=== PATIENT | female | born 1960 | race Caucasian/White ===

== ENCOUNTER 2017-10-18 13:51 | Emergency (ER) | payer OTHER ==
[~2017-10-18] VITALS: Ht 175.3 cm; Wt 111.5 kg
[2017-10-18 13:59] VITALS: TEMP 36.9; Ht 175.3 cm; Wt 111.5 kg
[2017-10-18 14:13] VITALS: O2SAT 93
[2017-10-18] MEDS ORDERED: SODIUM CHLORIDE 0.9% 1000ML 500 ML IV ONE (14:18)
[2017-10-18] MEDS ORDERED: ONDANSETRON INJ 2 MG/ML 2 ML VIAL IV STA (14:19)
[2017-10-18] MEDS ORDERED: SNQ/25 PO (14:20)
[2017-10-18] MEDS ORDERED: MULT-506 PO (14:20)
[2017-10-18] MEDS ORDERED: CHOL2000 PO (14:20)
[2017-10-18] MEDS ORDERED: PRAZ2CAP3 PO (14:20)
[2017-10-18] MEDS ORDERED: CLX20 PO (14:20)
[2017-10-18] MEDS ORDERED: MELO15TA4 PO (14:20)
[2017-10-18 14:39] LABS: BASO % 0.1 %; BASO ABS # 0.02 K/uL (0-0.2); EOS % 0.7 %; EOS ABS # 0.09 K/uL (0-0.5); HEMOGLOBIN 16.9 g/dL (12.0-16.0); IG# 0.04 K/uL (0.00-0.02); LYMPH % 16.9 %; LYMPH ABS # 2.26 K/uL (1.2-3.4); MEAN CORPUSCULAR HEMOGLOBIN 32.4 pg (25-34); MEAN PLATELET VOLUME 11.4 fL (7.4-10.4); MONO % 5.7 %; MONO ABS # 0.76 K/uL (0.11-0.59); NEUT % 76.3 %; NEUT ABS # 10.24 K/uL (1.4-6.5); PLATELET COUNT 184 K/uL (130-400); RED CELL DISTRIBUTION WIDTH SD 39.7 fL (36.4-46.3); WHITE BLOOD COUNT 13.41 K/uL (4.8-10.8)
--- NOTE | 2017-10-18 14:43 | EMERGENCY ROOM VISIT NOTE ---
History Report prepared by Jona: Sanchez Jarrell Under the Supervision of: Av PerryO. First contact with patient: 14:11 Chief Complaint: FLU LIKE SX Stated Complaint: FEVER, CHILLS, SOB, PAIN AROUND HEART, PAIN IN JAW History of Present Illness The patient is a 57 year old female who presents to the Emergency Room with complaints of worsening nausea beginning two days ago. The patient states she developed nausea two nights ago and has been in bed since. She reports she is also experiencing hot and cold spells. The patient notes she developed left sided chest pain and shortness of breath earlier. She states she had an episode of blurred vision, but it has resolved. The patient reports exertion worsens her symptoms. She notes she last took Tylenol 5 hours ago. The patient states she has a history of depression. She denies pain in her legs, swelling in her legs, abdominal pain, receiving her flu shot, a history of a blood clot in her legs or lungs, runny nose, and sorethroat. Source of History: patient Onset: 2 days ago Position: other (global) Quality: other (nausea) Timing: worsening Modifying Factors (Worsening): exertion Associated Symptoms: + chest pain, + SOB, No sorethroat, No abdominal pain Note: Associated symptoms: hot and cold spells, resolved episode of blurred vision Denies: pain in her legs, swelling in her legs, runny nose Review of Systems See HPI for pertinent positives & negatives. A total of 10 systems reviewed and were otherwise negative. Past Medical & Surgical Medical Problems: (1) Depression Family History Patient reports no known family medical history. Social History Smoking Status: Current Every Day Smoker Marital Status: single Occupation Status: retired Current/Historical Medications Scheduled Albuterol Hfa (Ventolin Hfa), 1 PUFF INH Q6 Cholecalciferol (Vitamin D3), 2,000 INTER.UNIT PO DAILY Citalopram (Citalopram Hydrobromide), 20 MG PO HS Doxepin (Sinequan), 25 MG PO HS Levofloxacin (Levaquin), 750 MG PO DAILY Meloxicam (Meloxicam), 15 MG PO HS Multivitamin (Multivitamin), 1 TAB PO DAILY Prazosin Hcl (Prazosin), 2 MG PO HS Allergies Coded Allergies: Sulfa Antibiotics (Verified Allergy, Unknown, UNKNOWN, 10/18/17) Morphine and Related (Verified Adverse Reaction, Unknown, PT CAN'T TAKE NARCOTICS, 10/18/17) Physical Exam Vital Signs Date Time Temp Pulse Resp B/P (MAP) Pulse Ox O2 Delivery O2 Flow Rate FiO2 10/18/17 16:27 124/75 10/18/17 16:00 139 98 10/18/17 15:30 88 19 115/71 92 10/18/17 15:16 104/69 10/18/17 15:04 98 16 120/80 92 Room Air 10/18/17 15:00 98 21 120/80 89 10/18/17 14:18 114 10/18/17 14:13 93 Room Air 10/18/17 13:59 36.9 133 18 102/66 94 Room Air Physical Exam GENERAL: Patient is awake, alert, and in no acute distress. Patient is resting comfortably and showing no signs of anxiety EYES: The conjunctivae are clear. The pupils are round and reactive. EARS, NOSE, MOUTH AND THROAT: The nose is without any evidence of any deformity. Mucous membranes are moist tongue is midline NECK: The neck is nontender and supple. RESPIRATORY: Right lung field is diminished with scattered rhonchi. No tachypnea or conversation dyspnea. CARDIOVASCULAR: Tachycardic rate and regular rhythm noted there no definite murmur to auscultation. normal S1 normal S2 GASTROINTESTINAL: The abdomen is soft. Bowel sounds are present in all quadrants. Abdomen is nontender PELVIS: The Pelvis is stable. No tenderness to palpation is noted. BACK: No midline tenderness or or step-off noted range of motion in flexion extension as well as rotation no signs of muscle spasm noted MUSCULOSKELETAL/EXTREMITIES: There is no evidence of gross deformity full range of motion is noted in the hips and shoulders SKIN: There is no obvious evidence of any rash. There are no petechiae, pallor or cyanosis noted. NEUROLOGIC: Patient is awake alert and oriented x3 Medical Decision & Procedures ER Provider Diagnostic Interpretation: Radiology results as stated below per my review and radiologist interpretation: CHEST ONE VIEW PORTABLE HISTORY: 57 years-old Female Sepsis acute sepsis COMPARISON: None available TECHNIQUE: Portable AP view of the chest FINDINGS: Cardiomediastinal and hilar silhouettes are within normal limits. There is no pneumothorax or pleural effusion. Hazy subsegmental left basilar opacities are noted. Bones of the chest appear grossly intact. IMPRESSION: No acute process identified. Ill-defined hazy subsegmental left basilar opacities suggest atelectasis . The above report was generated using voice recognition software. It may contain grammatical, syntax or spelling errors. Electronically signed by: José Wang M.D. 10/18/2017 3:04 PM Dictated Date/Time: 10/18/2017 2:32 PM (CHEST FOR PE) ANGIO WITH CT DOSE: 607.51 mGy.cm HISTORY: 57 years-old Female presents with acute atypical chest pain TECHNIQUE: Multiple CTA images of the chest were obtained after the intravenous administration of 92 ml Optiray 320. Coronal and sagittal MIPS were obtained from the axial data set and were submitted for review. A dose lowering technique was utilized adhering to the principles of ALARA. COMPARISON: Chest radiograph of same day. FINDINGS: CTA: Heart is normal in size without pericardial effusion. Mild coronary arterial disease. Thoracic aorta is normal in both course and caliber without aneurysm or dissection. The imaged great vessels appear patent. Mild atherosclerosis of the thoracic aorta. The pulmonary arterial tree is opacified to level of the subsegmental branches and demonstrates no focal filling defects to suggest pulmonary thromboembolic disease. CT CHEST: No focal thyroid nodule identified. Mildly prominent right hilar lymph nodes measure up to 7 mm, nonspecific. No pathologically enlarged lymph nodes by CT size criteria. There is no pleural effusion or pneumothorax identified.. Mild paraseptal emphysematous changes are seen within the upper lung zones. There is mild to moderate bilateral bronchial wall thickening. Linear subsegmental consolidative and patchy groundglass opacities are present within the lung bases. There are no suspicious pulmonary nodules or pulmonary masses identified. Central airways are patent. Hepatic steatosis. Spleen is enlarged, 13.5 cm. Soft tissues are unremarkable. The bones appear intact. IMPRESSION: 1. No acute aortic pathology or evidence of pulmonary thromboembolic disease. 2. Mild to moderate bilateral bronchial wall thickening compatible with bronchitis. 3. Subsegmental linear consolidative and patchy ground glass opacities of the lung bases suggest atelectasis. 4. Mild paraseptal emphysematous changes of the upper lung zones. 5. Hepatic steatosis. 6. Splenomegaly. The above report was generated using voice recognition software. It may contain grammatical, syntax or spelling errors. Electronically signed by: José Wang M.D. 10/18/2017 4:24 PM Dictated Date/Time: 10/18/2017 4:16 PM Laboratory Results 10/18/17 14:14 Red Blood Count 5.22, Mean Corpuscular Volume 90.0, Mean Corpuscular Hemoglobin 32.4, Mean Corpuscular Hemoglobin Concent 36.0, Mean Platelet Volume 11.4, Neutrophils (%) (Auto) 76.3, Lymphocytes (%) (Auto) 16.9, Monocytes (%) (Auto) 5.7, Eosinophils (%) (Auto) 0.7, Basophils (%) (Auto) 0.1, Neutrophils # (Auto) 10.24, Lymphocytes # (Auto) 2.26, Monocytes # (Auto) 0.76, Eosinophils # (Auto) 0.09, Basophils # (Auto) 0.02 10/18/17 14:14 Test 10/18/17 14:11 10/18/17 14:14 10/18/17 14:22 10/18/17 14:58 Influenza Type A Antigen Neg for Influ A (NEG) Influenza Type B Antigen Neg for Influ B (NEG) White Blood Count 13.41 K/uL (4.8-10.8) Red Blood Count 5.22 M/uL (4.2-5.4) Hemoglobin 16.9 g/dL (12.0-16.0) Hematocrit 47.0 % (37-47) Mean Corpuscular Volume 90.0 fL (80-100) Mean Corpuscular Hemoglobin 32.4 pg (25-34) Mean Corpuscular Hemoglobin Concent 36.0 g/dl (32-36) Platelet Count 184 K/uL (130-400) Mean Platelet Volume 11.4 fL (7.4-10.4) Neutrophils (%) (Auto) 76.3 % Lymphocytes (%) (Auto) 16.9 % Monocytes (%) (Auto) 5.7 % Eosinophils (%) (Auto) 0.7 % Basophils (%) (Auto) 0.1 % Neutrophils # (Auto) 10.24 K/uL (1.4-6.5) Lymphocytes # (Auto) 2.26 K/uL (1.2-3.4) Monocytes # (Auto) 0.76 K/uL (0.11-0.59) Eosinophils # (Auto) 0.09 K/uL (0-0.5) Basophils # (Auto) 0.02 K/uL (0-0.2) RDW Standard Deviation 39.7 fL (36.4-46.3) RDW Coefficient of Variation 12.0 % (11.5-14.5) Immature Granulocyte % (Auto) 0.3 % Immature Granulocyte # (Auto) 0.04 K/uL (0.00-0.02) Prothrombin Time 10.7 SECONDS (9.0-12.0) Prothromb Time International Ratio 1.0 (0.9-1.1) Activated Partial Thromboplast Time 29.2 SECONDS (21.0-31.0) Partial Thromboplastin Ratio 1.1 Anion Gap 7.0 mmol/L (3-11) Est Creatinine Clear Calc Drug Dose 76.8 ml/min Estimated GFR () 67.3 Estimated GFR (Non- 58.1 BUN/Creatinine Ratio 16.2 (10-20) Calcium Level 8.6 mg/dl (8.5-10.1) Phosphorus Level 2.7 mg/dl (2.5-4.9) Magnesium Level 1.7 mg/dl (1.8-2.4) Total Bilirubin 0.3 mg/dl (0.2-1) Aspartate Amino Transf (AST/SGOT) 51 U/L (15-37) Alanine Aminotransferase (ALT/SGPT) 66 U/L (12-78) Alkaline Phosphatase 157 U/L (45-117) Total Creatine Kinase 36 U/L (26-192) Creatine Kinase MB 0.7 ng/ml (0.5-3.6) Creatine Kinase MB Ratio 1.9 (0-3.0) Troponin I < 0.015 ng/ml (0-0.045) C-Reactive Protein 0.74 mg/dl (0-0.29) Pro-B-Type Natriuretic Peptide 23 pg/ml (0-900) Total Protein 8.4 gm/dl (6.4-8.2) Albumin 3.2 gm/dl (3.4-5.0) Globulin 5.2 gm/dl (2.5-4.0) Albumin/Globulin Ratio 0.6 (0.9-2) Lipase 173 U/L (73-393) Beta-Hydroxybutyric Acid 1.68 mg/dL (0.2-2.81) Bedside D-Dimer > 450 ng/mlFEU (0-450) Bedside Lactic Acid Venous 2.06 mmol/L (0.90-1.70) Test 10/18/17 16:27 Urine Color YELLOW Urine Appearance CLEAR (CLEAR) Urine pH 5.0 (4.5-7.5) Urine Specific Ivel > 1.045 (1.000-1.030) Urine Protein NEG (NEG) Urine Glucose (UA) 3+ (NEG) Urine Ketones NEG (NEG) Urine Occult Blood NEG (NEG) Urine Nitrite NEG (NEG) Urine Bilirubin NEG (NEG) Urine Urobilinogen NEG (NEG) Urine Leukocyte Esterase NEG (NEG) Urine WBC (Auto) 10-30 /hpf (0-5) Urine RBC (Auto) 0-4 /hpf (0-4) Urine Hyaline Casts (Auto) 1-5 /lpf (0-5) Urine Epithelial Cells (Auto) >30 /lpf (0-5) Urine Bacteria (Auto) 1+ (NEG) Urine Yeast (Auto) BUDDING (NONE PRSENT) Laboratory results per my review. Medications Administered Medications (Trade) Dose Ordered Sig/David Route Start Time Stop Time Status Last Admin Dose Admin Sodium Chloride 500 ml @ 999 mls/hr Q31M ONCE IV 10/18/17 14:18 10/18/17 14:48 DC 10/18/17 14:18 999 MLS/HR Ondansetron HCl (Zofran Inj) 4 mg NOW STAT IV 10/18/17 14:19 10/18/17 14:20 DC 10/18/17 14:45 4 MG Sodium Chloride 1,000 ml @ 999 mls/hr Q1H1M STAT IV 10/18/17 15:13 10/18/17 16:13 DC 10/18/17 15:13 999 MLS/HR Levofloxacin (Levaquin Tab) 750 mg NOW STAT PO 10/18/17 16:42 10/18/17 16:44 DC 10/18/17 16:56 750 MG Insulin Human Regular (novoLIN-R U-100 PER UNIT) 4 units NOW STAT IV 10/18/17 16:46 10/18/17 16:47 DC 10/18/17 16:55 4 UNITS ECG Indication: chest pain Rate (beats per minute): 116 Rhythm: sinus tachycardia Findings: no ectopy, other (No acute ST segment abnormality) Comparison ECG Date: no prior available Change: Patient's EKG was interpreted by me. ED Course 1414: The patient was evaluated in room A03. A complete history and physical examination were performed. 1418: Ordered NSS 500 ml @ 999 mls/hr IV 1419: Ordered Ondansetron HCl 4mg IV 1513: Ordered NSS 1,000 ml @ 999 mls/hr IV 1517: I reevaluated the patient and discussed her current exam findings. 1641: Upon reevaluation, the patient is resting comfortably. I discussed the results and treatment plan with her. She verbalized agreement of the treatment plan. The patient will be discharged home after receiving her medication. 1642: Ordered Levofloxacin 750mg PO 1646: Ordered Insulin Human Regular 4 units IV Medical Decision Differential diagnosis: Etiologies such as infections, reactive airway disease, pneumonia, pneumothorax , COPD, CHF, cardiac ischemia, pulmonary embolism, musculoskeletal, gastrointestinal, as well as others were entertained. Nursing notes reviewed. The patient is a 57-year-old female who presented to the emergency department for evaluation of cough and flulike symptoms. The patient was tachycardic and had reported fever. Her history and physical exam appeared to be consistent with a pulmonary infection. She had a questionable infiltrate on chest x-ray but she was persistently tachycardic. She was also hyperglycemic. She was treated with IV fluids as well as antibiotics in emergency apartment. She was also given IV insulin for elevated blood sugar. I discussed the patient's laboratory and radiographic studies with her. She was feeling much better on subsequent reevaluation. She was encouraged to rest and avoid any strenuous activity. I also recommended that she continue using Motrin and Tylenol as directed for fever body aches. I also encouraged her to follow-up with her family doctor this week for reevaluation or return to the emergency department immediately if symptoms change worsen or the need arises. Medication Reconcilliation Current Medication List: was personally reviewed by me Blood Pressure Screening Patient's blood pressure: Normal blood pressure Blood pressure disposition: Did not require urgent referral Impression Primary Impression: Chest pain Additional Impressions: PNA (pneumonia) Hyperglycemia Scribe Attestation The scribe's documentation has been prepared under my direction and personally reviewed by me in its entirety. I confirm that the note above accurately reflects all work, treatment, procedures, and medical decision making performed by me. Departure Information Dispostion Home / Self-Care Prescriptions Albuterol Hfa (VENTOLIN HFA) 200 Puffs/75833 Mcg Aers 1 PUFF INH Q6, #1 INHALER Prov: Kelvin Shah, DO 10/18/17 Levofloxacin (Levaquin) 750 Mg Tab 750 MG PO DAILY, #5 TAB Prov: Kelvin Shah, DO 10/18/17 Referrals Dariela Gupta M.D. (PCP) Forms HOME CARE DOCUMENTATION FORM, IMPORTANT VISIT INFORMATION Patient Instructions My [facility], Pneumonia Additional Instructions Call your family to schedule a follow-up appointment. Drink plenty clear liquids. Continue using Motrin and Tylenol as directed for fever and body aches. Continue all other medications as prescribed. Continue to monitor your blood sugar. Problem Qualifiers
[2017-10-18 14:45] LABS: PTT PATIENT 29.2 SECONDS (21.0-31.0)
[2017-10-18 14:58] LABS: ALBUMIN 3.2 gm/dl (3.4-5.0); ALKALINE PHOSPHATASE 157 U/L (45-117); ALT/SGPT 66 U/L (12-78); AST/SGOT 51 U/L (15-37); BLOOD UREA NITROGEN 17 mg/dl (7-18); CALCIUM 8.6 mg/dl (8.5-10.1); CARBON DIOXIDE 25 mmol/L (21-32); CKMB 0.7 ng/ml (0.5-3.6); CREATININE 1.05 mg/dl (0.60-1.20); GLUCOSE 481 mg/dl (70-99); LIPASE 173 U/L (73-393); PHOSPHORUS 2.7 mg/dl (2.5-4.9); POTASSIUM 4.6 mmol/L (3.5-5.1); SODIUM 128 mmol/L (136-145); TOTAL PROTEIN 8.4 gm/dl (6.4-8.2)
--- NOTE | 2017-10-18 15:05 | DIAGNOSTIC IMAGING REPORT ---
CHEST ONE VIEW PORTABLE HISTORY: 57 years-old Female Sepsis acute sepsis COMPARISON: None available TECHNIQUE: Portable AP view of the chest FINDINGS: Cardiomediastinal and hilar silhouettes are within normal limits. There is no pneumothorax or pleural effusion. Hazy subsegmental left basilar opacities are noted. Bones of the chest appear grossly intact. IMPRESSION: No acute process identified. Ill-defined hazy subsegmental left basilar opacities suggest atelectasis . The above report was generated using voice recognition software. It may contain grammatical, syntax or spelling errors. Electronically signed by: José Wang M.D. 10/18/2017 3:04 PM Dictated Date/Time: 10/18/2017 2:32 PM
[2017-10-18] MEDS ORDERED: SODIUM CHLORIDE 0.9% 1000ML 1,000 ML IV STA (15:13)
[2017-10-18] MEDS ORDERED: OPTIRAY 320 IV PRN (15:30)
[2017-10-18 15:42] LABS: INFLUENZA B ANTIGEN Neg for Influ B (NEG)
--- NOTE | 2017-10-18 16:25 | DIAGNOSTIC IMAGING REPORT ---
(CHEST FOR PE) ANGIO WITH CT DOSE: 607.51 mGy.cm HISTORY: 57 years-old Female presents with acute atypical chest pain TECHNIQUE: Multiple CTA images of the chest were obtained after the intravenous administration of 92 ml Optiray 320. Coronal and sagittal MIPS were obtained from the axial data set and were submitted for review. A dose lowering technique was utilized adhering to the principles of ALARA. COMPARISON: Chest radiograph of same day. FINDINGS: CTA: Heart is normal in size without pericardial effusion. Mild coronary arterial disease. Thoracic aorta is normal in both course and caliber without aneurysm or dissection. The imaged great vessels appear patent. Mild atherosclerosis of the thoracic aorta. The pulmonary arterial tree is opacified to level of the subsegmental branches and demonstrates no focal filling defects to suggest pulmonary thromboembolic disease. CT CHEST: No focal thyroid nodule identified. Mildly prominent right hilar lymph nodes measure up to 7 mm, nonspecific. No pathologically enlarged lymph nodes by CT size criteria. There is no pleural effusion or pneumothorax identified.. Mild paraseptal emphysematous changes are seen within the upper lung zones. There is mild to moderate bilateral bronchial wall thickening. Linear subsegmental consolidative and patchy groundglass opacities are present within the lung bases. There are no suspicious pulmonary nodules or pulmonary masses identified. Central airways are patent. Hepatic steatosis. Spleen is enlarged, 13.5 cm. Soft tissues are unremarkable. The bones appear intact. IMPRESSION: 1. No acute aortic pathology or evidence of pulmonary thromboembolic disease. 2. Mild to moderate bilateral bronchial wall thickening compatible with bronchitis. 3. Subsegmental linear consolidative and patchy ground glass opacities of the lung bases suggest atelectasis. 4. Mild paraseptal emphysematous changes of the upper lung zones. 5. Hepatic steatosis. 6. Splenomegaly. The above report was generated using voice recognition software. It may contain grammatical, syntax or spelling errors. Electronically signed by: José Wang M.D. 10/18/2017 4:24 PM Dictated Date/Time: 10/18/2017 4:16 PM
[2017-10-18] MEDS ORDERED: LEVOFLOXACIN 250 MG TAB PO STA (16:42)
[2017-10-18] MEDS ORDERED: NovoLIN-R INSULIN PER UNIT CHARGE IV STA (16:46)
[2017-10-18] MEDS ORDERED: VNTHFA/IN INH (17:00)
[2017-10-18] MEDS ORDERED: LEVO1TAB35 PO (17:00)
[2017-10-18 17:30] VITALS: BP 124/75; PULSE 139; O2SAT 98
== END 2017-10-18 17:32 | disposition home or self-care (01) ==
LOC: C.EDB 13:54 → C.EDA 17:32
DX: R07.9 Chest pain, unspecified (principal); J18.9 Pneumonia, unspecified organism; R73.9 Hyperglycemia, unspecified; F32.9 Major depressive disorder, single episode, unspecified; F17.210 Nicotine dependence, cigarettes, uncomplicated; Z79.899 Other long term (current) drug therapy

== ENCOUNTER 2017-12-20 16:02 | Emergency (ER) | payer OTHER ==
[~2017-12-20] VITALS: Ht 175.3 cm; Wt 110.0 kg
[~2017-12-20 16:02] MED LIST: CHOL2000 PO; CLX20 PO; LEVO1TAB35 PO; MELO-83 PO; MULT-506 PO; PRAZ2CAP3 PO; SNQ/25 PO; VNTHFA/IN INH
[2017-12-20 16:21] VITALS: TEMP 36.4; Ht 175.3 cm; Wt 110.0 kg
[2017-12-20] MEDS ORDERED: IBUPROFEN 600 MG TAB PO STA (17:10)
[2017-12-20] MEDS ORDERED: ONDANSETRON HOME PACK 4MG OD TAB PO STA (17:10)
[2017-12-20] MEDS ORDERED: TYLENOL #3 HOME PACK PO STA (17:10)
[2017-12-20] MEDS ORDERED: ACETAMINOPHEN/CODEINE 300/30MG TAB PO STA (17:10)
--- NOTE | 2017-12-20 17:12 | EMERGENCY ROOM VISIT NOTE ---
History Report prepared by Jona: Ignacio Rocha Under the Supervision of: Dr. Andrew Madrid M.D. First contact with patient: 17:01 Chief Complaint: SKIN PROBLEM Stated Complaint: LUMPS,RASH,PAIN ON HEAD History of Present Illness The patient is a 57 year old female who presents to the Emergency Room with complaints of a constant rash on the back of her head beginning 6 days ago. The patient states that her rash is located all the way across the back of her head and is sore and itchy. She notes that she took Tylenol with no relief of her symptoms. She reports that she saw her doctor 2 days ago and was given valacyclovir for possible shingles. Source of History: patient Onset: 6 days ago Position: head Quality: other (rash) Timing: constant Note: The patient also complains of head soreness and itchiness. Review of Systems See HPI for pertinent positives & negatives. A total of 10 systems reviewed and were otherwise negative. Past Medical & Surgical Medical Problems: (1) Depression Surgical Problems: (1) Hx of cholecystectomy Family History Cancer Diabetes mellitus Gallbladder disease Hypertension Kidney disease Kidney stones Lung disease Social History Smoking Status: Current Every Day Smoker Marital Status: single Housing Status: lives with family Occupation Status: retired Current/Historical Medications Scheduled Acetaminophen W/ Codeine (Tylenol W/Codeine #3), 2 TAB PO Q6 Bupropion Hcl (Smoking Deterre (Bupropion Hcl Sr), 150 MG PO DAILY Cholecalciferol (Vitamin D3), 2,000 INTER.UNIT PO DAILY Citalopram Hydrobromide (Celexa), 40 MG PO DAILY Doxepin (Sinequan), 25 MG PO HS Meloxicam (Meloxicam), 15 MG PO HS Multivitamin (Multivitamin), 1 TAB PO DAILY Ondasetron Odt (Zofran Odt), 4 MG SL Q6H Prazosin Hcl (Prazosin), 1 MG PO HS Valacyclovir Hcl (Valtrex), 1 GM PO TID Allergies Coded Allergies: Sulfa Antibiotics (Verified Allergy, Unknown, UNKNOWN, 10/18/17) Morphine and Related (Verified Adverse Reaction, Unknown, PT CAN'T TAKE NARCOTICS, 10/18/17) Physical Exam Vital Signs Date Time Temp Pulse Resp B/P (MAP) Pulse Ox O2 Delivery O2 Flow Rate FiO2 12/20/17 17:40 98 18 118/67 98 12/20/17 16:21 36.4 87 16 120/77 96 Physical Exam GENERAL: Awake, alert, well-appearing, in no acute distress HENT: Normocephalic, atraumatic. Oropharynx unremarkable. EYES: Normal conjunctiva. Sclera non-icteric. NECK: Supple. No nuchal rigidity. FROM. No JVD. RESPIRATORY: Clear to auscultation. CARDIAC: Regular rate, normal rhythm. Extremities warm and well perfused. Pulses equal. ABDOMEN: Soft, non-distended. No tenderness to palpation. No rebound or guarding. No masses. RECTAL: Deferred. MUSCULOSKELETAL: Chest examination reveals no tenderness. The back is symmetrical on inspection without obvious abnormality. There is no CVA tenderness to palpation. No joint edema. LOWER EXTREMITIES: Calves are equal size bilaterally and non-tender. No edema. No discoloration. NEURO: Normal sensorium. No sensory or motor deficits noted. SKIN: No jaundice noted. Shingles rash in distribution of C2. Medical Decision & Procedures Medications Administered Medications (Trade) Dose Ordered Sig/David Route Start Time Stop Time Status Last Admin Dose Admin Ibuprofen (Motrin Tab) 600 mg NOW STAT PO 12/20/17 17:10 12/20/17 17:13 DC 12/20/17 17:42 600 MG Acetaminophen/ Codeine Phosphate (TYLENOL W/ CODEINE #3 Home Pack) 1 homepack UD STAT PO 12/20/17 17:10 12/20/17 17:13 DC 12/20/17 17:40 1 HOMEPACK Acetaminophen/ Codeine Phosphate (Tylenol w/ Codeine #3 Tab) 2 tab NOW STAT PO 12/20/17 17:10 12/20/17 17:13 DC 12/20/17 17:42 2 TAB Ondansetron HCl (ZOFRAN ODT 4MG Home Pack) 1 homepack UD STAT PO 12/20/17 17:10 12/20/17 17:13 DC 12/20/17 17:41 1 HOMEPACK ED Course 1702: Past medical records reviewed. The patient was evaluated in room B10. A complete history and physical examination was performed. 1710: Ondansetron HCl 1 homepack PO, Acetaminophen/Codeine Phosphate 2 tab PO, Acetaminophen/Codeine Phosphate 1 homepack PO, Ibuprofen 600mg PO Medical Decision Differential Diagnoses Include: rash, skin, allergic reaction, and shingles. This is a 57-year-old female who presents emergency department complaining of a rash in the pattern of the C2 area. I do believe that the patient is suffering from shingles. Her primary care physician has already placed her on Valtrex. I recommended taking Motrin and Tylenol with codeine for the pain. Patient was also given Zofran. Patient does not have any disseminated disease and is afebrile. I cautioned the patient on interacting with women. Patient was in agreement with treatment plan. Medication Reconcilliation Current Medication List: was personally reviewed by me Blood Pressure Screening Patient's blood pressure: Normal blood pressure Blood pressure disposition: Did not require urgent referral Impression Primary Impression: Shingles Scribe Attestation The scribe's documentation has been prepared under my direction and personally reviewed by me in its entirety. I confirm that the note above accurately reflects all work, treatment, procedures, and medical decision making performed by me. Departure Information Dispostion Home / Self-Care Prescriptions Ondasetron Odt (ZOFRAN ODT) 4 Mg Tab 4 MG SL Q6H for Nausea, #6 TAB Prov: Andrew Madrid MD 12/20/17 Acetaminophen W/ Codeine (TYLENOL W/CODEINE #3) 1 Tab Tab 2 TAB PO Q6, #14 TAB Prov: Andrew Madrid MD 12/20/17 Referrals Dariela Gupta M.D. (PCP) Forms HOME CARE DOCUMENTATION FORM, IMPORTANT VISIT INFORMATION, WORK / SCHOOL INSTRUCTIONS Patient Instructions My [facility] Additional Instructions You received narcotic or benzodiazepene medication while in the emergency room today. This is an addictive medication that may cause drowziness as well as constipation. Do not drive, operate heavy machinery, or drink alcohol under the influence of this medication. Take 600 mg Ibuprofen every 6 hours Take Tylenol 3 for breakthrough pain You have been examined and treated today on an emergency basis only. This is not a substitute for, or an effort to provide, complete comprehensive medical care. It is impossible to recognize and treat all injuries or illnesses in a single emergency department visit. It is therefore important that you follow up closely with Dr Gupta. Call as soon as possible for an appointment. Thank you for your time and consideration. I look forward to speaking with you again soon. Please don't hesitate to call us if you have any questions. Problem Qualifiers Primary Impression: Shingles Herpes zoster complications: without complications Qualified Codes: B02.9 - Zoster without complications
[2017-12-20] MEDS ORDERED: ONDA4TAB10 SL (17:14)
[2017-12-20] MEDS ORDERED: ACET300T2 PO (17:14)
[2017-12-20] MEDS ORDERED: CITA40TA12 PO (17:22)
[2017-12-20] MEDS ORDERED: VALA1TAB31 PO (17:22)
[2017-12-20] MEDS ORDERED: BUPR-102 PO (17:22)
[2017-12-20] MEDS ORDERED: PRAZ1CAP10 PO (17:22)
[2017-12-20 17:40] VITALS: BP 118/67; PULSE 98; O2SAT 98
== END 2017-12-20 17:50 | disposition home or self-care (01) ==
LOC: C.EDB 16:03
DX: B02.9 Zoster without complications (principal); F17.200 Nicotine dependence, unspecified, uncomplicated; F32.9 Major depressive disorder, single episode, unspecified; Z88.2 Allergy status to sulfonamides; Z88.6 Allergy status to analgesic agent; Z83.3 Family history of diabetes mellitus; Z83.79 Family history of other diseases of the digestive system; Z82.49 Family history of ischemic heart disease and other diseases of the circulatory system; Z84.1 Family history of disorders of kidney and ureter; Z83.6 Family history of other diseases of the respiratory system

== ENCOUNTER 2018-05-07 19:23 | Emergency (ER) | payer OTHER ==
[~2018-05-07] VITALS: Ht 175.3 cm; Wt 112.3 kg
[~2018-05-07 19:23] MED LIST changes: +BUPR-102 PO; +CITA40TA12 PO; -CLX20 PO; -LEVO1TAB35 PO; +ONDA4TAB10 SL; +PRAZ1CAP10 PO; -PRAZ2CAP3 PO; +VALA1TAB31 PO; -VNTHFA/IN INH
[2018-05-07 19:27] VITALS: TEMP 37; Ht 175.3 cm; Wt 112.3 kg
[2018-05-07] MEDS ORDERED: LIDOCAINE/EPINEPHRINE 1% 20 ML VIAL INFIL STA (20:00)
[2018-05-07] MEDS ORDERED: ACETAMINOPHEN/CODEINE 300/30MG TAB PO ONE (20:00)
[2018-05-07] MEDS ORDERED: TYLENOL #3 HOME PACK PO ONE (20:00)
[2018-05-07] MEDS ORDERED: GLC/500 PO (20:17)
[2018-05-07] MEDS ORDERED: DOXYCYCLINE HYCLATE 100 MG CAP PO STA (20:39)
[2018-05-07] MEDS ORDERED: AMOX875T PO (20:42)
[2018-05-07] MEDS ORDERED: ACET300T2 PO (20:43)
[2018-05-07 20:58] VITALS: BP 142/87; PULSE 87; O2SAT 95
--- NOTE | 2018-05-07 21:29 | EMERGENCY ROOM VISIT NOTE ---
History Report prepared by Jona: Leslie Amaya Under the Supervision of: Dr. Andrew Madrid M.D. First contact with patient: 19:56 Chief Complaint: GROIN PAIN Stated Complaint: LUMP ON UPPER LEG CAUSING PAIN, BOWERS WITH COLD CHILL History of Present Illness The patient is a 58 year old female who presents to the Emergency Room with complaints of worsening groin pain that onset last night. The patient notes that she has a lump on her upper leg in her groin. She notes that she took Tylenol this morning and it helped to alleviate the pain. She states that touching the area exacerbates her pain. The patient complains of urinary symptoms, headache, and chills. The patient notes that she has had this issue in the past and the lumps had to be drained. She states that she is allergic to most pain medications. Source of History: patient Onset: last night Position: other (groin) Timing: worsening Modifying Factors (Worsening): other (touch) Modifying Factors (Relieving): tylenol Associated Symptoms: + chills, + headache, + urinary symptoms Review of Systems See HPI for pertinent positives & negatives. A total of 10 systems reviewed and were otherwise negative. Past Medical & Surgical Medical Problems: (1) Depression Surgical Problems: (1) Hx of cholecystectomy Family History Cancer Diabetes mellitus Gallbladder disease Hypertension Kidney disease Kidney stones Lung disease Social History Smoking Status: Current Every Day Smoker Marital Status: single Housing Status: lives with family Occupation Status: retired Current/Historical Medications Scheduled Acetaminophen W/ Codeine (Tylenol W/Codeine #3), 1 TAB PO Q6 Amoxicillin & Pot Clavulanate (Augmentin 875-125 mg), 1 TAB PO BID Bupropion Hcl (Smoking Deterre (Bupropion Hcl Sr), 150 MG PO DAILY Cholecalciferol (Vitamin D3), 2,000 INTER.UNIT PO DAILY Citalopram Hydrobromide (Celexa), 40 MG PO DAILY Doxepin (Sinequan), 25 MG PO HS Meloxicam (Meloxicam), 15 MG PO HS Metformin Hcl (Glucophage), 500 MG PO BID Multivitamin (Multivitamin), 1 TAB PO DAILY Ondasetron Odt (Zofran Odt), 4 MG SL Q6H Prazosin Hcl (Prazosin), 1 MG PO HS Allergies Coded Allergies: Sulfa Antibiotics (Verified Allergy, Unknown, UNKNOWN, 05/07/18) Morphine and Related (Verified Adverse Reaction, Unknown, PT CAN'T TAKE NARCOTICS, 05/07/18) Physical Exam Vital Signs Date Time Temp Pulse Resp B/P (MAP) Pulse Ox O2 Delivery O2 Flow Rate FiO2 05/07/18 20:58 87 18 142/87 95 05/07/18 19:27 37.0 87 16 127/78 95 Room Air Physical Exam GENERAL: Awake, alert, well-appearing, in no acute distress HENT: Normocephalic, atraumatic. Oropharynx unremarkable. EYES: Normal conjunctiva. Sclera non-icteric. NECK: Supple. No nuchal rigidity. FROM. No JVD. RESPIRATORY: Clear to auscultation. CARDIAC: Regular rate, normal rhythm. Extremities warm and well perfused. Pulses equal. ABDOMEN: Soft, non-distended. No tenderness to palpation. No rebound or guarding. No masses. RECTAL: Deferred. MUSCULOSKELETAL: Chest examination reveals no tenderness. The back is symmetrical on inspection without obvious abnormality. There is no CVA tenderness to palpation. No joint edema. LOWER EXTREMITIES: Calves are equal size bilaterally and non-tender. No edema. No discoloration. NEURO: Normal sensorium. No sensory or motor deficits noted. SKIN: Fluctuant area 1 inch by 1 inch in right groin. Medical Decision & Procedures Laboratory Results Test 05/07/18 20:07 Urine Color DK YELLOW Urine Appearance CLOUDY (CLEAR) Urine pH 5.5 (4.5-7.5) Urine Specific [place] 1.024 (1.000-1.030) Urine Protein 1+ (NEG) Urine Glucose (UA) 1+ (NEG) Urine Ketones TRACE (NEG) Urine Occult Blood NEG (NEG) Urine Nitrite POS (NEG) Urine Bilirubin NEG (NEG) Urine Urobilinogen NEG (NEG) Urine Leukocyte Esterase MODERATE (NEG) Urine WBC (Auto) >30 /hpf (0-5) Urine RBC (Auto) 0-4 /hpf (0-4) Urine Hyaline Casts (Auto) >30 /lpf (0-5) Urine Epithelial Cells (Auto) >30 /lpf (0-5) Urine Bacteria (Auto) 4+ (NEG) Labs reviewed by ED physician. Medications Administered Medications (Trade) Dose Ordered Sig/David Route Start Time Stop Time Status Last Admin Dose Admin Acetaminophen/ Codeine Phosphate (Tylenol w/ Codeine #3 Tab) 2 tab NOW ONCE PO 05/07/18 20:00 05/07/18 20:02 DC 05/07/18 20:07 2 TAB Acetaminophen/ Codeine Phosphate (TYLENOL W/ CODEINE #3 Home Pack) 1 homepack UD ONCE PO 05/07/18 20:00 05/07/18 20:02 DC 05/07/18 20:58 1 HOMEPACK Doxycycline Hyclate (Vibramycin Cap) 100 mg ONE STAT PO 05/07/18 20:39 05/07/18 20:41 DC 05/07/18 20:58 100 MG Procedure Incision & Drainage Indication: Abscess. Location: right groin area Verbal consent was obtained after the risks and benefits were explained, including but not limited to bleeding, scarring, infection, pain, and bone/joint /nerve damage. At this time, the risks of the procedure are less than the risks of NOT performing the procedure. A time out was taken and the correct patient and site identified. The skin was prepped with betadine and a sterile field set. The wound was anesthetized with 10 ml of 1% lidocaine without epinephrine. The abscess cavity was entered with a number 11 blade and pus material expressed. Copious irrigation was performed using 100 cc of normal saline. The wound was explored for foreign bodies and none found. Debridement was not performed. Packing placed and a sterile dressing applied. Detailed wound care instructions and signs and symptoms of worsening infection reviewed with the patient. No complications and the patient tolerated the procedure well. ED Course 1955: Past medical records reviewed. The patient was evaluated in room C10. A complete history and physical examination was performed. 2030: I performed an incision and drainage. 2100: Upon reexamination the patient is resting comfortably. I discussed results and treatment plan with the patient. She verbalizes agreement and understanding. The patient is ready for discharge. Medical Decision Differential diagnosis: Etiologies such as groin abscess, UTI, as well as others were entertained. This is a 58-year-old female who presents the emergency department complaining of abscess to her right upper leg. To the flocculence incision and drainage was performed as above. She is also concerned about urinary symptoms therefore she will be started on Augmentin pending culture results. Patient was in agreement with the treatment plan. She was also placed on Tylenol with codeine. Medication Reconcilliation Current Medication List: was personally reviewed by me Blood Pressure Screening Patient's blood pressure: Elevated blood pressure Blood pressure disposition: Referred to PCP Impression Primary Impression: UTI (urinary tract infection) Additional Impression: Abscess Scribe Attestation The scribe's documentation has been prepared under my direction and personally reviewed by me in its entirety. I confirm that the note above accurately reflects all work, treatment, procedures, and medical decision making performed by me. Departure Information Dispostion Home / Self-Care Prescriptions Acetaminophen W/ Codeine (TYLENOL W/CODEINE #3) 1 Tab Tab 1 TAB PO Q6, #14 TAB Prov: Andrew Madrid MD 05/07/18 Amoxicillin & Pot Clavulanate (Augmentin 875-125 mg) 1 Tab Tab 1 TAB PO BID for 10 Days, #20 TAB Prov: Andrew Madrid MD 05/07/18 Referrals Dariela Gupta M.D. (PCP) Forms HOME CARE DOCUMENTATION FORM, IMPORTANT VISIT INFORMATION, WORK / SCHOOL INSTRUCTIONS Patient Instructions My [facility] Additional Instructions You were found to have an elevated blood pressure today (>120 sytolic or >90 diastolic). Per medicare guidelines, you need to follow up with this blood pressure screening with your Primary Care Physician (PCP). For a new PCP call [phone]. You received narcotic or benzodiazepene medication while in the emergency room today. This is an addictive medication that may cause drowziness as well as constipation. Do not drive, operate heavy machinery, or drink alcohol under the influence of this medication. Take 600 mg Ibuprofen every 6 hours Take Tylenol#3 for breakthrough pain Culture results are usually available in approx 48 hours You have been examined and treated today on an emergency basis only. This is not a substitute for, or an effort to provide, complete comprehensive medical care. It is impossible to recognize and treat all injuries or illnesses in a single emergency department visit. It is therefore important that you follow up closely with Dr Gupta. Call as soon as possible for an appointment. Thank you for your time and consideration. I look forward to speaking with you again soon. Please don't hesitate to call us if you have any questions. Problem Qualifiers
== END 2018-05-07 20:58 | disposition home or self-care (01) ==
LOC: C.EDB 19:26 → C.EDC 20:58
DX: L02.415 Cutaneous abscess of right lower limb (principal); N39.0 Urinary tract infection, site not specified; R03.0 Elevated blood-pressure reading, without diagnosis of hypertension; F32.9 Major depressive disorder, single episode, unspecified; F17.200 Nicotine dependence, unspecified, uncomplicated; Z88.2 Allergy status to sulfonamides; Z88.6 Allergy status to analgesic agent

== ENCOUNTER 2018-05-09 15:14 | Emergency (ER) | payer OTHER ==
[~2018-05-09] VITALS: Ht 172.7 cm; Wt 111.8 kg
[~2018-05-09 15:14] MED LIST changes: +ACET300T2 PO; +AMOX875T PO; +GLC/500 PO; -VALA1TAB31 PO
[2018-05-09 15:21] VITALS: TEMP 36.9; Ht 172.7 cm; Wt 111.8 kg
[2018-05-09] MEDS ORDERED: SODIUM CHLORIDE 0.9% 500ML 500 ML IV STA (16:27)
[2018-05-09] MEDS ORDERED: CEFTRIAXONE SOD INJ 1 GM ADDVIAL IV STA (16:27)
[2018-05-09 17:34] LABS: BASO % 0.2 %; BASO ABS # 0.03 K/uL (0-0.2); EOS % 1.4 %; EOS ABS # 0.17 K/uL (0-0.5); HEMATOCRIT 41.5 % (37-47); HEMOGLOBIN 14.3 g/dL (12.0-16.0); IG# 0.02 K/uL (0.00-0.02); LYMPH % 30.2 %; LYMPH ABS # 3.79 K/uL (1.2-3.4); MEAN CELL VOLUME 90.4 fL (80-100); MEAN CORPUSCULAR HEMOGLOBIN 31.2 pg (25-34); MEAN CORPUSCULAR HGB CONC 34.5 g/dl (32-36); MEAN PLATELET VOLUME 10.3 fL (7.4-10.4); MONO % 10.4 %; NEUT % 57.6 %; NEUT ABS # 7.23 K/uL (1.4-6.5); PLATELET COUNT 172 K/uL (130-400); RED CELL DISTRIBUTION WIDTH CV 12.2 % (11.5-14.5); RED CELL DISTRIBUTION WIDTH SD 40.2 fL (36.4-46.3); WHITE BLOOD COUNT 12.54 K/uL (4.8-10.8)
[2018-05-09 17:53] LABS: CALCIUM 9.1 mg/dl (8.5-10.1); CREATININE 0.79 mg/dl (0.60-1.20); POTASSIUM 4.2 mmol/L (3.5-5.1)
--- NOTE | 2018-05-09 17:58 | DIAGNOSTIC IMAGING REPORT ---
RIGHT GROIN ULTRASOUND CLINICAL HISTORY: R inner thigh cellulitis vs abscess COMPARISON STUDY: No previous studies for comparison. FINDINGS: Subcutaneous edema of the medial right thigh is noted. Note is made of a 1.8 x 0.5 x 1.6 cm fluid collection within the subcutaneous tissues of the right thigh. No additional fluid collections are identified. IMPRESSION: 1.8 x 0.5 x 1.6 cm pocket of fluid within the subcutaneous tissues of the medial right thigh. This may reflect subcutaneous edema or a tiny residual abscess. Electronically signed by: Delmer Felipe M.D. 05/09/2018 5:57 PM Dictated Date/Time: 05/09/2018 5:55 PM
[2018-05-09] MEDS ORDERED: KETOROLAC TROMETHAMINE 30 MG/ML VIAL IV STA (18:20)
[2018-05-09] MEDS ORDERED: ACETAMINOPHEN 500 MG TAB PO STA (18:20)
[2018-05-09] MEDS ORDERED: NYSTATIN POWDER 15GM BTL EXT STA (18:22)
[2018-05-09] MEDS ORDERED: CEPH500C PO (18:25)
[2018-05-09] MEDS ORDERED: ACET300T3 PO (18:25)
[2018-05-09] MEDS ORDERED: TYLENOL #3 HOME PACK PO ONE (18:30)
[2018-05-09] MEDS ORDERED: CEPHALEXIN 500MG HOME PACK 1 EA BTL PO ONE (18:30)
[2018-05-09 19:06] VITALS: BP 141/79; PULSE 75; O2SAT 92
--- NOTE | 2018-05-10 00:13 | EMERGENCY ROOM VISIT NOTE ---
History First contact with patient: 15:37 Chief Complaint: SKIN PROBLEM Stated Complaint: ABCESS,REFERRED BY MD History of Present Illness The patient is a 58 year old female who presents to the Emergency Room with complaints of a worsening infection of the right inner thigh. The patient reports that she was here 2 days ago for an abscess and urinary tract infection. She reports that the abscess was drained. She was given a prescription for Augmentin. She has been taking her antibiotic twice daily, and reports that the infection has significantly worsened. She denies any fevers or chills. She rates her discomfort a 5 out of 10, with worsening pain with any contact with the area. The patient reports a prior history of recurrent skin infections. She denies any known history of antibiotic resistant infections. Review of Systems HEENT: Denies dizziness, visual problems, hearing loss, tinnitus. Denies difficulty swallowing or oral lesions. PULMONARY: Denies cough, shortness of breath, sputum production or hemoptysis. CARDIOVASCULAR: Denies chest pain, palpitations, dyspnea on exertion, orthopnea or peripheral edema. GASTROINTESTINAL: Denies diarrhea, constipation, nausea, vomiting, or abdominal pain. GENITOURINARY: Denies dysuria, frequency, urgency or nocturia. NEUROLOGIC: Denies history of epilepsy, CVA, TIA or chronic headaches. MUSCULOSKELETAL: Denies history of joint tenderness/swelling. SKIN: Denies rashes or lesions. PSYCHIATRIC: History of depression. ENDOCRINE: History of diabetes. Patient denies thyroid disorders. Past Medical/Surgical History Medical Problems: (1) Cellulitis of thigh (2) Depression Surgical Problems: (1) Hx of cholecystectomy Family History Cancer Diabetes mellitus Gallbladder disease Hypertension Kidney disease Kidney stones Lung disease Social History Smoking Status: Current Every Day Smoker Alcohol Use: none Marital Status: single Housing Status: lives with family Occupation Status: retired Current/Historical Medications Scheduled Acetaminophen W/ Codeine (Tylenol W/Codeine #3), 1 TAB PO Q6 Amoxicillin & Pot Clavulanate (Augmentin 875-125 mg), 1 TAB PO BID Bupropion Hcl (Smoking Deterre (Bupropion Hcl Sr), 150 MG PO DAILY Cephalexin Monohydrate (Keflex), 500 MG PO QID Cholecalciferol (Vitamin D3), 2,000 INTER.UNIT PO DAILY Citalopram Hydrobromide (Celexa), 40 MG PO DAILY Doxepin (Sinequan), 25 MG PO HS Meloxicam (Meloxicam), 15 MG PO HS Metformin Hcl (Glucophage), 500 MG PO BID Multivitamin (Multivitamin), 1 TAB PO DAILY Ondasetron Odt (Zofran Odt), 4 MG SL Q6H Prazosin Hcl (Prazosin), 1 MG PO HS Scheduled PRN Acetaminophen/Codeine (Tylenol W/Codeine #3), 1 TAB PO Q4H PRN for Pain Physical Exam Vital Signs Date Time Temp Pulse Resp B/P (MAP) Pulse Ox O2 Delivery O2 Flow Rate FiO2 05/09/18 19:06 75 18 141/79 92 05/09/18 18:10 75 18 118/77 94 Room Air 05/09/18 16:55 78 16 134/84 94 Room Air 05/09/18 15:21 36.9 95 20 138/81 94 Room Air Physical Exam CONSTITUTIONAL: Healthy and well nourished. Alert and oriented X 3 with positive affect. Patient does not appear acutely ill or toxic. She does appear in mild discomfort with exam. HEENT: Normocephalic, atraumatic. Pupils equal, round and reactive. NECK: Full active range of motion without discomfort. RESPIRATORY: Clear to auscultation bilaterally with no wheezing, crackles, rhonchi or stridor. CARDIOVASCULAR: Regular rate and rhythm with no murmurs, rubs or gallops. GASTROINTESTINAL: Bowel sounds present in all quadrants. Soft and nontender to palpation. MUSCULOSKELETAL: Patient has no worsening pain with range of motion of the right hip. INTEGUMENTARY: Examination shows notable erythema and an inner thigh. The area around the wound also looks ecchymotic. Erythema does not cross the inguinal crease, and has no tenderness to palpation across the mons or lateral hip region. NEUROLOGIC: No focal neurologic deficits noted. Medical Decision & Procedures ER Provider Diagnostic Interpretation: Ultrasound of the right inner thigh shows a small pocket of fluid, which is likely a residual abscess. Radiologist report is as follows: RIGHT GROIN ULTRASOUND CLINICAL HISTORY: R inner thigh cellulitis vs abscess COMPARISON STUDY: No previous studies for comparison. FINDINGS: Subcutaneous edema of the medial right thigh is noted. Note is made of a 1.8 x 0.5 x 1.6 cm fluid collection within the subcutaneous tissues of the right thigh. No additional fluid collections are identified. IMPRESSION: 1.8 x 0.5 x 1.6 cm pocket of fluid within the subcutaneous tissues of the medial right thigh. This may reflect subcutaneous edema or a tiny residual abscess. Laboratory Results 05/09/18 17:15 Red Blood Count 4.59, Mean Corpuscular Volume 90.4, Mean Corpuscular Hemoglobin 31.2, Mean Corpuscular Hemoglobin Concent 34.5, Mean Platelet Volume 10.3, Neutrophils (%) (Auto) 57.6, Lymphocytes (%) (Auto) 30.2, Monocytes (%) (Auto) 10.4, Eosinophils (%) (Auto) 1.4, Basophils (%) (Auto) 0.2, Neutrophils # (Auto ) 7.23, Lymphocytes # (Auto) 3.79, Monocytes # (Auto) 1.30, Eosinophils # (Auto ) 0.17, Basophils # (Auto) 0.03 05/09/18 17:15 Test 05/09/18 17:15 05/09/18 17:29 White Blood Count 12.54 K/uL (4.8-10.8) Red Blood Count 4.59 M/uL (4.2-5.4) Hemoglobin 14.3 g/dL (12.0-16.0) Hematocrit 41.5 % (37-47) Mean Corpuscular Volume 90.4 fL (80-100) Mean Corpuscular Hemoglobin 31.2 pg (25-34) Mean Corpuscular Hemoglobin Concent 34.5 g/dl (32-36) Platelet Count 172 K/uL (130-400) Mean Platelet Volume 10.3 fL (7.4-10.4) Neutrophils (%) (Auto) 57.6 % Lymphocytes (%) (Auto) 30.2 % Monocytes (%) (Auto) 10.4 % Eosinophils (%) (Auto) 1.4 % Basophils (%) (Auto) 0.2 % Neutrophils # (Auto) 7.23 K/uL (1.4-6.5) Lymphocytes # (Auto) 3.79 K/uL (1.2-3.4) Monocytes # (Auto) 1.30 K/uL (0.11-0.59) Eosinophils # (Auto) 0.17 K/uL (0-0.5) Basophils # (Auto) 0.03 K/uL (0-0.2) RDW Standard Deviation 40.2 fL (36.4-46.3) RDW Coefficient of Variation 12.2 % (11.5-14.5) Immature Granulocyte % (Auto) 0.2 % Immature Granulocyte # (Auto) 0.02 K/uL (0.00-0.02) Erythrocyte Sedimentation Rate 73 mm/hr (0-21) Anion Gap 6.0 mmol/L (3-11) Est Creatinine Clear Calc Drug Dose 99.3 ml/min Estimated GFR () 94.3 Estimated GFR (Non- 81.4 BUN/Creatinine Ratio 16.1 (10-20) Calcium Level 9.1 mg/dl (8.5-10.1) C-Reactive Protein 6.06 mg/dl (0-0.29) Bedside Lactic Acid Venous 0.95 mmol/L (0.90-1.70) The above labs were reviewed, showing a leukocytosis with left shift and bandemia. Sodium is 131. Glucose 275. Sed rate and CRP are markedly elevated. Bedside lactate is normal. Blood cultures x2 were collected, ordered and pending. I also reviewed wound and urine cultures from 2 days ago, showing pansensitive E. coli on urine cultures, and group B strep with wound cultures. Medications Administered Medications (Trade) Dose Ordered Sig/David Route Start Time Stop Time Status Last Admin Dose Admin Ceftriaxone Sodium (Rocephin Inj) 1 gm NOW STAT IV 05/09/18 16:27 05/09/18 16:34 DC 05/09/18 17:40 1 GM Sodium Chloride 500 ml @ 999 mls/hr Q31M STAT IV 05/09/18 16:27 05/09/18 16:57 DC 05/09/18 17:40 999 MLS/HR Ketorolac Tromethamine (Toradol Inj) 30 mg NOW STAT IV 05/09/18 18:20 05/09/18 18:22 DC 05/09/18 18:45 30 MG Acetaminophen (Tylenol Tab) 1,000 mg NOW STAT PO 05/09/18 18:20 05/09/18 18:22 DC 05/09/18 18:46 1,000 MG Cephalexin Monohydrate (Keflex 500MG Home Pack) 1 homepack NOW ONCE PO 05/09/18 18:30 05/09/18 18:31 DC 05/09/18 18:30 1 HOMEPACK Acetaminophen/ Codeine Phosphate (TYLENOL W/ CODEINE #3 Home Pack) 1 homepack UD ONCE PO 05/09/18 18:30 8 18:31 DC 05/09/18 18:30 1 HOMEPACK Nystatin (Mycostatin Powder) 1 appln ONE STAT EXT 05/09/18 18:22 8 18:24 DC 05/09/18 18:22 1 APPLN ED Course Patient history and physical exam were performed. Nurse's notes were reviewed. Vital signs were reviewed and normal. The patient is normotensive and not tachycardic or febrile. The patient reports significant worsening infection of the inner thigh region. Examination was performed with a female nurse present. IV access was established, and labs were drawn. The patient was administered IV Toradol and oral Tylenol for pain. She refused any stronger analgesics. Labs were reviewed that show a leukocytosis and elevated sed rate/CRP. Bedside lactate was normal. Blood cultures x2 were ordered, collected and are pending. Ultrasound of the inner thigh shows a small collection of fluid that is likely a residual abscess. The case was discussed with Dr. Luna, ED attending physician, who helped to formulate plan of care, reviewed lab and imaging studies, performed an independent evaluation, and elected outpatient management with Rocephin 1 g IV in the emergency department, and outpatient Keflex antibiotics. He also suggested nystatin powder. The patient was administered Rocephin 1 g IV infusion prior to discharge. The patient was provided a home pack and prescription for Keflex. Nystatin powder was dispensed in the emergency department. She was encouraged to take ibuprofen for baseline pain relief. The patient reports that the only pain medication she can tolerate is Tylenol with codeine. This was provided as a home pack and prescription as well. Margins of erythema were demarcated. Dr. Luna recommended follow-up with her PCP, returning to the emergency department as needed for any worsening infection. The patient voiced understanding of all discharge instructions, and rated her discomfort a 4 out of 10 at the time of discharge. Medical Decision Examination does show a worsening cellulitis. Ultrasound does not show any significant fluid collection, therefore this is likely cellulitic change. I do not suspect Chelsea's or necrotizing fasciitis. [place] Drug Monitoring Program Search Results: patient reviewed within database, no issues identified Medication Reconcilliation Current Medication List: was personally reviewed by me Blood Pressure Screening Patient's blood pressure: Normal blood pressure Impression Primary Impression: Cellulitis of thigh Departure Information Prescriptions Acetaminophen/Codeine (Tylenol W/Codeine #3) 300 Mg/30 Mg Tab 1 TAB PO Q4H Y for Pain, #18 TAB For Initial Treatment Prov: Sanford Boyd PA 05/09/18 Cephalexin Monohydrate (Keflex) 500 Mg Cap 500 MG PO QID for 6 Days, #24 CAP Prov: Sanford Boyd PA 05/09/18 Referrals Dariela Gupta M.D. (PCP) Patient Instructions My [facility]
== END 2018-05-09 19:07 | disposition home or self-care (01) ==
LOC: C.EDB 15:15 → C.EDC 19:07
DX: L03.115 Cellulitis of right lower limb (principal); F32.9 Major depressive disorder, single episode, unspecified; Z90.49 Acquired absence of other specified parts of digestive tract; Z80.9 Family history of malignant neoplasm, unspecified; Z83.3 Family history of diabetes mellitus; Z83.79 Family history of other diseases of the digestive system; Z82.49 Family history of ischemic heart disease and other diseases of the circulatory system; Z84.1 Family history of disorders of kidney and ureter; Z83.6 Family history of other diseases of the respiratory system; F17.210 Nicotine dependence, cigarettes, uncomplicated; Z79.84 Long term (current) use of oral hypoglycemic drugs; Z79.899 Other long term (current) drug therapy

== ENCOUNTER → 2018-05-14 | Outpatient (CLI) | payer OTHER ==
[~2018-05-14] MED LIST changes: +ACET300T3 PO; +CEPH500C PO
== END | disposition home or self-care (01) ==
LOC: C.LABSPEC 16:10
PROVIDERS: ATTEND Surgery
DX: L02.214 Cutaneous abscess of groin (principal)

== ENCOUNTER 2020-05-23 02:34 | Observation (INO) ==
[2020-05-23] MEDS ORDERED: ASPIRIN 81 MG CHEW PO STA (02:53)
[2020-05-23] MEDS ORDERED: NITROGLYCERIN 2% OINTMENT 30GM TUBE EXT ONE (02:53)
[2020-05-23] MEDS ORDERED: ACETAMINOPHEN 1,000 MG/100 ML VIAL IV STA (02:54)
[2020-05-23] MEDS ORDERED: SODIUM CHLORIDE 0.9% 1000ML 1,000 ML IV SCH (03:00)
[2020-05-23 03:03] LABS: Basophils # (auto) 0.02 K/uL (0-0.2); Basophils % (auto) 0.2 %; Eosinophils # (auto) 0.14 K/uL (0-0.5); Eosinophils % (auto) 1.2 %; Hematocrit (blood only) 43.8 % (37-47); Hemoglobin 15.7 g/dL (12.0-16.0); Immature Granulocytes # (auto) 0.03 K/uL (0.00-0.02); Immature Granulocytes % (auto) 0.3 %; Lymphocytes % (auto) 32.7 %; Mean Corpuscular Hemoglobin 32.9 pg (25-34); Mean Corpuscular Hgb Conc 35.8 g/dL (32-36); Mean Corpuscular Volume 91.8 fL (80-100); Monocytes % (auto) 8.8 %; Neutrophils # (auto) 6.44 K/uL (1.4-6.5); Neutrophils % (auto) 56.8 %; Platelet Count 184 K/uL (130-400); RDW Coefficient of Variation 12.5 % (11.5-14.5); RDW Standard Deviation 42.2 fL (36.4-46.3); Red Blood Count 4.77 M/uL (4.2-5.4); White Blood Count 11.33 K/uL (4.8-10.8)
[2020-05-23 03:19] LABS: INR 1.1 (0.9-1.1); Partial Thromboplastin Time 28.8 Seconds (21.0-31.0); Prothrombin Time 11.6 Seconds (9.0-12.0)
[2020-05-23 03:24] LABS: Chloride 102 mmol/L (98-107); Sodium 135 mmol/L (136-145)
[2020-05-23 03:29] LABS: Alanine Aminotransferase 50 U/L (12-78); Albumin Level 3.1 gm/dl (3.4-5.0); Aspartate Aminotransferase 38 U/L (15-37); BUN Creatinine Ratio 19.3 (10-20); Blood Urea Nitrogen 19 mg/dl (7-18); Calcium 9.2 mg/dl (8.5-10.1); Carbon Dioxide 26 mmol/L (21-32); Creatinine Clr Calc Pharmacy 78.2 ml/min; Est GFR (African American) 71.7; Est GFR (Non-African American) 61.8; Glucose 248 mg/dl (70-99); Lipase 133 U/L (73-393); Magnesium 1.9 mg/dl (1.8-2.4)
[2020-05-23 03:36] LABS: Albumin Globulin Ratio 0.6 (0.9-2); Alkaline Phosphatase 153 U/L (45-117); Bilirubin,Total 0.3 mg/dl (0.2-1); NT Pro B Type Natriuretic Pept 65 pg/ml (0-900); Total Protein 8.1 gm/dl (6.4-8.2); Troponin I < 0.015 ng/ml (0-0.045)
--- NOTE | 2020-05-23 04:36 | Emergency Department Note ---
History of Present Illness General Chief complaint: Chest Pain Stated complaint: CHEST PAIN,SOB Time Seen by Provider: 05/23/20 02:43 History of Present Illness Maximum Pain Intensity: 9 This is a 60-year-old female presenting to the emergency department for evaluation of left-sided chest pain radiating into her left arm that began approximately 30 to 45 minutes prior to arrival. The patient states that she was laying in her bed watching television at the onset of symptoms. She desc ribes this as a persistent and heavy 9/10 pain. The patient has not had recent fevers or chills. She does have a history of both diabetes and COPD. Typically her sugars are over 300 and she is on insulin. She does smoke mini cigars daily. The patient has not had similar symptoms like this in the past. She is unsure if there is a significant family history of sudden cardiac . There is no recent travel history. No lightheadedness, dizziness, palpitations, or abdominal pain. No reported rash. Home Medications Home Medications Medication Instructions Recorded Confirmed Type cholecalciferol (vitamin D3) 2,000 unit PO HS 02/14/19 05/23/20 History [Vitamin D3] citalopram 40 mg PO HS 02/14/19 05/23/20 History doxepin 25 mg PO HS 02/14/19 05/23/20 History insulin detemir U-100 [Levemir 55 unit SUBCUT HS 02/14/19 05/23/20 History FlexTouch U-100 Insuln] meloxicam 15 mg PO HS 02/14/19 05/23/20 History metformin 1,000 mg PO BID 02/14/19 05/23/20 History multivitamin 1 tab PO HS 02/14/19 05/23/20 History fluticasone propionate 1 spray INTRANASAL DAILY PRN 06/22/19 05/23/20 History lisinopril 5 mg PO HS 06/22/19 05/23/20 History prazosin 2 mg PO HS 06/22/19 05/23/20 History atorvastatin 29 mg PO DAILY 05/23/20 05/23/20 History fluticasone propion-salmeterol 1 ea INHALATION BID 05/23/20 05/23/20 History [Advair Diskus] Allergies Allergy/AdvReac Type Severity Reaction Status Date / Time Sulfa (Sulfonamide Allergy Unknown Hives Verified 05/23/20 03:07 Antibiotics) morphine AdvReac Unknown Unknown Verified 05/23/20 03:07 Past Med/Surg History Medical History (Updated 05/23/20 @ 04:36 by Paco Rendon PA-C) Cellulitis COPD (chronic obstructive pulmonary disease) Depression Diabetes Dyslipidemia Sjogrens syndrome Surgical History Hx of cholecystectomy Family History (Updated 05/23/20 @ 04:35 by Rosa M Haddad DO) Other Hypertension Social History (Updated 05/23/20 @ 04:35 by Rosa M Haddad DO) Smoking Status: Current every day smoker Tobacco Type: Cigars Hx Alcohol Use: No Hx Substance Use: No Preferred Language: Eritrean Feels Safe at Home: Yes Review of Systems A total of 10 systems reviewed and were otherwise negative Physical Exam Vital Signs Vital Signs - 24 hr 05/23/20 02:38 05/23/20 02:50 05/23/20 04:17 Pulse Rate 75 Pulse Rate [Right] 73 Pulse Rhythm [Right] Regular Pulse Strength [Right] Normal Respiratory Rate 19 16 Respiratory Effort / Characteristics Non-Labored Spontaneous Respiratory Depth Normal Blood Pressure 100/69 Blood Pressure [Right Arm] 117/67 Blood Pressure Mean 79 Blood Pressure Mean [Right Arm] 83 Blood Pressure Position [Right Arm] Sitting Pulse Oximetry 93 94 98 Oxygen Delivery Method Room Air Room Air Room Air Sepsis Recent Fever Within 48 Hours No Sepsis New/Unexplained Change in Mental Status N/A Sepsis Action Taken by Nursing No Action Required VITALS: Vitals are noted on the nurse's note and reviewed by myself. Vital signs stable. GENERAL: Well-developed, well-nourished, white female, who is in no acute distress and resting comfortably. Patient is cooperative with the examination. HEAD: Normocephalic atraumatic. NECK: Supple without nuchal rigidity. No lymphadenopathy. No thyromegaly. Cervical spine is nontender. HEART: Regular rate and rhythm without murmurs gallops or rubs. LUNGS: Distant breath sounds bilateral, but clear without wheezing or rhonchi ABDOMEN: Positive normal bowel sounds x 4. Soft, nontender, without masses or organomegaly. No guarding or rebound tenderness. MUSCULOSKELETAL: No muscle atrophy, erythema, or edema noted. Full range of motion in all extremities. NEURO: Patient was alert and oriented to person place and time. CN II through XII grossly intact. SKIN: The skin was without rashes, erythema, edema, or bruising. Capillary refill less than 2 seconds. Course Administered Medications Discontinued Medications Aspirin (Aspirin 81 Mg Chew) 324 mg PO NOW STA Stop: 05/23/20 02:54 Last Admin: 05/23/20 03:02 Dose: 324 mg Documented by: [id number] Sodium Chloride (Nss 1000ml) 1,000 mls @ 999 mls/hr IV .Q1H1M BRENNAN Stop: 05/23/20 04:00 Last Infusion: 05/23/20 04:06 Dose: 0 mls/hr Documented by: [id number] Admin: 05/23/20 03:03 Dose: 999 mls/hr Documented by: [id number] Acetaminophen (Ofirmev) 1,000 mg in 100 mls @ 400 mls/hr IV NOW STA Stop: 05/23/20 03:08 Last Infusion: 05/23/20 03:17 Dose: 0 mls/hr Documented by: [id number] Admin: 05/23/20 03:02 Dose: 400 mls/hr Documented by: [id number] Nitroglycerin (Nitroglycerin 2% Ointment 30gm Tube) 1 inch EXT NOW ONE Stop: 05/23/20 02:54 Last Admin: 05/23/20 03:02 Dose: 1 inch Documented by: [id number] Medical Decision Making Differential Diagnosis Differential diagnosis includes, but is not limited to: Myocardial infarction, dysrhythmia, pericarditis, pneumothorax, aortic aneurysm/dissection, DVT/PE, anxiety, GERD, PUD, electrolyte imbalance, thyroid disorder, pneumonia, bronchitis, pancreatitis, and others Laboratory Data Result diagrams: 05/23/20 02:50 05/23/20 02:50 Lab Results 05/23/20 05/23/20 05/23/20 Range/Units 02:50 02:50 02:50 WBC 11.33 H (4.8-10.8) K/uL RBC 4.77 (4.2-5.4) M/uL Hgb 15.7 (12.0-16.0) g/dL Hct 43.8 (37-47) % MCV 91.8 (80-100) fL MCH 32.9 (25-34) pg MCHC 35.8 (32-36) g/dL RDW Std Deviation 42.2 (36.4-46.3) fL RDW Coeff of Sarai 12.5 (11.5-14.5) % Plt Count 184 (130-400) K/uL MPV 10.0 (7.4-10.4) fL Immature Gran % (Auto) 0.3 % Neut % (Auto) 56.8 % Lymph % (Auto) 32.7 % [place] % (Auto) 8.8 % Eos % (Auto) 1.2 % Baso % (Auto) 0.2 % Neut # (Auto) 6.44 (1.4-6.5) K/uL Lymph # (Auto) 3.70 H (1.2-3.4) K/uL [place] # (Auto) 1.00 H (0.11-0.59) K/uL Eos # (Auto) 0.14 (0-0.5) K/uL Baso # (Auto) 0.02 (0-0.2) K/uL Immature Gran # (Auto) 0.03 H (0.00-0.02) K/uL PT 11.6 (9.0-12.0) Seconds INR 1.1 (0.9-1.1) APTT 28.8 (21.0-31.0) Seconds PTT Ratio 1.0 Sodium 135 L (136-145) mmol/L Potassium 4.0 (3.5-5.1) mmol/L Chloride 102 (98-107) mmol/L Carbon Dioxide 26 (21-32) mmol/L Anion Gap 7.0 (3-11) BUN 19 H (7-18) mg/dl Creatinine 0.98 (0.6-1.2) mg/dl Est Cr Clr Drug Dosing 78.2 ml/min Est GFR ( Amer) 71.7 Est GFR (Non-Af Amer) 61.8 BUN/Creatinine Ratio 19.3 (10-20) Glucose 248 H (70-99) mg/dl Calcium 9.2 (8.5-10.1) mg/dl Magnesium 1.9 (1.8-2.4) mg/dl Total Bilirubin 0.3 (0.2-1) mg/dl AST 38 H (15-37) U/L ALT 50 (12-78) U/L Alkaline Phosphatase 153 H (45-117) U/L Troponin I < 0.015 (0-0.045) ng/ml NT-Pro-B Natriuret Pep 65 (0-900) pg/ml Total Protein 8.1 (6.4-8.2) gm/dl Albumin 3.1 L (3.4-5.0) gm/dl Globulin 5.0 H (2.5-4.0) gm/dl Albumin/Globulin Ratio 0.6 L (0.9-2) Lipase 133 (73-393) U/L ECG Data Attestation: I personally reviewed and interpreted this ECG as follows: Indication: chest pain Additional Comments: Normal sinus rhythm @77bpm No acute ST elevation or ectopy Normal ECG When compared with ECG of 18-OCT-2017 14:08, Vent. rate has decreased BY 39 BPM Blood Pressure Blood Pressure Findings: Normal blood pressure MDM Narrative Physical exam and history were performed. Nursing notes, EMR, and Medication List were personally reviewed. Patient appears to have left-sided chest pain bring her to the emergency room. The patient has multiple comorbidities. Calculated heart score is not less than 4, placing her at at least a moderate risk. IV access was established and labs were obtained. She was gently hydrate with normal saline. The patient was given oral aspirin, Nitropaste, and IV Tylenol. She has difficulty tolerating opioid analgesics, and these were deferred. An order was placed for continuous cardiac monitoring. The monitor shows a rate of 73 with normal sinus rhythm. The patient's blood work is as above and was reviewed. She does have a minimally elevated white blood cell count of 11.3. She does not have a significant anemia, bandemia, or significant electrolyte imbalance. Glucose is 248. LFTs are stable for her, as she does have a minimally elevated alk phos. Initial troponin is negative. Lipase is normal. BNP is normal at 65. Chest x- ray was reviewed by myself and does not show obvious acute findings with radiology read pending. On reevaluation the patient does have some improvement of her symptoms after treatment here in the department. Overall I have concern for her symptoms, which certainly could represent a cardiac etiology. At this point I do feel that she requires additional evaluation. The case was discussed with the on- call hospitalist team, who agreed to evaluate the patient here in the department. Please see their dictation for further patient course, plan, and disposition. The chart was completed utilizing [employer] Speech Voice Recognition Software. Grammatical errors, random word insertions, pronoun errors, and incomplete sentences are an occasional consequence of this system due to software limitati ons, ambient noise, and hardware issues. Any formal questions or concerns about the content, text, or information contained within the body of this dictation should be directly addressed to the provider for clarification. . Impression & Plan Left-sided chest pain, Hyperglycemia Discharge Plan Visit Data Chief Complaint: Chest Pain Stated Complaint: CHEST PAIN,SOB ED Provider: Joann Agee ED Midlevel Provider: Paco Rendon Discharge Problem: Left-sided chest pain, Hyperglycemia Forms Stand Alone Forms: [facility] [place] Prescriptions Prescriptions: No Action cholecalciferol (vitamin D3) [Vitamin D3] 1,000 unit Capsule 2,000 unit PO HS RF: 0 citalopram 40 mg Tablet 40 mg PO HS RF: 0 doxepin 25 mg Capsule 25 mg PO HS RF: 0 meloxicam 15 mg Tablet 15 mg PO HS RF: 0 metformin 500 mg Tablet 1,000 mg PO BID RF: 0 multivitamin Tablet 1 tab PO HS RF: 0 Levemir FlexTouch U-100 Insuln 100 unit/mL (3 mL) Insulin Pen 55 unit SUBCUT HS RF: 0 lisinopril 5 mg tablet 5 mg PO HS RF: 0 fluticasone propionate 50 mcg/actuation spray,suspension 1 spray intranasal DAILY PRN (Reason: Allergy Symptoms) RF: 0 prazosin 2 mg capsule 2 mg PO HS RF: 0 fluticasone propion-salmeterol [Advair Diskus] 250-50 mcg/dose blister with device 1 ea INHALATION BID RF: 0 atorvastatin 20 mg tablet 29 mg PO DAILY RF: 0 Referrals Referrals: Dariela Gupta MD [Primary Care Provider] -
--- NOTE | 2020-05-23 04:51 | History & Physical Report ---
Date of Service May 23, 2020 Assessment & Plan (1) Chest pain: 60-year-old female with history of diabetes, obesity, tobacco use presents today with acute onset chest pain with radiation to the back, bilateral arms, associated shortness of breath/nausea/clamminess. Troponin x1-, EKG with no acute ischemic changes. Pain appears to be reproducible on exam. Most likely secondary to musculoskeletal cause. Doubt ACS, however patient has multiple risk factors. Observation to medical floor telemetry monitoring Trend troponin every 8 hours x2 additional sets Check hemoglobin A1c and lipid panel with next blood draw Nitroglycerin as needed for chest pain Toradol 50 mg p.o. every 6 hours as needed for pain Patient should have stress test performed at some point in the future Continue atorvastatin 20 mg p.o. daily Present on Admission?: Yes (2) Diabetes: Longstanding history of type 2 diabetes. Elevated blood sugar = 248. No recent hemoglobin A1c Continue Levemir 45 units nightly Insulin sliding scale Hold metformin Goal blood sugar 100-1 40 Check hemoglobin A1c as above Continue lisinopril 5 mg p.o. nightly Present on Admission?: Yes (3) COPD (chronic obstructive pulmonary disease): Stable. Patient denies cough/shortness of breath/wheeze Continue Advair Present on Admission?: Yes (4) Depression: Chronic. Patient recently lost her brother due to car accident which has caused increased depression symptoms/grief. Continue citalopram 40 mg p.o. nightly Continue doxepin and prazosin Present on Admission?: Yes (5) Sjogrens syndrome: Chronic. Patient follows with rheumatology Continue meloxicam FENHep-Lock. Electrolytes within normal limits. Heart healthy/consistent carb diet as tolerated ProphylaxisLovenox Codef[place] per discussion with patient Dispositionobservation to medical floor telemetry monitoring Present on Admission?: Yes History of Present Illness Chief Complaint: chest pain Primary Care Provider: Dariela Gupta MD Augusta Ortiz is a 60-year-old female with history of diabetes, COPD, Sjogren's syndrome and depression presenting with chest pain. Patient reports that this morning around 0300 she was lying down watching TV when she acutely developed 8/10 chest pain bandlike across her chest with radiation into her back and down both arms. Pain associated with shortness of breath, nausea, and clamminess. Pain exacerbated by movement and deep breathing (hurts during exhale). Patient with no personal history of CAD, CHF or arrhythmia. Has never had a cardiac catheterization or stress test in the past and has never seen cardiology. Approximately 4 to 5 months ago a stress test was recommended as she was getting episodes of chest discomfort. She has been unable to complete the stress test. Patient reports being active at home with no exertional chest pain or dyspnea. Denies trauma, strain or increase in activity. No relief with aspirin and nitroglycerin No additional complaints at this time ER course: Aspirin 324 mg, Tylenol 1 g IV, Nitropaste 1 inch, normal saline x1 L Allergies Allergy/AdvReac Type Severity Reaction Status Date / Time Sulfa (Sulfonamide Allergy Unknown Hives Verified 05/23/20 03:07 Antibiotics) morphine AdvReac Unknown Unknown Verified 05/23/20 03:07 Home Medications Home Medications Medication Instructions Recorded Confirmed Type cholecalciferol (vitamin D3) 2,000 unit PO HS 02/14/19 05/23/20 History [Vitamin D3] citalopram 40 mg PO HS 02/14/19 05/23/20 History doxepin 25 mg PO HS 02/14/19 05/23/20 History insulin detemir U-100 [Levemir 55 unit SUBCUT HS 02/14/19 05/23/20 History FlexTouch U-100 Insuln] meloxicam 15 mg PO HS 02/14/19 05/23/20 History metformin 1,000 mg PO BID 02/14/19 05/23/20 History multivitamin 1 tab PO HS 02/14/19 05/23/20 History fluticasone propionate 1 spray INTRANASAL DAILY PRN 06/22/19 05/23/20 History lisinopril 5 mg PO HS 06/22/19 05/23/20 History prazosin 2 mg PO HS 06/22/19 05/23/20 History atorvastatin 29 mg PO DAILY 05/23/20 05/23/20 History fluticasone propion-salmeterol 1 ea INHALATION BID 05/23/20 05/23/20 History [Advair Diskus] Past Med/Surg History Medical History (Updated 05/23/20 @ 04:49 by Rosa M Haddad DO) Cellulitis COPD (chronic obstructive pulmonary disease) Depression Diabetes Dyslipidemia Sjogrens syndrome Surgical History Hx of cholecystectomy Family History (Updated 05/23/20 @ 04:35 by Rosa M Haddad DO) Other Hypertension Social History (Updated 05/23/20 @ 04:35 by Rosa M Haddad DO) Smoking Status: Current every day smoker Tobacco Type: Cigars Hx Alcohol Use: No Hx Substance Use: No Preferred Language: Occitan Feels Safe at Home: Yes Review of Systems Review of Systems: All systems reviewed & are unremarkable except as noted in HPI & below Physical Exam Physical Exam: General: Patient appears uncomfortable but in no acute distress, awake alert and oriented x4, answers questions appropriately Skin: warm, dry, intact, no rashes or lesions HEENT: NC/AT, PERRL, EOMI, anicteric sclera, conjunctiva without injection, external ear normal to inspection and nontender, nares patent, moist mucus membranes, dentition intact, no oropharyngeal lesions, neck supple, trachea midline, no LAD, no thyromegaly, no JVD Heart: +S1/S2, regular, no m/r/g, + reproducible pain with chest wall and rib compression Lungs: equal air entry bilaterally, no rales/rhonchi/wheezes Abd: +BS, soft, NT/ND, no masses/organomegaly/ascites Ext: warm, 2+ pulses in UE/LE bilaterally, no clubbing/cyanosis or edema Neuro: nonfocal, patient AA&O x 4, speech intact, no facial droop, moving all extremities on command with equal strength 5/5 Results & Data Results & Data ([facility]) Vital Signs (Past 12 Hours) Vital Signs Pulse Pulse Resp BP BP Pulse Ox 05/23/20 04:17 73 16 117/67 98 05/23/20 02:50 94 05/23/20 02:38 75 19 100/69 93 Laboratory Results Lab Results 05/23/20 05/23/20 05/23/20 Range/Units 02:50 02:50 02:50 WBC 11.33 H (4.8-10.8) K/uL RBC 4.77 (4.2-5.4) M/uL Hgb 15.7 (12.0-16.0) g/dL Hct 43.8 (37-47) % MCV 91.8 (80-100) fL MCH 32.9 (25-34) pg MCHC 35.8 (32-36) g/dL RDW Std Deviation 42.2 (36.4-46.3) fL RDW Coeff of Sarai 12.5 (11.5-14.5) % Plt Count 184 (130-400) K/uL MPV 10.0 (7.4-10.4) fL Immature Gran % (Auto) 0.3 % Neut % (Auto) 56.8 % Lymph % (Auto) 32.7 % [place] % (Auto) 8.8 % Eos % (Auto) 1.2 % Baso % (Auto) 0.2 % Neut # (Auto) 6.44 (1.4-6.5) K/uL Lymph # (Auto) 3.70 H (1.2-3.4) K/uL [place] # (Auto) 1.00 H (0.11-0.59) K/uL Eos # (Auto) 0.14 (0-0.5) K/uL Baso # (Auto) 0.02 (0-0.2) K/uL Immature Gran # (Auto) 0.03 H (0.00-0.02) K/uL PT 11.6 (9.0-12.0) Seconds INR 1.1 (0.9-1.1) APTT 28.8 (21.0-31.0) Seconds PTT Ratio 1.0 Sodium 135 L (136-145) mmol/L Potassium 4.0 (3.5-5.1) mmol/L Chloride 102 (98-107) mmol/L Carbon Dioxide 26 (21-32) mmol/L Anion Gap 7.0 (3-11) BUN 19 H (7-18) mg/dl Creatinine 0.98 (0.6-1.2) mg/dl Est Cr Clr Drug Dosing 78.2 ml/min Est GFR ( Amer) 71.7 Est GFR (Non-Af Amer) 61.8 BUN/Creatinine Ratio 19.3 (10-20) Glucose 248 H (70-99) mg/dl Calcium 9.2 (8.5-10.1) mg/dl Magnesium 1.9 (1.8-2.4) mg/dl Total Bilirubin 0.3 (0.2-1) mg/dl AST 38 H (15-37) U/L ALT 50 (12-78) U/L Alkaline Phosphatase 153 H (45-117) U/L Troponin I < 0.015 (0-0.045) ng/ml NT-Pro-B Natriuret Pep 65 (0-900) pg/ml Total Protein 8.1 (6.4-8.2) gm/dl Albumin 3.1 L (3.4-5.0) gm/dl Globulin 5.0 H (2.5-4.0) gm/dl Albumin/Globulin Ratio 0.6 L (0.9-2) Lipase 133 (73-393) U/L Diagnostic Findings Chest x-ray: Trachea midline, cardiac shadow within normal limits,?Lesion on right rib, appears to have increased interstitial markings of the bilateral bases similar to prior exam.? Atelectasis or scarring ECG Additional Comments: EKG with normal sinus rhythm at 77 bpm, normal axis, LA = 156, QRS = 80, QTC = 473, no acute ischemic changes Code Status & VTE Plan Code Status Full code PG Care Time/CCT Total # of Minutes Spent Total Time Spent with Patient: Total time spent is greater than 50% in coordination of care (as documented) at patient's floor/unit and/or counseling patient: Coding Level of Care Code 20884 OBS Care - Level 3 Diagnoses Chest pain R07.9 Chest pain type: unspecified Diabetes E11.9; Z79.4 Diabetes mellitus type: type 2 Diabetes mellitus ferry terminal agent insulin use: with ferry terminal agent use Diabetes mellitus complication status: without complication COPD (chronic obstructive pulmonary disease) J44.9 COPD type: unspecified COPD Depression F32.9 Depression Type: major depressive disorder Major depression recurrence: unspecified whether recurrent Active/Remission status: remission status unspecified Sjogrens syndrome M35.00 Sjogren's organ involvement: unspecified organ involvement (1) Chest pain Chest pain type: unspecified Qualified Code(s): R07.9 - Chest pain, unspecified (2) Diabetes Diabetes mellitus type: type 2 Diabetes mellitus ferry terminal agent insulin use: with ferry terminal agent use Diabetes mellitus complication status: without complication Qualified Code(s): E11.9 - Type 2 diabetes mellitus without complications; Z79.4 - FPC (current) use of insulin (3) COPD (chronic obstructive pulmonary disease) COPD type: unspecified COPD Qualified Code(s): J44.9 - Chronic obstructive pulmonary disease, unspecified (4) Depression Depression Type: major depressive disorder Major depression recurrence: unspecified whether recurrent Active/Remission status: remission status unspecified Qualified Code(s): F32.9 - Major depressive disorder, single episode, unspecified (5) Sjogrens syndrome Sjogren's organ involvement: unspecified organ involvement Qualified Code(s): M35.00 - Sicca syndrome, unspecified
[2020-05-23] MEDS ORDERED: ONDANSETRON INJ 2 MG/ML 2 ML VIAL IV PRN (05:46)
[2020-05-23] MEDS ORDERED: CARBOHYDRATES FOR HYPOGLYCEMIA PO PRN (05:46)
[2020-05-23] MEDS ORDERED: NITROGLYCERIN SL 0.4 MG/TAB TAB SL PRN (05:46)
[2020-05-23] MEDS ORDERED: GLUCOSE 40% GEL 15 GM TUBE PO PRN (05:46)
[2020-05-23] MEDS ORDERED: GLUCAGON FOR INJ 1 MG VIAL SQ PRN (05:46)
[2020-05-23] MEDS ORDERED: TRAMADOL HCL 50 MG TABLET PO PRN (05:46)
[2020-05-23] MEDS ORDERED: DEXTROSE 50% 50 ML SYRINGE IV PRN (05:46)
[2020-05-23] MEDS ORDERED: GLUCOSE 10 TABS/TUBE PO PRN (05:46)
[2020-05-23] MEDS ORDERED: ACETAMINOPHEN 325 MG TAB PO PRN (05:46)
--- NOTE | 2020-05-23 06:57 | XRay Report ---
XR chest 1V portable CLINICAL HISTORY: Atypical chest pain COMPARISON STUDY: 05/24/2019 FINDINGS: The cardiac and mediastinal contours are normal. There is no evidence of focal pulmonary co nsolidation. There is no evidence of failure. No pleural effusions are visualized.[There is mild prom inence the basilar interstitial markings, likely related to the AP portable technique.. IMPRESSION: No active disease in the chest. ACT 112: Negative or not required by law. Electronically signed by: Homero Lei M.D. 05/23/2020 6:56 AM
[2020-05-23] MEDS: INSULIN ASPART 100 UNITS/ML 3 ML PEN SC SCH ×3 (08:36→17:20)
[2020-05-23] MEDS ORDERED: ATORVASTATIN 20 MG TAB PO SCH (09:00)
[2020-05-23] MEDS ORDERED: ENOXAPARIN INJ 40 MG/0.4 ML SYR SQ SCH (09:00)
[2020-05-23] MEDS ORDERED: FLUTICASONE/VILANTEROL 100/25MCG 14 PUFFS/INHALER INH SCH (09:00)
[2020-05-23] MEDS ORDERED: PERFLUTREN LIPID MICROSPHERE (DEFINITY) IV ONE (10:17)
--- NOTE | 2020-05-23 11:41 | Electrocardiogram Report ---
Test Reason : Blood Pressure : / mmHG Vent. Rate : 077 BPM Atrial Rate : 077 BPM P-R Int : 156 ms QRS Dur : 080 ms QT Int : 418 ms P-R-T Axes : 051 057 047 degrees QTc Int : 473 ms Normal sinus rhythm Normal ECG When compared with ECG of 18-OCT-2017 14:08, Vent. rate has decreased BY 39 BPM Confirmed by Ephraim Wong ([id number]) on 05/23/2020 11:41:03 AM Referred By: REFERRED SELF Confirmed By:Ephraim Wong
[2020-05-23 12:01] LABS: Chol HDL Ratio 3; Cholesterol 103 mg/dl (0-200); HDL Cholesterol 39 mg/dl; LDL Cholesterol Calculated 41 mg/dl; Triglycerides 114 mg/dl (0-150); VLDL Cholesterol 23 mg/dl
--- NOTE | 2020-05-23 12:38 | XCELERA ---
[id number]
[2020-05-23] MEDS ORDERED: KETOROLAC 30 MG/ML VIAL IV ONE (14:57)
[2020-05-23] MEDS ORDERED: OPTIRAY 320 125ml IV ONE (16:07)
--- NOTE | 2020-05-23 16:27 | CT Scan Report ---
CT ANGIOGRAPHY OF THE CHEST, PULMONARY EMBOLUS PROTOCOL CLINICAL HISTORY: Atypical chest pain. COMPARISON STUDY: Chest CT October 18, 2017. Chest radiograph performed earlier today. TECHNIQUE: Following IV administration of 116 mL of Optiray-320, helical axial images of the chest we re obtained utilizing the pulmonary embolus protocol. Maximal intensity projections and sagittal and coronal reformats were viewed on an independent 3D workstation. IV contrast was administered withou t complication. Automated exposure control was utilized for the study. A dose lowering technique wa s utilized adhering to the principles of ALARA. CT DOSE: 889.77 mGy.cm FINDINGS: No pulmonary emboli are identified. There is no thoracic aortic dissection. The size of th e heart is normal. No enlarged axillary, mediastinal or hilar lymph nodes are present. The central ai rways are patent. Mild paraseptal emphysema is noted. There is no consolidation. Mild groundglass opa cities and interlobular septal thickening are noted. There is no pneumothorax or pleural effusion. No acute fracture or suspicious lesion within the bony thorax is noted. There is moderate coronary fanta ry calcification. Visualized portions of the upper abdomen demonstrate cirrhosis. Mild splenomegaly i s noted. There may be small upper abdominal varices. IMPRESSION: 1. No pulmonary emboli identified. 2. Suspected mild pulmonary edema. 3. Moderate coronary artery calcification. 4. Cirrhosis with splenomegaly and small varices formation indicative of portal hypertension. ACT 112: Negative or not required by law. Electronically signed by: Delmer Felipe M.D. 05/23/2020 4:26 PM
--- NOTE | 2020-05-23 18:51 | Discharge Summary ---
Date of Service May 23, 2020 Admission HPI Per Admitting Provider Augusta Ortiz is a 60-year-old female with history of diabetes, COPD, Sjogren's syndrome and depression presenting with chest pain. Patient reports that this morning around 0300 she was lying down watching TV when she acutely developed 8/10 chest pain bandlike across her chest with radiation into her back and down both arms. Pain associated with shortness of breath, nausea, and clamminess. Pain exacerbated by movement and deep breathing (hurts during exhale). Patient with no personal history of CAD, CHF or arrhythmia. Has never had a cardiac catheterization or stress test in the past and has never seen cardiology. Approximately 4 to 5 months ago a stress test was recommended as she was getting episodes of chest discomfort. She has been unable to complete the stress test. Patient reports being active at home with no exertional chest pain or dyspnea. Denies trauma, strain or increase in activity. No relief with aspirin and nitroglycerin No additional complaints at this time ER course: Aspirin 324 mg, Tylenol 1 g IV, Nitropaste 1 inch, normal saline x1 L Principal Diagnosis Costochondritis Discharge Exam Constitutional WD/WN, vitals as above Eyes + anicteric sclerae Neck trachea midline, no thyromegaly Respiratory normal respiratory effort, lungs clear to auscultation Cardiovascular RRR, no murmur, no edema Chest (Breasts) Chest: normal inspection of chest (+TTP exquisitely at site of pain left costochondral junction) Gastrointestinal (Abdomen) normal bowel sounds, soft, nontender, no hepatosplenomegaly Musculoskeletal Extremities: extremities normal to inspection; no cyanosis and no clubbing Skin no rashes, warm and dry Neurologic moves all extremities and awake; no focal motor deficits Psychiatric A+Ox3, euthymic affect Lymphatic no lymphedema Discharge Data Allergies Allergy/AdvReac Type Severity Reaction Status Date / Time Sulfa (Sulfonamide Allergy Unknown Hives Verified 05/23/20 03:07 Antibiotics) morphine AdvReac Unknown Unknown Verified 05/23/20 03:07 Consultations 05/23/20 03:51 ED Decision to Admit Stat Ordered Studies 05/23/20 15:58 CT angio chest PE protocol Stat CXR ECHO Hospital Course (1) Costochondritis, acute: 60-year-old female with history of diabetes, obesity, tobacco use presents with acute onset chest pain with radiation to the back, bilateral arms, associated shortness of breath/nausea/clamminess. Troponin x 2 were negative and pain persisted all day long. ECGs with no acute ischemic changes and this is therefore NOT consistent with ACS ECHO normal EF and no wall motion abnormalities Pain is precisely reproducible on examination and exquisitely tender on exam in the left costochondral junction. CTA Chest neg for PE but does show coronary artery calcifications indicating CAD -was given toradol 30mg IV x 1 and helped with pain -start ibuprofen 600mg po q6h prn chest pain and HOLD home Mobic while doing this refrain from heavy lifting for 1-2 weeks until symptoms improved-she does note she wrestles with her grandsons and was recently taking care of a friend's dog and playing "tug of war" Patient should have stress test performed at some point in the future as outpt Continue atorvastatin 20 mg p.o. daily-lipid panel here good -start ASA 81mg daily for primary prevention (2) Diabetes: Longstanding history of type 2 diabetes. Elevated blood sugar = 248 on admission. No recent hemoglobin A1c Continue Levemir -hold metformin x 48 hrs due to IV contrast dye and then restart Insulin sliding scale Continue lisinopril 5 mg p.o. nightly (3) COPD (chronic obstructive pulmonary disease): Stable. Patient denies cough/shortness of breath/wheeze Continue Advair (4) Depression: Chronic. Patient recently lost her brother due to car accident which has caused increased depression symptoms/grief. Continue citalopram 40 mg p.o. nightly Continue doxepin and prazosin (5) Sjogrens syndrome: Chronic. Patient follows with rheumatology (6) Current smoker: encouraged smoking cessation -can use NRT (7) CAD (coronary artery disease), morongo coronary artery: as above, with coronary artery calcifications seen on CTA Chest -start ASA -continue statin f/u with PCP (8) Cirrhosis: seen incidentally on CTA Chest with splenomegaly and gastric varices seen has a h/o EtOH use but none in 10 years Is overweight, could be fatty liver -workup as outpt -advised f/u with PCP and referral to GI as outpt (9) Splenomegaly: as above, noted on CT likely due to cirrhosis Dispo-stable for dc to home Total Time Total Time Spent Total Time Spent (In Minutes): >30 min Total Time Includes: Examination of the Patient, Discharge Planning and Medication Reconciliation Discharge Plan Discharge Items Patient Disposition: Home - Self-Care Reason For Visit: CHEST PAIN Discharge Diagnosis: Chest pain -musculoskeletal in nature, costochondritis Activity: As commented below Lifting: No more than 5 pounds Bathing: No limitations Exercise/Sports: Gradually increase as tolerated Weightbearing: Full weightbearing Non-emergency contact: Primary Care Provider Call non-emergency contact if: you have any medication questions, your symptoms worsen, your pain is not controlled, your pain is worsening, your pain is unusual for you and your pain is concerning for you Follow-up/Referrals: Dariela Gupta MD [Primary Care Provider] - (Please follow up within 1-2 weeks. ) Diet: Heart Healthy Addtl Attending Provider Instructions: You were admitted with chest pain which turned out to be secondary to inflammation of the cartilage between your ribs and your breastbone. This is called costochondritis. Please continue to take ibuprofen 600 mg by mouth 3 times a day as needed for pain for the next week or so. You should take it easy with no heavy lifting or pushing/pulling for 1-2 weeks. You had a scan of your chest which showed no blood clot and no other significant findings in the lungs. You had an ultrasound of the heart which confirmed that he had normal heart function and you did not have a heart attack based on blood work, EKGs, and the ultrasound of the heart. Your CT scan of the chest does show calcium deposits in your coronary arteries so you likely do have some underlying coronary artery disease, but that is NOT the cause of your chest pain. You can follow up with your PCP regarding this finding, and should start taking Aspirin 81mg once daily for prevention of heart attack. Incidentally,Your CT scan showed possible cirrhosis of the liver. Please follow up with your PCP regarding this finding as you should be referred to a Gastroenterology specialist. Most importantly, you should quit smoking immediately. You can use Nicotine patches, gum, and lozenges to help with this. Pending Studies at Discharge: No Stand-Alone Forms: [employer], Smoking Cessation Medications and DC Order Prescriptions: New ibuprofen 200 mg tablet 600 mg PO Q6H PRN (Reason: pain) Qty: 30 RF: 0 aspirin 81 mg tablet,chewable 81 mg PO DAILY Qty: 30 RF: 0 Continued cholecalciferol (vitamin D3) [Vitamin D3] 1,000 unit Capsule 2,000 unit PO HS RF: 0 citalopram 40 mg Tablet 40 mg PO HS RF: 0 doxepin 25 mg Capsule 25 mg PO HS RF: 0 multivitamin Tablet 1 tab PO HS RF: 0 Levemir FlexTouch U-100 Insuln 100 unit/mL (3 mL) Insulin Pen 55 unit SUBCUT HS RF: 0 lisinopril 5 mg tablet 5 mg PO HS RF: 0 fluticasone propionate 50 mcg/actuation spray,suspension 1 spray intranasal DAILY PRN (Reason: Allergy Symptoms) RF: 0 prazosin 2 mg capsule 2 mg PO HS RF: 0 fluticasone propion-salmeterol [Advair Diskus] 250-50 mcg/dose blister with device 1 ea INHALATION BID RF: 0 metformin 500 mg Tablet 1,000 mg PO BID Qty: 0 RF: 0 meloxicam 15 mg Tablet 15 mg PO HS Qty: 0 RF: 0 Changed atorvastatin 20 mg tablet 20 mg PO DAILY Qty: 0 RF: 0 Discharge Orders: Discharge Order (Routine); Ordered 05/23/20 Ordered By: Clementine Frazier Admission Data Admit Date/Time: 05/23/20 04:28 Attending Provider: Clementine Frazier Admit Provider: Rosa M Haddad Primary Care Provider: Dariela Gupta Other Providers: Rosa M Haddad Coding Level of Care Code 91887 OBS Care - Discharge Diagnoses Costochondritis, acute M94.0 Diabetes E11.9; Z79.4 Diabetes mellitus complication status: without complication 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
[2020-05-23] MEDS ORDERED: DOXEPIN HCL 25 MG CAPSULE PO SCH (21:00)
[2020-05-23] MEDS ORDERED: lisinopriL 5 MG TAB PO SCH (21:00)
[2020-05-23] MEDS ORDERED: CITALOPRAM 40 MG TAB PO SCH (21:00)
[2020-05-23] MEDS ORDERED: MELOXICAM 7.5 MG TAB PO SCH (21:00)
[2020-05-23] MEDS ORDERED: PRAZOSIN HCL 1 MG CAP PO SCH (21:00)
[2020-05-23] MEDS ORDERED: INSULIN DETEMIR FLEXPEN/FLEX TOUCH 100 UNITS/ML 3ML SQ SCH (21:00)
== END 2020-05-23 20:25 | disposition home or self-care (01) ==
LOC: 2N 02:34 → ED 02:34 → SUATTDRO 04:28 → 2N 05:20

== ENCOUNTER 2023-05-21 15:43 | Observation (INO) ==
--- NOTE | 2023-05-21 16:24 | Emergency Department Note ---
ED Provider Note History of Present Illness Chief Complaint: Skin Problem Stated Complaint: HUGE CYST ON GROIN AREA Time Seen by Provider: 05/21/23 16:24 This is a 63-year-old female with a history of type 2 diabetes, cirrhosis, Sjogren's syndrome, who presents to the emergency department with a swollen painful area in her left groin. She noticed this last week and visited her primary care office who prescribed her antibiotics which she has been taking, but her symptoms are getting worse. She spoke with her primary care provider shayan domingo who referred her to the emergency department because she was not improving. Patient states that she tried to poke this several times with a needle several days ago and today which produced some blood and she had a little bit of relief but the infection seems to be worse. She does admit to a history of a large lump in a similar distribution requiring surgery many years ago. She denies any fevers, chills, body aches, nausea, vomiting, abdominal pain. She is unsure what her recent blood sugars have been because she has not checked them. No known history of MRSA. Home Medications Medication Instructions Recorded Confirmed Type cholecalciferol (vitamin D3) 25 2,000 unit PO QAM 02/14/19 05/22/23 History mcg (1,000 unit) capsule (Vitamin D3) citalopram 40 mg tablet 40 mg PO HS 02/14/19 05/22/23 History doxepin 25 mg capsule 25 mg PO HS 02/14/19 05/22/23 History insulin detemir U-100 100 unit/mL 60 unit subcut HS 02/14/19 05/22/23 History (3 mL) subcutaneous pen (Levemir FlexTouch U-100 Insulin) multivitamin 1 tab PO QAM 02/14/19 05/22/23 History fluticasone propionate 50 1 spray intranasal HS PRN Allergy 06/22/19 05/22/23 History mcg/actuation nasal Symptoms spray,suspension lisinopril 5 mg tablet 5 mg PO HS 06/22/19 05/22/23 History prazosin 2 mg capsule 2 mg PO HS 06/22/19 05/22/23 History ibuprofen 200 mg tablet 600 mg PO Q6H PRN pain #30 tabs 05/23/20 05/22/23 Rx metformin 500 mg tablet 1,000 mg PO BID #0 tabs 05/23/20 05/22/23 Rx aspirin 81 mg chewable tablet 81 mg PO HS 02/12/21 05/22/23 History atorvastatin 20 mg tablet 20 mg PO HS 02/12/21 05/22/23 History psyllium husk 3.4 gram/5.4 gram 2 tbsp PO QAM 02/12/21 05/22/23 History oral powder (Metamucil) lidocaine 5 % topical patch 3 patch topical DAILY #30 ea 07/30/22 05/22/23 Rx fluticasone fur. 100 mcg-umeclid 1 inh inhalation DAILY 05/22/23 05/22/23 History 62.5 mcg-vilant 25 mcg inhalat.powder (Trelegy Ellipta) tirzepatide 2.5 mg/0.5 mL 0.25 mg subcut .Tuesdays05/22/23 05/22/23 History subcutaneous pen injector (Mounjaro) Allergies Allergy/AdvReac Type Severity Reaction Status Date / Time morphine Allergy Intermediate Shakiness, Verified 05/22/23 19:59 hives Sulfa (Sulfonamide Allergy Intermediate Hives Verified 05/22/23 19:59 Antibiotics) Past Med/Surg History Medical History Cirrhosis Constipation COPD (chronic obstructive pulmonary disease) Current smoker Depression DM type 2 (diabetes mellitus, type 2) Dyslipidemia Irregular heart rhythm does not follow with cardiology Obesity Osteoarthritis Psoriasis Sjogrens syndrome TMJ (temporomandibular joint disorder) NO LOCKING Surgical History History of arthroscopy of left knee History of bladder surgery History of cardiac catheterization 20 years ago - [facility] -- no stents History of colonoscopy History of removal of cyst History of tonsillectomy Hx of cholecystectomy Family History Brother Family history of diabetes mellitus Other Hypertension No family history of adverse response to anesthesia Social History Smoking Status: Current every day smoker Tobacco Type: Cigarettes and Cigars Cigarettes Per Day: 10 CIGARS PER DAY *ADVISED; Second Hand Exposure: No; Do You Dip or Chew Tobacco: No; Tobacco Cessation Education Requested by Patient: No Hx Alcohol Use: No Hx Substance Use: No Preferred Language: South Sudanese Communication Ability: Effective Animal Ride Manager Required: No Beliefs That Will Affect Care: None Current Living Situation: Alone Feels Safe at Home: Yes Safety Concerns: Feels Safe At This Time Assistive Devices: None Physical Exam Vital Signs Vital Signs - 24 hr 05/21/23 15:51 05/21/23 19:44 Temperature 97.9 F Temperature Source Temporal Artery Scan Pulse Rate 83 Pulse Rate [Right Radial] 68 Respiratory Rate 18 18 Respiratory Effort / Characteristics Non-Labored Respiratory Depth Normal Respiratory Pattern Regular Blood Pressure 131/78 Blood Pressure [Right Arm] 164/77 H Blood Pressure Mean 95 Blood Pressure Mean [Right Arm] 106 Pulse Oximetry 95 96 Oxygen Delivery Method Room Air Room Air Sepsis Recent Fever Within 48 Hours No Sepsis New/Unexplained Change in Mental Status N/A Sepsis Action Taken by Nursing No Action Required CONSTITUTIONAL: Well developed, well nourished, appears to be in a moderate amount of discomfort LYMPHATIC: No inguinal adenopathy RESPIRATORY: Breathing unlabored and symmetric. Lungs clear to auscultation bilaterally. No wheeze, rales, or rhonchi. CARDIOVASCULAR: Regular rate and rhythm. No murmurs, rubs, or gallops. ABDOMEN: Normal bowel sounds. Soft, nontender, no peritonitis. No masses. 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 There is an area of swelling, erythema, and induration present on the left superior aspect of the external labia majora measuring 4 to 5 cm in diameter. This is exquisitely tender to palpation. There is some mild surrounding erythema. Erythema does not extend through the entirety of the vagina, nothing in the perineum. There is no crepitus in this region. No active drainage. No obvious fluctuance. No external vaginal discharge. MUSCULOSKELETAL: Moves all extremities at all joints without pain or difficulty. SKIN: [place], warm, dry. NEUROLOGIC: Awake, alert, oriented. Gaze is conjugate. Face symmetric, speech normal. Moves head and all four extremities spontaneously. Sensation and strength grossly intact. PSYCHIATRIC: Appropriate. Normal affect Course Administered Medications Fluticasone/Vilanterol (Fluticasone/Vilanterol 100/25mcg 14 Puffs/Inhaler) 1 puffs INH DAILY BRENNAN Stop: 06/21/23 08:59 Last Admin: 05/22/23 07:32 Dose: 1 puffs Documented By: ELDER Acetaminophen (Ofirmev) 1,000 mg in 100 mls @ 400 mls/hr IV Q8H PRN PRN Reason: Pain Stop: 05/24/23 20:57 Last Infusion: 05/22/23 01:51 Dose: 0 mls/hr Documented By: Admin: 05/22/23 01:01 Dose: 400 mls/hr Documented By: AYANNA Vancomycin HCl 1,500 mg/ (Sodium Chloride) 530 mls @ 200 mls/hr IV Q12H BRENNAN Stop: 05/29/23 14:59 Last Infusion: 05/22/23 17:27 Dose: 0 mls/hr Documented By: Admin: 05/22/23 14:36 Dose: 200 mls/hr Documented By: ELDER Ampicillin Sodium/Sulbactam Sodium 3,000 mg/ Sodium Chloride 108 mls @ 216 mls/hr IV Q6H BRENNAN Stop: 05/29/23 10:59 Last Infusion: 05/22/23 18:05 Dose: 0 mls/hr Documented By: Admin: 05/22/23 17:29 Dose: 216 mls/hr Documented By: Infusion: 05/22/23 11:41 Dose: 0 mls/hr Documented By: Admin: 05/22/23 11:06 Dose: 216 mls/hr Documented By: ELDER Insulin Glargine (Lantus Per Unit Charge) 60 units SC HS [facility] Stop: 06/20/23 23:44 Last Admin: 05/22/23 01:00 Dose: 60 units Documented By: AYANNA Co-signed By: SEYMOUR Ketorolac Tromethamine (Ketorolac Tromethamine 15 Mg/Ml Vial) 15 mg IV Q6H PRN PRN Reason: Pain Stop: 05/26/23 20:57 Last Admin: 05/22/23 14:43 Dose: 15 mg Documented By: Admin: 05/22/23 03:53 Dose: 15 mg Documented By: AYANNA Lidocaine (Lidocaine 5% 1 Patch) 3 patch TD DAILY BRENNAN Stop: 06/21/23 08:59 Last Admin: 05/22/23 07:31 Dose: 3 patch Documented By: ELDER Metformin HCl (Metformin Hcl 500 Mg Tab) 1,000 mg PO BIDM BREN[facility]N Stop: 06/21/23 07:59 Last Admin: 05/22/23 17:27 Dose: 1,000 mg Documented By: Admin: 05/22/23 07:30 Dose: 1,000 mg Documented By: ELDER Miscellaneous (Ozempic~Order Awaiting Action) 1 each N/A QS [facility] Stop: 06/21/23 07:59 Last Admin: 05/22/23 14:36 Dose: Not Given Documented By: Admin: 05/22/23 07:29 Dose: Not Given Documented By: ELDER Multivitamins ([facility]ivitamin Tab) [facility] Stop: 06/21/23 08:59 Last Admin: 05/22/23 07:30 Dose: 1 tab Documented By: ELDER Psyllium Hydrophilic Mucilloid (Psyllium Or Guar Gum Fiber Powder Packet) 1 pkt [facility] [place] Stop: 06/21/23 08:59 Last Admin: 05/22/23 07:31 Dose: Not Given Documented By: ELDER Tramadol HCl (Tramadol Hcl 50 Mg Tablet) 50 mg PO Q6 PRN PRN Reason: Pain Stop: 06/20/23 20:57 Last Admin: 05/22/23 11:15 Dose: 50 mg Documented By: Admin: 05/21/23 23:06 Dose: 50 mg Documented By: AYANNA Vitamin D (Cholecalciferol 1,000 Units 25 Mcg Tab) 2,000 [facility] [place] Stop: 06/21/23 08:59 Last Admin: 05/22/23 07:30 Dose: 2,000 units Documented By: ELDER Discontinued Medications Acetaminophen (Acetaminophen 325 Mg Tab) 650 mg PO NOW STA Stop: 05/21/23 18:37 Last Admin: 05/21/23 18:43 Dose: 650 mg Documented By: TANIA Ceftriaxone Sodium (Rocephin) 2,000 mg in 70 mls @ 140 mls/hr IV NOW STA Stop: 05/21/23 19:46 Last Infusion: 05/21/23 20:18 Dose: 140 mls/hr Documented By: Admin: 05/21/23 19:47 Dose: 140 mls/hr Documented By: REHANA Sodium Chloride (Nss) 500 mls @ 999 mls/hr IV .Q31M ONE Stop: 05/21/23 20:39 Last Infusion: 08/24/23 21:14 Dose: 999 mls/hr Documented By: Admin: 05/21/23 20:18 Dose: 999 mls/hr Documented By: REHANA Vancomycin HCl 2,000 mg/ (Sodium Chloride) 540 mls @ 200 mls/hr IV NOW ONE Stop: 05/21/23 22:50 Last Admin: 05/21/23 21:14 Dose: 200 mls/hr Documented By: REHANA Vancomycin HCl 1,250 mg/ (Sodium Chloride) 275 mls @ 200 mls/hr IV Q12H BREN[facility]N Stop: 05/29/23 04:59 Last Infusion: 05/22/23 07:36 Dose: 0 mls/hr Documented By: Admin: 05/22/23 05:54 Dose: 200 mls/hr Documented By: AYANNA Tramadol HCl (Tramadol Hcl 50 Mg Tablet) 50 mg PO NOW STA Stop: 05/21/23 16:48 Last Admin: 05/21/23 17:08 Dose: 50 mg Documented By: TANIA Medical Decision Making Differential Diagnosis Abscess, cellulitis, Bartholin gland abscess, malignancy, doubt necrotizing fasciitis, doubt Chelsea's gangrene, adenopathy, among other pathology Laboratory Data 05/21/23 16:47 05/21/23 16:47 Lab Results 05/21/23 05/21/23 Range/Units 16:47 16:47 WBC 6.74 (4.8-10.8) K/ul RBC 4.19 L (4.20-5.40) M/uL Hgb 13.3 (12.0-16.0) g/dl Hct 38.7 (37.0-47.0) % MCV 92.4 (80.0-100.0) fL MCH 31.7 (25.0-34.0) pg MCHC 34.4 (32.0-36.0) g/dL RDW Std Deviation 45.7 (36.4-46.3) fL RDW Coeff of Sarai 13.4 (11.5-14.5) % Plt Count 141 (130-400) K/uL MPV 10.9 (9.4-12.4) fL Immature Gran % (Auto) 0.4 % Neut % (Auto) 62.5 % Lymph % (Auto) 20.3 % [place] % (Auto) 14.8 % Eos % (Auto) 1.6 % Baso % (Auto) 0.4 % Neut # (Auto) 4.20 (1.40-6.50) K/uL Lymph # (Auto) 1.37 (1.20-3.40) K/uL [place] # (Auto) 1.00 H (0.11-0.59) K/uL Eos # (Auto) 0.11 (0.00-0.50) K/uL Baso # (Auto) 0.03 (0.00-0.20) K/uL Immature Gran # (Auto) 0.03 (0.01-0.20) K/uL Sodium 136 (136-145) mmol/L Potassium 4.3 (3.5-5.1) mmol/L Chloride 106 (98-107) mmol/L Carbon Dioxide 26 (21-32) mmol/L Anion Gap 4 (3-11) BUN 10 (6-23) mg/dl Creatinine 0.52 L (0.6-1.2) mg/dl Est Cr Clr Drug Dosing 137.5 ml/min Est GFR ( Amer) 116.2 ml/min Est GFR (Non-Af Amer) 100.3 ml/min BUN/Creatinine Ratio 19.2 (10-20) Glucose 226 H (70-99(Fasting)) mg/dl Calcium 9.3 (8.6-10.3) mg/dl Total Bilirubin 0.6 (0.2-1.0) mg/dl AST 25 (13-39) U/L ALT 18 (7-52) U/L Alkaline Phosphatase 164 H (34-104) U/L Total Protein 7.1 (6.0-8.3) gm/dl Albumin 2.9 L (3.4-5.0) gm/dl Globulin 4.2 H (2.5-4.0) gm/dl Albumin/Globulin Ratio 0.7 L (0.9-2) Imaging Data Radiologist's Impression: Soft Tissue Ultrasound 05/21/23 16:40 US soft tissue groin HISTORY: 63 years-old Female ?abscess/cellulitis over left labia patient presents with soft tissue infection of the labia COMPARISON: None TECHNIQUE: Multiple real-time sonographic images of the left labial soft tissues were obtained assessing grayscale appearance and color flow FINDINGS: There clinical concern there is increased echogenicity with heterogeneity of the subcutaneous tissues. Complex mixed echogenicity collection with peripheral hyperemia measures 2.2 x 4.3 x 1.8 cm. IMPRESSION: Cellulitis with 4.3 cm probable developing abscess. ACT 112: Negative or not required by law. The above report was generated using voice recognition software. It may contain grammatical, syntax or spelling errors. Electronically signed by: Kalen Wang M.D. 05/21/2023 6:10 PM MDM Narrative 63-year-old female with a history above presents to the emergency department with progressive redness, swelling, and pain in her vaginal area, was placed on doxycycline several days ago and symptoms continue to worsen. See above for further details. Overall she does appear to be in a moderate amount of pain especially when the area of concern is palpated. This is exquisitely tender. She is afebrile. There is a 45 cm diameter area of erythema, induration, and swelling concerning for possible abscess versus cellulitis versus phlegmon. No inguinal adenopathy. Erythema does not extend onto the perineum, there is no crepitus, low suspicion for Chelsea's gangrene or necrotizing fasciitis. Patient has allergies to narcotics but was given tramadol as she states she has taken this in the past. This was somewhat therapeutic and she was also given a dose of Tylenol which did improve her discomfort. Labs were obtained and IV was inserted. An ultrasound soft tissue was obtained demonstrating a 4.3 cm probable developing abscess. Her labs show no leukocytosis or anemia. Renal function is normal. No electrolyte disturbance. Glucose elevated 226, IV fluids were administered. Patient was given a dose of ceftriaxone. As the patient seems to be failing outpatient antibiotics yet this is not a fully formed abscess, I discussed the case with Dr. Arias (gynecology) who evaluated the patient at bedside. She will admit the patient overnight for IV antibiotics and pain control and possibly drain this tomorrow. Patient is comfortable with this plan. Vancomycin was also added for MRSA coverage. Case was reviewed with ED attending Dr. Ventura multiple times throughout the patient's stay and is comfortable with this plan. Impression Abscess of vagina Discharge Plan Visit Data Chief Complaint: Skin Problem Stated Complaint: HUGE CYST ON GROIN AREA ED Provider: William Ventura ED Midlevel Provider: Ivan Smith Discharge Problem: Abscess of vagina Patient Disposition: Admitted As Inpatient Condition: Fair Discharge Instructions Interventions: ED Discharge Assessment Last Done: 05/21/23 22:28 Addendum May 22, 2023 20:56 HPI: The patient is a 63-year-old woman with a past medical history of type 2 diabetes, cirrhosis, Sjogren's syndrome who presents to the emergency department for swelling redness and pain in her left general area. The patient had been t reated with antibiotics by her primary care doctor but feels her symptoms have not been improving. She reports that she poked the area herself with a needle several days ago and this resulted in some bloody discharge. She previously had similar process several years ago that required surgical intervention. She denies any fevers or chills, body aches, GI symptoms. No prior history of MRSA. A/P: Soft tissue ultrasound performed and suggests cellulitis with 4.3 cm suspected developing abscess where a complex mixed echogenic collection with peripheral hyperemia measures 2.2 x 4.3 x 1.8 cm. WBC, H/H and platelets within normal limits. Chemistry without metabolic acidosis. Electrolytes and LFTs without significant abnormality. Empiric treatment initiated with IV ceftriaxone. WENDY Smith reviewed the case with KICK PLATE INSTALLER. Appreciate consultation recommendations and patient was admitted to KICK PLATE INSTALLER service for further treatment. I was consulted by the Advanced Practice Provider.I performed a substantive portion of the visit.This includes aspects of the HPI, MDM, diagnostic interpretations, and disposition/plan. I discussed the case with the WENDY and agree with the findings and plan as documented in WENDY Smith's note.
[2023-05-21] MEDS ORDERED: traMADol HCL 50 MG TABLET PO STA (16:47)
[2023-05-21 17:10] LABS: Basophils # (auto) 0.03 K/uL (0.00-0.20); Basophils % (auto) 0.4 %; Eosinophils # (auto) 0.11 K/uL (0.00-0.50); Eosinophils % (auto) 1.6 %; Hematocrit (blood only) 38.7 % (37.0-47.0); Hemoglobin 13.3 g/dl (12.0-16.0); Immature Granulocytes # (auto) 0.03 K/uL (0.01-0.20); Immature Granulocytes % (auto) 0.4 %; Lymphocytes # (auto) 1.37 K/uL (1.20-3.40); Lymphocytes % (auto) 20.3 %; Mean Corpuscular Hemoglobin 31.7 pg (25.0-34.0); Mean Corpuscular Hgb Conc 34.4 g/dL (32.0-36.0); Mean Corpuscular Volume 92.4 fL (80.0-100.0); Mean Platelet Volume 10.9 fL (9.4-12.4); Monocytes % (auto) 14.8 %; Neutrophils % (auto) 62.5 %; Platelet Count 141 K/uL (130-400); RDW Coefficient of Variation 13.4 % (11.5-14.5); RDW Standard Deviation 45.7 fL (36.4-46.3); Red Blood Count 4.19 M/uL (4.20-5.40); White Blood Count 6.74 K/ul (4.8-10.8)
[2023-05-21 17:26] LABS: Albumin Globulin Ratio 0.7 (0.9-2); Albumin Level 2.9 gm/dl (3.4-5.0); BUN Creatinine Ratio 19.2 (10-20); Bilirubin,Total 0.6 mg/dl (0.2-1.0); Calcium 9.3 mg/dl (8.6-10.3); Creatinine Clr Calc Pharmacy 137.5 ml/min; Est GFR (African American) 116.2 ml/min; Est GFR (Non-African American) 100.3 ml/min; Globulin 4.2 gm/dl (2.5-4.0); Potassium 4.3 mmol/L (3.5-5.1); Total Protein 7.1 gm/dl (6.0-8.3)
--- NOTE | 2023-05-21 18:11 | Ultrasound Report ---
US soft tissue groin HISTORY: 63 years-old Female ?abscess/cellulitis over left labia patient presents with soft tissue i nfection of the labia COMPARISON: None TECHNIQUE: Multiple real-time sonographic images of the left labial soft tissues were obtained assess ing grayscale appearance and color flow FINDINGS: There clinical concern there is increased echogenicity with heterogeneity of the subcutaneous tissues . Complex mixed echogenicity collection with peripheral hyperemia measures 2.2 x 4.3 x 1.8 cm. IMPRESSION: Cellulitis with 4.3 cm probable developing abscess. ACT 112: Negative or not required by law. The above report was generated using voice recognition software. It may contain grammatical, syntax o r spelling errors. Electronically signed by: Kalen Wang M.D. 05/21/2023 6:10 PM
[2023-05-21] MEDS ORDERED: ACETAMINOPHEN 325 MG TAB PO STA (18:36)
[2023-05-21] MEDS ORDERED: cefTRIAXone SODIUM 2,000 MG/70 ML BAG IV STA (19:17)
[2023-05-21] MEDS ORDERED: VANCOMYCIN HCL 2,000 MG in SODIUM CHLORIDE 0.9% 500 ML IV ONE (20:09)
[2023-05-21] MEDS ORDERED: VANCOMYCIN CONSULT ACTIVE PRN (20:09)
[2023-05-21] MEDS ORDERED: SODIUM CHLORIDE 0.9% 500 ML IV ONE (20:09)
--- NOTE | 2023-05-21 20:21 | OB/GYN Consultation ---
Date of Consultation May 21, 2023 Assessment & Plan (1) Vulvar abscess: 63-year-old -0-0-1 postmenopausal female with developing left-sided vulvar/labial majora cellulitis/abscess, unresponsive to oral antibiotic therapy, presenting with increasing pain and discomfort, Vital signs stable afebrile, White count within normal limits, Plan to admit for pain control and IV antibiotics and possible drain in the morning All questions were answered. (2) Vulvar cellulitis: History of Present Illness Reason for Consultation: Vulvar abscess History of Present Illness Patient is a 63-year-old postmenopausal female who presented to ER with growing left-sided vulvar abscess. It started about a week ago and it was small at about quarter size. It got bigger and painful and she went to see her primary care May 19 when she was started on doxycycline. She has been using that for the last 2 days but the abscess got bigger and more painful and she could not stand the pain anymore and came to ER. She denies vaginal bleeding or discharge. She reports similar abscess on the right side of the vulva about 5 years ago when she was treated with antibiotics and incision and drainage by her AUDIT SPECIALIST in [place]. She has not follow-up with her AUDIT SPECIALIST since then. She denies fever and chills. She has been menopausal since age 48 and has not use hormones. She has not been sexually active for the last 10 years. She denies any history of abnormal Pap smears or STDs. She has a history of cyst removed from her ovary about 30 years ago. She does not remember details. She delivered a viable male vaginally 40 years ago. She has a history of diabetes and on insulin. Allergies Allergy/AdvReac Type Severity Reaction Status Date / Time morphine Allergy Intermediate Shakiness, Verified 01/23/22 14:55 hives Sulfa (Sulfonamide Allergy Intermediate Hives Verified 01/23/22 14:55 Antibiotics) most narcotics Allergy Intermediate Shakiness, Uncoded 01/23/22 14:55 hives Home Medications Medication Instructions Recorded Confirmed Type cholecalciferol (vitamin D3) 25 2,000 unit PO QAM 02/14/19 01/23/22 History mcg (1,000 unit) capsule (Vitamin D3) citalopram 40 mg tablet 40 mg PO HS 02/14/19 01/23/22 History doxepin 25 mg capsule 25 mg PO HS 02/14/19 01/23/22 History insulin detemir U-100 100 unit/mL 60 unit subcut HS 02/14/19 01/23/22 History (3 mL) subcutaneous pen (Levemir FlexTouch U-100 Insulin) multivitamin 1 tab PO QAM 02/14/19 01/23/22 History fluticasone propionate 50 1 spray intranasal HS PRN Allergy 06/22/19 01/23/22 History mcg/actuation nasal Symptoms spray,suspension lisinopril 5 mg tablet 5 mg PO HS 06/22/19 01/23/22 History prazosin 2 mg capsule 2 mg PO HS 06/22/19 01/23/22 History fluticasone 250 mcg-salmeterol 50 1 ea inhalation BID 05/23/20 01/23/22 History mcg/dose blistr powdr for inhalation (Advair Diskus) ibuprofen 200 mg tablet 600 mg PO Q6H PRN pain #30 tabs 05/23/20 01/23/22 Rx metformin 500 mg tablet 1,000 mg PO BID #0 tabs 05/23/20 01/23/22 Rx aspirin 81 mg chewable tablet 81 mg PO HS 02/12/21 01/23/22 History atorvastatin 20 mg tablet 20 mg PO HS 02/12/21 01/23/22 History psyllium husk 3.4 gram/5.4 gram 2 tbsp PO QAM 02/12/21 01/23/22 History oral powder (Metamucil) semaglutide 0.25 mg or 0.5 mg (2 0.5 mg subcut WK 01/23/22 01/23/22 History mg/1.5 mL) subcutaneous pen injector (Ozempic) cyclobenzaprine 10 mg tablet 10 mg PO Q8H PRN muscle spasm #21 07/30/22 Rx tabs diclofenac sodium 75 mg 75 mg PO BID PRN pain #30 tabs 07/30/22 Rx tablet,delayed release lidocaine 5 % topical patch 3 patch topical DAILY #30 ea 07/30/22 Rx Patient History Medical History (Updated 05/21/23 @ 20:19 by Roby Moreno MD) Cirrhosis Constipation COPD (chronic obstructive pulmonary disease) Current smoker Depression DM type 2 (diabetes mellitus, type 2) Dyslipidemia Irregular heart rhythm does not follow with cardiology Obesity Osteoarthritis Psoriasis Sjogrens syndrome TMJ (temporomandibular joint disorder) NO LOCKING Surgical History History of arthroscopy of left knee History of bladder surgery History of cardiac catheterization [address] [facility] -- no stents History of colonoscopy History of removal of cyst History of tonsillectomy Hx of cholecystectomy Family History Brother Family history of diabetes mellitus Other Hypertension No family history of adverse response to anesthesia Social History Smoking Status: Never smoker Tobacco Type: Cigars Cigarettes Per Day: 10 CIGARS PER DAY *ADVISED; Second Hand Exposure: No; Do You Dip or Chew Tobacco: No; Hx Alcohol Use: No Preferred Language: Mohawk Communication Ability: Effective Cardiac Cath Lab Technologist Required: No Beliefs That Will Affect Care: None Current Living Situation: Alone Feels Safe at Home: Yes Assistive Devices: Denture - Upper Review of Systems Constitutional: as per Subjective / HPI Physical Exam Constitutional: WD/WN, vitals as above well developed, well nourished and + obese Gastrointestinal (Abdomen): normal bowel sounds, soft, nontender, no hepatosplenomegaly Skin: rashes on both arms Genitourinary: + external lesion (About 5 x 6 cm firm indurated abscess on left vulva/labia majora), + external tenderness, + external swelling and + external erythema It feels free to move does not seem to be in waiting deeper tissues or extending into the side areas. Lower vagina feels normal with 1 digital exam, patient is uncomfortable and will pelvic exam is withheld. Results & Data Vital Signs (Past 12 Hours) Vital Signs Temp Pulse Pulse Resp BP BP Pulse Ox 05/21/23 19:44 68 18 164/77 H 96 05/21/23 15:51 36.6 C 83 18 131/78 95 O2 Del Method 05/21/23 19:44 Room Air 05/21/23 15:51 Room Air Laboratory Results Lab Results 05/21/23 05/21/23 Range/Units 16:47 16:47 WBC 6.74 (4.8-10.8) K/ul RBC 4.19 L (4.20-5.40) M/uL Hgb 13.3 (12.0-16.0) g/dl Hct 38.7 (37.0-47.0) % MCV 92.4 (80.0-100.0) fL MCH 31.7 (25.0-34.0) pg MCHC 34.4 (32.0-36.0) g/dL RDW Std Deviation 45.7 (36.4-46.3) fL RDW Coeff of Sarai 13.4 (11.5-14.5) % Plt Count 141 (130-400) K/uL MPV 10.9 (9.4-12.4) fL Immature Gran % (Auto) 0.4 % Neut % (Auto) 62.5 % Lymph % (Auto) 20.3 % [place] % (Auto) 14.8 % Eos % (Auto) 1.6 % Baso % (Auto) 0.4 % Neut # (Auto) 4.20 (1.40-6.50) K/uL Lymph # (Auto) 1.37 (1.20-3.40) K/uL [place] # (Auto) 1.00 H (0.11-0.59) K/uL Eos # (Auto) 0.11 (0.00-0.50) K/uL Baso # (Auto) 0.03 (0.00-0.20) K/uL Immature Gran # (Auto) 0.03 (0.01-0.20) K/uL Sodium 136 (136-145) mmol/L Potassium 4.3 (3.5-5.1) mmol/L Chloride 106 (98-107) mmol/L Carbon Dioxide 26 (21-32) mmol/L Anion Gap 4 (3-11) BUN 10 (6-23) mg/dl Creatinine 0.52 L (0.6-1.2) mg/dl Est Cr Clr Drug Dosing 137.5 ml/min Est GFR ( Amer) 116.2 ml/min Est GFR (Non-Af Amer) 100.3 ml/min BUN/Creatinine Ratio 19.2 (10-20) Glucose 226 H (70-99(Fasting)) mg/dl Calcium 9.3 (8.6-10.3) mg/dl Total Bilirubin 0.6 (0.2-1.0) mg/dl AST 25 (13-39) U/L ALT 18 (7-52) U/L Alkaline Phosphatase 164 H (34-104) U/L Total Protein 7.1 (6.0-8.3) gm/dl Albumin 2.9 L (3.4-5.0) gm/dl Globulin 4.2 H (2.5-4.0) gm/dl Albumin/Globulin Ratio 0.7 L (0.9-2)
[2023-05-21] MEDS ORDERED: MAGNESIUM HYDROXIDE SUSP 30 ML UDC PO PRN (20:54)
[2023-05-21] MEDS ORDERED: ONDANSETRON INJ 2 MG/ML 2 ML VIAL IV PRN (20:54)
[2023-05-21] MEDS ORDERED: FLUTICASONE PROPIONATE NA SPR 16 GM BTL PRN (22:57)
[2023-05-21] MEDS ORDERED: CYCLOBENZAPRINE HCL 10 MG TAB PO PRN (22:57)
[2023-05-21] MEDS: traMADol HCL 50 MG TABLET PO PRN (23:06)
[2023-05-21] MEDS ORDERED: GLUCOSE 40% GEL 15 GM TUBE PO PRN (23:45)
[2023-05-21] MEDS ORDERED: GLUCAGON FOR INJ 1 MG VIAL IM PRN (23:45)
[2023-05-21] MEDS ORDERED: DEXTROSE 50% 50 ML SYRINGE IV PRN (23:45)
[2023-05-21] MEDS ORDERED: GLUCOSE 10 TAB/TUBE PO PRN (23:45)
[2023-05-21] MEDS ORDERED: CARBOHYDRATES FOR HYPOGLYCEMIA PO PRN (23:45)
[2023-05-22] MEDS: LANTUS PER UNIT CHARGE SC SCH ×2 (01:00→21:17)
[2023-05-22] MEDS: ACETAMINOPHEN 1,000 MG/100 ML VIAL IV PRN (01:01)
[2023-05-22] MEDS: KETOROLAC TROMETHAMINE 15 MG/ML VIAL IV PRN ×3 (03:53→21:17)
[2023-05-22] MEDS ORDERED: VANCOMYCIN HCL 1,250 MG in SODIUM CHLORIDE 0.9% 250 ML IV SCH (05:00)
[2023-05-22 07:09] LABS: Basophils # (auto) 0.05 K/uL (0.00-0.20); Basophils % (auto) 0.6 %; Eosinophils # (auto) 0.14 K/uL (0.00-0.50); Eosinophils % (auto) 1.6 %; Hematocrit (blood only) 38.4 % (37.0-47.0); Hemoglobin 13.4 g/dl (12.0-16.0); Immature Granulocytes # (auto) 0.03 K/uL (0.01-0.20); Immature Granulocytes % (auto) 0.3 %; Lymphocytes # (auto) 2.32 K/uL (1.20-3.40); Mean Corpuscular Hemoglobin 31.7 pg (25.0-34.0); Mean Corpuscular Hgb Conc 34.9 g/dL (32.0-36.0); Mean Corpuscular Volume 90.8 fL (80.0-100.0); Mean Platelet Volume 11.2 fL (9.4-12.4); Monocytes # (auto) 1.31 K/uL (0.11-0.59); Monocytes % (auto) 14.7 %; Neutrophils # (auto) 5.09 K/uL (1.40-6.50); Neutrophils % (auto) 56.8 %; Platelet Count 143 K/uL (130-400); RDW Coefficient of Variation 13.5 % (11.5-14.5); RDW Standard Deviation 45.1 fL (36.4-46.3); Red Blood Count 4.23 M/uL (4.20-5.40); White Blood Count 8.94 K/ul (4.8-10.8)
[2023-05-22] MEDS: CHOLECALCIFEROL 1,000 UNITS 25 MCG TAB PO SCH (07:30)
[2023-05-22] MEDS: metFORMIN HCL 500 MG TAB PO SCH ×2 (07:30→17:27)
[2023-05-22] MEDS: MULTIVITAMIN TAB PO SCH (07:30)
[2023-05-22] MEDS: LIDOCAINE 5% 1 PATCH TD SCH (07:31)
[2023-05-22] MEDS: PSYLLIUM or GUAR GUM FIBER POWDER PACKET PO SCH (07:31)
[2023-05-22] MEDS: FLUTICASONE/VILANTEROL 100/25MCG 14 PUFFS/INHALER INH SCH (07:32)
[2023-05-22 10:17] LABS: Est GFR (African American) 117.7 ml/min; Est GFR (Non-African American) 101.6 ml/min
--- NOTE | 2023-05-22 10:42 | Pharmacy Report ---
Pharmacy PK ABX Note - Date of Service May 22, 2023 - Assessment and Plan Assessment 63 year old F receiving empiric vancomycin and Unasyn for treatment of vulvar abscess that has not improved on doxycycline (started on 05/19). Renal function stable, no leukocytosis, afebrile. No cultures obtained. Day # 2 of antimicrobial therapy. Plan Vancomycin * Loading dose: 2000 mg IV x 1, then 1250 mg IV q12h x 1 dose * Maintenance dose: 1500 mg IV every 12 hours * Regimen is predicted to achieve target AUC/JOLYNN of 400-600 mg/L.hr * Random level ordered for 05/23/23 Unasyn * 3 g IV q6h - appropriate, no change Pharmacy will continue to follow and will adjust dose/frequency as necessary. Thank you. Pharmacy has transitioned to AUC monitoring for vancomycin. AUC/JOLYNN is the preferred PK/PD target and is associated with decreased risk of nephrotoxicity compared to traditional trough targets.
[2023-05-22] MEDS: AMPICILLIN/SULBACTAM SOD 3,000 MG in 0.9 % SODIUM CHLORIDE 100 ML IV SCH ×3 (11:06→22:31)
[2023-05-22] MEDS: traMADol HCL 50 MG TABLET PO PRN ×2 (11:15→22:29)
[2023-05-22] MEDS: VANCOMYCIN HCL 1,500 MG in SODIUM CHLORIDE 0.9% 500 ML IV SCH (14:36)
--- NOTE | 2023-05-22 19:20 | Progress Note ---
Date of Service May 22, 2023 Assessment & Plan (1) Vulvar abscess: (2) Vulvar cellulitis: Plan Mass is still solid to palpation. No fluctuation. Improved erythema Unasyn added for more broad spectrum coverage Will hold of I&D because of its solid appearance for now Admission and Anticipated Discharge Date Admission Date: May 21, 2023 Physical Exam Genitourinary: normal external appearance left suprapubic erythema. tender to touch. hard to palpation. no fluctuation. pt reports erythema is much improved. no discharge from mass Results & Data Vital Signs (Past 12 Hours) Vital Signs Temp Pulse Resp BP BP Pulse Ox O2 Del Method 05/22/23 14:36 36.8 C 69 16 154/77 H 93 Room Air 05/22/23 07:59 36.9 C 65 18 175/76 H 95 Room Air
[2023-05-22] MEDS ORDERED: DOXEPIN HCL 25 MG CAPSULE PO SCH (21:00)
[2023-05-22] MEDS ORDERED: PRAZOSIN HCL 1 MG CAP PO SCH (21:00)
[2023-05-22] MEDS ORDERED: ATORVASTATIN 20 MG TAB PO SCH (21:00)
[2023-05-22] MEDS ORDERED: CITALOPRAM 40 MG TAB PO SCH (21:00)
[2023-05-22] MEDS ORDERED: lisinopril 5 MG TAB PO SCH (21:00)
[2023-05-23] MEDS: ACETAMINOPHEN 1,000 MG/100 ML VIAL IV PRN (02:41)
[2023-05-23] MEDS: VANCOMYCIN HCL 1,500 MG in SODIUM CHLORIDE 0.9% 500 ML IV SCH ×2 (02:59→13:53)
[2023-05-23] MEDS: AMPICILLIN/SULBACTAM SOD 3,000 MG in 0.9 % SODIUM CHLORIDE 100 ML IV SCH ×3 (05:53→16:49)
[2023-05-23 07:23] LABS: Basophils # (auto) 0.02 K/uL (0.00-0.20); Basophils % (auto) 0.3 %; Eosinophils # (auto) 0.15 K/uL (0.00-0.50); Eosinophils % (auto) 2.5 %; Hematocrit (blood only) 36.6 % (37.0-47.0); Hemoglobin 12.4 g/dl (12.0-16.0); Immature Granulocytes # (auto) 0.01 K/uL (0.01-0.20); Immature Granulocytes % (auto) 0.2 %; Lymphocytes # (auto) 2.14 K/uL (1.20-3.40); Lymphocytes % (auto) 35.8 %; Mean Corpuscular Hemoglobin 31.2 pg (25.0-34.0); Mean Corpuscular Hgb Conc 33.9 g/dL (32.0-36.0); Mean Platelet Volume 10.8 fL (9.4-12.4); Monocytes # (auto) 0.94 K/uL (0.11-0.59); Monocytes % (auto) 15.7 %; Neutrophils # (auto) 2.71 K/uL (1.40-6.50); Neutrophils % (auto) 45.5 %; Platelet Count 131 K/uL (130-400); RDW Standard Deviation 43.6 fL (36.4-46.3); Red Blood Count 3.98 M/uL (4.20-5.40); White Blood Count 5.97 K/ul (4.8-10.8)
[2023-05-23] MEDS: CHOLECALCIFEROL 1,000 UNITS 25 MCG TAB PO SCH (08:05)
[2023-05-23] MEDS: metFORMIN HCL 500 MG TAB PO SCH ×2 (08:05→16:08)
[2023-05-23] MEDS: MULTIVITAMIN TAB PO SCH (08:05)
[2023-05-23] MEDS: LIDOCAINE 5% 1 PATCH TD SCH (08:06)
[2023-05-23] MEDS: FLUTICASONE/VILANTEROL 100/25MCG 14 PUFFS/INHALER INH SCH (08:06)
[2023-05-23] MEDS: PSYLLIUM or GUAR GUM FIBER POWDER PACKET PO SCH (08:07)
[2023-05-23 08:10] LABS: Albumin Globulin Ratio 0.7 (0.9-2); Albumin Level 2.7 gm/dl (3.4-5.0); BUN Creatinine Ratio 17.6 (10-20); Bilirubin,Total 0.7 mg/dl (0.2-1.0); Calcium 8.2 mg/dl (8.6-10.3); Creatinine Clr Calc Pharmacy 140.2 ml/min; Est GFR (Non-African American) 100.9 ml/min; Globulin 3.9 gm/dl (2.5-4.0); Potassium 3.7 mmol/L (3.5-5.1); Total Protein 6.6 gm/dl (6.0-8.3)
[2023-05-23] MEDS: traMADol HCL 50 MG TABLET PO PRN ×2 (08:10→16:11)
--- NOTE | 2023-05-23 08:36 | Obstetrical Progress Note ---
Date of Service May 23, 2023 Assessment & Plan Admission and Anticipated Discharge Date Admission Date: May 21, 2023 Subjective Patient is seen with Dr Meza Feels better Vulvar erythema and swelling is much better. Solid, no fluctuations. More like cellulitis than abscess. Much smaller than before. She was started on Unasyn with Vancomycin yesterday am Plan to continue with those until tonight and then d/c home with PO AB Dr Meza wants to see her in office. Consult hospitalist for HT and DM management. Results & Data Vital Signs (Past 12 Hours) Vital Signs Temp Pulse Resp BP BP Pulse Ox O2 Del Method 05/23/23 07:14 36.3 C L 20 95 Room Air 05/22/23 21:07 36.4 C L 66 18 185/97 H 189/95 H 95 Room Air
[2023-05-23] MEDS: KETOROLAC TROMETHAMINE 15 MG/ML VIAL IV PRN ×2 (10:41→17:45)
--- NOTE | 2023-05-23 13:17 | Pharmacy Report ---
Pharmacy PK ABX Note - Date of Service May 23, 2023 - Assessment and Plan Assessment 63 year old F receiving empiric vancomycin and Unasyn for treatment of vulvar abscess that has not improved on doxycycline (started on 05/19). Renal function stable, no leukocytosis, afebrile. No cultures obtained. Day # 3 of antimicrobial therapy. Vancomycin * Loading dose: 2000 mg IV x 1, then 1250 mg IV q12h x 1 dose * Maintenance dose: 1500 mg IV every 12 hours * Goal AUC/JOLYNN of 400-600 mg/L.hr * Random level of 10.5 mcg/mL today associated with therapeutic AUC of 405 mg/L.hr * Lower end of goal range, but indication is cellulitis, and patient is afebrile w normal WBC Plan * Continue vancomycin 1500 mg IV q12h * Repeat random level 05/25 @ 1200 Pharmacy will continue to follow and will adjust dose/frequency as necessary. Thank you. Pharmacy has transitioned to AUC monitoring for vancomycin. AUC/JOLYNN is the preferred PK/PD target and is associated with decreased risk of nephrotoxicity compared to traditional trough targets.
[2023-05-23] MEDS ORDERED: PHARMACY GLYCEMIC MGMT CONSULT PRN (14:04)
[2023-05-23] MEDS ORDERED: amLODIPine BESYLATE 5 MG TAB PO ONE (15:45)
--- NOTE | 2023-05-23 15:47 | Communication Note ---
Date of Service: May 23, [address] Moreno regarding if any DM2 or HTN management changes would be warranted in this patient. On brief chart review, despite her infection her BSGs have been well controlled while in-house, recommend continuing home regimen with PCP follow up if BSGs greater than 300. Regarding HTN, with BP at times in 170-190 range, asymptomatic, option of keeping regimen as is with PCP follow up vs. adding amlodipine 5mg daily with PCP follow up. Amlodipine 5mg daily sent to pharmacy.
--- NOTE | 2023-05-23 17:58 | Gynecologic Progress Note ---
Date of Service May 23, 2023 Assessment & Plan Admission and Anticipated Discharge Date Admission Date: May 21, 2023 Subjective Patient is reevaluated She is getting ready for discharge Left vulva: Area is smaller than before, no fluctuation Discussed PO outpatient antibiotics and f/u in office Discussed importance of glucose levels All questions were answered. Results & Data Vital Signs (Past 12 Hours) Vital Signs Temp Pulse Pulse Resp BP BP Pulse Ox 05/23/23 17:23 189/79 H 05/23/23 16:41 36.5 C 62 74 18 174/82 H 174/81 H 98 05/23/23 16:04 174/82 H 05/23/23 14:39 174/81 H 05/23/23 14:34 36.5 C 62 18 192/90 H 98 05/23/23 07:14 36.3 C L 20 95 O2 Del Method 05/23/23 17:23 05/23/23 16:41 05/23/23 16:04 05/23/23 14:39 05/23/23 14:34 Room Air 05/23/23 07:14 Room Air
--- NOTE | 2023-05-29 13:40 | Discharge Summary ---
Date of Service May 29, 2023 Admission HPI Per Admitting Provider Patient is a 63-year-old -0-0-1 postmenopausal female who presented to ER on May 21 with left vulvar swelling, redness and pain. She has started oral antibiotic 2 days ago before admission to the ER. It was not helping and the swelling was getting worse. When I saw her she had about 5 x 6 cm left vulva, labia majora swelling and tenderness and induration. It was suggesting vulvar cellulitis. I admitted her for IV antibiotics which were given about 48 hours and she was discharged on on p.o. antibiotic on May 23, 2023. The cellulitis was not fluctuant and decision was made not to incise it. The area got smaller and less tender after 3 days of antibiotics. She was recommended to come back to the office for follow-up. All questions were answered. Discharge Data Consultations 05/21/23 20:08 ED Decision to Admit Stat
--- OUTSIDE RECORDS SUMMARY | 2023-05-31 12:04 | External Medical Summary | Continuity of Care Document ---
Author Name Unknown Organization [facility] [address] Address [address], [place] [id number] Care Team Providers Care Neuroscientist Name Role Phone Dariela Gupta Primary Care Physician [phone] [facility]counter [id number] Date(s): 04/15/23 - 04/15/23 [facility] [address], [address] [place] [address] [phone] Encounter Diagnosis Type 2 diabetes mellitus with hyperglycemia(Final) - Uncontrolled type 2 diabetes mellitus with hyperglycemia, with long-term current use of insulin(Discharge Diagnosis) - 04/15/23 Microalbuminuria due to type 2 diabetes mellitus(Discharge Diagnosis) - 04/15/23 Acute diarrhea(Discharge Diagnosis) - 04/15/23 COPD (chronic obstructive pulmonary disease)(Discharge Diagnosis) - 04/15/23 Elevated BP without diagnosis of hypertension(Discharge Diagnosis) - 04/16/23 Tobacco abuse(Discharge Diagnosis) - 04/16/23 Discharge Disposition: Home or Self Care Attending Physician: INGE Barbosa Jessica A Referring Physician: INGE Barbosa Jessica A Allergies, Adverse Reactions, Alerts Substance Reaction Severity Status morphine nausea Active sulfa drugs hives Active Augmentin "bad" diarrhea Active Vicodin nausea Active Benadryl "makes me hyper" Active Darvocet A500 nausea Active Assessment and Plan Extracted from: Title:DM check Author:INGE Barbosa Jessica A Date:04/15/23 1.Uncontrolled type 2 diab etes mellitus with hyperglycemia, with long-term current use of insulin Uncontrolled type 2 diabetes with hyperglycemia with use of long-term insulin is chronic and uncontrolled. Goal A1c is <7%. Last labsand clinic note were reviewed and A1c was 9.2%. Patient has lost approximately 20 poundssince we had increased dose of Ozempicafter last labs, soI would expect glucose to be improved, but patient was unable to tolerate higher dose of Ozempic due to diarrhea. Updated diabetic labs ordered today and would consider switching to Mounjaroor other GLP-1 receptor agonist to seeif patient is able to tolerate without GIside effects. Follow-up again in 3 to 4 months for recheck. Also, recommend getting an updated diabetic eye exam. 2.Microalbuminuria due to type 2 diabetes mellitus Microalbuminuria due to type 2 diabetes is chronic and uncontrolled. Goal isto prevent progression ofdiseaseand strict glycemic control. Continue on lisinopril 5 mg, 1 tab p.o. daily. Updated microalbumin ordered. 3.Acute diarrhea Acute diarrhea has resolved and was secondary to higher doses of Ozempic. 4.COPD (chronic obstructive pulmonary disease) COPD is chronic and uncontrolled. Goal is to use albuterol inhaler less than twice weekly and minimizesymptoms. Discontinue Advair and start TrelegyEllipta 1 inhalationp.o. daily. Smoking cessation encouraged as well and patient is not interested in quitting at this time. Follow-up again in 3 to 4 months for recheck. Declines pulmonology referral today as well. 5.Elevated BP without diagnosis of hypertension We will plan to repeat BP again in 3 to 4 monthsas it was elevated today and at last visit, but stable at prior visits. Goal SBP <130 and DBP <80 mmHg given comorbidities. Consider increasing dose of lisinopril if BP remains elevated at time of next appointment. 6.Tobacco abuse Smoking cessation encouraged and patient is not interested in quitting at this time. Immunizations Given and Recorded Vaccine Date Status Refusal Reason zoster vaccine, inactivated 01/31/20 Given zoster vaccine, inactivated 10/31/19 Given influenza virus vaccine, inactivated 08/17/19 Give n tetanus/diphtheria/pertuss, acel (Tdap) 06/14/18 G iven Medications Adult Aspirin 81 mg oral tablet, chewable Start: 06/10/22 15:41:00 EDT Start Date: 06/10/22 Status: Ordered albuterol CFC free 90 mcg/inh MDI Start: 11/20/22 15:27:00 EST, 2 puff, inhaled, qid, Disp# 3 each, Refills: 1, PRN: as needed for wheezing, Pharmacy: [facility] [place]) Start Date: 11/20/22 Status: Ordered Atarax 10 mg oral tablet Start: 04/15/23 15:21:00 EDT, 1 tab, PO, qid, Disp# 20 tab, PRN anxiety and itching, PRN: as neededfor itching, Pharmacy: [facility] Start Date: 04/15/23 Stop Date: 04/20/23 Status: Ordered atorvastatin 20 mg oral tablet Start: 03/03/23 13:49:00 EDT, See Instructions, Disp# 90 tab, Refills: 3, Take 1 tablet by mouth once daily, Pharmacy: [facility] Start Date: 03/03/23 Status: Ordered BD needle Ultra-Fine Pen Savana 32G x 4mm Start: 07/14/22 16:45:00 EDT, See Instructions, Disp# 100 each, Refills: 6, Use with insulin pen., Pharmacy: [facility] Start Date: 07/14/22 Status: Ordered BD needle Ultra-Fine Pen Savana 32G x 4mm Start: 03/24/23 17:14:00 EDT, See Instructions, Disp# 100 each, Refills: 5, Use with pen to inject insulin once daily, Note to Pharmacy: ICD-10: E11.9, Pharmacy: [facility] Start Date: 03/24/23 Status: Ordered BD PEN NEEDLE/SAVANA [id number] MIS USE TWICE DAILY WITH INSULIN Start Date: 09/24/20 Status: Ordered BD PEN NEEDLE/SAVANA [id number] MIS BD PEN NEEDLE/SAVANA [id number] MIS, See Instructions, Disp# 100 each, Refills: 1, USE WITH INSULIN PEN,Pharmacy [facility] Start Date: 10/28/21 Status: Ordered BD Test Strips 100 ct Start: 02/27/21 15:53:00 EDT, See Instructions, Disp# 100 each, Refills: 3, test daily, Dx : E11.9,Pharmacy: [facility] Start Date: 02/27/21 Status: Ordered citalopram 40 mg oral tablet Start: 03/03/23 13:49:00 EDT, See Instructions, Disp# 90 tab, Refills: 3, Take 1 tablet by mouth once daily, Pharmacy: [facility] Start Date: 03/03/23 Status: Ordered doxepin 25 mg oral capsule Start: 01/19/23 19:09:00 EDT, See Instructions, Disp# 90 cap, Refills: 1, Take 1 capsule by mouth once daily, Pharmacy: [facility] Start Date: 01/19/23 Status: Ordered DuoNeb 0.5 mg-2.5 mg/3 mL inhalation solution Start: 07/18/22 9:15:00 EDT, 3 mL, inhaled, qid, Disp# 120 mL, PRN: as needed for shortness of breath or wheezing, Pharmacy: [facility] Start Date: 07/18/22 Stop Date: 07/28/22 Status: Ordered fluticasone 50 mcg/inh nasal spray Start: 06/13/22 16:56:00 EDT, See Instructions, Disp# 16 g, Refills: 6, Use 1 spray(s) in each nostril once daily, Pharmacy: [facility] Start Date: 06/13/22 Status: Ordered glucometer Start: 02/27/21 15:52:00 EDT, See Instructions, Disp# 1 each, Refills: 0, test daily, Dx E11.9, Pharmacy: [facility] Start Date: 02/27/21 Status: Ordered lancets Start: 02/27/21 15:54:00 EDT, See Instructions, Disp# 100 each, Refills: 3, test daily, Dx: E11.9, Pharmacy: [facility] Start Date: 02/27/21 Status: Ordered Levemir FlexPen 100 units/mL subcutaneous solution Start: 12/15/22 16:22:00 EDT, 60 unit =, subQ, qhs, Disp# 15 mL, Refills: 1, [facility]acy: [facility] Start Date: 12/15/22 Status: Ordered Levemir FlexTouch 100 units/mL subcutaneous solution Start: 10/16/22 19:22:00 EST, See Instructions, Disp# 15 mL, Refills: 0, INJECT 60 UNITS SUBCUTANEOUSLY EVERY DAY AT BEDTIME, Pharmacy: [facility] Start Date: 10/16/22 Status: Ordered lisinopril 5 mg oral tablet Start: 03/03/23 13:49:00 EDT, See Instructions, Disp# 90 tab, Refills: 3, Take 1 tablet by mouth once daily, Pharmacy: [facility] Start Date: 03/03/23 Status: Ordered meloxicam 15 mg oral tablet Start: 04/15/23 15:28:00 EDT, 1 tab, PO, Daily, Disp# 30 tab, Refills: 5, Pharmacy: [facility] Start Date: 04/15/23 Stop Date: 10/12/23 Status: Ordered Metamucil Start: 02/27/21 15:26:00 EDT, 3.4 g =, PO, Daily Start Date: 02/27/21 Status: Ordered metFORMIN 500 mg oral tablet Start: 12/25/22 13:11:00 EDT, See Instructions, Disp# 120 tab, Refills: 3, TAKE TWO TABLETS BY MOUTH TWICE DAILY @9AM & 5PM, Pharmacy: [facility] ([place] Start Date: 12/25/22 Status: Ordered metFORMIN HCl 500 MG Oral Tablet metFORMIN HCl 500 MG Oral Tablet, See Instructions, Disp# 120 tab, Refills: 6, Take 2 tablets by mouth twice daily, Pharmacy [facility] Start Date: 04/08/21 Status: Ordered metroNIDAZOLE 0.75% topical gel Start: 12/15/22 16:22:00 EDT, 1 appl, topical, bid, Disp# 45 g, Refills: 3, apply to face, Pharmacy: [facility] ([place]) Start Date: 12/15/22 Status: Ordered MiraLax oral powder for reconstitution Start: 08/05/21 15:25:00 EST, 17 g =, PO, bid, Disp# 1,020 g, Refills: 1, Pharmacy: [facility] Start Date: 08/05/21 Stop Date: 10/04/21 Status: Ordered omeprazole 40 mg oral delayed release capsule Start: 11/20/22 15:27:00 EST, See Instructions, Disp# 90 cap, Refills: 1, Take 1 capsule by mouth once daily for 30 days, Pharmacy: [facility] Start Date: 11/20/22 Status: Ordered MithridionUCH ULTRA BLUE TEST STRP Start: 03/09/19 12:34:53 EDT, See Instructions, Disp# 50, Refills: 6, USE TO TEST BLOOD SUGAR TWICEA DAY., Pharmacy: [id number], USE TO TEST BLOOD SUGAR TWICE A DAY. Start Date: 03/09/19 Status: Ordered prazosin 2 mg oral capsule Start: 01/20/23 10:09:00 EDT, See Instructions, Disp# 90 cap, Refills: 1, TAKE 1 CAPSULE BY MOUTH EVERY DAY AT BEDTIME, Pharmacy: [facility] Start Date: 01/20/23 Status: Ordered Trelegy Ellipta 100 mcg-62.5 mcg-25 mcg/inh inhalation powder Start: 04/15/23 15:31:00 EDT, 1 puff, inhaled, Daily, Disp# 28 blister, Refills: 5, Pharmacy: [facility] Start Date: 04/15/23 Stop Date: 10/12/23 Status: Ordered triamcinolone 0.1% topical ointment Start: 10/28/22 15:08:00 EST, 1 appl, topical, bid, Disp# 80 g, Refills: 3, apply to arms,legs, shoulders, Pharmacy: [facility] Start Date: 10/28/22 Status: Ordered triamcinolone 0.5% topical cream Start: 12/15/22 16:22:00 EDT, 1 appl, topical, tid, Disp# 20 g, Refills: 1, Pharmacy: [facility]) Start Date: 12/15/22 Status: Ordered Vitamin D3 2000 intl units oral capsule Start: 05/26/17 11:25:00, 1 cap, PO, Daily Start Date: 05/26/17 Status: Ordered Mental Status 04/15/23 Barriers to Learning one year None evide nt Mandatory Health Literacy Documentation Yes Health Literacy Communication Barriers N ever Primary Language Central African Problem List Condition Confirmation Course Effective Dates Status H ealth Status Informant Anxiety and depression Confirmed Active Chronic constipation Confirmed Active COPD (chronic obstructive pulmonary disease) Confirmed Active Dysphagia Confirmed Active Hidradenitis Confirmed Active Borderline hyperlipidemia Confirmed Active Fecal incontinence Confirmed Active Uncontrolled type 2 diabetes mellitus with hyperglycemia, with long-term current use of insulin Confirmed Active Leukocytosis Confirmed Active Lower back pain Confirmed Active Left lumbar radiculopathy Confirmed Active Microalbuminuria due to type 2 diabetes mellitus Confirmed Active Paresthesia Confirmed Active Self-mutilation Confirmed Active Sjogren's disease Confirmed Active Snoring Confirmed Active Tobacco user Confirmed Active Type 2 diabetes, HbA1C goal < 7% Confirmed Active Urinary incontinence Confirmed Active Diagnosis Diagnosis Type Effective Dates Health Status Clinical Service Informant Uncontrolled type 2 diabetes mellitus with hyperglycemia, with long-term current use of insulin Discharge Diagnosis 04/15/23 Non-Specified Acute diarrhea Discharge Diagnosis 04/15/23 Non-Specified COPD (chronic obstructive pulmonary disease) Discharge Diagnosis 04/15/23 Non-Specified Microalbuminuria due to type 2 diabetes mellitus Discharge Diagnosis 04/15/23 Non-Specified Tobacco abuse Discharge Diagnosis 04/16/23 Elevated BP without diagnosis of hypertension Discharge Diagnosis 04/16/23 Procedures Procedure Date Related Diagnosis Body Site Status Plain X-ray abdomen 1 03/09/23 Com pleted sitzmarks study 2 12/16/21 Complet ed KUB X-ray 3 12/12/21 Completed Mammogram 4 10/09/21 Completed Colonoscopy 5, 6, 7 06/21/21 Compl eted CXR - Chest X-ray 8 03/11/21 Compl eted X-ray 9 11/16/[address] of abdomen and pelvis wit h contrast 10 06/22/19 Completed KUB X-ray 11 02/14/19 Completed Ultrasound right groin 12 05/09/18 Completed Incision and drainage of abscess 13 05/07/18 Completed Chest x-ray 14 10/18/[address] of chest 15 Completed 1Impression Nonobstructive bowel gas pattern 21. all of the sitzmarks have passed in the interval 2. moderate well-formed stool seen within the colon 3Day 1 of Sitz marker study with ingested markers within the stomach. 4[facility] Impression: ACR BI-RADS CATEGORY 2: BENIGN 1. No evidence of malignancy 5Pathology results: Colon, hepatic flexure: tubular adenoma. B) Colon, descending, polypectomy: multiple fragments of benign colonic mucosa with very focal adenomatous epithelium consistent with tubular adenoma are seen. High- grade glandular dysplasia and carcinoma are NOT seen. Levels x6 are examined on this part. C) Colon, sigmoid, polypectomy: fragmented tubular adenoma. D) Colon, mid sigmoid, polypectomies x2: a fragmented tubular adenoma and hyperplastic polyp are seen. E) Colon, distal sigmoid, polypectomy: two benign strips of colonic mucosa with very focal hyperplastic change of the surface glands are seen. Levels x6 are examined on this part. Dysplasia and carcinoma are NOT seen. 6Repeat in 3 years. 7One 4mm polyp at the hepatic flexure, removed with a cold biopsy forceps. One 4mm polyp in the proximal descending colon, removed with a cold biopsy forceps. One 4mm polyp in the prximal sigmoid colon, resected and retrieved. Two 4 to 5 mm polyps in the mid sigmoid colon, removed with a cold biopsy forceps. One 2mm polyp in the distal sigmoid colon, removed with a cold biopsy forceps Diverticulosis in the distal sigmoid colon. The distal rectum and anal verge are normal on retroflextion view. 81. Normal lung volumes. No radiographic evidence of COPD on current exam. 2. Possible trace left pleural effusion with possible small ateleactasis at the left base. 9Right shoulder 3 views; right humerus 2 views, right clavicle 2 views IMPRESSION: 1. There is no radiographic evidence of right shoulder fracture or dislocation. 2. There is no radiographic evidence of right clavicular fracture. 3. There is no radiographic evidence of right humeral fracture. 10mild wall thickening of sigmoid colon & upper rectum, mild proctocolitis, likely infectious; cirrhosis w/ hepatic steatosis, reactive associated lymphadenopathy 11[facility] Impression: 1. Nonobstructive bowel gas pattern 2. Moderate constipation 12Impression: 1.8 x 0.5 x1.6 cm pocket of fluid within the subcutaneous tissues of the medial right thigh. This may reflect subcutaneous edema or a tiny residual abscess 13[facility] Right groin 14No acute process identified. Ill-defined hazy subsegmental left basilar opacities suggest atelectasis. 15WITH ANGIO 1. No acute aortic pathology or evidence of pulmonary thromboembolic disease. 2. Mild to moderate bilateral bronchial wall thickening compatible with bronchitis. 3. Subsegmental linear consolidative and patchy ground glass opacities of the lung bases suggest atelectasis. 4. Mild paraseptal emphysematous changes of the upper ling zones. 5. Hepatic steatosis. 6. Splenomegaly. Results Laboratory List Name Date Comprehensive Metabolic Panel (COMP META B PANEL) 04/15/23 Hemoglobin A1C (HEMOGLOBIN, A1C) 04/15/23 Lipid Profile (LIPOPROTEINS) 04/15/23 Microalbumin, Urine, Random (MICROALBUMI N, RD UR) 04/15/23 Thyroid Stimulating Hormone (TSH) 3 Most recent to oldest [Reference Range]: 1 eGFR CKD-EPI [>60 mL/min/1.73 m2] >90 mL /min/1.73 m2 (04/15/23 3:41 PM) Estimated Average Glucose 174 mg/dL (04/15/23 3:41 PM) Non-HDL 70 mg/dL (04/15/23 3:41 PM) Estimated CrCl 112.25 mL/min (04/15/23 8:47 PM) Micro Alb (u) [<2.00 mg/dL] 1.26 mg/dL (04/15/23 3:41 PM) Anion Gap [5-14 mmol/L] 10 mmol/L (04/15/23 3:41 PM) Alb [3.5-5.2 g/dL] 3.6 g/dL (04/15/23 3:41 PM) Alk Phos [35-115 unit/L] 151 unit/L *HI* (04/15/23 3:41 PM) ALT [0-33 unit/L] 25 unit/L (04/15/23 3:41 PM) AST [0-32 unit/L] 38 unit/L *HI* (04/15/23 3:41 PM) BUN [6-23 mg/dL] 12 mg/dL (04/15/23 3:41 PM) Ca [8.4-10.2 mg/dL] 9.3 mg/dL (04/15/23 3:41 PM) Chol/HDL 3 (04/15/23 3:41 PM) Chol [<200 mg/dL] 110 mg/dL (04/15/23 3:41 PM) Cl- [98-107 mmol/L] 105 mmol/L (04/15/23 3:41 PM) HCO3 [22-29 mmol/L] 25 mmol/L (04/15/23 3:41 PM) Cret [0.60-1.00 mg/dL] 0.63 mg/dL (04/15/23 3:41 PM) HbA1c 7.7 % 1 (04/15/23 3:41 PM) Glu [74-109 mg/dL] 137 mg/dL 2 *HI* (04/15/23 3:41 PM) HDL [>40 mg/dL] 40 mg/dL *LOW* (04/15/23 3:41 PM) K [3.5-5.1 mmol/L] 4.5 mmol/L (04/15/23 3:41 PM) LDL Chol, Calculated [50-130 mg/dL] 51 m g/dL (04/15/23 3:41 PM) Micro Alb Ratio [<20 ug/mg cret] 17 ug/m g cret (04/15/23 3:41 PM) Na [136-145 mmol/L] 140 mmol/L (04/15/23 3:41 PM) T Bili [0.0-1.2 mg/dL] 0.7 mg/dL (04/15/23 3:41 PM) Prot [6.4-8.3 g/dL] 7.8 g/dL (04/15/23 3:41 PM) TG [<150 mg/dL] 95 mg/dL (04/15/23 3:41 PM) TSH [0.30-4.20 uIU/mL] 2.72 uIU/mL (04/15/23 3:41 PM) Creat (u) 72.49 mg/dL 3 (04/15/23 3:41 PM) 1Result Comment: ADA Recommended Hernandez Reference Range: Normal: <5.7% Prediabetes: 5.7-6.4% Diabetes: >6.4% 2Result Comment: ADA recommendation for FASTING Serum/Plasma Glucose: Normal: 70-100 mg/dL Prediabetes: 100-125 mg/dL Diabetes: 126 mg/dL or higher 3Result Comment: Reference Range for Random Urine Not Established. Vital Signs Most recent to oldest [Reference Range]: 1 Patient Weight 102.5 kg (04/15/23 3:02 PM) Temperature [36.5-37.9 DegC] 36.9 DegC (04/15/23 3:02 PM) Heart Rate 82 bpm (04/15/23 3:02 PM) Respiratory Rate 20 br/min (04/15/23 3:02 PM) Blood Pressure 152/94mmHg (04/15/23 3:02 PM) Cuff Pulse Pressure 58 mmHg (04/15/23 3:02 PM) BP Location # 1 Left Arm, Manual (04/15/23 3:02 PM) Social History Social History Type Response Smoking Status Never smoked cigaret evelyn Sex Female FCM Note * INGE Barbosa, Alina Merino: PERFORM Event Display: [facility] Note Authored Date: [id number] Chief Complaint 4 month follow up History of Present Illness Brendapresents for a follow-up of uncontrolled type 2 diabetes, microalbuminuria, COPD, tobacco use and has a couple other concerns as well. Last few Clinic notes and labs were reviewed today. Type 2 diabetes is chronic, uncontrolled, but glucose has been improving. Last A1c in September 2022 was 9.2%, which was down from 12.5 and 14% over the last year. After last labs Ozempic was increased from 1 mg to 2 mginjected once weekly. has continued to use levemir 60 units nightly andmetformin 500 mg once daily. After we did increase dose of Ozempicfrom 1-2 she started to develop excessive diarrhea, but did not realize this was from the medication until she was evaluated lastmonth. Ozempic was discontinued and diarrheahas resolved. Still gets occasional loose stools,but attributes this to something she has eaten. Notes she is disappointed as she had lost approximately 20 pounds since starting the medicationand wasoverall feeling better. Does not check glucose at home. Last eye exam was 5 years ago or more. Continues to smoke half pack per day and is not interested in quitting. No alcohol or recreational drug use. + chronic ALVARADO w/ COPD.She hada negative stress echo in thelast year.+ tobacco use as above.No EtOH useor recreationaldrug use. No regular exercise.+ recurrent sores over skin from picking that are slow to heal.No hypoglycemic episodes, polyuria, polydipsia, polyphagia, numbness/tingling in extremities, foot ulcerations, blurred vision, loss of vision, chest pain, palpitations, tachycardia, loss of balance or falls. BP is elevated today. She does not check BP at home or have a history of HTN. She is on lisinopril 5 mg dailyfor diabetic microalbuminuria. BP was normal at last2 office visits. Admits she was rushing around and feels anxious when in the office. Also, [facility] [place] 6 [place] for ongoing skin itching and soreson the skin. Diagnosed with neurodermatitis and was given topical steroidcream/ointment. She does apply this up to twice a day that helps very temporarily. Notes that she was to have a colonoscopy, but this had to be rescheduled due to open wounds. Admits that skin itching is more intense when she isnervous. COPD is chronic and continues to use Advair 500-50 mcg, 1 inhalation p.o. twice daily. Admits thatseveral days out of the week she does forget morning dose, so we will at least use this in theevening. She is still using albuterol inhaler about 3-4 times per week, typically in the evening. Has a daily dry to productive cough that is worse at night when lying down. Has intermittent whe ezing as well and shortness of breath. Continues to smoke half pack per day as above. Not following with pulmonology. Review of Systems ROS:All other systems negative, except HPI. Physical Exam Vitals & Measurements T:36.9C HR:82(Monitored) RR:20 BP:152/94 SpO2:96% WT:102.500kg(Dosing) WT:102.5kg PHQ2 Data(Data Documented on:04/15/2023 15:02) Emotional health assessment NEGATIVE General: Alert and oriented, No acute distress.Pleasant. Eye: Pupils are equal, round and reactive to light, Extraocular movements are intact, Normal conjunctiva. HENT: Normocephalic. Neck: Supple, No lymphadenopathy, No thyromegaly. No audible carotid bruit. Respiratory: Lungs are clear to auscultation, Respirations are non-labored, Breath sounds are equal, Symmetrical chest wall expansion. Moderately diminished air exchange throughout all lung pina. Cardiovascular: Normal rate, Regular rhythm, No murmur, No gallop, Good pulses equal in all extremities, Normal peripheral perfusion. No LE edema. Abdomen: Normoactive BS x 4. Soft. No tenderness, palpable masses or organomegaly. Lymphatics: No submandibular, anterior or posterior cervical adenopathy palpable. Musculoskeletal: Normal gait. Integumentary: Warm,[place]/bronze skin tone.No pallor. + forearms w/ scattered areas of hypo andhyperpigmented scarring. Abdomen,mid and upper back with several scattered excoriatedpapules and scabbed over lesions. No visible pustules, surrounding erythemaor signs of secondary infection. Neurologic: Alert, Oriented, Cranial Nerves II-XII are grossly intact. Cognition and Speech: Oriented, Speech clear and coherent, Functional cognition intact. Psychiatric: Cooperative, Appropriate mood & affect, Normal judgment, Nonsuicidal. Assessment/Plan 1.Uncontrolled type 2 diabetes mellitus with hyperglycemia, with long-term current use of insulin Uncontrolled type 2 diabetes with hyperglycemia with use of long-term insulin is chronic and uncontrolled. Goal A1c is <7%. Last labsand clinic note were reviewed and A1c was 9.2%. Patienthas lost approximately 20 poundssince we had increased dose of Ozempicafter last labs, soI would expect glucose to be improved, but patient was unable to tolerate higher dose of Ozempic due to d iarrhea. Updated diabetic labs ordered today and would consider switching to Mounjaroor other GLP-1 receptor agonist to seeif patient is able to tolerate without GIside effects. Follow-up again in 3 to 4 months for recheck. Also, recommend getting an updated diabetic eye exam. 2.Microalbuminuria due to type 2 diabetes mellitus Microalbuminuria due to type 2 diabetes is chronic and uncontrolled. Goal isto prevent progression ofdiseaseand strict glycemic control. Continue on lisinopril 5 mg, 1 tab p.o. daily. Updated microalbumin ordered. 3.Acute diarrhea Acute diarrhea has resolved and was secondary to higher doses of Ozempic. 4.COPD (chronic obstructive pulmonary disease) COPD is chronic and uncontrolled. Goal is to use albuterol inhaler less than twice weekly and minimizesymptoms. Discontinue Advair and start TrelegyEllipta 1 inhalationp.o. daily. Smokingcessation encouraged as well and patient is not interested in quitting at this time. Follow-up again in 3 to 4 months for recheck. Declines pulmonology referral today as well. 5.Elevated BP without diagnosis of hypertension We will plan to repeat BP again in 3 to 4 monthsas it was elevated today and at last visit, but stable at prior visits. Goal SBP <130 and DBP <80 mmHg given comorbidities. Consider increasing dose of lisinopril if BP remains elevated at time of next appointment. 6.Tobacco abuse Smoking cessation encouraged and patient is not interested in quitting at this time. Problem List/Past Medical History Ongoing Anxiety and depression Borderline hyperlipidemia Chronic constipation COPD (chronic obstructive pulmonary disease) Dysphagia Fecal incontinence Hidradenitis Left lumbar radiculopathy Leukocytosis Lower back pain Microalbuminuria due to type 2 diabetes mellitus Paresthesia Self-mutilation Sjogren's disease Snoring Tobacco user Type 2 diabetes, HbA1C goal < 7% Uncontrolled type 2 diabetes mellitus with hyperglycemia, with long-term current use of insulin Urinary incontinence Historical Abdominal pain, LLQ Abscess of right thigh Accidental fall Acute bronchitis Acute constipation Acute diarrhea Acute infective otitis externa Acute non-recurrent sinusitis Acute nonsuppurative otitis media Acute recurrent sinusitis Acute seasonal allergic rhinitis Acute shoulder pain Acute upper respiratory infection Acute UTI Annual physical exam Bilateral pneumonia Borderline hyperglycemia Candidal vaginitis Chest pain Chest pain COPD exacerbation COPD with acute exacerbation Dehydration Grief reaction Herpes zoster Jaw pain Reactive lymphadenopathy Right shoulder pain TP (tinea pedis) Procedure/Surgical History Plain X-ray abdomen (03/09/2023)sitzmarks study (12/16/2021)KUB X-ray (12/12/2021)Mammogram (10/09/2021)Colonoscopy (06/21/2021)CXR - Chest X-ray (03/11/2021)X-ray (11/16/2019)CT of abdomen and pelvis with contrast (06/22/2019)KUB X-ray (02/14/2019)Ultrasound right groin (05/09/2018)Incision and drainage of abscess (05/07/2018)Chest x-ray (10/18/2017)CT of chest Medications albuterol(albuterol CFC free 90 mcg/inh MDI), 2 puff, inhaled, qid, PRN, 1 refills albuterol-ipratropium(DuoNeb 0.5 mg-2.5 mg/3 mL inhalation solution), 3 mL, inhaled, qid, PRN aspirin(Adult Aspirin 81 mg oral tablet, chewable) atorvastatin(atorvastatin 20 mg oral tablet), See Instructions, 3 refills cholecalciferol(Vitamin D3 2000 intl units oral capsule), 2000 Int_Unit= 1 cap, PO, Daily citalopram(citalopram 40 mg oral tablet), See Instructions, 3 refills diabetes supplies(glucometer), See Instructions diabetes supplies(BD Test Strips 100 ct), See Instructions, 3 refills diabetes supplies(lancets), See Instructions, 3 refills doxepin(doxepin 25 mg oral capsule), See Instructions, 1 refills fluticasone nasal(fluticasone 50 mcg/inh nasal spray), See Instructions fluticasone/umeclidinium/vilanterol(Trelegy Ellipta 100 mcg-62.5 mcg-25 mcg/inh inhalation powder),1 puff, inhaled, Daily, 5 refills hydrOXYzine(Atarax 10 mg oral tablet), 10 mg= 1 tab, PO, qid, PRN insulin detemir(Levemir FlexTouch 100 units/mL subcutaneous solution), See Instructions insulin detemir(Levemir FlexPen 100 units/mL subcutaneous solution), 60 unit, subQ, qhs, 1 refills lisinopril(lisinopril 5 mg oral tablet), See Instructions, 3 refills meloxicam(meloxicam 15 mg oral tablet), 15 mg= 1 tab, PO, Daily, 5 refills metFORMIN(metFORMIN 500 mg oral tablet), See Instructions metroNIDAZOLE topical(metroNIDAZOLE 0.75% topical gel), 1 appl, topical, bid, 3 refills omeprazole(omeprazole 40 mg oral delayed release capsule), See Instructions, 1 refills polyethylene glycol 3350(MiraLax oral powder for reconstitution), 17 g, PO, bid, 1 refills prazosin(prazosin 2 mg oral capsule), See Instructions, 1 refills psyllium(Metamucil), 3.4 g, PO, Daily syringe needles(BD needle Ultra-Fine Pen Savana 32G x 4mm), See Instructions, 6 refills syringe needles(BD needle Ultra-Fine Pen Savana 32G x 4mm), See Instructions, 5 refills triamcinolone topical(triamcinolone 0.1% topical ointment), 1 appl, topical, bid, 3 refills triamcinolone topical(triamcinolone 0.5% topical cream), 1 appl, topical, tid, 1 refills unlisted medication(BD PEN NEEDLE/SAVANA [id number] MIS) unlisted medication(BD PEN NEEDLE/SAVANA [id number] MIS), See Instructions unlisted medication(metFORMIN HCl 500 MG Oral Tablet), See Instructions unlisted medication(ONETOUCH ULTRA BLUE TEST STRP), See Instructions, 6 refills Allergies Augmentin"bad" diarrhea Benadryl"makes me hyper" Darvocet [id number] Vicodinnausea morphinenausea sulfa drugshives Social History Smoking Status Never smoked cigarettes Alcohol Type:Beer, Liquor Frequency:1-2 times per month Family History COPD: Father. Cancer: Father. Hypertension: Brother. Malignant tumor of lung: Father. Type II diabetes mellitus: Brother and MGM. Health Status Family Member(s) Family Member(s) Relationship: Father, Age: 40 Years Immunizations Vaccine Date Status zoster vaccine, inactivated 01/31/2020 Given zoster vaccine, inactivated 10/31/2019 Given influenza virus vaccine, inactivated 08/17/2019 Given tetanus/diphtheria/pertuss, acel (Tdap) 06/14/2018 Given Recommendations Health Maintenance Pending(in the next year) OverDue Diabetic Eye Exam due12/29/20and every 2year Due Adult Influenza Vaccine due03/28/23and every 1year Adult COVID-19 Vaccination due04/16/23Unknown Frequency Depression Follow Up Plan due04/16/23Unknown Frequency Falls Plan of Care due04/16/23Unknown Frequency Osteoporosis Screening due04/16/23One-time only Pneumococcal Vaccine Older Adults due04/16/23One-time only Due In Future Breast Cancer Screening not due until10/10/23and every 731day Body Mass Index not due until04/14/24and every 1year Diabetes Management A1c not due until04/14/24and every 1year Satisfied(in the past 1 year) Satisfied Body Mass Index on03/06/23.Satisfied by JOAN Chavez Paula Diabetes Management A1c on04/15/23.Satisfied by Contributor_system, [id number] Diabetes Nephropathy Management on04/15/23.Satisfied by Contributor_system, [id number] Lipid Screening on04/15/23.Satisfied by Contributor_system, [id number] Patient Care team information Care Team Personnel Name: MD Candy, Dariela Kenny Position: Physician - Family Med Member Role: Primary Care Provider Address: Address: [address] [place] [address], [place] [address] Care Team Related Persons Name: LANCE CABRERA Address: [address], [id number]
--- OUTSIDE RECORDS SUMMARY | 2023-05-31 12:04 | External Medical Summary | Summary of Care ---
Author Name Unknown Organization [facility] Address [address] [place] [address] Phone [phone] Care Team Providers Care Consolidator Name Role Phone Dariela Gupta MD Primary Care Provider [phone] Reason for Visit * Reason Onset Date Comments Advice 05/25/2023 Encounter Details Date Type Department Care Team Description 05/25/2023 Telephone Gynecology/Obstetrics [facility] [address] [place] [id number] Canelo Meza MD [address] [facility] [place] [address] Advice Allergies Active Allergy Reactions Severity Noted Date Comments Amoxicillin-Pot Clavulanate 07/24/20 21 Other reaction(s): "bad" diarrhea Codeine Nausea/vomiting 09/25/2015 Meperidine 08/31/2015 Meperidine Nausea/vomiting 09/25/2015 Diphenhydramine 07/24/2021 Other reaction(s): "makes me hyper" Hydrocodone 08/31/2015 Morphine Nausea/vomiting 09/25/2015 Sulfa Antibiotics 09/25/2015 hives Hydrocodone-Acetaminophen Nausea/vomiting 09/25 documented as of this encounter (statuses as of 05/25/2023) Medications Medication Sig Dispensed Refills Start Date End Date Status albuterol (VENTOLIN HFA) 108 (90 BASE) MCG/ACT inhaler Inhale 2 Puffs by mouth every 6 hours as needed. 0 Active traZODone (DESYREL) 50 MG Tablet Take 50 mg by mouth at bedtime. 0 Active doxepin (SINEQUAN) 25 MG Capsule Take 25 mg by mouth at bedtime. 1 tab at bedtime 0 04/01/2017 Active BuPROPion HCl ER, SR, (WELLBUTRIN SR) 200 MG TB12 Take 200 mg by mouth daily. In the morning. 0 03/19/2018 Active citalopram (CELEXA) 40 MG Tablet Take 40 mg by mouth every evening. 1 daily 0 03/19/2018 Active [employer] MediaT[employer]CH DELICA LANCETS 33G MISC USE TO TEST BLOOD SUGAR TWICE A DAY. 0 01/20/2018 Active ONETOUCH ULTRA BLUE STRP USE TO TEST BLOOD SUGAR TWICE A DAY. 0 01/20/2018 Active Blood Glucose Monitoring Suppl ([employer] ULTRA 2) w/Device KIT USE TO TEST BLOOD SUGAR TWICE DAILY. 0 01/20/2018 Active traMADol (ULTRAM) 50 MG Tablet Take 50 mg by mouth every 6 hours as needed. As needed 0 11/16/2019 Active atorvaSTATin (LIPITOR) 20 MG Tablet 1 daily 0 11/01/2019 Active fluticasone (FLONASE) 50 MCG/ACT nasal spray 1 [place]. As needed 0 12/31/2018 Activ e valACYclovir (VALTREX) 1000 MG Tablet As needed 0 03/09/2019 Active insulin Detemir (LEVEMIR) 100 UNIT/ML injection Pt reported taking 60 units 0 09/16/2019 Active lisinopril (PRINIVIL) 5 MG Tablet 1 daily 0 11/01/2019 Active BD PEN NEEDLE SHERRY U/F 32G X 4 MM 0 11/21/2019 Active prazosin (MINIPRESS) 2 MG Capsule Take 2 mg by mouth daily. 0 07/29/2019 Active Loratadine 10 MG Oral Capsule Take 10 mg by mouth. 0 Active metFORMIN HCl 500 MG Oral Tablet (Glucophage) at bedtime . 0 06/08/2021 Active Aspirin 81 MG Oral Tablet Delayed Release Take 81 mg by mouth daily. 0 Active Omeprazole 40 MG Oral Capsule Delayed Release (PriLOSEC) TAKE 1 CAPSULE BY MOUTH ONCE DAILY FOR 30 DAYS 0 01/04/2022 Active Ozempic (0.25 or 0.5 MG/DOSE) 2 MG/1.5ML Solution Pen-injector 0 01/18/2022 Active Meloxicam 15 MG Oral Tablet Take 1 Tablet by mouth in the morning. 90 Tablet 0 11/19/2022 Active Xiidra 5 % Ophthalmic Solution (Lifitegrast) Instill 1 Drop into both eyes 2 times a day. 1 Each 5 12/15/2022 Active documented as of this encounter (statuses as of 05/25/2023) Active Problems Problem Noted Date Sjogren's syndrome 04/07/2017 Insomnia Depression Osteoarthritis of both knees Tobacco abuse documented as of this encounter (statuses as of 05/25/2023) Immunizations Name Administration Dates Next Due Zoster Vaccine Recombinant (Shingrix) 10/31/2019 documented as of this encounter Social History Tobacco Use Types Packs/Day Years Used Date Smoking Tobacco: Every Day Cigarettes 1 30 Smokeless Tobacco: Never Alcohol Use Standard Drinks/Week Comments No 0 (1 standard drink = 0.6 oz pur e alcohol) Sex Assigned at Date Recorded Not on file Job Start Date Occupation Industry Not on file Not on file Not on file documented as of this encounter Miscellaneous Notes * Telephone Encounter - Alina Shin RN - 05/25/2023 11:28 AM EDT Pt called back she just checked with her insurance and they are non par and it would cost her $750 at minimum to come. She is calling elsewhere. I advised to call back with any concerns. * Telephone Encounter - Alina Shin RN - 05/25/2023 10:[address] Arias, pt needs follow up with Dr. Meza this week due to vulvar abscess. Spoke with pt andappt made. documented in this encounter Plan of Treatment Health Maintenance Due Date Last Done Comments COVID-19 Vaccine (#1) 1960 Pneumococcal Vaccine: 65+ Years (1 - PCV) 01/29/1964 Depression Screening, Annual for Pts 12 and Over 1970 HIV Screening 1973 DTaP,Tdap,and Td Vaccines (1 - Tdap) 1977 Mammogram 11/02/2001 11/02/2000, 08/20/1999 Cologuard 2003 Colonoscopy 2003 Colorectal Cancer Screening 2003 Fecal Occult Blood Test 2003 Sigmoidoscopy 2003 Lipid Panel 09/03/2004 09/03/1999, 09/28, 09/04/1997 LUNG CANCER SCREENING - USE SMARTSET 09599 01/29/2008 DXA Scan 2023 Influenza Vaccine (FLU shot) (#1) 2023 Diabetes Screening 01/22/2025 01/22/2022, 0 05/21/2017, 10/15/2015, Additional history exists Zoster Vaccines Completed 01/31/2020, 10/31/2019 GARDASIL-HPV IMMUNIZATION SERIES Aged Out No longer eligible based on patient's age to complete this topic Hepatitis B Aged Out No longer eligi ble based on patient's age to complete this topic MENINGOCOCCAL (MENACTRA/MENVEO) Aged Out No longer eligible based on patient's age to complete this topic documented as of this encounter Medical Devices Not on filedocumented as of this encounter Care Teams Consolidator Relationship Specialty Start Date End Date Dariela Gupta MD [facility] [address] [facility] [address] [place] [address] PCP - General Family Medicine 04/06/18 documented as of this encounter
--- OUTSIDE RECORDS SUMMARY | 2023-05-31 12:04 | External Medical Summary | Continuity of Care Document ---
Author Name Unknown Organization [facility] [address] Address [address] [place], [place] [id number] Care Team Providers Care Automobile Salesman Name Role Phone Dariela Gupta Zoya Primary Care Physician [phone] [id number] Date(s): 03/09/23 - 03/09/23 [facility] [address] [facility] [address] [facility] [address] [place], [place] [phone] Encounter Diagnosis Diarrhea, unspecified(Final) - Discharge Disposition: Home or Self Care Attending Physician: INGE Ag Kimberly A Referring Physician: INGE Ag Kimberly A Allergies, Adverse Reactions, Alerts Substance Reaction Severity Status morphine nausea Active sulfa drugs hives Active Augmentin "bad" diarrhea Active Vicodin nausea Active Benadryl "makes me hyper" Active Darvocet A500 nausea Active Immunizations Given and Recorded Vaccine Date Status Refusal Reason zoster vaccine, inactivated 01/31/20 Given zoster vaccine, inactivated 10/31/19 Given influenza virus vaccine, inactivated 08/17/19 Give n tetanus/diphtheria/pertuss, acel (Tdap) 06/14/18 G iven Medications Adult Aspirin 81 mg oral tablet, chewable Start: 06/10/22 15:41:00 EDT Start Date: 06/10/22 Status: Ordered Advair Diskus 500 mcg-50 mcg Start: 11/20/22 15:27:00 EST, 1 puff, PO, bid, Disp# 60 blister, Refills: 11, [facility] Start Date: 11/20/22 Stop Date: 11/15/23 Status: Ordered albuterol CFC free 90 mcg/inh MDI Start: 11/20/22 15:27:00 EST, 2 puff, inhaled, qid, Disp# 3 each, Refills: 1, PRN: as needed for wheezing, [facility] Start Date: 11/20/22 Status: Ordered atorvastatin 20 mg oral tablet Start: 03/03/23 13:49:00 EDT, See Instructions, Disp# 90 tab, Refills: 3, Take 1 tablet by mouth once daily, Pharmacy: [facility] Start Date: 03/03/23 Status: Ordered BD needle Ultra-Fine Pen Savana 32G x 4mm Start: 07/18/22 8:51:00 EDT, See Instructions, Disp# 100 each, Refills: 5, use with insulin pen, Pharmacy: [facility] Start Date: 07/18/22 Status: Ordered BD needle Ultra-Fine Pen Savana 32G x 4mm Start: 07/14/22 16:45:00 EDT, See Instructions, Disp# 100 each, Refills: 6, Use with insulin pen., Pharmacy: [facility] Start Date: 07/14/22 Status: Ordered BD PEN NEEDLE/SAVANA [id number] MIS USE TWICE DAILY WITH INSULIN Start Date: 09/24/20 Status: Ordered BD PEN NEEDLE/SAVANA [id number] MIS BD PEN NEEDLE/SAVANA [id number] MIS, See Instructions, Disp# 100 each, Refills: 1, USE WITH INSULIN PEN,Pharmacy [facility] Start Date: 10/28/21 Status: Ordered BD Test Strips 100 ct Start: 02/27/21 15:53:00 EDT, See Instructions, Disp# 100 each, Refills: 3, test daily, Dx : E11.9,Pharmacy: [facility] Start Date: 02/27/21 Status: Ordered citalopram 40 mg oral tablet Start: 03/03/23 13:49:00 EDT, See Instructions, Disp# 90 tab, Refills: 3, Take 1 tablet by mouth once daily, Pharmacy: [facility] Start Date: 03/03/23 Status: Ordered doxepin 25 mg oral capsule Start: 01/19/23 19:09:00 EDT, See Instructions, Disp# 90 cap, Refills: 1, Take 1 capsule by mouth once daily, Pharmacy: [facility] Start Date: 01/19/23 Status: Ordered DuoNeb 0.5 mg-2.5 mg/3 mL inhalation solution Start: 07/18/22 9:15:00 EDT, 3 mL, inhaled, qid, Disp# 120 mL, PRN: as needed for shortness of breath or wheezing, Pharmacy: [facility] Start Date: 07/18/22 Stop Date: 07/28/22 Status: Ordered fluticasone 50 mcg/inh nasal spray Start: 06/13/22 16:56:00 EDT, See Instructions, Disp# 16 g, Refills: 6, Use 1 spray(s) in each nostril once daily, Pharmacy: [facility] Start Date: 06/13/22 Status: Ordered glucometer Start: 02/27/21 15:52:00 EDT, See Instructions, Disp# 1 each, Refills: 0, test daily, Dx E11.9, Pharmacy: [facility] Start Date: 02/27/21 Status: Ordered lancets Start: 02/27/21 15:54:00 EDT, See Instructions, Disp# 100 each, Refills: 3, test daily, Dx: E11.9, Pharmacy: [facility] Start Date: 02/27/21 Status: Ordered Levemir FlexPen 100 units/mL subcutaneous solution Start: 12/15/22 16:22:00 EDT, 60 unit =, subQ, qhs, Disp# 15 mL, Refills: 1, [facility] Start Date: 12/15/22 Status: Ordered Levemir FlexTouch 100 units/mL subcutaneous solution Start: 10/16/22 19:22:00 EST, See Instructions, Disp# 15 mL, Refills: 0, INJECT 60 UNITS SUBCUTANEOUSLY EVERY DAY AT BEDTIME, Pharmacy: [facility] Start Date: 10/16/22 Status: Ordered lisinopril 5 mg oral tablet Start: 03/03/23 13:49:00 EDT, See Instructions, Disp# 90 tab, Refills: 3, Take 1 tablet by mouth once daily, Pharmacy: [facility] Start Date: 03/03/23 Status: Ordered Medrol Dosepak 4 mg oral tablet Start: 12/01/22 14:51:00 EST, See Instructions, Disp# 21 tab, Take as directed on package labeling for 6 days., Pharmacy: [facility] Start Date: 12/01/22 Stop Date: 12/07/22 Status: Ordered meloxicam 15 mg oral tablet Start: 05/26/17 11:25:00, 1 tab, PO, Daily Start Date: 05/26/17 Status: Ordered Metamucil Start: 02/27/21 15:26:00 EDT, 3.4 g =, PO, Daily Start Date: 02/27/21 Status: Ordered metFORMIN 500 mg oral tablet Start: 12/25/22 13:11:00 EDT, See Instructions, Disp# 120 tab, Refills: 3, TAKE TWO TABLETS BY MOUTH TWICE DAILY @9AM & 5PM, Pharmacy: [facility]) Start Date: 12/25/22 Status: Ordered metFORMIN HCl 500 MG Oral Tablet metFORMIN HCl 500 MG Oral Tablet, See Instructions, Disp# 120 tab, Refills: 6, Take 2 tablets by mouth twice daily, Pharmacy [facility] Start Date: 04/08/21 Status: Ordered metroNIDAZOLE 0.75% topical gel Start: 12/15/22 16:22:00 EDT, 1 appl, topical, bid, Disp# 45 g, Refills: 3, apply to face, [facility]acy: [facility] Start Date: 12/15/22 Status: Ordered MiraLax oral powder for reconstitution Start: 08/05/21 15:25:00 EST, 17 g =, PO, bid, Disp# 1,020 g, Refills: 1, Pharmacy: [facility] Start Date: 08/05/21 Stop Date: 10/04/21 Status: Ordered omeprazole 40 mg oral delayed release capsule Start: 11/20/22 15:27:00 EST, See Instructions, Disp# 90 cap, Refills: 1, Take 1 capsule by mouth once daily for 30 days, Pharmacy: [facility] ([place]) Start Date: 11/20/22 Status: Ordered ONETOUCH ULTRA BLUE TEST STRP Start: 03/09/19 12:34:53 EDT, See Instructions, Disp# 50, Refills: 6, USE TO TEST BLOOD SUGAR TWICEA DAY., Pharmacy: [id number], USE TO TEST BLOOD SUGAR TWICE A DAY. Start Date: 03/09/19 Status: Ordered Ozempic (2 mg dose) 8 mg/3 mL subQ pen Start: 01/07/23 14:54:00 EDT, 2 mg =, subQ, q7days, Disp# 9 mL, Refills: 1, Pharmacy: [facility] Start Date: 01/07/23 Status: Ordered prazosin 2 mg oral capsule Start: 01/20/23 10:09:00 EDT, See Instructions, Disp# 90 cap, Refills: 1, TAKE 1 CAPSULE BY MOUTH EVERY DAY AT BEDTIME, Pharmacy: [facility] Start Date: 01/20/23 Status: Ordered triamcinolone 0.1% topical ointment Start: 10/28/22 15:08:00 EST, 1 appl, topical, bid, Disp# 80 g, Refills: 3, apply to arms,legs, shoulders, Pharmacy: [facility] Start Date: 10/28/22 Status: Ordered triamcinolone 0.5% topical cream Start: 12/15/22 16:22:00 EDT, 1 appl, topical, tid, Disp# 20 g, Refills: 1, Pharmacy: [facility] ([place]) Start Date: 12/15/22 Status: Ordered Vitamin D3 2000 intl units oral capsule Start: 05/26/17 11:25:00, 1 cap, PO, Daily Start Date: 05/26/17 Status: Ordered Problem List Condition Confirmation Course Effective Dates [...] 7% Confirmed Active Urinary incontinence Confirmed Active Procedures Procedure Date Related Diagnosis Body Site Status Plain X-ray abdomen 1 03/09/23 Com sara walls study 2 12/16/21 Complet ed KUB X-ray [...] with ingested markers within the stomach. 4[facility] Impression: ACR BI-RADS CATEGORY 2: BENIGN [...] polypectomy: fragmented tubular adenoma. D) Colon, mid sigmoid,polypectomies x2: a fragmented tubular adenoma and hyperplastic [...] w/ hepatic steatosis, reactive associated lymphadenopathy 11[facility] Impression: 1. Nonobstructive bowel gas pattern 2. Moderate constipation 12Impression: 1.8 x 0.5 x1.6 cm pocket of fluid within the subcutaneous tissues of the medial right thigh. This may reflect subcutaneous edema or a tiny residual abscess 13[facility] Right groin 14No acute process identified. [...] 6. Splenomegaly. Results Laboratory List Name Date Complete Blood Count (CBC) 03/09/23 Comprehensive Metabolic Panel (COMP META B PANEL) 03/09/23 Most recent to oldest [Reference Range]: 1 eGFR CKD-EPI [>60 mL/min/1.73 m2] >90 mL /min/1.73 m2 1 (03/09/23 3:00 PM) Estimated CrCl 121.44 mL/min (03/09/23 3:50 PM) MPV [9.0-12.2 fL] 10.3 fL 2 (03/09/23 3:00 PM) RDW [11.5-14.2 %] 12.7 % (03/09/23 3:00 PM) Anion Gap [5-14 mmol/L] 6 mmol/L (03/09/23 3:00 PM) Alb [3.5-5.0 g/dL] 3.8 g/dL (03/09/23 3:00 PM) Alk Phos [38-126 unit/L] 158 unit/L *HI* (03/09/23 3:00 PM) ALT [<35 unit/L] 30 unit/L (03/09/23 3:00 PM) AST [15-46 unit/L] 46 unit/L (03/09/23 3:00 PM) BUN [7-20 mg/dL] 11 mg/dL (03/09/23 3:00 PM) Ca [8.4-10.2 mg/dL] 9.0 mg/dL (03/09/23 3:00 PM) Cl- [96-107 mmol/L] 107 mmol/L (03/09/23 3:00 PM) HCO3 [22-30 mmol/L] 24 mmol/L (03/09/23 3:00 PM) Cret [0.60-1.00 mg/dL] 0.58 mg/dL *LOW* (03/09/23 3:00 PM) Glu [74-106 mg/dL] 170 mg/dL *HI* (03/09/23 3:00 PM) Hct [35-44 %] 44.8 % *HI* (03/09/23 3:00 PM) Hgb [11.7-15.0 g/dL] 15.1 g/dL *HI* (03/09/23 3:00 PM) K [3.5-5.1 mmol/L] 4.3 mmol/L (03/09/23 3:00 PM) MCH [28-33 pg] 31.1 pg (03/09/23 3:00 PM) MCHC [32-36 g/dL] 33.7 g/dL (03/09/23 3:00 PM) MCV [81-96 fL] 92.4 fL (03/09/23 3:00 PM) Na [137-145 mmol/L] 137 mmol/L (03/09/23 3:00 PM) Plts [150-350 K/uL] 180 K/uL (03/09/23 3:00 PM) RBC [3.90-5.00 M/uL] 4.85 M/uL (03/09/23 3:00 PM) T Bili [0.2-1.3 mg/dL] 1.0 mg/dL (03/09/23 3:00 PM) Prot [6.3-8.2 g/dL] 8.3 g/dL *HI* (03/09/23 3:00 PM) WBC [4.0-10.4 K/uL] 9.01 K/uL (03/09/23 3:00 PM) 1Result Comment: Testing Performed By: Dept of Pathology [facility] [address], [address] [place] [address] 2Result Comment: Testing Performed By: Dept of Pathology [facility] [address], [address] [place] [address] Social History Social History Type Response Smoking Status Current every day he lorenza smoker Sex Female Patient Care team information Care Team Personnel Name: MD Candy, Dariela Kenny Position: Physician - Family Med Member Role: Primary Care Provider Address: Address: [address] [place] [address] [address] [place] [address] [place] Care Team Related Persons Name: LANCE CABRERA Address: home [address] [facility], [phone]
--- OUTSIDE RECORDS SUMMARY | 2023-05-31 12:04 | External Medical Summary | Summary of Care ---
Author Name Unknown Organization [facility] Address [address] [place] [address] Phone [phone] Care Team Providers Care Lace Tearing Supervisor Name Role Phone Dariela Gupta MD Primary Care Provider [phone] Reason for Visit * Reason Onset Date Comments Advice 05/25/2023 Encounter Details Date Type Department Care Team Description 05/25/2023 Telephone Gynecology/Obstetrics [facility] [address] [place] [id number] Canelo Meza MD [address] [facility] [place] [address] Advice Allergies Active Allergy Reactions Severity Noted [...] every evening. 1 daily 0 03/19/2018 Active Hidden RadioTOUCH DELICA LANCETS 33G MISC USE TO TEST BLOOD SUGAR TWICE A DAY. 0 01/20/2018 Active ONETOUCH ULTRA BLUE STRP USE TO TEST BLOOD SUGAR TWICE A DAY. 0 01/20/2018 Active Blood Glucose Monitoring Suppl (Contactual ULTRA 2) w/Device KIT USE TO TEST BLOOD SUGAR TWICE DAILY. 0 01/20/2018 Active traMADol (ULTRAM) 50 MG Tablet Take 50 mg by mouth every 6 hours as needed. As needed 0 11/16/2019 Active atorvaSTATin (LIPITOR) 20 MG Tablet 1 daily 0 11/01/2019 Active fluticasone (FLONASE) 50 MCG/ACT nasal spray 1 [place]. As needed 0 12/31/2018 Activ e valACYclovir [...] documented in this encounter Plan of Treatment Upcoming Encounters Date Type Specialty Care Team Description 05/26/2023 Office Visit Gynecology Obstetrics Canelo Meza MD [address] [place] [id number] Health Maintenance Due Date Last Done Comments [...] 09/04/1997 LUNG CANCER SCREENING - USE SMARTSET 03871 01/29/2008 DXA Scan 2023 Influenza Vaccine (FLU [...] filedocumented as of this encounter Care Teams Lace Tearing Supervisor Relationship Specialty Start Date End Date Dariela Gupta MD [address] [place] [address], [place] [id number] PCP - General Family Medicine 04/06/18 documented as of this encounter
--- OUTSIDE RECORDS SUMMARY | 2023-05-31 12:04 | External Medical Summary | Continuity of Care Document ---
Author Name Unknown Organization [facility] [address] [facility] [address] [id number] Care Team Providers Care Kiln Worker Name Role Phone Dariela Gupta Zoya Primary Care Physician [phone] [id number] Date(s): 05/19/23 - 05/19/23 [facility] [address] [facility] [address] [facility] [address] [facility], [address] [place], [place] [address]Xrutv [phone] Encounter Diagnosis Body mass index [BMI] 34.0-34.9, adult(Discharge Diagnosis) - 05/19/23 Abscess(Discharge Diagnosis) - 05/19/23 Discharge Disposition: Home or Self Care Attending Physician: INGE Ag Kimberly A Allergies, Adverse Reactions, Alerts Substance Reaction Severity Status morphine nausea Active sulfa drugs hives Active Augmentin "bad" diarrhea Active Vicodin nausea Active Benadryl "makes me hyper" Active Darvocet A500 nausea Active Assessment and Plan Extracted from: Title:Abscess Author:INGE Ag Kimberly A Date:05/19/23 1.Abscess STATUS:Acute, uncomplicated. 63 yo female who presents to the office for acute visit. She is complaining today of a cyst on her left external labia. Started just a few days ago and has continued to grow rapidly. She did have a similar infection on her right labia a few years ago that required surgical intervention. She denies any fevers, chills, drainage, bleeding or systemic symptoms DATA:Labs reviewed. GOAL:Maintain stability. PLAN:Cont current monitoring. .Add Doxycycline 100mg twice daily for 10 days Call tomorrow with progress report If symptoms are worsening, will refer for surgical I&D Immunizations Given and Recorded Vaccine Date Status [...] and itching, PRN: as neededfor itching, Pharmacy: [facility] [address] Start Date: 04/15/23 Stop Date: 04/20/23 Status: Ordered atorvastatin 20 mg oral tablet Start: 03/03/23 13:49:00 EDT, See Instructions, Disp# 90 tab, Refills: 3, Take 1 tablet by mouth once daily, Pharmacy: [facility] [address] Start Date: 03/03/23 Status: Ordered BD needle Ultra-Fine Pen Savana 32G x 4mm Start: 07/14/22 16:45:00 EDT, See Instructions, Disp# 100 each, Refills: 6, Use with insulin pen., Pharmacy: [facility] [address] Start Date: 07/14/22 Status: Ordered BD needle Ultra-Fine Pen Savana 32G x 4mm Start: 03/24/23 17:14:00 EDT, See Instructions, Disp# 100 each, Refills: 5, Use with pen to inject insulin once daily, Note to Pharmacy: ICD-10: E11.9, Pharmacy: [facility] [address] Start Date: 03/24/23 Status: Ordered BD PEN NEEDLE/SAVANA [id number] MIS USE TWICE DAILY WITH INSULIN Start Date: 09/24/20 Status: Ordered BD PEN NEEDLE/SAVANA [id number] MIS BD PEN NEEDLE/SAVANA [id number] MIS, See Instructions, Disp# 100 each, Refills: 1, USE WITH INSULIN PEN,Pharmacy [facility] [address] Start Date: 1/31/22 Status: Ordered BD Test Strips 100 ct Start: 02/27/21 15:53:00 EDT, See Instructions, Disp# 100 each, Refills: 3, test daily, Dx : E11.9,Pharmacy: [facility] [address] Start Date: 02/27/21 Status: Ordered citalopram 40 mg oral tablet Start: 03/03/23 13:49:00 EDT, See Instructions, Disp# 90 tab, Refills: 3, Take 1 tablet by mouth once daily, Pharmacy: [facility] [address] Start Date: 03/03/23 Status: Ordered doxepin 25 mg oral capsule Start: 01/19/23 19:09:00 EDT, See Instructions, Disp# 90 cap, Refills: 1, Take 1 capsule by mouth once daily, Pharmacy: [facility] [address] Start Date: 01/19/23 Status: Ordered doxycycline hyclate 100 mg oral capsule Start: 05/19/23 16:40:00 EDT, 1 cap, PO, bid, Disp# 28 cap, Pharmacy: [facility] [address] Start Date: 05/19/23 Stop Date: 06/02/23 Status: Ordered DuoNeb 0.5 mg-2.5 mg/3 mL inhalation solution Start: 07/18/22 9:15:00 EDT, 3 mL, inhaled, qid, Disp# 120 mL, PRN: as needed for shortness of breath or wheezing, Pharmacy: [facility] [address] Start Date: 07/18/22 Stop Date: 07/28/22 Status: Ordered fluticasone 50 mcg/inh nasal spray Start: 06/13/22 16:56:00 EDT, See Instructions, Disp# 16 g, Refills: 6, Use 1 spray(s) in each nostril once daily, Pharmacy: [facility] [address] Start Date: 06/13/22 Status: Ordered glucometer Start: 02/27/21 15:52:00 EDT, See Instructions, Disp# 1 each, Refills: 0, test daily, Dx E11.9, Pharmacy: [facility] [address] Start Date: 02/27/21 Status: Ordered lancets Start: 02/27/21 15:54:00 EDT, See Instructions, Disp# 100 each, Refills: 3, test daily, Dx: E11.9, Pharmacy: [facility] [address] Start Date: 02/27/21 Status: Ordered Levemir FlexPen 100 units/mL subcutaneous solution Start: 04/29/23 13:13:00 EDT, 60 unit =, subQ, qhs, Disp# 15 mL, Refills: 1, Pharmacy: [facility] Start Date: 04/29/23 Status: Ordered Levemir FlexTouch 100 units/mL subcutaneous solution Start: 10/16/22 19:22:00 EST, See Instructions, Disp# 15 mL, Refills: 0, INJECT 60 UNITS SUBCUTANEOUSLY EVERY DAY AT BEDTIME, Pharmacy: [facility] [address] Start Date: 10/16/22 Status: Ordered lisinopril 5 mg oral tablet Start: 03/03/23 13:49:00 EDT, See Instructions, Disp# 90 tab, Refills: 3, Take 1 tablet by mouth once daily, Pharmacy: [facility] [address] Start Date: 03/03/23 Status: Ordered meloxicam 15 mg oral tablet Start: 04/15/23 15:28:00 EDT, 1 tab, PO, Daily, Disp# 30 tab, Refills: 5, Pharmacy: [facility] [address] Start Date: 04/15/23 Stop Date: 10/12/23 Status: Ordered Metamucil Start: 02/27/21 15:26:00 EDT, 3.4 g =, PO, Daily Start Date: 02/27/21 Status: Ordered metFORMIN 500 mg oral tablet Start: 12/25/22 13:11:00 EDT, See Instructions, Disp# 120 tab, Refills: 3, TAKE TWO TABLETS BY MOUTH TWICE DAILY @9AM & 5PM, Pharmacy: [facility] ([place]) Start Date: 12/25/22 Status: Ordered metFORMIN HCl 500 MG Oral Tablet metFORMIN HCl 500 MG Oral Tablet, See Instructions, Disp# 120 tab, Refills: 6, Take 2 tablets by mouth twice daily, Pharmacy [facility] Start Date: 04/08/21 Status: Ordered metroNIDAZOLE 0.75% topical gel Start: 12/15/22 16:22:00 EDT, 1 appl, topical, bid, Disp# 45 g, Refills: 3, apply to face, Pharmacy: [facility] ([place]) Start Date: 12/15/22 Status: Ordered MiraLax oral powder for reconstitution Start: 08/05/21 15:25:00 EST, 17 g =, PO, bid, Disp# 1,020 g, Refills: 1, Pharmacy: [facility] [address] Start Date: 08/05/21 Stop Date: 10/04/21 Status: Ordered Mounjaro 2.5 mg/0.5 mL subcutaneous solution Start: 04/29/23 13:32:00 EDT, 2.5 mg =, subQ, q7days, Disp# 4 each, Pharmacy: [facility] [address] Start Date: 04/29/23 Stop Date: 05/29/23 Status: Ordered omeprazole 40 mg oral delayed release capsule Start: 11/20/22 15:27:00 EST, See Instructions, Disp# 90 cap, Refills: 1, Take 1 capsule by mouth once daily for 30 days, Pharmacy: [facility] ([place]) Start Date: 11/20/22 Status: Ordered Step Ahead InnovationsUCH ULTRA BLUE TEST STRP Start: 03/09/19 12:34:53 EDT, See Instructions, Disp# 50, Refills: 6, USE TO TEST BLOOD SUGAR TWICEA DAY., Pharmacy: [address], USE TO TEST BLOOD SUGAR TWICE A DAY. Start Date: 03/09/19 Status: Ordered prazosin 2 mg oral capsule Start: 01/20/23 10:09:00 EDT, See Instructions, Disp# 90 cap, Refills: 1, TAKE 1 CAPSULE BY MOUTH EVERY DAY AT BEDTIME, Pharmacy: [facility] [address] Start Date: 01/20/23 Status: Ordered Trelegy Ellipta 100 mcg-62.5 mcg-25 mcg/inh inhalation powder Start: 04/15/23 15:31:00 EDT, 1 puff, inhaled, Daily, Disp# 28 blister, Refills: 5, Pharmacy: [facility] [address] Start Date: 04/15/23 Stop Date: 10/12/23 Status: Ordered triamcinolone 0.1% topical ointment Start: 10/28/22 15:08:00 EST, 1 appl, topical, bid, Disp# 80 g, Refills: 3, apply to arms,legs, shoulders, Pharmacy: [facility] [address] Start Date: 10/28/22 Status: Ordered triamcinolone 0.5% topical cream Start: 12/15/22 16:22:00 EDT, 1 appl, topical, tid, Disp# 20 g, Refills: 1, Pharmacy: [facility] ([place]) Start Date: 12/15/22 Status: Ordered Vitamin D3 2000 intl units oral capsule Start: 05/26/17 11:25:00, 1 cap, PO, Daily Start Date: 05/26/17 Status: Ordered Mental Status 05/19/23 Barriers to Learning one year None evide nt Mandatory Health Literacy Documentation Yes Health Literacy Communication Barriers N ever Primary Language Cook Islander Problem List Condition Confirmation Course Effective Dates Status H ealth Status Informant Abscess Confirmed Active Anxiety and depression Confirmed Active Chronic constipation [...] Diagnosis Diagnosis Type Effective Dates Health Status Cl inical Service Informant Body mass index [BMI] 34.0-34.9, adult Discharge Diagnosis 05/19/23 Non-Specified Abscess Discharge Diagnosis 05/19/23 Procedures Procedure Date Related Diagnosis Body Site Status Plain X-ray abdomen 1 03/09/23 Com sara ma study 2 12/16/21 Complet ed KUB X-ray [...] with ingested markers within the stomach. 4[facility] Impression: ACR BI-RADS CATEGORY 2: BENIGN 1. [...] w/ hepatic steatosis, reactive associated lymphadenopathy 11[facility] Impression: 1. Nonobstructive bowel gas pattern 2. Moderate constipation 12Impression: 1.8 x 0.5 x1.6 cm pocket of fluid within the subcutaneous tissues of the medial right thigh. This may reflect subcutaneous edema or a tiny residual abscess 13[facility] Right groin 14No acute process identified. Ill-defined [...] ling zones. 5. Hepatic steatosis. 6. Splenomegaly. Vital Signs Most recent to oldest [Reference Range]: 1 Height 173.7 cm (05/19/23 4:26 PM) Patient Weight 104.7 kg (05/19/23 4:26 PM) Body Mass Index 34.7 kg/m2 (05/19/23 4:26 PM) Temperature [36.5-37.9 DegC] 37.0 DegC (05/19/23 4:26 PM) Respiratory Rate 22 br/min (05/19/23 4:26 PM) Blood Pressure 118/70mmHg (05/19/23 4:26 PM) Cuff Pulse Pressure 48 mmHg (05/19/23 4:26 PM) BP Location # 1 Left Arm (05/19/23 4:26 PM) Social History Social History Type Response Smoking Status Current every day he lorenza smoker Sex Female FCM Outpt Note * INGE Ag, Yuki Merino: PERFORM Event Display: FCM Outpt Note Authored Date: [id number] Chief Complaint Pt here for vaginal cyst. Pt drained it on Thursday with bloody discharge from it. History of Present Illness Patient is a 63 yo female who presents to the office for acute visit. She is complaining today of a cyst on her left external labia. Started just a few days ago and has continued to grow rapidly. She did have a similar infection on her right labia a few years ago that required surgical intervention. She denies any fevers, chills, drainage, bleeding or systemic symptoms. Review of Systems ROS per HPI Physical Exam Vitals & Measurements T:37.0C RR:22 BP:118/70 SpO2:96% HT:173.7cm WT:104.7kg WT:104.700kg(Dosing) BMI:34.7 PHQ2 Data(Data Documented on:05/19/2023 16:18) Emotional health assessment POSITIVE PHQ-9 Data(Data Documented on:05/19/2023 16:22) PHQ-9 Severity Score:18 Thoughts that you would be better off or of hurting yourself in some way?Not at All Depression Risk:Elevated General Anxiety Disorder Screening: CHAN-7 Score:8 CHAN-7 Problem Severity:Not at all : LARGE, FLUCTUANT ANGRY ABSCESS ON THE EXTERNAL LEFT LABIA WITH ERYTHEMA AND PAIN Assessment/Plan 1.Abscess STATUS:Acute, uncomplicated. 63 yo female who presents to the office for acute visit. She is complaining today of a cyst on her left external labia. Started just a few days ago and has continued to grow rapidly. She did have a similar infection on her right labia a few years ago that required surgical intervention. She denies any fevers, chills, drainage, bleeding or systemic symptoms DATA:Labs reviewed. GOAL:Maintain stability. PLAN:Cont current monitoring. .Add Doxycycline 100mg twice daily for 10 days Call tomorrow with progress report If symptoms are worsening, will refer for surgical I&D Problem List/Past Medical History Ongoing Abscess Anxiety and depression Borderline hyperlipidemia Chronic constipation [...] mg oral capsule), See Instructions, 1 refills doxycycline(doxycycline hyclate 100 mg oral capsule), 100 mg= 1 cap, PO, bid fluticasone nasal(fluticasone 50 mcg/inh nasal spray), See [...] 32G x 4mm), See Instructions, 5 refills tirzepatide(Mounjaro 2.5 mg/0.5 mL subcutaneous solution), 2.5 mg, subQ, q7days triamcinolone topical(triamcinolone 0.1% topical ointment), 1 appl, topical, bid, 3 refills triamcinolone topical(triamcinolone 0.5% topical cream), 1 appl, topical, tid, 1 refills unlisted medication(BD PEN NEEDLE/SAVANA [id number] MIS) unlisted medication(BD PEN NEEDLE/SAVANA [id number] MIS), See Instructions unlisted medication(metFORMIN HCl 500 MG Oral Tablet), See Instructions unlisted medication(ONETOUCH ULTRA BLUE TEST STRP), See Instructions, 6 refills Allergies Augmentin"bad" diarrhea Benadryl"makes me hyper" Darvocet [id number] Vicodinnausea morphinenausea sulfa drugshives Social History Smoking Status Current every day heavy smoker Alcohol Type:Beer, Liquor Frequency:1-2 times per month [...] OverDue Diabetic Eye Exam due12/29/20and every 2year Adult Influenza Vaccine due03/28/23and every 1year Due Adult COVID-19 Vaccination due05/19/23Unknown Frequency Depression Follow Up Plan due05/19/23Unknown Frequency Falls Plan of Care due05/19/23Unknown Frequency Osteoporosis Screening due05/19/23One-time only Pneumococcal Vaccine Older Adults due05/19/23One-time only Due In Future Breast Cancer Screening not due until10/10/23and every 731day Diabetes Management A1c not due until04/14/24and every 1year Body Mass Index not due until05/18/24and every 1year Satisfied(in the past 1 year) Satisfied Body Mass Index on05/19/23.Satisfied by JOAN Chavez Paula Diabetes Management A1c on04/15/23.Satisfied by Contributor_system, [email or web address] Diabetes Nephropathy Management on04/15/23.Satisfied by Contributor_system, [email or web address] Lipid Screening on04/15/23.Satisfied by Contributor_system, [email or web address] Electronic Signature on File Electronically Reviewed/Signed by: Yuki Ag PA-C Author Signature Dt/Tm:05/19/2023 04:55 PM Department of Family Medicine Electronically Reviewed/Signed by: Jerel Nugent MD Cosigner Signature Dt/Tm: 05/19/2023 07:32 PM Department of Family Medicine BOAZ Patient Care team information Care Team Personnel Name: MD Gupta Amy L Position: Physician - Family Med Member Role: Primary Care Provider Address: Address: [address] [place] [address], [place] [address] [place] Care Team Related Persons Name: LANCE CABRERA Address: home [address] [place], [phone]
--- OUTSIDE RECORDS SUMMARY | 2023-05-31 12:04 | External Medical Summary | Summary of Care ---
Author Name Unknown Organization [facility] Address [address] [place] [address] Phone [phone] Care Team Providers Care Roof Designer Name Role Phone Dariela Gupta MD Primary Care Provider [phone] Reason for Visit * Reason Onset Date Comments Advice 05/25/2023 Encounter Details Date Type Department Care Team Description 05/25/2023 Telephone Gynecology/Obstetrics [facility] [address] [place] [id number] Canelo Meza MD [address] [facility] [place] [address] Advice Allergies Active Allergy Reactions Severity Noted [...] every evening. 1 daily 0 03/19/2018 Active MyDream InteractiveTOUCH DELICA LANCETS 33G MISC USE TO TEST BLOOD SUGAR TWICE A DAY. 0 01/20/2018 Active ONETOUCH ULTRA BLUE STRP USE TO TEST BLOOD SUGAR TWICE A DAY. 0 01/20/2018 Active Blood Glucose Monitoring Suppl (Ninjathat ULTRA 2) w/Device KIT USE TO TEST BLOOD SUGAR TWICE DAILY. 0 01/20/2018 Active traMADol (ULTRAM) 50 MG Tablet Take 50 mg by mouth every 6 hours as needed. As needed 0 11/16/2019 Active atorvaSTATin (LIPITOR) 20 MG Tablet 1 daily 0 11/01/2019 Active fluticasone (FLONASE) 50 MCG/ACT nasal spray 1 [place]. As needed 0 12/31/2018 Activ e valACYclovir [...] 09/04/1997 LUNG CANCER SCREENING - USE SMARTSET 07602 01/29/2008 DXA Scan 2023 Influenza Vaccine (FLU [...] filedocumented as of this encounter Care Teams Roof Designer Relationship Specialty Start Date End Date Dariela Gupta MD [address] [place] [address] PCP - General Family Medicine 04/06/18 documented as of this encounter
--- OUTSIDE RECORDS SUMMARY | 2023-05-31 12:04 | External Medical Summary | Continuity of Care Document ---
Author Name Unknown Organization [place] [id number] Address [address] [place] [id number] Care Team Providers Care Historic Sites Registrar Name Role Phone Dariela Gupta Primary Care Physician [phone] [facility]counter [facility] [id number] Date(s): 02/09/23 - 02/09/23 [facility] [address] [id number] [facility] [address] [address] Encounter Diagnosis Left lumbar radiculopathy(Discharge Diagnosis) - 02/09/23 Discharge Disposition: Home or Self Care Attending Physician: MD Kike, Kenny Barron Allergies, Adverse Reactions, Alerts Substance Reaction Severity Status morphine nausea Active sulfa drugs hives Active Augmentin "bad" diarrhea Active Vicodin nausea Active Benadryl "makes me hyper" Active Darvocet A500 nausea Active Assessment and Plan Extracted from: Title:Orthopaedics Office Visit Note Author:Joy madden MD, Kenny Barron Date:02/09/23 1.Left lumbar radiculopath y Augusta scheduled to follow-up with Dr. Najera in about1 month. I have encouraged her tokeep this appointment. Her previous MRI [id number] disease. We discussedpossibly trying anotherround ofprednisone, however would rather hold off on this as she may be receiving an injectionin the next few weeksand she is having difficultycontrolling her blood sugar. She has not tolerated gabapentin wellpreviously we will hold off on this. She feels that she has a good handle on the home exercises from PT and will continuethe exercises on her own. She will follow-up with me asneeded, depending on how she does after herlikely LESI with Dr. Najera. Immunizations Given and Recorded Vaccine Date Status [...] bid, Disp# 60 blister, Refills: 11, Pharmacy: [facility] [place] Start Date: 11/20/22 Stop Date: 11/15/23 Status: Ordered albuterol CFC free 90 mcg/inh MDI Start: 11/20/22 15:27:00 EST, 2 puff, inhaled, qid, Disp# 3 each, Refills: 1, PRN: as needed for wheezing, Pharmacy: [facility] Start Date: 11/20/22 Status: Ordered atorvastatin 20 mg oral tablet Start: 10/31/22 17:37:00 EST, See Instructions, Disp# 90 tab, Refills: 0, Take 1 tablet by mouth once daily, Pharmacy: [facility] Start Date: 10/31/22 Status: Ordered BD needle Ultra-Fine Pen Sherry 32G x 4mm Start: 07/18/22 8:51:00 EDT, See Instructions, Disp# 100 each, Refills: 5, use with insulin pen, Pharmacy: [facility] Start Date: 07/18/22 Status: Ordered BD needle Ultra-Fine Pen Sherry 32G x 4mm Start: 07/14/22 16:45:00 EDT, See Instructions, Disp# 100 each, Refills: 6, Use with insulin pen., Pharmacy: [facility] Start Date: 07/14/22 Status: Ordered BD PEN NEEDLE/SHERRY [id number] MIS USE TWICE DAILY WITH INSULIN Start Date: 09/24/20 Status: Ordered BD PEN NEEDLE/SHERRY [id number] MIS BD PEN NEEDLE/SHERRY [id number] MIS, See Instructions, Disp# 100 each, Refills: 1, USE WITH INSULIN PEN,Pharmacy [facility] Start Date: 10/28/21 Status: Ordered BD Test Strips 100 ct Start: 02/27/21 15:53:00 EDT, See Instructions, Disp# 100 each, Refills: 3, test daily, Dx : E11.9,Pharmacy: [facility] Start Date: 02/27/21 Status: Ordered citalopram 40 mg oral tablet Start: 10/31/22 17:37:00 EST, See Instructions, Disp# 90 tab, Refills: 0, Take 1 tablet by mouth once daily, Pharmacy: [facility] Start Date: 10/31/22 Status: Ordered doxepin 25 mg oral capsule Start: 01/19/23 19:09:00 EDT, See Instructions, Disp# 90 cap, Refills: 1, Take 1 capsule by mouth once daily, Pharmacy: [facility] Start Date: 01/19/23 Status: Ordered DuoNeb 0.5 mg-2.5 mg/3 mL inhalation solution Start: 07/18/22 9:15:00 EDT, 3 mL, inhaled, qid, Disp# 120 mL, PRN: as needed for shortness of breath or wheezing, Pharmacy: [facility] Start Date: 07/18/22 Stop Date: 07/28/22 Status: Ordered fluticasone 50 mcg/inh nasal spray Start: 06/13/22 16:56:00 EDT, See Instructions, Disp# 16 g, Refills: 6, Use 1 spray(s) in each nostril once daily, Pharmacy: [facility] Start Date: 06/13/22 Status: Ordered glucometer Start: 02/27/21 15:52:00 EDT, See Instructions, Disp# 1 each, Refills: 0, test daily, Dx E11.9, Pharmacy: [facility] Start Date: 02/27/21 Status: Ordered lancets Start: 02/27/21 15:54:00 EDT, See Instructions, Disp# 100 each, Refills: 3, test daily, Dx: E11.9, Pharmacy: [facility] Start Date: 02/27/21 Status: Ordered Levemir FlexPen 100 units/mL subcutaneous solution Start: 12/15/22 16:22:00 EDT, 60 unit =, subQ, qhs, Disp# 15 mL, Refills: 1, Pharmacy: [facility]) Start Date: 12/15/22 Status: Ordered Levemir FlexTouch 100 units/mL subcutaneous solution Start: 10/16/22 19:22:00 EST, See Instructions, Disp# 15 mL, Refills: 0, INJECT 60 UNITS SUBCUTANEOUSLY EVERY DAY AT BEDTIME, Pharmacy: [facility] Start Date: 10/16/22 Status: Ordered lisinopril 5 mg oral tablet Start: 06/23/22 20:17:00 EDT, See Instructions, Disp# 90 tab, Refills: 3, Take 1 tablet by mouth once daily, Pharmacy: [facility] Start Date: 06/23/22 Status: Ordered Medrol Dosepak 4 mg oral tablet Start: 12/01/22 14:51:00 EST, See Instructions, Disp# 21 tab, Take as directed on package labeling for 6 days., Pharmacy: [facility] Start Date: 12/01/22 Stop Date: 12/07/22 [...] TWICE DAILY @9AM & 5PM, Pharmacy: [facility] Start Date: 12/25/22 Status: Ordered metFORMIN HCl 500 MG Oral Tablet metFORMIN HCl 500 MG Oral Tablet, See Instructions, Disp# 120 tab, Refills: 6, Take 2 tablets by mouth twice daily, Pharmacy [facility] Start Date: 04/08/21 Status: Ordered metroNIDAZOLE 0.75% topical gel Start: 12/15/22 16:22:00 EDT, 1 appl, topical, bid, Disp# 45 g, Refills: 3, apply to face, Pharmacy: [facility] Start Date: 12/15/22 Status: Ordered MiraLax oral powder for reconstitution Start: 08/05/21 15:25:00 EST, 17 g =, PO, bid, Disp# 1,020 g, Refills: 1, Pharmacy: [facility] Start Date: 08/05/21 Stop Date: 10/04/21 Status: Ordered omeprazole 40 mg oral delayed release capsule Start: 11/20/22 15:27:00 EST, See Instructions, Disp# 90 cap, Refills: 1, Take 1 capsule by mouth once daily for 30 days, Pharmacy: [facility] ([place]) Start Date: 11/20/22 Status: Ordered ONETOUCH ULTRA BLUE TEST STRP Start: 03/09/19 12:34:53 EDT, See Instructions, Disp# 50, Refills: 6, USE TO TEST BLOOD SUGAR TWICEA DAY., Pharmacy: [address], USE TO TEST BLOOD SUGAR TWICE A DAY. Start Date: 03/09/19 Status: Ordered Ozempic (2 mg dose) 8 mg/3 mL subQ pen Start: 01/07/23 14:54:00 EDT, 2 mg =, subQ, q7days, Disp# 9 mL, Refills: 1, Pharmacy: [facility] Start Date: 01/07/23 Status: Ordered prazosin 2 mg oral capsule Start: 01/20/23 10:09:00 EDT, See Instructions, Disp# 90 cap, Refills: 1, TAKE 1 CAPSULE BY MOUTH EVERY DAY AT BEDTIME, Pharmacy: [facility] Start Date: 01/20/23 Status: Ordered triamcinolone 0.1% topical ointment Start: 10/28/22 15:08:00 EST, 1 appl, topical, bid, Disp# 80 g, Refills: 3, apply to arms,legs, shoulders, Pharmacy: [facility] Start Date: 10/28/22 Status: Ordered triamcinolone 0.5% topical cream Start: 12/15/22 16:22:00 EDT, 1 appl, topical, tid, Disp# 20 g, Refills: 1, [facility]acy: [facility]) Start Date: 12/15/22 Status: Ordered Vitamin D3 2000 intl units oral capsule Start: 05/26/17 11:25:00, 1 cap, PO, Daily Start Date: 05/26/17 Status: Ordered Mental Status 02/09/23 Barriers to Learning one year None evide nt Mandatory Health Literacy Documentation Yes Health Literacy Communication Barriers N ever Primary Language [facility] [place] Problem List Condition Confirmation Course Effective Dates [...] Effective Dates Health Status Clinical Service Informant Left lumbar radiculopathy Discharge Diagnosis 02/09/23 Procedures Procedure Date Related Diagnosis Body Site Status sitzmarks study 1 12/16/21 Complet ed KUB X-ray 2 12/12/21 Completed Mammogram 3 10/09/21 Completed Colonoscopy 4, 5, 6 06/21/21 Compl eted CXR - Chest X-ray 7 03/11/21 Compl eted X-ray 8 11/16/[address] of abdomen and pelvis wit h contrast 9 06/22/19 Completed KUB X-ray 10 02/14/19 Completed Ultrasound right groin 11 05/09/18 Completed Incision and drainage of abscess 12 05/07/18 Completed Chest x-ray 13 10/18/[address] of chest 14 Completed 11. all of the sitzmarks have passed in the interval 2. moderate well-formed stool seen within the colon 2Day 1 of Sitz marker study with ingested markers within the stomach. [address] [place] [address] Impression: ACR BI-RADS CATEGORY 2: BENIGN 1. No evidence of malignancy 4Pathology results: Colon, hepatic flexure: tubular adenoma. B) [...] part. Dysplasia and carcinoma are NOT seen. 5Repeat in 3 years. 6One 4mm polyp at the hepatic flexure, removed [...] anal verge are normal on retroflextion view. 71. Normal lung volumes. No radiographic evidence of COPD on current exam. 2. Possible trace left pleural effusion with possible small ateleactasis at the left base. 8Right shoulder 3 views; right humerus 2 views, right clavicle 2 views IMPRESSION: 1. There is no radiographic evidence of right shoulder fracture or dislocation. 2. There is no radiographic evidence of right clavicular fracture. 3. There is no radiographic evidence of right humeral fracture. 9mild wall thickening of sigmoid colon & upper rectum, mild proctocolitis, likely infectious; cirrhosis w/ hepatic steatosis, reactive associated lymphadenopathy 10[facility] Impression: 1. Nonobstructive bowel gas pattern 2. Moderate constipation 11Impression: 1.8 x 0.5 x1.6 cm pocket of fluid within the subcutaneous tissues of the medial right thigh. This may reflect subcutaneous edema or a tiny residual abscess 12[facility] Right groin 13No acute process identified. Ill-defined hazy subsegmental left basilar opacities suggest atelectasis. 14WITH ANGIO 1. No acute aortic pathology or evidence of pulmonary thromboembolic disease. 2. Mild to moderate bilateral bronchial wall thickening compatible with bronchitis. 3. Subsegmental linear consolidative and patchy ground glass opacities of the lung bases suggest atelectasis. 4. Mild paraseptal emphysematous changes of the upper ling zones. 5. Hepatic steatosis. 6. Splenomegaly. Social History Social History Type Response Smoking Status Current every day he lorenza smoker Sex Female Ortho Outpt Note * MD Kike, Kenny Barron: PERFORM Event Display: Ortho Outpt Note Authored Date: Primary Care Provider MD Candy, Dariela Kenny Chief Complaint Followup back pain with radiculopathy. Cont with PT but has noted that she has fallen twice since last seen History of Present Illness Augusta is a [id number] for follow-up of back pain andradiating leftleg paresthesia. She reports continuedparesthesia radiatingdown the posteriorthigh and calf. She felt that she was making progress in physical therapy, but she has had 2 falls in the pastfew weeksandfeels thatcaused her to lose about a third of the progressshe had made. The first fall was due to tripping over adGraphicly [id number], and the secondfall was due to slipping on some mud. She has notthink these are related toleft legweakness. She has been taking meloxicam for pain control but does not feel that this has beenhelping much. She reports having difficulty toleratinggabapentinin the past. Physical Exam General: Appears well, ambulating slowly without assistance. She is able to get onto the exam table without assistance. Back:Positive seated and supine straight leg raiseleft. Decreased sensation in theposteriorleft calf,otherwise fullsensation throughout the bilateral lower extremities. 5/5 strength throughout the lower extremities bilaterally Assessment/Plan 1.Left lumbar radiculopathy Augusta scheduled to follow-up with Dr. Najera in about1 month. I have encouraged her tokeep this appointment. Her previous MRI showsL4- [id number] disease. We discussedpossibly trying anotherround ofprednisone, however would rather hold off on this as she may be receiving an injectionin the next few weeksand she is having difficultycontrolling her blood sugar. She has not tolerated gabapentin wellpreviously we will hold off on this. She feels that she has a good handle on the home exercises from PT and will continuethe exercises on her own. She will follow-up with me asneeded, depending on how she does after herlilesli LESI with Dr. Najera. Problem List/Past Medical History Ongoing Anxiety and [...] shoulder pain TP (tinea pedis) Procedure/Surgical History sitzmarks study (12/16/2021)KUB X-ray (12/12/2021)Mammogram (10/09/2021)Colonoscopy (06/21/2021)CXR - [...] chewable) atorvastatin(atorvastatin 20 mg oral tablet), See Instructions cholecalciferol(Vitamin D3 2000 intl units oral capsule), 2000 Int_Unit= 1 cap, PO, Daily citalopram(citalopram 40 mg oral tablet), See Instructions diabetes supplies(glucometer), See Instructions diabetes supplies(BD Test Strips 100 ct), See Instructions, 3 refills diabetes supplies(lancets), See Instructions, 3 refills doxepin(doxepin 25 mg oral capsule), See Instructions, 1 refills fluticasone nasal(fluticasone 50 mcg/inh nasal spray), See Instructions fluticasone-salmeterol(Advair Diskus 500 mcg-50 mcg), 1 puff, PO, bid, 11 refills insulin detemir(Levemir FlexTouch 100 units/mL subcutaneous solution), See Instructions insulin detemir(Levemir FlexPen 100 units/mL subcutaneous solution), 60 unit, subQ, qhs, 1 refills lisinopril(lisinopril 5 mg oral tablet), See Instructions, 3 refills meloxicam(meloxicam 15 mg oral tablet), 15 mg= 1 tab, PO, Daily metFORMIN(metFORMIN 500 mg oral tablet), See Instructions methylPREDNISolone(Medrol Dosepak 4 mg oral tablet), See Instructions metroNIDAZOLE topical(metroNIDAZOLE 0.75% topical gel), 1 appl, topical, bid, 3 refills omeprazole(omeprazole 40 mg oral delayed release capsule), See Instructions, 1 refills polyethylene glycol 3350(MiraLax oral powder for reconstitution), 17 g, PO, bid, 1 refills prazosin(prazosin 2 mg oral capsule), See Instructions, 1 refills psyllium(Metamucil), 3.4 g, PO, Daily semaglutide(Ozempic (2 mg dose) 8 mg/3 mL subQ pen), 2 mg, subQ, q7days, 1 refills syringe needles(BD needle Ultra-Fine Pen Sherry 32G x 4mm), See Instructions, 5 refills syringe needles(BD needle Ultra-Fine Pen Sherry 32G x 4mm), See Instructions, 6 refills triamcinolone topical(triamcinolone 0.1% topical ointment), 1 appl, topical, bid, 3 refills triamcinolone topical(triamcinolone 0.5% topical cream), 1 appl, topical, tid, 1 refills unlisted medication(BD PEN NEEDLE/SHERRY [id number] MIS) unlisted medication(BD PEN NEEDLE/SHERRY [id number] MIS), See Instructions unlisted medication(metFORMIN HCl 500 MG Oral Tablet), See Instructions unlisted medication(ONETOUCH ULTRA BLUE TEST STRP), See Instructions, 6 refills Allergies Augmentin"bad" diarrhea Benadryl"makes me hyper" Darvocet [id number] Vicodinnausea morphinenausea sulfa drugshives Social History Smoking [...] Exam due12/29/20and every 2year Adult Influenza Vaccine due03/28/22and every 1year Due Adult COVID-19 Vaccination due02/09/23Unknown Frequency Falls Plan of Care due02/09/23Unknown Frequency Osteoporosis Screening due02/09/23One-time only Pneumococcal Vaccine Older Adults due02/09/23One-time only Due In Future Breast Cancer Screening not due until10/10/23and every 731day Diabetes Management A1c not due until10/27/23and every 1year Body Mass Index not due until11/17/23and every 1year Satisfied(in the past 1 year) Satisfied Body Mass Index on11/17/22.Satisfied by KRISTINA Sweeney [place] Diabetes Management A1c on10/27/22.Satisfied by Contributor_system, [id number] Diabetes Nephropathy Management on10/27/22.Satisfied by Contributor_system, [email or web address] Lipid Screening on06/10/22.Satisfied by Contributor_system, [id number] Electronic Signature on File CC: Bernabe Najera MD [address] [address] CC: Alina Barbosa PA-C,MPAS [address] [address] CC: Lesvia Meng PT Electronically Reviewed/Signed by: Kenny Stokes MD Author Signature Dt/Tm:02/09/2023 11:00 AM Division of Sports Medicine [facility] Patient Care team information Care Team Personnel Name: MD Gupta Amy L Position: Physician - Family Med Member Role: Primary Care Provider Address: Address: [address] [place] [address] [place] Care Team Related Persons Name: LANCE CABRERA Address: [address], [id number]
--- OUTSIDE RECORDS SUMMARY | 2023-05-31 12:04 | External Medical Summary | Continuity of Care Document ---
Author Name Unknown Organization [facility] [address] [place] [address] [address] [id number] Care Team Providers Care Director Of Services Name Role Phone Dariela Gupta Zoya Primary Care Physician [phone] Encounter [facility] [id number] Date(s): 03/06/23 - 03/06/23 [facility] 1849 [facility] 207 [facility] Practice Site 1850 [facility], [facility] 207 [place], [place] [address] [phone] Encounter Diagnosis Body mass index [BMI] 33.0-33.9, adult(Discharge Diagnosis) - 03/06/23 Diarrhea(Discharge Diagnosis) - 03/06/23 Discharge Disposition: Home or Self Care Attending Physician: INGE Ag, Yuki Merino Allergies, Adverse Reactions, Alerts Substance Reaction Severity [...] Disp# 60 blister, Refills: 11, Pharmacy: [facility] Start Date: 11/20/22 Stop Date: 11/15/23 Status: Ordered albuterol CFC free 90 mcg/inh MDI Start: 11/20/22 15:27:00 EST, 2 puff, inhaled, qid, Disp# 3 each, Refills: 1, PRN: as needed for wheezing, Pharmacy: [facility] [place] Start Date: 11/20/22 Status: Ordered atorvastatin 20 mg oral tablet Start: 03/03/23 13:49:00 EDT, See Instructions, Disp# 90 tab, Refills: 3, Take 1 tablet by mouth once daily, Pharmacy: [facility] 2229 Start Date: 03/03/23 Status: Ordered BD needle Ultra-Fine Pen Savana 32G x 4mm Start: 07/18/22 8:51:00 EDT, See Instructions, Disp# 100 each, Refills: 5, use with insulin pen, Pharmacy: [facility] 2229 Start Date: 07/18/22 Status: Ordered BD needle Ultra-Fine Pen Savana 32G x 4mm Start: 07/14/22 16:45:00 EDT, See Instructions, Disp# 100 each, Refills: 6, Use with insulin pen., Pharmacy: [facility] 2229 Start Date: 07/14/22 Status: Ordered BD PEN NEEDLE/SAVANA [id number] MIS USE TWICE DAILY WITH INSULIN Start Date: 09/24/20 Status: Ordered BD PEN NEEDLE/SAVANA [id number] MIS BD PEN NEEDLE/SAVANA [id number] MIS, See Instructions, Disp# 100 each, Refills: 1, USE WITH INSULIN PEN,Pharmacy [facility] 2229 Start Date: 10/28/21 Status: Ordered BD Test Strips 100 ct Start: 02/27/21 15:53:00 EDT, See Instructions, Disp# 100 each, Refills: 3, test daily, Dx : E11.9,Pharmacy: [facility] 2229 Start Date: 02/27/21 Status: Ordered citalopram 40 mg oral tablet Start: 03/03/23 13:49:00 EDT, See Instructions, Disp# 90 tab, Refills: 3, Take 1 tablet by mouth once daily, Pharmacy: [facility] 2229 Start Date: 03/03/23 Status: Ordered doxepin 25 mg oral capsule Start: 01/19/23 19:09:00 EDT, See Instructions, Disp# 90 cap, Refills: 1, Take 1 capsule by mouth once daily, Pharmacy: [facility] 2229 Start Date: 01/19/23 Status: Ordered DuoNeb 0.5 mg-2.5 mg/3 mL inhalation solution Start: 07/18/22 9:15:00 EDT, 3 mL, inhaled, qid, Disp# 120 mL, PRN: as needed for shortness of breath or wheezing, Pharmacy: [facility] 2229 Start Date: 07/18/22 Stop Date: 07/28/22 Status: Ordered fluticasone 50 mcg/inh nasal spray Start: 06/13/22 16:56:00 EDT, See Instructions, Disp# 16 g, Refills: 6, Use 1 spray(s) in each nostril once daily, Pharmacy: [facility] 2229 Start Date: 06/13/22 Status: Ordered glucometer Start: 02/27/21 15:52:00 EDT, See Instructions, Disp# 1 each, Refills: 0, test daily, Dx E11.9, Pharmacy: [facility] 2229 Start Date: 02/27/21 Status: Ordered lancets Start: 02/27/21 15:54:00 EDT, See Instructions, Disp# 100 each, Refills: 3, test daily, Dx: E11.9, Pharmacy: [facility] 2229 Start Date: 02/27/21 Status: Ordered Levemir FlexPen 100 units/mL subcutaneous solution Start: 12/15/22 16:22:00 EDT, 60 unit =, subQ, qhs, Disp# 15 mL, Refills: 1, [facility] Start Date: 12/15/22 Status: Ordered Levemir FlexTouch 100 units/mL subcutaneous solution Start: 10/16/22 19:22:00 EST, See Instructions, Disp# 15 mL, Refills: 0, INJECT 60 UNITS SUBCUTANEOUSLY EVERY DAY AT BEDTIME, Pharmacy: [facility] 2229 Start Date: 10/16/22 Status: Ordered lisinopril 5 mg oral tablet Start: 03/03/23 13:49:00 EDT, See Instructions, Disp# 90 tab, Refills: 3, Take 1 tablet by mouth once daily, Pharmacy: [facility] Start Date: 03/03/23 Status: Ordered Medrol Dosepak 4 mg oral tablet Start: 12/01/22 14:51:00 EST, See Instructions, Disp# 21 tab, Take as directed on package labeling for 6 days., Pharmacy: [facility] Start Date: 12/01/22 Stop [...] TWICE DAILY @9AM & 5PM, [facility]: [facility] Start Date: 12/25/22 Status: Ordered metFORMIN HCl [...] Refills: 3, apply to face, [facility]: [facility] Start Date: 12/15/22 Status: Ordered MiraLax oral [...] once daily for 30 days, [facility]acy: [facility] Start Date: 11/20/22 Status: Ordered ONETOUCH ULTRA BLUE TEST STRP Start: 03/09/19 12:34:53 EDT, See Instructions, Disp# 50, Refills: 6, USE TO TEST BLOOD SUGAR TWICEA DAY., Pharmacy: [facility], USE TO TEST BLOOD SUGAR TWICE [...] tid, Disp# 20 g, Refills: 1, [place]acy[place] [facility] [place] Start Date: 12/15/22 Status: Ordered Vitamin D3 2000 intl units oral capsule Start: 05/26/17 11:25:00, 1 cap, PO, Daily Start Date: 05/26/17 Status: Ordered Mental Status 03/06/23 Barriers to Learning one year None evide nt Mandatory Health Literacy Documentation Yes Health Literacy Communication Barriers N ever Primary Language Syriac Problem List Condition Confirmation Course Effective Dates [...] inical Service Informant Body mass index [BMI] 33.0-33.9, adult Discharge Diagnosis 03/06/23 Non-Specified Diarrhea Discharge Diagnosis 03/06/23 Non-Specified Procedures Procedure Date Related Diagnosis Body Site [...] study with ingested markers within the stomach. [address] [place] [address] Impression: ACR BI-RADS CATEGORY 2: BENIGN 1. [...] w/ hepatic steatosis, reactive associated lymphadenopathy 10[facility] Impression: 1. Nonobstructive bowel gas pattern 2. Moderate constipation 11Impression: 1.8 x 0.5 x1.6 cm pocket of fluid within the subcutaneous tissues of the medial right thigh. This may reflect subcutaneous edema or a tiny residual abscess 12[facility] Right groin 13No acute process identified. Ill-defined [...] oldest [Reference Range]: 1 Height 173.7 cm (03/06/23 4:15 PM) Patient Weight 101.7 kg (03/06/23 4:15 PM) Body Mass Index 33.71 kg/m2 (03/06/23 4:15 PM) Temperature [36.5-37.9 DegC] 36.9 DegC (03/06/23 4:15 PM) Blood Pressure 196/100mmHg (03/06/23 4:15 PM) Cuff Pulse Pressure 96 mmHg (03/06/23 4:15 PM) BP Location # 1 Right Arm (03/06/23 4:15 PM) Social History Social History Type Response Smoking Status Current every day he lorenza smoker Sex Female Patient Care team information Care Team Personnel Name: MD Gupta Amy L Position: Physician - Family Med Member Role: Primary Care Provider Address: Address: [address] [place] [address] [place] Care Team Related Persons Name: DEBORAH LANCE Address: home [address] [facility], [id number]
--- OUTSIDE RECORDS SUMMARY | 2023-05-31 12:05 | External Medical Summary | Summary of Care ---
Author Name Unknown Organization [place] [address] Care Team Providers Care Avionics Electronics Technician Name Role Phone Dariela Gupta MD Primary Care Provider [phone] Reason for Visit * Reason Onset Date Comments Medication Refill 08/13/2022 Encounter Details Date Type Department Care Team Description 08/13/2022 Refill Rheumatology [facility] [place] [address] Kalani Pineda MD [address] [place], [place] [address] Allergies Active Allergy Reactions Severity Noted Date Comments Amoxicillin-Pot Clavulanate 07/24/20 21 Other reaction(s): "bad" diarrhea Codeine Nausea/vomiting 09/25/2015 Meperidine 08/31/2015 Meperidine Nausea/vomiting 09/25/2015 Diphenhydramine 07/24/2021 Other reaction(s): "makes me hyper" Hydrocodone 08/31/2015 Morphine Nausea/vomiting 09/25/2015 Sulfa Antibiotics 09/25/2015 hives Hydrocodone-Acetaminophen Nausea/vomiting 09/25 documented as of this encounter (statuses as of 08/14/2022) Medications Medication Sig Dispensed Refills Start Date [...] every evening. 1 daily 0 03/19/2018 Active ONETOUCH DELICA LANCETS 33G MISC USE TO TEST BLOOD SUGAR TWICE A DAY. 0 01/20/2018 Active ONETOUCH ULTRA BLUE STRP USE TO TEST BLOOD SUGAR TWICE A DAY. 0 01/20/2018 Active Blood Glucose Monitoring Suppl (Adaptive Digital PowerUCH ULTRA 2) w/Device KIT USE TO TEST BLOOD SUGAR TWICE DAILY. 0 01/20/2018 Active traMADol (ULTRAM) 50 MG Tablet Take 50 mg by mouth every 6 hours as needed. As needed 0 11/16/2019 Active atorvaSTATin (LIPITOR) 20 MG Tablet 1 daily 0 11/01/2019 Active fluticasone (FLONASE) 50 MCG/ACT nasal spray 1 [place]. As needed 0 12/31/2018 Active valACYclovir (VALTREX) 1000 MG Tablet As needed [...] 2 MG/1.5ML Solution Pen-injector 0 01/18/2022 Active Xiidra 5 % Ophthalmic Solution (Lifitegrast) Instill into both eyes 1 Drop 2 times a day . 1 Each 11 07/29/2022 Active Meloxicam 15 MG Oral Tablet Take 1 Tablet (15 mg) by mouth in the morning. 90 Tablet 1 08/14/2022 Active Meloxicam 15 MG Oral Tablet Take 1 tablet by mouth once daily 90 Tablet 1 01/23/2022 08/13/2022 Discontinued (Refill) documented as of this encounter (statuses as of 08/14/2022) Active Problems Problem Noted Date Sjogren's syndrome 04/07/2017 Insomnia Depression Osteoarthritis of both knees Tobacco abuse documented as of this encounter (statuses as of 08/14/2022) Immunizations Name Administration Dates Next Due Zoster [...] encounter Miscellaneous Notes * Telephone Encounter - Maggie Hester RPh - 08/14/2022 3:58 PM ESTSigned Prescriptions: Disp Refills Meloxicam 15 MG Oral Tablet 90 Tab*1 Sig: Take 1 Tablet (15 mg) by mouth in the morning.Authorizing Provider: KALANI PINEDA User: MAGGIE HESTER------- * Telephone Encounter - Maggie Hester RPh - 08/14/2022 3:55 PM EST Rheumatology: Refill Request(s) Per review of the refill parameters, Medication was refilled Maggie Hester RPh [facility] Clinical Pharmacist Rheumatology Department 08/14/2022,3:55 PM * Telephone Encounter - DEBORAH Garza - 08/13/2022 1:00 PM EST Did you pend patient's preferred pharmacy and medication before forwarding?yes Pharmacy: [facility] [address] [address] [place] Pending Prescriptions: Disp Refills Meloxicam 15 MG Oral Tablet 90 Tab*1 Sig: Take 1 Tablet (15 mg) by mouth in the morning. Last Visit: 01/22/2022 (in office), Visit date not found (telemedicine) Next Visit: 01/26/2023 If no future appointments scheduled, and last appointment is greater than a year ago, please schedule patient for a follow-up appointment Last date the medication was ordered: 01/23/2022 Is this request for a controlled substance?No Urine Drug Screen:No results found for this or any previous visit. Patient Phone Numbers Labs: Lab Results Component Value Date/Time CREAT 0.6 01/22/2022 04:06 PM CREAT 0.7 05/21/2017 01:48 PM POTASSIUM 4.5 01/22/2022 04:06 PM POTASSIUM 4.5 05/21/2017 01:48 PM TSH 2.09 06/05/1997 11:19 AM LDLCALC 101 09/03/1999 12:18 PM ALT 35 01/22/2022 04:06 PM ALT 26 05/21/2017 01:48 PM HGBA1C 6.7 (H) 12/15/2000 02:57 PM documented in this encounter Plan of Treatment Upcoming Encounters Date Type Specialty Care Team Description 12/08/2022 Hospital Encounter Endoscopy Joann Cheung MD [address] [place] [address] [place] [address] 12/08/2022 Surgery Endoscopy Joann Cheung MD [address] [place] [address] [place] [address] ESOPHAGOGASTRODUODENOSCOPY (EGD), FLEXIBLE, TRANSORAL, DIAGNOSTIC 01/26/2023 Office Visit Rheumatology Oppermann, Kalani P, MD [address] [facility], [place] [address] Scheduled Procedures Name Priority Associated Diagnoses Date/Ti me ESOPHAGOGASTRODUODENOSCOPY ( EGD), FLEXIBLE, TRANSORAL, DIAGNOSTIC Dysphagia, unspecified type 12/08/2022 1:30 PM EDT Health Maintenance Due Date Last Done Comments Hepatitis B (1 of 3 - 3-dose series) 1960 COVID-19 Vaccine (#1) 1960 Pneumococcal Vaccine: Pediatrics (0 to 5 Years) and At-Risk Patients (6 to 64 Years) (1 - PCV) 01/29/1964 Depression Screening, Annual for Pts 12 and Over 1970 HIV Screening 1973 DTaP,Tdap,and Td Vaccines (1 - Tdap) 1977 PAP SMEAR-EVERY 3 YRS,AGES 21-65 1979 Cologuard: Ages 45-75 2003 Colonoscopy: Ages 45-75 2003 Colorectal Cancer Screening (Colonoscopy 10 Years; Sigmoidoscopy 5 Years; Cologuard 3 Years; FOBT 1 Year): Ages 45-75 2003 FOBT: Ages 45-75 2003 Sigmoidoscopy: Ages 45-75 2003 Lipid Panel 09/03/2004 09/03/1999, 09/28, 09/04/1997 LUNG CANCER SCREENING - USE SMARTSET 12299 01/29/2008 Mammogram 01/29/2008 11/02/2000, 08/20/1999 Zoster Vaccines (2 of 2) 12/26/2019 10/31/2019 Influenza Vaccine (FLU shot) (#1) 2022 Diabetes Screening 01/22/2025 01/22/2022, 0 05/21/2017, 10/15/2015, Additional history exists GARDASIL-HPV IMMUNIZATION SERIES Aged Out No longer eligible based on patient's age to complete this topic MENINGOCOCCAL (MENACTRA/MENVEO) Aged Out No longer eligible based on patient's age to complete this topic documented as of this encounter Medical Devices Not on filedocumented as of this encounter Care Teams Avionics Electronics Technician Relationship Specialty Start Date End Date Dariela Gupta MD [address] [place] [address] PCP - General Family Medicine 04/06/18 documented as of this encounter
--- OUTSIDE RECORDS SUMMARY | 2023-05-31 12:05 | External Medical Summary | Summary of Care ---
Author Name Unknown Organization [place] [address] Care Team Providers Care Manager Respiratory Name Role Phone Dariela Gupta MD Primary Care Provider [phone] Reason for Visit * Reason Onset Date Comments Medication Refill 11/18/2022 Encounter Details Date Type Department Care Team Description 11/18/2022 Refill Rheumatology [facility] [address] [facility] [place] [address] Soy Pineda MD [address] [place] [address] [place] [address] Allergies Active Allergy Reactions Severity Noted Date Comments Amoxicillin-Pot Clavulanate 07/24/20 Other reaction(s): "bad" diarrhea Codeine Nausea/vomiting 09/25/2015 Meperidine 08/31/2015 Meperidine Nausea/vomiting 09/25/2015 Diphenhydramine 07/24/2021 Other reaction(s): "makes me hyper" Hydrocodone 08/31/2015 Morphine Nausea/vomiting 09/25/2015 Sulfa Antibiotics 09/25/2015 hives Hydrocodone-Acetaminophen Nausea/vomiting 09/25 documented as of this encounter (statuses as of 11/19/2022) Medications Medication Sig Dispensed Refills Start Date [...] 0 01/20/2018 Active Blood Glucose Monitoring Suppl (Ideal ImplantUCH ULTRA 2) w/Device KIT USE TO TEST BLOOD SUGAR TWICE DAILY. 0 01/20/2018 Active traMADol (ULTRAM) 50 MG Tablet Take 50 mg by mouth every 6 hours as needed. As needed 0 11/16/2019 Active atorvaSTATin (LIPITOR) 20 MG Tablet 1 daily 0 11/01/2019 Active fluticasone (FLONASE) 50 MCG/ACT nasal spray 1 [place]. As needed 0 12/31/2018 Active valACYclovir (VALTREX) [...] 2 times a day. 1 Each 5 11/19/2022 Active Xiidra 5 % Ophthalmic Solution (Lifitegrast) Instill into both eyes 1 Drop 2 times a day . 1 Each 07/29/2022 11/19/2022 Discontinued (Transferred ) Meloxicam 15 MG Oral Tablet Take 1 Tablet (15 mg) by mouth in the morning. 90 Tablet 1 08/14/2022 11/18/2022 Discontinued (Refill) documented as of this encounter (statuses as of 11/19/2022) Active Problems Problem Noted Date Sjogren's syndrome 04/07/2017 Insomnia Depression Osteoarthritis of both knees Tobacco abuse documented as of this encounter (statuses as of 11/19/2022) Immunizations Name Administration Dates Next Due Zoster [...] encounter Miscellaneous Notes * Telephone Encounter - Stefania Redman RPh - 11/19/2022 1:32 PM ESTSigned Prescriptions: Disp Refills Meloxicam 15 MG Oral Tablet 90 Tab*0 Sig: Take 1 Tablet by mouth in the morning.Authorizing Provider: SOY PINEDA User: STEFANIA REDMAN Xiidra 5% Ophthalmic Solution (Lifitegras*1 Each 5 Sig: Instill 1 Drop into both eyes 2 times a day.Authoriz ing Provider: SOY PINEDA User: STEFANIA REDMAN * Telephone Encounter - Stefania Redman RPh - 11/19/2022 1:30 PM EST Rheumatology: Refill Request(s) Xiidra Per review of the refill parameters, Remaining refill(s) on current order(s) from 07/29/22 rerouted to [facility] [address] [place] [address] [place] as requested. Stefania Redman [facility] Clinical Pharmacist Rheumatology Department 11/19/2022,1:30 PM * Telephone Encounter - Stefania Redman [facility] - 11/19/2022 1:20 PM EST AST/ALT and Platelets within normal limits on 10/27/22 as per Care Everywhere. Rheumatology: Refill Request(s) Meloxicam Per review of the refill parameters, Medication was refilled for 3 month supply as pt has upcoming yearly f/u on 01/26/23. Stefania Redman [facility] Clinical Pharmacist Rheumatology Department 11/19/2022,1:26 PM * Telephone Encounter - Dariela Montes De Oca LPN - 11/18/2022 1:20 PM EST Received a fax from [facility] requesting new prescriptions be sent to them. Verified with pt that she is switching to this pharmacy and she verbalized the switch to [facility] [address] [place] [address] documented in this encounter Plan of Treatment Upcoming Encounters Date Type Specialty Care Team Description 12/08/2022 Hospital Encounter Endoscopy Joann Cheung MD [address] [place] [address] [place] [address] 12/08/2022 Surgery Endoscopy Joann Cheung MD [address] [place] [address] [place] [address] ESOPHAGOGASTRODUODENOSCOPY (EGD), FLEXIBLE, TRANSORAL, DIAGNOSTIC 01/26/2023 Office Visit [facility]umat[facility] [address] [facility] [address] Scheduled Procedures Name Priority Associated Diagnoses Date/Ti me ESOPHAGOGASTRODUODENOSCOPY ( EGD), FLEXIBLE, TRANSORAL, DIAGNOSTIC Dysphagia, unspecified type 12/08/2022 1:30 PM EDT Health Maintenance Due Date Last Done Comments COVID-19 Vaccine (#1) 1960 Pneumococcal Vaccine: Pediatrics (0 to 5 Years) and At-Risk Patients (6 to 64 Years) (1 - PCV) 01/29/1964 Depression Screening, Annual for Pts 12 and Over 1970 HIV Screening 1973 DTaP,Tdap,and Td Vaccines (1 - Tdap) 1977 PAP SMEAR-EVERY 3 YRS,AGES 21-65 1979 Mammogram 11/02/2001 11/02/2000, 08/20/1999 Cologuard: Ages 45-75 2003 Colonoscopy: Ages 45-75 2003 Colorectal Cancer Screening (Colonoscopy 10 Years; Sigmoidoscopy 5 Years; Cologuard 3 Years; FOBT 1 Year): Ages 45-75 2003 FOBT: Ages 45-75 2003 Sigmoidoscopy: Ages 45-75 2003 Lipid Panel 09/03/2004 09/03/1999, 09/28, 09/04/1997 LUNG CANCER SCREENING - USE SMARTSET [address]18 01/29/2008 Zoster Vaccines (2 of 2) 12/26/2019 10/31/2019 [...] filedocumented as of this encounter Care Teams Manager Respiratory Relationship Specialty Start Date End Date Dariela Gupta MD [facility] Maribell Morales [facility] [address] [place] [address] PCP - General Family Medicine 04/06/18 documented as of this encounter
--- OUTSIDE RECORDS SUMMARY | 2023-05-31 12:05 | External Medical Summary | Summary of Care ---
Author Name Unknown Organization [facility] Address [address] [place] [address] Phone [phone] Care Team Providers Care Appliance Parts Counter Clerk Name Role Phone Draiela Gupta MD Primary Care Provider [phone] Encounter Details Date Type Department Care Team Description 11/28/2022 Telephone OR [facility], Operating Room [facility] [address] [facility] [place] [address] Joann Cheung MD [address] [place] [address] [place] [address] Allergies Active Allergy Reactions Severity Noted Date Comments Amoxicillin-Pot Clavulanate 07/24/20 21 Other reaction(s): "bad" diarrhea Codeine Nausea/vomiting 09/25/2015 Meperidine 08/31/2015 Meperidine Nausea/vomiting 09/25/2015 Diphenhydramine 07/24/2021 Other reaction(s): "makes me hyper" Hydrocodone 08/31/2015 Morphine Nausea/vomiting 09/25/2015 Sulfa Antibiotics 09/25/2015 hives Hydrocodone-Acetaminophen Nausea/vomiting 09/25 documented as of this encounter (statuses as of 11/28/2022) Medications Medication Sig Dispensed Refills Start Date [...] 0 01/20/2018 Active Blood Glucose Monitoring Suppl (VeritractUCH ULTRA 2) w/Device KIT USE TO TEST BLOOD SUGAR TWICE DAILY. 0 01/20/2018 Active traMADol (ULTRAM) 50 MG Tablet Take 50 mg by mouth every 6 hours as needed. As needed 0 11/16/2019 Active atorvaSTATin (LIPITOR) 20 MG Tablet 1 daily 0 11/01/2019 Active fluticasone (FLONASE) 50 MCG/ACT nasal spray 1 [place]. As needed 0 12/31/2018 Activ e valACYclovir [...] a day. 1 Each 5 11/19/2022 Active documented as of this encounter (statuses as of 11/28/2022) Active Problems Problem Noted Date Sjogren's syndrome 04/07/2017 Insomnia Depression Osteoarthritis of both knees Tobacco abuse documented as of this encounter (statuses as of 11/28/2022) Immunizations Name Administration Dates Next Due Zoster [...] encounter Miscellaneous Notes * Telephone Encounter - JOHNATHON Parker - 11/28/2022 12:51 PM EST LMOM for pt to call back to reschedule. Case removed from schedule and placed on endo recalls for when pt calls back to schedule * Telephone Encounter - Caitie Laird RN - 11/28/2022 12:42 PM EST This patient is scheduled for EGD on 12-08-22 and is currently having severe back pain and PT treatments. Patient is wishing to reschedule procedure and is aware she will get a call from GI schedulersto reschedule documented in this encounter Plan of Treatment Upcoming Encounters Date Type Specialty Care Team Description 12/08/2022 Hospital Encounter Endoscopy Joann Cheung MD [address] [place] [address] [place] [address] 01/26/2023 Office Visit Rheumatology Soy Rosa MD [facility] [place] [address] Scheduled Procedures Name Priority Associated Diagnoses Date/Ti me ESOPHAGOGASTRODUODENOSCOPY ( EGD), FLEXIBLE, TRANSORAL, DIAGNOSTIC Recall Dysphagia, unspecified type Health Maintenance Due Date Last Done Comments [...] 09/04/1997 LUNG CANCER SCREENING - USE SMARTSET [address] 01/29/2008 Zoster Vaccines (2 of 2) 12/26/2019 [...] filedocumented as of this encounter Care Teams Appliance Parts Counter Clerk Relationship Specialty Start Date End Date Dariela Gupta MD [address] [facility] 1 [place] [address] PCP - General Family Medicine 04/06/18 documented as of this encounter
--- OUTSIDE RECORDS SUMMARY | 2023-05-31 12:05 | External Medical Summary | Continuity of Care Document ---
Author Name Unknown Organization [address] Address [address] [facility] [place], [place] [id number] Care Team Providers Care Critical Care Clinical Nurse Specialist Name Role Phone CandyDariela Primary Care Physician [phone] Encounter [facility] [id number] Date(s): 11/14/22 - 11/14/[address] [facility] [address] [facility], [address] [place] [address] [phone] Encounter Diagnosis Lower back pain(Discharge Diagnosis) - 11/14/22 Body mass index [BMI] 36.0-36.9, adult(Discharge Diagnosis) - 11/14/22 Chronic radicular low back pain(Discharge Diagnosis) - 11/14/22 Acute pain of left shoulder(Discharge Diagnosis) - 11/14/22 Discharge Disposition: Home or Self Care Attending Physician: JIMY Ellison Shari A Allergies, Adverse Reactions, Alerts Substance Reaction [...] Ordered Advair Diskus 500 mcg-50 mcg Start: 10/27/22 14:43:00 EST, 1 puff, PO, bid, Disp# 60 blister, Refills: 11, Pharmacy: [facility] Start Date: 10/27/22 Stop Date: 10/22/23 Status: Ordered albuterol CFC free 90 mcg/inh MDI Start: 10/27/22 14:44:00 EST, 2 puff, inhaled, qid, Disp# 3 each, Refills: 1, PRN: as needed for wheezing, Pharmacy: [facility] Start Date: 10/27/22 Status: Ordered atorvastatin 20 mg oral tablet Start: 10/31/22 17:37:00 EST, See Instructions, Disp# 90 tab, Refills: 0, Take 1 tablet by mouth once daily, Pharmacy: [place] [id number] Start Date: 10/31/22 Status: Ordered BD needle Ultra-Fine Pen Savana 32G x 4mm Start: 07/18/22 8:51:00 EDT, See Instructions, Disp# 100 each, Refills: 5, use with insulin pen, Pharmacy: [facility] 2229 Start Date: 07/18/22 Status: Ordered BD needle Ultra-Fine Pen Savana 32G x 4mm Start: 07/14/22 16:45:00 EDT, See Instructions, Disp# 100 each, Refills: 6, Use with insulin pen., Pharmacy: [facility] Start Date: 07/14/22 Status: Ordered BD PEN NEEDLE/SAVANA [id number] MIS USE TWICE DAILY WITH INSULIN Start Date: 09/24/20 Status: Ordered BD PEN NEEDLE/SAVANA [id number] MIS BD PEN NEEDLE/SAVANA [id number] MIS, See Instructions, Disp# 100 each, Refills: 1, USE WITH INSULIN PEN,Pharmacy [facility] 2229 Start Date: 10/28/21 Status: Ordered BD Test Strips 100 ct Start: 02/27/21 15:53:00 EDT, See Instructions, Disp# 100 each, Refills: 3, test daily, Dx : E11.9,Pharmacy: [facility] 2229 Start Date: 02/27/21 Status: Ordered citalopram 40 mg oral tablet Start: 10/31/22 17:37:00 EST, See Instructions, Disp# 90 tab, Refills: 0, Take 1 tablet by mouth once daily, Pharmacy: [facility] Start Date: 10/31/22 Status: Ordered doxepin 25 mg oral capsule Start: 06/23/22 20:17:00 EDT, See Instructions, Disp# 90 cap, Refills: 1, Take 1 capsule by mouth once daily, Pharmacy: [facility] Start Date: 06/23/22 Status: Ordered DuoNeb 0.5 mg-2.5 mg/3 mL inhalation solution Start: 07/18/22 9:15:00 EDT, 3 mL, inhaled, qid, Disp# 120 mL, PRN: as needed for shortness of breath or wheezing, Pharmacy: [facility] 2229 Start Date: 07/18/22 Stop Date: 07/28/22 Status: Ordered fluticasone 50 mcg/inh nasal spray Start: 06/13/22 16:56:00 EDT, See Instructions, Disp# 16 g, Refills: 6, Use 1 spray(s) in each nostril once daily, Pharmacy: [facility] Start Date: 06/13/22 Status: Ordered gabapentin 300 mg oral capsule Start: 11/14/22 14:39:00 EST, 1 cap, PO, tid, Disp# 90 cap, Refills: 3, start taking one day 1, then bid day 2, then tid thereafter, Pharmacy: [facility] 2229 Start Date: 11/14/22 Stop Date: 03/14/23 Status: Ordered glucometer Start: 02/27/21 15:52:00 EDT, See Instructions, Disp# 1 each, Refills: 0, test daily, Dx E11.9, Pharmacy: [facility] 2229 Start Date: 02/27/21 Status: Ordered lancets Start: 02/27/21 15:54:00 EDT, See Instructions, Disp# 100 each, Refills: 3, test daily, Dx: E11.9, Pharmacy: [facility] 2229 Start Date: 02/27/21 Status: Ordered Levemir FlexTouch 100 units/mL subcutaneous solution Start: 10/16/22 19:22:00 EST, See Instructions, Disp# 15 mL, Refills: 0, INJECT 60 UNITS SUBCUTANEOUSLY EVERY DAY AT BEDTIME, Pharmacy: [facility] Start Date: 10/16/22 Status: Ordered lisinopril 5 mg oral tablet Start: 06/23/22 20:17:00 EDT, See Instructions, Disp# 90 tab, Refills: 3, Take 1 tablet by mouth once daily, Pharmacy: [facility] Start Date: 06/23/22 Status: Ordered meloxicam 15 mg oral tablet Start: 05/26/17 11:25:00, 1 tab, PO, Daily Start Date: 05/26/17 Status: Ordered Metamucil Start: 02/27/21 15:26:00 EDT, 3.4 g =, PO, Daily Start Date: 02/27/21 Status: Ordered metFORMIN 500 mg oral tablet Start: 04/25/22 16:30:00 EDT, See Instructions, Disp# 120 tab, Refills: 2, Take 2 tablets by mouth twice daily, Pharmacy: [facility] Start Date: 04/25/22 Status: Ordered metFORMIN HCl 500 MG Oral Tablet metFORMIN HCl 500 MG Oral Tablet, See Instructions, Disp# 120 tab, Refills: 6, Take 2 tablets by mouth twice daily, Pharmacy [facility] Start Date: 04/08/21 Status: Ordered metroNIDAZOLE 0.75% topical gel Start: 10/28/22 15:07:00 EST, 1 appl, topical, bid, Disp# 45 g, Refills: 3, apply to face, Pharmacy: [facility] Start Date: 10/28/22 Status: Ordered MiraLax oral powder for reconstitution Start: 08/05/21 15:25:00 EST, 17 g =, PO, bid, Disp# 1,020 g, Refills: 1, Pharmacy: [facility] 2229 Start Date: 08/05/21 Stop Date: 10/04/21 Status: Ordered ONETOUCH ULTRA BLUE TEST STRP Start: 03/09/19 12:34:53 EDT, See Instructions, Disp# 50, Refills: 6, USE TO TEST BLOOD SUGAR TWICEA DAY., Pharmacy: [facility] [address], USE TO TEST BLOOD SUGAR TWICE A DAY. Start Date: 03/09/19 Status: Ordered prazosin 2 mg oral capsule Start: 06/23/22 20:17:00 EDT, See Instructions, Disp# 90 cap, Refills: 1, TAKE 1 CAPSULE BY MOUTH EVERY DAY AT BEDTIME, Pharmacy: [facility] Start Date: 06/23/22 Status: Ordered semaglutide 1.7 mg/0.75 mL (1.7 mg dose) subcutaneous solution Start: 10/29/22 13:03:00 EST, 1.7 mg =, subQ, q7days, Disp# 4 each, Refills: 5, Pharmacy: [facility] Start Date: 10/29/22 Stop Date: 04/15/23 Status: Ordered triamcinolone 0.1% topical ointment Start: 10/28/22 15:08:00 EST, 1 appl, topical, bid, Disp# 80 g, Refills: 3, apply to arms,legs, shoulders, Pharmacy: [facility] Start Date: 10/28/22 Status: Ordered triamcinolone 0.5% topical cream Start: 03/14/22 15:54:00 EDT, 1 appl, topical, tid, Disp# 20 g, Refills: 1, Pharmacy: [facility] Start Date: 03/14/22 Status: Ordered Vitamin D3 2000 intl units oral capsule Start: 05/26/17 11:25:00, 1 cap, PO, Daily Start Date: 05/26/17 Status: Ordered Mental Status 11/14/22 Barriers to Learning one year None evide nt Mandatory Health Literacy Documentation Yes Health Literacy Communication Barriers N ever Primary Language Gibralt[place] Problem List Condition Confirmation Course Effective Dates [...] Confirmed Active Lower back pain Confirmed Active Microalbuminuria due to type 2 diabetes mellitus Confirmed Active Paresthesia Confirmed Active Self-mutilation Confirmed Active Sjogren's disease Confirmed Active Snoring Confirmed Active Tobacco user Confirmed Active Type 2 diabetes, HbA1C goal < 7% Confirmed Active Urinary incontinence Confirmed Active Diagnosis Diagnosis Type Effective Dates Health Status Cl inical Service Informant Lower back pain Discharge Diagnosis 11/14/22 Non-Specified Chronic radicular low back pain Discharge Diagnosis 11/14/22 Non-Specified Acute pain of left shoulder Discharge Diagnosis 11/14/22 Non-Specified Body mass index [BMI] 36.0-36.9, adult Discharge Diagnosis 11/14/22 Non-Specified Procedures Procedure Date Related Diagnosis Body Site Status francesca study 1 12/16/21 Complet ed KUB X-ray [...] study with ingested markers within the stomach. [address] [place] [address] Impression: ACR BI-RADS CATEGORY 2: BENIGN 1. [...] w/ hepatic steatosis, reactive associated lymphadenopathy 10[facility] Impression: 1. Nonobstructive bowel gas pattern 2. Moderate constipation 11Impression: 1.8 x 0.5 x1.6 cm pocket of fluid within the subcutaneous tissues of the medial right thigh. This may reflect subcutaneous edema or a tiny residual abscess 12[facility] Right groin 13No acute process identified. [...] recent to oldest [Reference Range]: 1 Height 173 cm (11/14/22 2:21 PM) Patient Weight 109.2 kg (11/14/22 2:21 PM) Body Mass Index 36.49 kg/m2 (11/14/22 2:21 PM) Temperature [36.5-37.9 DegC] 36.2 DegC *LOW* (11/14/22 2:21 PM) Heart Rate 86 bpm (11/14/22 2:21 PM) Respiratory Rate 16 br/min (11/14/22 2:21 PM) Blood Pressure 118/72mmHg (11/14/22 2:21 PM) Cuff Pulse Pressure 46 mmHg (11/14/22 2:21 PM) Social History Social History Type Response Smoking Status Current every day he lorenza smoker Sex Female Patient Care team information Personnel Name: MD Candy, Dariela Kenny Address: Address: [address] [place] [id number] [place]
--- OUTSIDE RECORDS SUMMARY | 2023-05-31 12:05 | External Medical Summary | Continuity of Care Document ---
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 Name Role Phone Dariela Gupta Primary Care Physician [phone] Encounter [facility] [id number] Date(s): 10/28/22 - 10/28/22 [facility] [address] [facility] 2 [facility] [address] [phone] Encounter Diagnosis Acne excoriee(Discharge Diagnosis) - 10/28/22 Neurodermatitis(Discharge Diagnosis) - 10/28/22 Discharge Disposition: Home or Self Care Attending Physician: MD Mccurdy David L Referring Physician: INGE Barbosa Jessica A Allergies, Adverse Reactions, Alerts Substance Reaction Severity Status morphine nausea Active sulfa drugs hives Active Augmentin "bad" diarrhea Active Vicodin nausea Active Benadryl "makes me hyper" Active Darvocet A500 nausea Active Assessment and Plan Extracted from: Title:Clinical Document Author:MD Mccurdy David L Date:10/28/22 OUTPATIENT NOTE Name: MABLE CABRERA Patient Number:[id number] : 1960 Date of Service: 10/28/2022 _ Chief complaint is skin rash. History: Ms Cabrera is a 62-year-old female comes in with a 1 year history of breaking out in the arms and legs. She says the sometimes started as blisters. Can be quite pruritic. She is tried some moisturizing cream and briefly triamcinolone cream. Denies any contact factors. 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 This does seem to also involve the face and shoulders. She has no history of liver disease. She is a insulin-dependent diabetic. Medications as per the intake sheet. Medication allergies per the intake sheet. Physical examination: Is a well-developed well-nourished white female with type II skin. Alert and oriented x3. Examination of the forehead she has some scattered small excoriated papules. Some larger excoriations and crusting on the shoulders and forearms. The hands chest abdomen or not involved. The some hyperpigmented scarring on the arms as well. Examination the legs reveal mainly hyperpigmentation on the lower legs with some scarring with minimal inflammation or active lesions at this time. There are no vesicles or pustules noted. Impression: #1 acne excoriated. #2 neurodermatitis. Plan: Triamcinolone ointment 0.1% twice daily for the arms legs and shoulders. Metronidazole gel 0.75% twice daily for the face. Will return for recheck in 3 months. Immunizations Given and Recorded Vaccine Date Status [...] bid, Disp# 60 blister, Refills: 11, Pharmacy: [facility] Start Date: 10/27/22 Stop Date: 10/22/23 Status: Ordered albuterol CFC free 90 mcg/inh MDI Start: 10/27/22 14:44:00 EST, 2 puff, inhaled, qid, Disp# 3 each, Refills: 1, PRN: as needed for wheezing, Pharmacy: [facility] Start Date: 10/27/22 Status: Ordered atorvastatin 20 mg oral tablet Start: 06/18/22 17:21:00 EDT, See Instructions, Disp# 90 tab, Refills: 0, Take 1 tablet by mouth once daily, Pharmacy: [facility] Start Date: 06/18/22 Status: Ordered BD needle Ultra-Fine Pen Savana 32G x 4mm Start: 07/18/22 8:51:00 EDT, See Instructions, Disp# 100 each, Refills: 5, use with insulin pen, Pharmacy: [place] [id number] Start Date: 07/18/22 Status: Ordered BD needle Ultra-Fine Pen Savana 32G x 4mm Start: 07/14/22 16:45:00 EDT, See Instructions, Disp# 100 each, Refills: 6, Use with insulin pen., Pharmacy: [facility] Start Date: 07/14/22 Status: Ordered BD PEN NEEDLE/SAVANA [id number] MIS USE TWICE DAILY WITH INSULIN Start Date: 09/24/20 Status: Ordered BD PEN NEEDLE/SAVANA [id number] MIS BD PEN NEEDLE/SAVANA [id number] MIS, See Instructions, Disp# 100 each, Refills: 1, USE WITH INSULIN PEN,Ph[facility]acy [facility] Start Date: 10/28/21 Status: Ordered BD Test Strips 100 ct Start: 02/27/21 15:53:00 EDT, See Instructions, Disp# 100 each, Refills: 3, test daily, Dx : E11.9,Pharmacy: [facility] Start Date: 02/27/21 Status: Ordered citalopram 40 mg oral tablet See Instructions, Disp# 90 tab, Refills: 0, Take 1 tablet by mouth once daily, Pharmacy: [facility] Start Date: 08/20/21 Status: Ordered doxepin 25 mg oral capsule Start: 06/23/22 20:17:00 EDT, See Instructions, Disp# 90 cap, Refills: 1, Take 1 capsule by mouth once daily, Pharmacy: [facility] Start Date: 06/23/22 Status: Ordered DuoNeb 0.5 mg-2.5 mg/3 mL inhalation solution Start: 07/18/22 9:15:00 EDT, 3 mL, inhaled, qid, Disp# 120 mL, PRN: as needed for shortness of breath or wheezing, Pharmacy: [facility] Start Date: 07/18/22 Stop Date: 07/28/22 Status: Ordered fluticasone 50 mcg/inh nasal spray Start: 06/13/22 16:56:00 EDT, See Instructions, Disp# 16 g, Refills: 6, Use 1 spray(s) in each nostril once daily, Pharmacy: [facility] Start Date: 06/13/22 Status: Ordered glucometer Start: 02/27/21 15:52:00 EDT, See Instructions, Disp# 1 each, Refills: 0, test daily, Dx E11.9, Pharmacy: [facility] Start Date: 02/27/21 Status: Ordered lancets Start: 02/27/21 15:54:00 EDT, See Instructions, Disp# 100 each, Refills: 3, test daily, Dx: E11.9, Pharmacy: [facility] Start Date: 02/27/21 Status: Ordered Levemir FlexTouch 100 units/mL subcutaneous solution Start: 10/16/22 19:22:00 EST, See Instructions, Disp# 15 mL, Refills: 0, INJECT 60 UNITS SUBCUTANEOUSLY EVERY DAY AT BEDTIME, Pharmacy: [facility] Start Date: 10/16/22 Status: Ordered lisinopril 5 mg oral tablet Start: 06/23/22 20:17:00 EDT, See Instructions, Disp# 90 tab, Refills: 3, Take 1 tablet by mouth once daily, Pharmacy: [facility] Start Date: 06/23/22 Status: Ordered meloxicam 15 mg oral tablet Start: 05/26/17 11:25:00, 1 tab, PO, Daily Start Date: 05/26/17 Status: Ordered Metamucil Start: 02/27/21 15:26:00 EDT, 3.4 g =, PO, Daily Start Date: 02/27/21 Status: Ordered metFORMIN 500 mg oral tablet Start: 04/25/22 16:30:00 EDT, See Instructions, Disp# 120 tab, Refills: 2, Take 2 tablets by mouth twice daily, Pharmacy: [facility] Start Date: 04/25/22 Status: Ordered metFORMIN HCl 500 MG Oral Tablet metFORMIN HCl 500 MG Oral Tablet, See Instructions, Disp# 120 tab, Refills: 6, Take 2 tablets by mouth twice daily, [facility]acy [facility] Start Date: 04/08/21 Status: Ordered metroNIDAZOLE 0.75% topical gel Start: 10/28/22 15:07:00 EST, 1 appl, topical, bid, Disp# 45 g, Refills: 3, apply to face, Pharmacy: [facility] Start Date: 10/28/22 Status: Ordered MiraLax oral powder for reconstitution Start: 08/05/21 15:25:00 EST, 17 g =, PO, bid, Disp# 1,020 g, Refills: 1, Pharmacy: [facility] Start Date: 08/05/21 Stop Date: 10/04/21 Status: Ordered ONETOUCH ULTRA BLUE TEST STRP Start: 03/09/19 12:34:53 EDT, See Instructions, Disp# 50, Refills: 6, USE TO TEST BLOOD SUGAR TWICEA DAY., Pharmacy: [facility], USE TO TEST BLOOD SUGAR TWICE A DAY. Start Date: 03/09/19 Status: Ordered prazosin 2 mg oral capsule Start: 06/23/22 20:17:00 EDT, See Instructions, Disp# 90 cap, Refills: 1, TAKE 1 CAPSULE BY MOUTH EVERY DAY AT BEDTIME, Pharmacy: [facility] Start Date: 06/23/22 Status: Ordered semaglutide 1.7 mg/0.75 mL (1.7 mg dose) subcutaneous solution Start: 10/29/22 13:03:00 EST, 1.7 mg =, subQ, q7days, Disp# 4 each, Refills: 5, Pharmacy: [facility] Start Date: 10/29/22 Stop Date: 04/15/23 Status: Ordered triamcinolone 0.1% topical ointment Start: 10/28/22 15:08:00 EST, 1 appl, topical, bid, Disp# 80 g, Refills: 3, apply to arms,legs, shoulders, Pharmacy: [facility] Start Date: 10/28/22 Status: Ordered triamcinolone 0.5% topical cream Start: 03/14/22 15:54:00 EDT, 1 appl, topical, tid, Disp# 20 g, Refills: 1, Pharmacy: [facility] Start Date: 03/14/22 Status: Ordered Vitamin D3 2000 intl units oral capsule Start: 05/26/17 11:25:00, 1 cap, PO, Daily Start Date: 05/26/17 Status: Ordered Mental Status 10/28/22 Barriers to Learning one year None evide nt Mandatory Health Literacy Documentation Yes Health Literacy Communication Barriers N ever Primary Language Kiswahili Problem List Condition Confirmation Course Effective Dates [...] Dates Health Status Cl inical Service Informant Acne excoriee Discharge Diagnosis 10/28/22 Neurodermatitis Discharge Diagnosis 10/28/22 Procedures Procedure Date Related Diagnosis Body Site [...] study with ingested markers within the stomach. [address] [place] [address] Impression: ACR BI-RADS CATEGORY 2: BENIGN 1. [...] w/ hepatic steatosis, reactive associated lymphadenopathy 10[facility] Impression: 1. Nonobstructive bowel gas pattern 2. Moderate constipation 11Impression: 1.8 x 0.5 x1.6 cm pocket of fluid within the subcutaneous tissues of the medial right thigh. This may reflect subcutaneous edema or a tiny residual abscess 12[facility] Right groin 13No acute process identified. Ill-defined [...] Name: MD Candy, Dariela Kenny Address: Address: [address] [place] [address] [place]
--- OUTSIDE RECORDS SUMMARY | 2023-05-31 12:05 | External Medical Summary | Continuity of Care Document ---
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 Name Role Phone Dariela Gupta Primary Care Physician [phone] Encounter [id number] Date(s): 12/29/22 - 12/29/22 [place] [id number] [address] [place] [id number] Encounter Diagnosis Left lumbar radiculopathy(Discharge Diagnosis) - 12/29/22 Discharge Disposition: Home or Self Care Attending Physician: MD Kike, Kenny Barron Allergies, Adverse Reactions, Alerts Substance Reaction Severity Status morphine nausea Active sulfa drugs hives Active Augmentin "bad" diarrhea Active Vicodin nausea Active Benadryl "makes me hyper" Active Darvocet A500 nausea Active Assessment and Plan Extracted from: Title:Orthopaedics Office Visit Note Author:Joy madden MD, Kenny Barron Date:12/29/22 1.Left lumbar radiculopath y Overall doing much better, I have encouraged her to continue withphysical therapy. She will follow-up in6 weeks. She is scheduled to see in about 2 months, I have asked her to keep this appointmentfor now. Immunizations Given and Recorded Vaccine Date Status [...] PRN: as needed for wheezing, Pharmacy: [facility] ([place]) Start Date: 11/20/22 Status: Ordered atorvastatin 20 mg oral tablet Start: 10/31/22 17:37:00 EST, See Instructions, Disp# 90 tab, Refills: 0, Take 1 tablet by mouth once daily, Pharmacy: [facility] Start Date: 10/31/22 Status: Ordered BD needle Ultra-Fine Pen Savana 32G x 4mm Start: 07/18/22 8:51:00 EDT, See Instructions, Disp# 100 each, Refills: 5, use with insulin pen, Pharmacy: [facility] Start Date: 07/18/22 Status: Ordered BD needle Ultra-Fine Pen Savana 32G x 4mm Start: 07/14/22 16:45:00 EDT, See Instructions, Disp# 100 each, Refills: 6, Use with insulin pen., Pharmacy: [facility] Start Date: 07/14/22 Status: Ordered BD PEN NEEDLE/SAVANA [id number] MIS USE TWICE DAILY WITH INSULIN Start Date: 09/24/20 Status: Ordered BD PEN NEEDLE/SAVANA [id number] MIS BD PEN NEEDLE/SAVANA [id number] MIS, See Instructions, Disp# 100 each, Refills: 1, USE WITH INSULIN PEN,[facility]acy [facility] Start Date: 10/28/21 Status: Ordered BD Test Strips 100 ct Start: 02/27/21 15:53:00 EDT, See Instructions, Disp# 100 each, Refills: 3, test daily, Dx : E11.9,Pharmacy: [facility] Start Date: 02/27/21 Status: Ordered citalopram 40 mg oral tablet Start: 10/31/22 17:37:00 EST, See Instructions, Disp# 90 tab, Refills: 0, Take 1 tablet by mouth once daily, Pharmacy: [facility] Start Date: 10/31/22 Status: Ordered doxepin 25 mg oral capsule Start: 06/23/22 20:17:00 EDT, See Instructions, Disp# 90 cap, Refills: 1, Take 1 capsule by mouth once daily, Pharmacy: [facility] Start Date: 06/23/22 Status: Ordered DuoNeb 0.5 mg-2.5 mg/3 mL inhalation solution Start: 07/18/22 9:15:00 EDT, 3 mL, inhaled, qid, Disp# 120 mL, PRN: as needed for shortness of breath or wheezing, Pharmacy: [facility] Start Date: 07/18/22 Stop Date: 07/28/22 Status: Ordered fluticasone 50 mcg/inh nasal spray Start: 06/13/22 16:56:00 EDT, See Instructions, Disp# 16 g, Refills: 6, Use 1 spray(s) in each nostril once daily, Pharmacy: [facility] Start Date: 06/13/22 Status: Ordered glucometer Start: 02/27/21 15:52:00 EDT, See Instructions, Disp# 1 each, Refills: 0, test daily, Dx E11.9, Pharmacy: [facility] Start Date: 02/27/21 Status: Ordered lancets Start: 02/27/21 15:54:00 EDT, See Instructions, Disp# 100 each, Refills: 3, test daily, Dx: E11.9, Pharmacy: [facility] Start Date: 02/27/21 Status: Ordered Levemir FlexPen 100 units/mL subcutaneous solution Start: 12/15/22 16:22:00 EDT, 60 unit =, subQ, qhs, Disp# 15 mL, Refills: 1, [facility] Start Date: 12/15/22 Status: Ordered Levemir FlexTouch 100 units/mL subcutaneous solution Start: 10/16/22 19:22:00 EST, See Instructions, Disp# 15 mL, Refills: 0, INJECT 60 UNITS SUBCUTANEOUSLY EVERY DAY AT BEDTIME, Pharmacy: [facility] Start Date: 10/16/22 Status: Ordered lisinopril 5 mg oral tablet Start: 06/23/22 20:17:00 EDT, See Instructions, Disp# 90 tab, Refills: 3, Take 1 tablet by mouth once daily, Pharmacy: [facility] Start Date: 06/23/22 Status: Ordered Medrol Dosepak 4 mg oral tablet Start: 12/01/22 14:51:00 EST, See Instructions, Disp# 21 tab, Take as directed on package labeling for 6 days., Pharmacy: [facility] Start Date: 12/01/22 Stop [...] TWICE DAILY @9AM & 5PM, Pharmacy: [facility] ([place]) Start Date: 12/25/22 Status: Ordered metFORMIN HCl 500 MG Oral Tablet metFORMIN HCl 500 MG Oral Tablet, See Instructions, Disp# 120 tab, Refills: 6, Take 2 tablets by mouth twice daily, Pharmacy [facility] Start Date: 04/08/21 Status: Ordered metroNIDAZOLE 0.75% topical gel Start: 12/15/22 16:22:00 EDT, 1 appl, topical, bid, Disp# 45 g, Refills: 3, apply to face, [facility]acy: [facility]) Start Date: 12/15/22 Status: Ordered MiraLax oral powder for reconstitution Start: 08/05/21 15:25:00 EST, 17 g =, PO, bid, Disp# 1,020 g, Refills: 1, Pharmacy: [facility] Start Date: 08/05/21 Stop Date: 10/04/21 Status: Ordered omeprazole 40 mg oral delayed release capsule Start: 11/20/22 15:27:00 EST, See Instructions, Disp# 90 cap, Refills: 1, Take 1 capsule by mouth once daily for 30 days, Pharmacy: [facility] ([place]) Start Date: 11/20/22 Status: Ordered ONETOUCH ULTRA BLUE TEST STRP Start: 03/09/19 12:34:53 EDT, See Instructions, Disp# 50, Refills: 6, USE TO TEST BLOOD SUGAR TWICEA DAY., Pharmacy: [facility], USE TO TEST BLOOD SUGAR TWICE A DAY. Start Date: 03/09/19 Status: Ordered prazosin 2 mg oral capsule Start: 06/23/22 20:17:00 EDT, See Instructions, Disp# 90 cap, Refills: 1, TAKE 1 CAPSULE BY MOUTH EVERY DAY AT BEDTIME, Pharmacy: [facility] Start Date: 06/23/22 Status: Ordered semaglutide 1.7 mg/0.75 mL (1.7 mg dose) subcutaneous solution Start: 12/30/22 17:13:00 EDT, 1.7 mg =, subQ, q7days, Disp# 12 each, Refills: 1, Pharmacy: [facility] Start Date: 12/30/22 Stop Date: 06/28/23 Status: Ordered triamcinolone 0.1% topical ointment Start: 10/28/22 15:08:00 EST, 1 appl, topical, bid, Disp# 80 g, Refills: 3, apply to arms,legs, shoulders, Pharmacy: [facility] Start Date: 10/28/22 Status: Ordered triamcinolone 0.5% topical cream Start: 12/15/22 16:22:00 EDT, 1 appl, topical, tid, Disp# 20 g, Refills: 1, [facility]acy: [facility] Start Date: 12/15/22 Status: Ordered Vitamin D3 2000 intl units oral capsule Start: 05/26/17 11:25:00, 1 cap, PO, Daily Start Date: 05/26/17 Status: Ordered Mental Status 12/29/22 Barriers to Learning one year None evide nt Mandatory Health Literacy Documentation Yes Health Literacy Communication Barriers N ever Primary Language Vietnamese Problem List Condition Confirmation Course Effective Dates [...] Service Informant Left lumbar radiculopathy Discharge Diagnosis 12/29/22 Procedures Procedure Date Related Diagnosis Body Site [...] study with ingested markers within the stomach. [address] [place] [address] Impression: ACR BI-RADS CATEGORY 2: BENIGN 1. [...] w/ hepatic steatosis, reactive associated lymphadenopathy 10[facility] Impression: 1. Nonobstructive bowel gas pattern 2. Moderate constipation 11Impression: 1.8 x 0.5 x1.6 cm pocket of fluid within the subcutaneous tissues of the medial right thigh. This may reflect subcutaneous edema or a tiny residual abscess 12[facility] Right groin 13No acute process identified. [...] Event Display: Ortho Outpt Note Authored Date: [id number] Primary Care Provider MD Candy, Dariela Kenny Chief Complaint followup for back and shoulder pain. attending PT and making progress History of Present Illness Augusta is [id number] femaleseen for follow-up ofradiating low back pain. She has noticed significant improvement sincestarting physical therapy. Pain has been centralizing and not goingpast theleft knee. She has had occasional good days and bad days, but overall is doingbetter. Physical Exam General: Appears well, ambulating slowly but comfortably. Back: Nontender throughout the midline of the lumbar spine. She is slightly tender in the left lumbar paraspinal muscles. Negative seated and supine straight leg raise. Negative Lashonda maneuver. She is able to comfortably extend to about 20 degrees at the lumbar spinefor she is limited by pain. She ispain-free with lumbar flexion to about 45 degrees. Assessment/Plan 1.Left lumbar radiculopathy Overall doing much better, I have encouraged her to continue withphysical therapy. She will follow-up in6 weeks. She is scheduled to see in about 2 months, I have asked her to keep this appointmentfor now. Problem List/Past Medical History Ongoing Anxiety and [...] abscess (05/07/2018)Chest x-ray (10/18/2017)CT of chest Medications Adult Aspirin 81 mg oral tablet, chewable Advair Diskus 500 mcg-50 mcg, 1 puff, PO, bid, 11 refills albuterol CFC free 90 mcg/inh MDI, 2 puff, inhaled, qid, PRN, 1 refills atorvastatin 20 mg oral tablet, See Instructions BD needle Ultra-Fine Pen Savana 32G x 4mm, See Instructions, 5 refills BD needle Ultra-Fine Pen Savana 32G x 4mm, See Instructions, 6 refills BD PEN NEEDLE/SAVANA [id number] MIS BD PEN NEEDLE/SAVANA [id number] MIS, See Instructions BD Test Strips 100 ct, See Instructions, 3 refills citalopram 40 mg oral tablet, See Instructions doxepin 25 mg oral capsule, See Instructions, 1 refills DuoNeb 0.5 mg-2.5 mg/3 mL inhalation solution, 3 mL, inhaled, qid, PRN fluticasone 50 mcg/inh nasal spray, See Instructions glucometer, See Instructions lancets, See Instructions, 3 refills Levemir FlexPen 100 units/mL subcutaneous solution, 60 unit, subQ, qhs, 1 refills Levemir FlexTouch 100 units/mL subcutaneous solution, See Instructions lisinopril 5 mg oral tablet, See Instructions, 3 refills Medrol Dosepak 4 mg oral tablet, See Instructions meloxicam 15 mg oral tablet, 15 mg= 1 tab, PO, Daily Metamucil, 3.4 g, PO, Daily metFORMIN 500 mg oral tablet, See Instructions metFORMIN HCl 500 MG Oral Tablet, See Instructions metroNIDAZOLE 0.75% topical gel, 1 appl, topical, bid, 3 refills MiraLax oral powder for reconstitution, 17 g, PO, bid, 1 refills omeprazole 40 mg oral delayed release capsule, See Instructions, 1 refills ONETOUCH ULTRA BLUE TEST STRP, See Instructions, 6 refills prazosin 2 mg oral capsule, See Instructions, 1 refills semaglutide 1.7 mg/0.75 mL (1.7 mg dose) subcutaneous solution, 1.7 mg, subQ, q7days, 1 refills triamcinolone 0.1% topical ointment, 1 appl, topical, bid, 3 refills triamcinolone 0.5% topical cream, 1 appl, topical, tid, 1 refills Vitamin D3 2000 intl units oral capsule, 2000 Int_Unit= 1 cap, PO, Daily Allergies Augmentin("bad" diarrhea) Benadryl("makes me hyper") Darvocet A500(nausea) Vicodin(nausea) morphine(nausea) sulfa drugs(hives) Social History Smoking Status Current every day heavy smoker Alcohol Beer, Liquor, 1-2 times per month Family History COPD: Father. Cancer: Father. Hypertension: Brother. Malignant tumor of lung: Father. Type II diabetes mellitus: Brother and MGM. Immunizations Vaccine Date Status zoster vaccine, inactivated 01/31/2020 Given zoster vaccine, inactivated 10/31/2019 Given influenza virus vaccine, inactivated 08/17/2019 Given tetanus/diphtheria/pertuss, acel (Tdap) 06/14/2018 Given Recommendations Health Maintenance Pending(in the next year) OverDue Diabetic Eye Exam due12/29/20and every 2year Adult Influenza Vaccine due03/28/22and every 1year Due Adult COVID-19 Vaccination due12/30/22Unknown Frequency Cervical Cancer Screening due12/30/22Unknown Frequency Pneumococcal Vaccine Adults and Adolescents with Chronic Illness due12/30/22One-time only Due In Future Breast Cancer Screening not due until10/10/23and every 731day Diabetes Management A1c not due until10/27/23and every 1year Body Mass Index not due until11/17/23and every 1year Satisfied(in the past 1 year) Satisfied Body Mass Index on11/17/22.Satisfied by [facility] Diabetes Management A1c on10/27/22.Satisfied by Contributor_system, [email or web address] Diabetes Nephropathy Management on10/27/22.Satisfied by Contributor_system, [email or web address] Lipid Screening on06/10/22.Satisfied by Contributor_system, [email or web address] Electronic Signature on File Electronically Reviewed/Signed by: Kenny Stokes MD Author Signature Dt/Tm:12/30/2022 05:29 PM Division of Sports Medicine [facility] Patient Care team information Care Team Personnel Name: MD Candy, Dariela Kenny Position: Physician - Family Med Member Role: Primary Care Provider Address: Address: [address] [place] [address], [place] [address] [place] Care Team Related Persons Name: LANCE CABRERA Address: home [address] [place] [address], [phone]
--- OUTSIDE RECORDS SUMMARY | 2023-05-31 12:05 | External Medical Summary | Continuity of Care Document ---
Author Name Unknown Organization [place] [id number] Address [address] [place] [phone] Care Team Providers Care Vice President Global Digital Marketing Name Role Phone Dariela Gupta Primary Care Physician [phone] [id number] Date(s): [facility]/09/23 - 02/09/23 [facility] [address] [place] [id number] [facility] Medicine [address] [place] [address] Discharge Disposition: Home or Self Care Attending [...] PRN: as needed for wheezing, Pharmacy: [facility] ([place]) Start Date: 11/20/22 Status: Ordered atorvastatin 20 mg oral tablet Start: 10/31/22 17:37:00 EST, See Instructions, Disp# 90 tab, Refills: 0, Take 1 tablet by mouth once daily, Pharmacy: [facility] Start Date: 10/31/22 Status: Ordered BD needle Ultra-Fine Pen Savana 32G x 4mm Start: 07/18/22 8:51:00 EDT, See Instructions, Disp# 100 each, Refills: 5, use with insulin pen, Pharmacy: [facility] Start Date: 07/18/22 Status: Ordered BD needle Ultra-Fine Pen Savana 32G x 4mm Start: 07/14/22 16:45:00 EDT, See Instructions, Disp# 100 each, Refills: 6, Use with insulin pen., Pharmacy: [facility] Start Date: 07/14/22 Status: Ordered BD PEN NEEDLE/SAVANA [id number] MIS USE TWICE DAILY WITH INSULIN Start Date: 09/24/20 Status: Ordered BD PEN NEEDLE/SAVANA [id number] MIS BD PEN NEEDLE/SAVANA [id number] MIS, See Instructions, Disp# 100 each, Refills: 1, USE WITH INSULIN PEN,Pharmacy [facility]229 Start Date: 10/28/21 Status: Ordered BD Test Strips 100 ct Start: 02/27/21 15:53:00 EDT, See Instructions, Disp# 100 each, Refills: 3, test daily, Dx : E11.9,Pharmacy: [facility] Start Date: 02/27/21 Status: Ordered citalopram 40 mg oral tablet Start: 10/31/22 17:37:00 EST, See Instructions, Disp# 90 tab, Refills: 0, Take 1 tablet by mouth once daily, Pharmacy: [facility] Start Date: 10/31/22 Status: Ordered doxepin 25 mg oral capsule Start: 01/19/23 19:09:00 EDT, See Instructions, Disp# 90 cap, Refills: 1, Take 1 capsule by mouth once daily, Pharmacy: [facility] Start Date: 01/19/23 Status: Ordered DuoNeb 0.5 mg-2.5 mg/3 mL inhalation solution Start: 07/18/22 9:15:00 EDT, 3 mL, inhaled, qid, Disp# 120 mL, PRN: as needed for shortness of breath or wheezing, Pharmacy: [facility] Start Date: 07/18/22 Stop Date: 07/28/22 Status: Ordered fluticasone 50 mcg/inh nasal spray Start: 06/13/22 16:56:00 EDT, See Instructions, Disp# 16 g, Refills: 6, Use 1 spray(s) in each nostril once daily, Pharmacy: [facility] Start Date: 06/13/22 Status: Ordered glucometer Start: 02/27/21 15:52:00 EDT, See Instructions, Disp# 1 each, Refills: 0, test daily, Dx E11.9, Pharmacy: [facility] Start Date: 02/27/21 Status: Ordered lancets Start: 02/27/21 15:54:00 EDT, See Instructions, Disp# 100 each, Refills: 3, test daily, Dx: E11.9, Pharmacy: [facility] Start Date: 02/27/21 Status: Ordered Levemir FlexPen 100 units/mL subcutaneous solution Start: 12/15/22 16:22:00 EDT, 60 unit =, subQ, qhs, Disp# 15 mL, Refills: 1, [facility]: [facility] Start Date: 12/15/22 Status: Ordered Levemir FlexTouch 100 units/mL subcutaneous solution Start: 10/16/22 19:22:00 EST, See Instructions, Disp# 15 mL, Refills: 0, INJECT 60 UNITS SUBCUTANEOUSLY EVERY DAY AT BEDTIME, Pharmacy: [facility] Start Date: 10/16/22 Status: Ordered lisinopril 5 mg oral tablet Start: 06/23/22 20:17:00 EDT, See Instructions, Disp# 90 tab, Refills: 3, Take 1 tablet by mouth once daily, Pharmacy: [facility] Start Date: 06/23/22 Status: Ordered Medrol Dosepak 4 mg oral tablet Start: 12/01/22 14:51:00 EST, See Instructions, Disp# 21 tab, Take as directed on package labeling for 6 days., Pharmacy: [facility] Start Date: 12/01/22 Stop Date: 12/07/22 [...] MOUTH TWICE DAILY @9AM & 5PM, [facility]acy: [facility]) Start Date: 12/25/22 Status: Ordered metFORMIN HCl 500 MG Oral Tablet metFORMIN HCl 500 MG Oral Tablet, See Instructions, Disp# 120 tab, Refills: 6, Take 2 tablets by mouth twice daily, Pharmacy [facility] Start Date: 04/08/21 Status: Ordered metroNIDAZOLE 0.75% topical gel Start: 12/15/22 16:22:00 EDT, 1 appl, topical, bid, Disp# 45 g, Refills: 3, apply to face, [facility]acy: [facility] Start Date: 12/15/22 Status: Ordered MiraLax oral powder for reconstitution Start: 08/05/21 15:25:00 EST, 17 g =, PO, bid, Disp# 1,020 g, Refills: 1, Pharmacy: [facility] Start Date: 08/05/21 Stop Date: 10/04/21 Status: Ordered omeprazole 40 mg oral delayed release capsule Start: 11/20/22 15:27:00 EST, See Instructions, Disp# 90 cap, Refills: 1, Take 1 capsule by mouth once daily for 30 days, Pharmacy[facility] Start Date: 11/20/22 Status: Ordered ONETOUCH ULTRA BLUE TEST STRP Start: 03/09/19 12:34:53 EDT, See Instructions, Disp# 50, Refills: 6, USE TO TEST BLOOD SUGAR TWICEA DAY., Pharmacy: [id number], USE TO TEST BLOOD SUGAR TWICE A DAY. Start Date: 03/09/19 Status: Ordered Ozempic (2 mg dose) 8 mg/3 mL subQ pen Start: 01/07/23 14:54:00 EDT, 2 mg =, subQ, q7days, Disp# 9 mL, Refills: 1, Pharmacy: [facility] Start Date: 01/07/23 Status: Ordered prazosin 2 mg oral capsule Start: 01/20/23 10:09:00 EDT, See Instructions, Disp# 90 cap, Refills: 1, TAKE 1 CAPSULE BY MOUTH EVERY DAY AT BEDTIME, Pharmacy: [facility] Start Date: 01/20/23 Status: Ordered triamcinolone 0.1% topical ointment Start: 10/28/22 15:08:00 EST, 1 appl, topical, bid, Disp# 80 g, Refills: 3, apply to arms,legs, shoulders, Pharmacy: [facility] Start Date: 10/28/22 Status: Ordered triamcinolone 0.5% topical cream Start: 12/15/22 16:22:00 EDT, 1 appl, topical, tid, Disp# 20 g, Refills: 1, [facility] Start Date: 12/15/22 Status: Ordered Vitamin D3 [...] Procedure Date Related Diagnosis Body Site Status dennissaint charles study 1 12/16/21 Complet ed KUB X-ray [...] study with ingested markers within the stomach. 3[facility] Impression: ACR BI-RADS CATEGORY 2: BENIGN [...] w/ hepatic steatosis, reactive associated lymphadenopathy 10[facility] Impression: 1. Nonobstructive bowel gas pattern 2. Moderate constipation 11Impression: 1.8 x 0.5 x1.6 cm pocket of fluid within the subcutaneous tissues of the medial right thigh. This may reflect subcutaneous edema or a tiny residual abscess 12[facility] Right groin 13No acute process identified. [...] Member Role: Primary Care Provider Address: Address: [address] [place] [address], [place] [address] [place] Care Team Related Persons Name: LANCE CABRERA Address: home [address] [facility], [phone]
--- OUTSIDE RECORDS SUMMARY | 2023-05-31 12:05 | External Medical Summary | Summary of Care ---
Author Name Unknown Organization [facility] Address [address] [place] [address] Phone [phone] Care Team Providers Care Electronic Equipment Maint Tech Name Role Phone Dariela Gupta MD Primary Care Provider [phone] Reason for Visit * Reason Onset Date Comments Medication Refill 12/15/2022 Encounter Details Date Type Department Care Team Description 12/15/[address] [facility] [address] [facility] [place] [address] Soy Rosa MD [address] [facility] [place] [address] Medication Refill Allergies Active Allergy Reactions Severity Noted Date Comments Amoxicillin-Pot Clavulanate 07/24/20 Other reaction(s): "bad" diarrhea Codeine Nausea/vomiting 09/25/2015 Meperidine 08/31/2015 Meperidine Nausea/vomiting 09/25/2015 Diphenhydramine 07/24/2021 Other reaction(s): "makes me hyper" Hydrocodone 08/31/2015 Morphine Nausea/vomiting 09/25/2015 Sulfa Antibiotics 09/25/2015 hives Hydrocodone-Acetaminophen Nausea/vomiting 09/25 documented as of this encounter (statuses as of 12/15/2022) Medications Medication Sig Dispensed Refills Start Date [...] every evening. 1 daily 0 03/19/2018 Active FlythegapTOUCH DELICA LANCETS 33G MISC USE TO TEST BLOOD SUGAR TWICE A DAY. 0 01/20/2018 Active ONETOUCH ULTRA BLUE STRP USE TO TEST BLOOD SUGAR TWICE A DAY. 0 01/20/2018 Active Blood Glucose Monitoring Suppl (EventRegist ULTRA 2) w/Device KIT USE TO TEST BLOOD SUGAR TWICE DAILY. 0 01/20/2018 Active traMADol (ULTRAM) 50 MG Tablet Take 50 mg by mouth every 6 hours as needed. As needed 0 11/16/2019 Active atorvaSTATin (LIPITOR) 20 MG Tablet 1 daily 0 11/01/2019 Active fluticasone (FLONASE) 50 MCG/ACT nasal spray 1 [place]. As needed 0 12/31/2018 Active valACYclovir (VALTREX) [...] a day. 1 Each 5 12/15/2022 Active Xiidra 5 % Ophthalmic Solution (Lifitegrast) Instill 1 Drop into both eyes 2 times a day. 1 Each 5 11/19/2022 12/15/2022 Discontinued (Refill) documented as of this encounter (statuses as of 12/15/2022) Active Problems Problem Noted Date Sjogren's syndrome 04/07/2017 Insomnia Depression Osteoarthritis of both knees Tobacco abuse documented as of this encounter (statuses as of 12/15/2022) Immunizations Name Administration Dates Next Due Zoster [...] encounter Miscellaneous Notes * Telephone Encounter - Soy Rosa MD - 12/15/2022 4:22 PM EDT I spoke with [place] - insurance wanted xiidra instead of restasis. xiidra sent to pharmacy * Telephone Encounter - Miley Genao CPhT - 12/15/2022 3:20 PM EDT Pharmacy requesting refills for Cyclosporine. Upon chart review, medication is listed as discontinued, with discontinuation reason as "Formulary/cost". Please advise if you wish to continue this therapy for the patient. Thank you, Miley Genao [employer] 12/15/2022,3:20 PM documented in this encounter Plan of Treatment Upcoming Encounters Date Type Specialty Care Team Description 01/26/2023 Office [place] [address] [place] [address], [place] [address] Health Maintenance Due Date Last Done Comments [...] 09/04/1997 LUNG CANCER SCREENING - USE SMARTSET 73025 01/29/2008 Zoster Vaccines (2 of 2) 12/26/2019 [...] filedocumented as of this encounter Care Teams Electronic Equipment Maint Tech Relationship Specialty Start Date End Date Dariela Gupta MD [address] [facility] [address] [facility] [id number] PCP - General Family Medicine 04/06/18 documented as of this encounter
--- OUTSIDE RECORDS SUMMARY | 2023-05-31 12:05 | External Medical Summary | Continuity of Care Document ---
Author Name Unknown Organization [id number] Address [address] [place] [phone] Care Team Providers Care Restaurant Assistant Name Role Phone Dariela Gupta Zoya Primary Care Physician [phone] [id number] Date[facility]s): 11/17/22 - 11/17/22 [facility] [address] [place], [place] [address]A [facility] [address] [place] [address], [address] [place] [address] Encounter Diagnosis Lower back pain(Discharge Diagnosis) - 11/17/22 Left lumbar radiculopathy(Discharge Diagnosis) - 11/17/22 Discharge Disposition: Home or Self Care Attending Physician: MD Stokes Philip J Referring Physician: JIMY Ellison Shari A Allergies, Adverse Reactions, Alerts Substance Reaction Severity Status morphine nausea Active sulfa drugs hives Active Augmentin "bad" diarrhea Active Vicodin nausea Active Benadryl "makes me hyper" Active Darvocet A500 nausea Active Assessment and Plan Extracted from: Title:Orthopaedics Office Visit Note Author:Joy madden MD, Philip J Date:11/17/22 1.Lower back pain 2.Left lumbar radiculopathy Augusta's symptoms are most consistent withan acute lumbar discinjury. She has noticed some improvement with the use ofgabapentin and I have encouraged her to continue with this. Given her history ofpoorly controlled type 2 diabetes I would be hesitant tostart aprednisone taper. I have given her a prescription forFlexeril which she cantake in the eveningas needed. Orders have also been placed for an MRI of the lumbarspine, and a PT referral has beenplaced. She will be notified with the results of the MRI and we will determine a furthertreatment plan at thattime. Immunizations Given and Recorded Vaccine Date Status Refusal Reason zoster vaccine, inactivated 5/5/20 Given zoster vaccine, inactivated 10/31/19 Given influenza virus vaccine, inactivated 08/17/19 Give n tetanus/diphtheria/pertuss, acel (Tdap) 06/14/18 G iven Medications Adult Aspirin 81 mg oral tablet, chewable Start: 06/10/22 15:41:00 EDT Start Date: 06/10/22 Status: Ordered Advair Diskus 500 mcg-50 mcg Start: 10/27/22 14:43:00 EST, 1 puff, PO, bid, Disp# 60 blister, Refills: 11, Pharmacy: [facility] 2[address] Start Date: 10/27/22 Stop Date: 10/22/23 Status: Ordered albuterol CFC free 90 mcg/inh MDI Start: 10/27/22 14:44:00 EST, 2 puff, inhaled, qid, Disp# 3 each, Refills: 1, PRN: as needed for wheezing, Pharmacy: [facility] [address] Start Date: 10/27/22 Status: Ordered atorvastatin 20 mg oral tablet Start: 10/31/22 17:37:00 EST, See Instructions, Disp# 90 tab, Refills: 0, Take 1 tablet by mouth once daily, Pharmacy: [facility] [address] Start Date: 10/31/22 Status: Ordered BD needle Ultra-Fine Pen Savana 32G x 4mm Start: 07/18/22 8:51:00 EDT, See Instructions, Disp# 100 each, Refills: 5, use with insulin pen, Pharmacy: [facility] [address] Start Date: 07/18/22 Status: Ordered BD needle Ultra-Fine Pen Savana 32G x 4mm Start: 07/14/22 16:45:00 EDT, See Instructions, Disp# 100 each, Refills: 6, Use with insulin pen., Pharmacy: [facility] [address] Start Date: 07/14/22 Status: Ordered BD PEN NEEDLE/SAVANA 60TT8CG MIS USE TWICE DAILY WITH INSULIN Start Date: 09/24/20 Status: Ordered BD PEN NEEDLE/SAVANA 98GP0SR MIS BD PEN NEEDLE/SAVANA 90SO7QU MIS, See Instructions, Disp# 100 each, Refills: 1, USE WITH INSULIN PEN,Pharmacy [facility] [address] Start Date: 10/28/21 Status: Ordered BD Test Strips 100 ct Start: 02/27/21 15:53:00 EDT, See Instructions, Disp# 100 each, Refills: 3, test daily, Dx : E11.9,Pharmacy: [facility] [address] Start Date: 02/27/21 Status: Ordered citalopram 40 mg oral tablet Start: 10/31/22 17:37:00 EST, See Instructions, Disp# 90 tab, Refills: 0, Take 1 tablet by mouth once daily, Pharmacy: [facility] [address] Start Date: 10/31/22 Status: Ordered doxepin 25 mg oral capsule Start: 06/23/22 20:17:00 EDT, See Instructions, Disp# 90 cap, Refills: 1, Take 1 capsule by mouth once daily, Pharmacy: [facility] [address] Start Date: 06/23/22 Status: Ordered DuoNeb 0.5 mg-2.5 mg/3 mL inhalation solution Start: 07/18/22 9:15:00 EDT, 3 mL, inhaled, qid, Disp# 120 mL, PRN: as needed for shortness of breath or wheezing, Pharmacy: [facility] [address] Start Date: 07/18/22 Stop Date: 07/28/22 Status: Ordered Flexeril 10 mg oral tablet Start: 11/17/22 16:20:00 EST, 1 tab, PO, tid, Disp# 20 tab, PRN: as needed for spasm, Stop: 12/16/22 16:21:00 EDT, Pharmacy: [facility] [address] Start Date: 11/17/22 Stop Date: 12/16/22 Status: Ordered fluticasone 50 mcg/inh nasal spray Start: 06/13/22 16:56:00 EDT, See Instructions, Disp# 16 g, Refills: 6, Use 1 spray(s) in each nostril once daily, Pharmacy: [facility] [address] Start Date: 06/13/22 Status: Ordered gabapentin 300 mg oral capsule Start: 11/14/22 14:39:00 EST, 1 cap, PO, tid, Disp# 90 cap, Refills: 3, start taking one day 1, then bid day 2, then tid thereafter, Pharmacy: [facility] [address] Start Date: 11/14/22 Stop Date: 03/14/23 Status: Ordered glucometer Start: 02/27/21 15:52:00 EDT, See Instructions, Disp# 1 each, Refills: 0, test daily, Dx E11.9, Pharmacy: [facility] [address] Start Date: 02/27/21 Status: Ordered lancets Start: 02/27/21 15:54:00 EDT, See Instructions, Disp# 100 each, Refills: 3, test daily, Dx: E11.9, Pharmacy: [facility] [address] Start Date: 02/27/21 Status: Ordered Levemir FlexTouch 100 units/mL subcutaneous solution Start: 10/16/22 19:22:00 EST, See Instructions, Disp# 15 mL, Refills: 0, INJECT 60 UNITS SUBCUTANEOUSLY EVERY DAY AT BEDTIME, Pharmacy: [facility] [address] Start Date: 10/16/22 Status: Ordered lisinopril 5 mg oral tablet Start: 06/23/22 20:17:00 EDT, See Instructions, Disp# 90 tab, Refills: 3, Take 1 tablet by mouth once daily, Pharmacy: [facility] [address] Start Date: 06/23/22 Status: Ordered meloxicam 15 mg oral tablet Start: 05/26/17 11:25:00, 1 tab, PO, Daily Start Date: 05/26/17 Status: Ordered Metamucil Start: 02/27/21 15:26:00 EDT, 3.4 g =, PO, Daily Start Date: 02/27/21 Status: Ordered metFORMIN 500 mg oral tablet Start: 04/25/22 16:30:00 EDT, See Instructions, Disp# 120 tab, Refills: 2, Take 2 tablets by mouth twice daily, Pharmacy: [facility] [address] Start Date: 04/25/22 Status: Ordered metFORMIN HCl 500 MG Oral Tablet metFORMIN HCl 500 MG Oral Tablet, See Instructions, Disp# 120 tab, Refills: 6, Take 2 tablets by mouth twice daily, Pharmacy [facility] [address] Start Date: 04/08/21 Status: Ordered metroNIDAZOLE 0.75% topical gel Start: 10/28/22 15:07:00 EST, 1 appl, topical, bid, Disp# 45 g, Refills: 3, apply to face, Pharmacy: [facility] [address] Start Date: 10/28/22 Status: Ordered MiraLax oral powder for reconstitution Start: 08/05/21 15:25:00 EST, 17 g =, PO, bid, Disp# 1,020 g, Refills: 1, Pharmacy: [facility] [address] Start Date: 08/05/21 Stop Date: 10/04/21 Status: Ordered ONETOUCH ULTRA BLUE TEST STRP Start: 03/09/19 12:34:53 EDT, See Instructions, Disp# 50, Refills: 6, USE TO TEST BLOOD SUGAR TWICEA DAY., [facility]acy: [facility], USE TO TEST BLOOD SUGAR TWICE A DAY. Start Date: 03/09/19 Status: Ordered prazosin 2 mg oral capsule Start: 06/23/22 20:17:00 EDT, See Instructions, Disp# 90 cap, Refills: 1, TAKE 1 CAPSULE BY MOUTH EVERY DAY AT BEDTIME, Pharmacy: [facility] [address] Start Date: 06/23/22 Status: Ordered semaglutide 1.7 mg/0.75 mL (1.7 mg dose) subcutaneous solution Start: 10/29/22 13:03:00 EST, 1.7 mg =, subQ, q7days, Disp# 4 each, Refills: 5, Pharmacy: [facility] [address] Start Date: 10/29/22 Stop Date: 04/15/23 Status: Ordered triamcinolone 0.1% topical ointment Start: 10/28/22 15:08:00 EST, 1 appl, topical, bid, Disp# 80 g, Refills: 3, apply to arms,legs, shoulders, Pharmacy: [facility] [address] Start Date: 10/28/22 Status: Ordered triamcinolone 0.5% topical cream Start: 03/14/22 15:54:00 EDT, 1 appl, topical, tid, Disp# 20 g, Refills: 1, Pharmacy: [facility] [address] Start Date: 03/14/22 Status: Ordered Vitamin D3 2000 intl units oral capsule Start: 05/26/17 11:25:00, 1 cap, PO, Daily Start Date: 05/26/17 Status: Ordered Mental Status 11/17/22 Barriers to Learning one year None evide nt Mandatory Health Literacy Documentation Yes Health Literacy Communication Barriers N ever Primary Language Burmese Problem List Condition Confirmation Course Effective Dates [...] Effective Dates Health Status Clinical Service Informant Lower back pain Discharge Diagnosis 11/17/22 Left lumbar radiculopathy Discharge Diagnosis 11/17/22 Procedures Procedure Date Related Diagnosis Body Site [...] study with ingested markers within the stomach. [address] [place] [address] Impression: ACR BI-RADS CATEGORY 2: BENIGN 1. [...] w/ hepatic steatosis, reactive associated lymphadenopathy 10[facility] Impression: 1. Nonobstructive bowel gas pattern 2. Moderate constipation 11Impression: 1.8 x 0.5 x1.6 cm pocket of fluid within the subcutaneous tissues of the medial right thigh. This may reflect subcutaneous edema or a tiny residual abscess 12[facility] Right groin 13No acute process [...] recent to oldest [Reference Range]: 1 Height 172 cm (11/17/22 3:49 PM) Patient Weight 113.0 kg (11/17/22 3:49 PM) Body Mass Index 38.2 kg/m2 (11/17/22 3:49 PM) Social History Social History Type Response Smoking Status Current every day he lorenza smoker Sex Female Patient Care team information Personnel Name: MD Candy, Dariela Kenny Address: Address: [address] [place] [address] [address] [place] [address]
--- OUTSIDE RECORDS SUMMARY | 2023-05-31 12:05 | External Medical Summary | Continuity of Care Document ---
Author Name Unknown Organization [place] [address] DEAN Julien Marisa Address [address], [place] [id number] Care Team Providers Care Master Mechanic Name Role Phone GuptaDariela alvares Zoya Primary Care Physician [phone] [facility]counter [facility] [id number] Date(s): 10/27/22 - 10/27/22 [place] [address] [facility] [address], [address] [place] [address] [phone] Encounter Diagnosis Uncontrolled type 2 diabetes mellitus with hyperglycemia, with long-term current use of insulin(Discharge Diagnosis) - 10/27/22 Tobacco user(Discharge Diagnosis) - 10/27/22 COPD (chronic obstructive pulmonary disease)(Discharge Diagnosis) - 10/27/22 Microalbuminuria due to type 2 diabetes mellitus(Discharge Diagnosis) - 10/27/22 Chronic epigastric pain(Discharge Diagnosis) - 10/27/22 Onychomycosis(Discharge Diagnosis) - 10/27/22 Ingrowing nail(Discharge Diagnosis) - 10/27/22 Skin rash(Discharge Diagnosis) - 10/27/22 Type 2 diabetes mellitus with hyperglycemia(Final) - Chronic obstructive pulmonary disease, unspecified(Final) - Elevated BP without diagnosis of hypertension(Discharge Diagnosis) - 10/27/22 Discharge Disposition: Home or Self Care Attending Physician: INGE Barbosa Jessica A Allergies, Adverse Reactions, Alerts Substance Reaction Severity Status morphine nausea Active sulfa drugs hives Active Augmentin "bad" diarrhea Active Vicodin nausea Active Benadryl "makes me hyper" Active Darvocet A500 nausea Active Assessment and Plan Extracted from: Title:DM exam Author:INGE Barbosa Jessica A Date:10/27/22 1.Uncontrolled type 2 diab etes mellitus with hyperglycemia, with long-term current use of insulin Type 2 diabetes is chronic, uncontrolledandwithprolonged hyperglycemia. Goal A1c is <7%. Updated A1c, CMP and TSHordered. If A1c remains above goal we will plan to increase dose of Ozempic from 1 mg to 2 mgonce weekly. She plans to contact her insurance to help determineifcontinuing Levemir is affordable or if she would like to try switching to a different long-actinginsulin. Declined any updated prescriptions today and she will contact the office if we need to adjust her medication. RTC in 3 monthsfor diabetic examination. Overdue for eye exam and I did encourage patient to schedule this at her convenience. 2.Tobacco user Tobacco abuse is chronic and uncontrolled. Smoking cessation encouraged. Patient is interested in quitting, but not currently. She does havea prescription for Chantix to use when ready. 3.COPD (chronic obstructive pulmonary disease) COPD is chronic and uncontrolled. Goal is improvement/resolution of symptoms. She is currently experiencing daily wheezing, dyspnea on exertion and productive cough. Advised to restart using Advair 500 50 MCG, 1 inhalations p.o. twice dailyand to rinse mouth after each use. She can then continue albuterol as needed. Follow-up in 3 months for recheck. Smoking cessation encouraged. 4.Chronic epigastric pain Chronic epigastric pain had completely resolved since taking omeprazole 40 mg daily and she would like to discontinue the medication. Advised to reduce to taking 1 tablet every other dayx2 weeks, then stop. To contact the office if has recurrence of symptoms. She agreed. Continue w/ care of [facility]. 5.Microalbuminuria due to type 2 diabetes mellitus Microalbuminuria is chronic and secondary to type 2 diabetes. Goal isto prevent symptoms from worsening. Continue lisinopril 5 mgonce dailyand discussed need for tight glycemic control. 6.Onychomycosis Onychomycosis is chronicand patient has had difficulty with nail care. We will refer to podiatryfor diabetic foot care. Would avoid any oral antifungals due to history of elevated LFTs and cirrhotic liver morphology on CTscan of abd/pelvis in the past. 7.Ingrowing nail Referred to podiatry for diabetic nail care due toonychomycosis with ingrowing nails. 8.Skin rash No rash was visible today, except for obviousscarring secondary to skin picking. She was referred to [facility] dermatologyper patient request. 9.Elevated BP without diagnosis of hypertension BP is elevated today. Goal SBP <135 and DBP <85 mmHg. We will plan tofollow-up and recheck BP in 3 months. Time spent on pre-visit plannin minutes on chart/lab review Face to face time spent w/ patient:31 minutes Time spent documenting pertinent clinical information into the EMR:15 minutes Total time: 48 minutes Immunizations Given and Recorded Vaccine Date Status [...] Disp# 60 blister, Refills: 11, Pharmacy: [facility] Start Date: 10/27/22 Stop Date: 10/22/23 Status: Ordered albuterol CFC free 90 mcg/inh MDI Start: 10/27/22 14:44:00 EST, 2 puff, inhaled, qid, Disp# 3 each, Refills: 1, PRN: as needed for wheezing, Pharmacy: [facility] Start Date: 10/27/22 Status: Ordered atorvastatin 20 mg oral tablet Start: 06/18/22 17:21:00 EDT, See Instructions, Disp# 90 tab, Refills: 0, Take 1 tablet by mouth once daily, Pharmacy: [facility] Start Date: 06/18/22 Status: Ordered BD needle Ultra-Fine Pen Savana 32G x 4mm Start: 07/18/22 8:51:00 EDT, See Instructions, Disp# 100 each, Refills: 5, use with insulin pen, Pharmacy: [facility] Start Date: 07/18/22 Status: Ordered BD needle Ultra-Fine Pen Savana 32G x 4mm Start: 07/14/22 16:45:00 EDT, See Instructions, Disp# 100 each, Refills: 6, Use with insulin pen., Pharmacy: [facility] Start Date: 07/14/22 Status: Ordered BD PEN NEEDLE/SAVANA [id number] MIS USE TWICE DAILY WITH INSULIN Start Date: 09/24/20 Status: Ordered BD PEN NEEDLE/SAVANA [id number] MIS BD PEN NEEDLE/SAVANA [id number] MIS, See Instructions, Disp# 100 each, Refills: 1, USE WITH INSULIN PEN,Pharmacy [facility] Start Date: 10/28/21 Status: Ordered BD Test Strips 100 ct Start: 02/27/21 15:53:00 EDT, See Instructions, Disp# 100 each, Refills: 3, test daily, Dx : E11.9,Pharmacy: [facility] Start Date: 02/27/21 Status: Ordered citalopram 40 mg oral tablet See Instructions, Disp# 90 tab, Refills: 0, Take 1 tablet by mouth once daily, Pharmacy: [facility] Start Date: 08/20/21 Status: Ordered doxepin 25 mg oral capsule Start: 06/23/22 20:17:00 EDT, See Instructions, Disp# 90 cap, Refills: 1, Take 1 capsule by mouth once daily, Pharmacy: [facility] Start Date: 06/23/22 Status: Ordered DuoNeb 0.5 mg-2.5 mg/3 mL inhalation solution Start: 07/18/22 9:15:00 EDT, 3 mL, inhaled, qid, Disp# 120 mL, PRN: as needed for shortness of breath or wheezing, Pharmacy: [facility] Start Date: 07/18/22 Stop Date: 07/28/22 Status: Ordered fluticasone 50 mcg/inh nasal spray Start: 06/13/22 16:56:00 EDT, See Instructions, Disp# 16 g, Refills: 6, Use 1 spray(s) in each nostril once daily, Pharmacy: [facility] Start Date: 06/13/22 Status: Ordered glucometer Start: 02/27/21 15:52:00 EDT, See Instructions, Disp# 1 each, Refills: 0, test daily, Dx E11.9, Pharmacy: [facility] Start Date: 02/27/21 Status: Ordered lancets Start: 02/27/21 15:54:00 EDT, See Instructions, Disp# 100 each, Refills: 3, test daily, Dx: E11.9, Pharmacy: [place] [address] Start Date: 02/27/21 Status: Ordered Levemir FlexTouch 100 units/mL subcutaneous solution Start: 10/16/22 19:22:00 EST, See Instructions, Disp# 15 mL, Refills: 0, INJECT 60 UNITS SUBCUTANEOUSLY EVERY DAY AT BEDTIME, Pharmacy: [facility] Start Date: 10/16/22 Status: Ordered lisinopril 5 mg oral tablet Start: 06/23/22 20:17:00 EDT, See Instructions, Disp# 90 tab, Refills: 3, Take 1 tablet by mouth once daily, Pharmacy: [place] [id number] Start Date: 06/23/22 Status: Ordered meloxicam 15 mg oral tablet Start: 05/26/17 11:25:00, 1 tab, PO, Daily Start Date: 05/26/17 Status: Ordered Metamucil Start: 02/27/21 15:26:00 EDT, 3.4 g =, PO, Daily Start Date: 02/27/21 Status: Ordered metFORMIN 500 mg oral tablet Start: 04/25/22 16:30:00 EDT, See Instructions, Disp# 120 tab, Refills: 2, Take 2 tablets by mouth twice daily, Pharmacy: [facility] Start Date: 04/25/22 Status: Ordered metFORMIN HCl 500 MG Oral Tablet metFORMIN HCl 500 MG Oral Tablet, See Instructions, Disp# 120 tab, Refills: 6, Take 2 tablets by mouth twice daily, Pharmacy [facility] Start Date: 04/08/21 Status: Ordered metroNIDAZOLE 0.75% topical gel Start: 10/28/22 15:07:00 EST, 1 appl, topical, bid, Disp# 45 g, Refills: 3, apply to face, Pharmacy: [facility] Start Date: 10/28/22 Status: Ordered MiraLax oral powder for reconstitution Start: 08/05/21 15:25:00 EST, 17 g =, PO, bid, Disp# 1,020 g, Refills: 1, Pharmacy: [facility] Start Date: 08/05/21 Stop Date: 10/04/21 Status: Ordered ONETOUCH ULTRA BLUE TEST STRP Start: 03/09/19 12:34:53 EDT, See Instructions, Disp# 50, Refills: 6, USE TO TEST BLOOD SUGAR TWICEA DAY., Pharmacy: [id number], USE TO TEST BLOOD SUGAR TWICE A DAY. Start Date: 03/09/19 Status: Ordered prazosin 2 mg oral capsule Start: 06/23/22 20:17:00 EDT, See Instructions, Disp# 90 cap, Refills: 1, TAKE 1 CAPSULE BY MOUTH EVERY DAY AT BEDTIME, Pharmacy: [facility] Start Date: 06/23/22 Status: Ordered semaglutide 1.7 mg/0.75 mL (1.7 mg dose) subcutaneous solution Start: 10/29/22 13:03:00 EST, 1.7 mg =, subQ, q7days, Disp# 4 each, Refills: 5, Pharmacy: [facility] Start Date: 10/29/22 Stop Date: 04/15/23 Status: Ordered triamcinolone 0.1% topical ointment Start: 10/28/22 15:08:00 EST, 1 appl, topical, bid, Disp# 80 g, Refills: 3, apply to arms,legs, shoulders, Pharmacy: [facility] Start Date: 10/28/22 Status: Ordered triamcinolone 0.5% topical cream Start: 03/14/22 15:54:00 EDT, 1 appl, topical, tid, Disp# 20 g, Refills: 1, Pharmacy: [facility] Start Date: 03/14/22 Status: Ordered Vitamin D3 2000 intl units oral capsule Start: 05/26/17 11:25:00, 1 cap, PO, Daily Start Date: 05/26/17 Status: Ordered Mental Status 10/27/22 Barriers to Learning one year None evide nt Mandatory Health Literacy Documentation Yes Health Literacy Communication Barriers N ever Primary Language Pashto Problem List Condition Confirmation Course Effective Dates [...] long-term current use of insulin Discharge Diagnosis 10/27/22 Non-Specified Tobacco user Discharge Diagnosis 10/27/22 Non-Specified Onychomycosis Discharge Diagnosis 10/27/22 Non-Specified Skin rash Discharge Diagnosis 10/27/22 Non-Specified COPD (chronic obstructive pulmonary disease) Discharge Diagnosis 10/27/22 Non-Specified Microalbuminuria due to type 2 diabetes mellitus Discharge Diagnosis 10/27/22 Non-Specified Chronic epigastric pain Discharge Diagnosis 10/27/22 Non-Specified Ingrowing nail Discharge Diagnosis 10/27/22 Non-Specified Elevated BP without diagnosis of hypertension Discharge Diagnosis 10/27/22 Non-Specified Procedures Procedure Date Related Diagnosis Body [...] study with ingested markers within the stomach. [address] [place] [address] Impression: ACR BI-RADS CATEGORY 2: BENIGN 1. [...] w/ hepatic steatosis, reactive associated lymphadenopathy 10[facility] Impression: 1. Nonobstructive bowel gas pattern 2. Moderate constipation 11Impression: 1.8 x 0.5 x1.6 cm pocket of fluid within the subcutaneous tissues of the medial right thigh. This may reflect subcutaneous edema or a tiny residual abscess 12[facility] Right groin 13No acute process identified. Ill-defined [...] Laboratory List Name Date Complete Blood Count w Differential (CBC ,DIFFH) 10/27/22 Comprehensive Metabolic Panel (COMP META B PANEL) 10/27/22 Hemoglobin A1C (HEMOGLOBIN, A1C) 10/27/22 Thyroid Stimulating Hormone (TSH) 1/30/2 3 Microalbumin, Urine, Random (MICROALBUMI N, RD UR) 10/27/22 Most recent to oldest [Reference Range]: 1 eGFR CKD-EPI [>60 mL/min/1.73 m2] >90 mL /min/1.73 m2 1 (10/27/22 3:13 PM) Estimated Average Glucose 217 mg/dL 2 (10/27/22 3:13 PM) MPV [9.0-12.2 fL] 10.5 fL (10/27/22 3:13 PM) Immature Gran% 0.2 % (10/27/22 3:13 PM) Neut% 57.4 % (10/27/22 3:13 PM) Lymph% 27.3 % (10/27/22 3:13 PM) Mitchell% 13.2 % (10/27/22 3:13 PM) Baso% 0.3 % (10/27/22 3:13 PM) Eos% 1.6 % (10/27/22 3:13 PM) Immat Gran, Abs [0-0.4 K/uL] 0.01 K/uL 3 (10/27/22 3:13 PM) Neut, Abs [2.0-7.7 K/uL] 3.51 K/uL (10/27/22 3:13 PM) Lymph, Abs [1.0-3.4 K/uL] 1.67 K/uL (10/27/22 3:13 PM) Mitchell, Abs [0-1.0 K/uL] 0.81 K/uL (10/27/22 3:13 PM) Baso, Abs [0-0.1 K/uL] 0.02 K/uL (10/27/22 3:13 PM) Eos, Abs [0-0.5 K/uL] 0.10 K/uL (10/27/22 3:13 PM) Type of Diff: AUTO *Unknown* (10/27/22 3:13 PM) RDW [11.5-14.2 %] 12.8 % (10/27/22 3:13 PM) Micro Alb (u) [<2.00 mg/dL] 6.21 mg/dL *HI* (10/27/22 3:12 PM) Anion Gap [5-14 mmol/L] 6 mmol/L (10/27/22 3:13 PM) Alb [3.5-5.0 g/dL] 3.8 g/dL (10/27/22 3:13 PM) Alk Phos [38-126 unit/L] 168 unit/L *HI* (10/27/22 3:13 PM) ALT [<35 unit/L] 31 unit/L (10/27/22 3:13 PM) AST [15-46 unit/L] 45 unit/L (10/27/22 3:13 PM) BUN [7-20 mg/dL] 14 mg/dL (10/27/22 3:13 PM) Ca [8.4-10.2 mg/dL] 9.1 mg/dL (10/27/22 3:13 PM) Cl- [96-107 mmol/L] 106 mmol/L (10/27/22 3:13 PM) HCO3 [22-30 mmol/L] 27 mmol/L (10/27/22 3:13 PM) Cret [0.60-1.00 mg/dL] 0.50 mg/dL *LOW* (10/27/22 3:13 PM) HbA1c [4.0-6.0 %] 9.2 % *HI* (10/27/22 3:13 PM) Glu [74-106 mg/dL] 260 mg/dL *HI* (10/27/22 3:13 PM) Hct [35-44 %] 45.3 % *HI* (10/27/22 3:13 PM) Hgb [11.7-15.0 g/dL] 15.4 g/dL *HI* (10/27/22 3:13 PM) K [3.5-5.1 mmol/L] 4.5 mmol/L (10/27/22 3:13 PM) Micro Alb Ratio [<20 ug/mg cret] 106 ug/ mg cret *HI* (10/27/22 3:12 PM) MCH [28-33 pg] 31.8 pg (10/27/22 3:13 PM) MCHC [32-36 g/dL] 34.0 g/dL (10/27/22 3:13 PM) MCV [81-96 fL] 93.4 fL (10/27/22 3:13 PM) Na [137-145 mmol/L] 139 mmol/L (10/27/22 3:13 PM) Plts [150-350 K/uL] 171 K/uL (10/27/22 3:13 PM) RBC [3.90-5.00 M/uL] 4.85 M/uL (10/27/22 3:13 PM) T Bili [0.2-1.3 mg/dL] 0.7 mg/dL (10/27/22 3:13 PM) Prot [6.3-8.2 g/dL] 8.1 g/dL (10/27/22 3:13 PM) TSH [0.47-4.68 uIU/mL] 1.05 uIU/mL 4 (10/27/22 3:13 PM) Creat (u) 58.83 mg/dL 5 (10/27/22 3:12 PM) WBC [4.0-10.4 K/uL] 6.12 K/uL (10/27/22 3:13 PM) 1Result Comment: Testing Performed By: Dept of Pathology [facility] Dean Morales, [address] [place] [address], [place] [address] 2Result Comment: Testing Performed By: [facility], [address] [place] [address], [place] [address] 3Result Comment: Testing Performed By: [facility], [address] [place] [address], [place] [address] 4Result Comment: Testing Performed By: [facility], [address] [place] [address], [place] [address] 5Result Comment: Reference Range for Random Urine Not Established. Vital Signs Most recent to oldest [Reference Range]: 1 Patient Weight 108.5 kg (10/27/22 2:16 PM) Temperature [36.5-37.9 DegC] 36.7 DegC (10/27/22 2:16 PM) Heart Rate 82 bpm (10/27/22 2:16 PM) Respiratory Rate 20 br/min (10/27/22 2:16 PM) Blood Pressure 168/84mmHg (10/27/22 2:16 PM) Cuff Pulse Pressure 84 mmHg (10/27/22 2:16 PM) BP Location # 1 Left Arm, Manual (10/27/22 2:16 PM) Social History Social History Type Response Smoking Status Current every day he lorenza smoker Sex Female Patient Care team information Personnel Name: MD Candy, Dariela Kenny Address: Address: [address] [place] [id number]
--- OUTSIDE RECORDS SUMMARY | 2023-05-31 12:06 | External Medical Summary | Summary of Care ---
Author Name Unknown Organization [place] [address] Care Team Providers Care Ship Wirer Name Role Phone Dariela Gupta MD Primary Care Provider Reason for Visit * Reason Onset Date Comments Fax 02/20/2022 EGD Referral Encounter Details Date Type Department Care Team Description 02/20/2022 Telephone Gastroenterology, [facility] [address] [facility] [place] [address] Alina Barbosa PA-C [address] [place] [address] Fax (EGD Referral) Allergies Active Allergy Reactions Severity Noted Date Comments Amoxicillin-Pot Clavulanate 07/24/20 21 Other reaction(s): "bad" diarrhea Codeine Nausea/vomiting 09/25/2015 Meperidine 08/31/2015 Meperidine Nausea/vomiting 09/25/2015 Diphenhydramine 07/24/2021 Other reaction(s): "makes me hyper" Hydrocodone 08/31/2015 Morphine Nausea/vomiting 09/25/2015 Sulfa Antibiotics 09/25/2015 hives Hydrocodone-Acetaminophen Nausea/vomiting 09/25 documented as of this encounter (statuses as of 02/20/2022) Medications Medication Sig Dispensed Refills Start Date [...] 0 01/20/2018 Active Blood Glucose Monitoring Suppl (AgentrunUCH ULTRA 2) w/Device KIT USE TO TEST BLOOD SUGAR TWICE DAILY. 0 01/20/2018 Active traMADol (ULTRAM) 50 MG Tablet Take 50 mg by mouth every 6 hours as needed. As needed 0 11/16/2019 Active atorvaSTATin (LIPITOR) 20 MG Tablet 1 daily 0 11/01/2019 Active fluticasone (FLONASE) 50 MCG/ACT nasal spray 1 Ava. As needed 0 12/31/2018 Active valACYclovir (VALTREX) [...] metFORMIN HCl 500 MG Oral Tablet (Glucophage) 0 06/08/2021 Activ e Aspirin 81 MG Oral Tablet Delayed Release Take 81 mg by mouth daily. 0 Active Restasis 0.05 % Ophthalmic Emulsion (cycloSPORINE)Indications: Sjogren's syndrome with keratoconjunctivitis sicca (HCC) Instill 1 Drop into both eyes every 12 hours. 16.5 mL 3 07/29/2021 Active Meloxicam 15 MG Oral Tablet Take 1 tablet by mouth once daily 90 Tablet 1 01/23/2022 Active Omeprazole 40 MG Oral Capsule Delayed Release (PriLOSEC) TAKE 1 CAPSULE BY MOUTH ONCE DAILY FOR 30 DAYS 0 01/04/2022 Active Ozempic (0.25 or 0.5 MG/DOSE) 2 MG/1.5ML Solution Pen-injector 0 01/18/2022 Act dwaine documented as of this encounter (statuses as of 02/20/2022) Active Problems Problem Noted Date Sjogren's syndrome 04/07/2017 Insomnia Depression Osteoarthritis of both knees Tobacco abuse documented as of this encounter (statuses as of 02/20/2022) Immunizations Name Administration Dates Next Due Zoster Vaccine Recombinant (Shingrix) 10/31/2019 documented as of this encounter Social History Tobacco Use Types Packs/Day Years Used Date Current Every Day Smoker Cigarettes 1 30 Smokeless Tobacco: Never Used Alcohol Use Standard Drinks/Week Comments No 0 (1 standard drink = 0.6 oz pur e alcohol) Sex Assigned at Date Recorded Not on file Job Start Date Occupation Industry Not on file Not on file Not on file documented as of this encounter Miscellaneous Notes * Telephone Encounter - JOHNATHON Parker - 02/20/2022 2:33 PM EDT Fax received from [facility] to get patient scheduled for an EGD. Ordering: Alina Barbosa PA-C Dx: Dysphagia, unspecified - Z72.0, Tobacco use - R10.13 Records placed in scanning. LMOM for pt to call back to schedule. documented in this encounter Plan of Treatment Upcoming Encounters Date Type Specialty Care Team Description 01/26/2023 Office Visit Rheumatology Soy Rosa MD [address] [facility], [place] [id number] Health Maintenance Due Date Last Done Comments COVID-19 Vaccine (1) 1965 Pneumococcal Vaccine: Pediatrics (0 to 5 Years) and At-Risk Patients (6 to 64 Years) (1 - PCV) 01/29/1964 Depression Screening, Annual for Pts 12 and Over 1970 DTaP,Tdap,and Td Vaccines (1 - Tdap) 1977 PAP SMEAR-EVERY 3 YRS,AGES 21-65 1979 BREAST CANCER SCREENING DISCUSSION YEARLY AGES 40-75 11/02/2001 11/02/2000, 08/20/1999 Cologuard: Ages 45-75 2003 Colonoscopy: Ages 45-75 2003 Colorectal Cancer Screening (Colonoscopy 10 Years; Sigmoidoscopy 5 Years; Cologuard 3 Years; FOBT 1 Year): Ages 45-75 2003 FOBT: Ages 45-75 2003 Sigmoidoscopy: Ages 45-75 2003 LIPID SCREEN EVERY 5 YRS-WOMEN AGE 45-75 09/03/2004 09/03/1999, 10/15/1998, 09/04/1997 LUNG CANCER SCREENING - USE SMARTSET 47149 01/29/2008 Zoster Vaccines (2 of 2) 12/26/2019 10/31/2019 Influenza Vaccine (FLU shot) (Season Ended) 2022 DIABETES SCREEN EVERY 3 YRS-AGE 45 AND ABOVE 01/22/2025 01/22/2022, 05/21/2017, 10/15/2015, Additional history exists GARDASIL-HPV IMMUNIZATION SERIES Aged Out No longer eligible based on patient's age to complete this topic MENINGOCOCCAL (MENACTRA/MENVEO) Aged Out No longer eligible based on patient's age to complete this topic documented as of this encounter Implants Not on filedocumented as of this encounter Advance Directives Documents on File Type Date Recorded Patient Line Ordering Clinician Expl anation Advanced Directive Advanced Directive Advanced Directive Advanced Directive Advanced Directive Advanced Directive Advanced Directive Advanced Directive Advanced Directive Care Teams Ship Wirer Relationship Specialty Start Date End Date Dariela Gupta MD [address] [place] [id number] PCP - General Family Medicine 04/06/18 documented as of this encounter
--- OUTSIDE RECORDS SUMMARY | 2023-05-31 12:06 | External Medical Summary | Summary of Care ---
Author Name Unknown Organization [place] [address] Care Team Providers Care Security Guard Dispatcher Name Role Phone Dariela Gupta MD Primary Care Provider [phone] Reason for Visit * Reason Onset Date Comments Surgery Procedure Cancelled 07/28/2022 pt i s cancelling her EGD scheduled for 07/30/2022 Encounter Details Date Type Department Care Team Description 07/28/2022 Telephone OR [facility], Operating Room [facility] [address] [facility] [place] [address] Joann Cheung MD [address] [place] [address] [facility] [place] [address] Surgery Procedure Cancelled (pt is cancel... Allergies Active Allergy Reactions Severity Noted Date Comments Amoxicillin-Pot Clavulanate 07/24/20 21 Other reaction(s): "bad" diarrhea Codeine Nausea/vomiting 09/25/2015 Meperidine 08/31/2015 Meperidine Nausea/vomiting 09/25/2015 Diphenhydramine 07/24/2021 Other reaction(s): "makes me hyper" Hydrocodone 08/31/2015 Morphine Nausea/vomiting 09/25/2015 Sulfa Antibiotics 09/25/2015 hives Hydrocodone-Acetaminophen Nausea/vomiting 09/25 documented as of this encounter (statuses as of 07/28/2022) Medications Medication Sig Dispensed Refills Start Date [...] 0 01/20/2018 Active Blood Glucose Monitoring Suppl (WireOverUCH ULTRA 2) w/Device KIT USE TO TEST BLOOD SUGAR TWICE DAILY. 0 01/20/2018 Active traMADol (ULTRAM) 50 MG Tablet Take 50 mg by mouth every 6 hours as needed. As needed 0 11/16/2019 Active atorvaSTATin (LIPITOR) 20 MG Tablet 1 daily 0 11/01/2019 Active fluticasone (FLONASE) 50 MCG/ACT nasal spray 1 [place]. As needed 0 12/31/2018 Active valACYclovir (VALTREX) [...] 81 mg by mouth daily. 0 Active Meloxicam 15 MG Oral Tablet Take 1 tablet by mouth once daily 90 Tablet 1 01/23/2022 Active Omeprazole 40 MG Oral Capsule Delayed Release (PriLOSEC) TAKE 1 CAPSULE BY MOUTH ONCE DAILY FOR 30 DAYS 0 01/04/2022 Active Ozempic (0.25 or 0.5 MG/DOSE) 2 MG/1.5ML Solution Pen-injector 0 01/18/2022 Act dwaine cycloSPORINE 0.05 % Ophthalmic Emulsion (Restasis)Indications:Sjog narda's syndrome with keratoconjunctivitis sicca (HCC) Instill into both eyes 1 Drop in the morning AND 1 Drop before bedtime. 16.5 mL 3 04/25/2022 Active documented as of this encounter (statuses as of 07/28/2022) Active Problems Problem Noted Date Sjogren's syndrome 04/07/2017 Insomnia Depression Osteoarthritis of both knees Tobacco abuse documented as of this encounter (statuses as of 07/28/2022) Immunizations Name Administration Dates Next Due Zoster [...] Miscellaneous Notes * Telephone Encounter - JOHNATHON Luna - 07/28/2022 3:59 PM EDT Called and spoke to pt. Rescheduled egd and pt aware of new date and time. * Telephone Encounter - Kaylene Ellsworth RN - 07/28/2022 3:00 PM EDT The patient left a voice message stating she is not feeling well and would like to cancel her EGD scheduled for 07/30/2022. Tried returning pt call- WALDO GRIMALDO to call GI Schedulers # to cancel and reschedule EGD for later date. Thank you, Kaylene documented in this encounter Plan of Treatment Upcoming Encounters Date Type Specialty Care Team Description 12/08/2022 Hospital Encounter Endoscopy Joann Cheung MD [address] [place] [address] [place] [address] 12/08/2022 Surgery Endoscopy Joann Cheung MD [address] [place] [address] [place] [address] ESOPHAGOGASTRODUODENOSCOPY (EGD), FLEXIBLE, TRANSORAL, DIAGNOSTIC 01/26/2023 Office Visit Rheumatology Soy Rosa MD [address] [place] [address] Scheduled Procedures Name Priority Associated Diagnoses Date/Ti [...] 09/04/1997 LUNG CANCER SCREENING - USE SMARTSET [id number] 01/29/2008 Mammogram 01/29/2008 11/02/2000, 08/20/1999 Zoster Vaccines [...] Documents on File Type Date Recorded Patient Chief Solution Architect Expl anation Advanced Directive Advanced Directive Advanced Directive Advanced Directive Advanced Directive Advanced Directive Advanced Directive Advanced Directive Advanced Directive Advanced Directive Advanced Directive Care Teams Security Guard Dispatcher Relationship Specialty Start Date End Date Dariela Gupta MD [address] [address] PCP - General Family Medicine 04/06/18 documented as of this encounter
--- OUTSIDE RECORDS SUMMARY | 2023-05-31 12:06 | External Medical Summary | Summary of Care ---
Author Name Unknown Organization [place] [address] Care Team Providers Care Spanish Instructor Name Role Phone Dariela Gupta MD Primary Care Provider Reason for Visit * Reason Onset Date Comments Medication Refill 04/25/2022 Encounter Details Date Type Department Care Team Description 04/25/2022 Refill Rheumatology [place] [id number] [facility] [place] [address] Kalani Pineda MD [address] [place] [address] [place] [address] Sjogren's syndrome with keratoconjunctivitis sicca (HCC) Allergies Active Allergy Reactions Severity Noted Date Comments Amoxicillin-Pot Clavulanate 07/24/20 21 Other reaction(s): "bad" diarrhea Codeine Nausea/vomiting 09/25/2015 Meperidine 08/31/2015 Meperidine Nausea/vomiting 09/25/2015 Diphenhydramine 07/24/2021 Other reaction(s): "makes me hyper" Hydrocodone 08/31/2015 Morphine Nausea/vomiting 09/25/2015 Sulfa Antibiotics 09/25/2015 hives Hydrocodone-Acetaminophen Nausea/vomiting 09/25 documented as of this encounter (statuses as of 04/25/2022) Medications Medication Sig Dispensed Refills Start Date End Date Status albuterol (VENTOLIN HFA) 108 (90 BASE) MCG/ACT inhaler Inhale 2 Puffs by mouth every 6 hours as needed. 0 Active traZODone (DESYREL) 50 MG Tablet Take 50 mg by mouth at bedtime. 0 Active doxepin (SINEQUAN) 25 MG Capsule Take 25 mg by mouth at bedtime. 1 tab at bedtime 0 7 Active BuPROPion HCl ER, SR, (WELLBUTRIN SR) 200 MG TB12 Take 200 mg by mouth daily. In the morning. 0 8 Active citalopram (CELEXA) 40 MG Tablet Take 40 mg by mouth every evening. 1 daily 0 8 Active SequentTOUCH DELICA LANCETS 33G MISC USE TO TEST BLOOD SUGAR TWICE A DAY. 0 8 Active ONETOUCH ULTRA BLUE STRP USE TO TEST BLOOD SUGAR TWICE A DAY. 0 8 Active Blood Glucose Monitoring Suppl (ShinyByte ULTRA 2) w/Device KIT USE TO TEST BLOOD SUGAR TWICE DAILY. 0 8 Active traMADol (ULTRAM) 50 MG Tablet Take 50 mg by mouth every 6 hours as needed. As needed 0 0 Active atorvaSTATin (LIPITOR) 20 MG Tablet 1 daily 0 0 Active fluticasone (FLONASE) 50 MCG/ACT nasal spray 1 [place]. As needed 0 9 Active valACYclovir (VALTREX) 1000 MG Tablet As needed 0 9 Active insulin Detemir (LEVEMIR) 100 UNIT/ML injection Pt reported taking 60 units 0 9 Active lisinopril (PRINIVIL) 5 MG Tablet 1 daily 0 0 Active BD PEN NEEDLE SHERRY U/F 32G X 4 MM 0 0 Active prazosin (MINIPRESS) 2 MG Capsule Take 2 mg by mouth daily. 0 9 Active Loratadine 10 MG Oral Capsule Take 10 mg by mouth. 0 Active metFORMIN HCl 500 MG Oral Tablet (Glucophage) 0 1 Active Aspirin 81 MG Oral Tablet Delayed Release Take 81 mg by mouth daily. 0 Active Meloxicam 15 MG Oral Tablet Take 1 tablet by mouth once daily 90 Tablet 1 2 Active Omeprazole 40 MG Oral Capsule Delayed Release (PriLOSEC) TAKE 1 CAPSULE BY MOUTH ONCE DAILY FOR 30 DAYS 0 2 Active Ozempic (0.25 or 0.5 MG/DOSE) 2 MG/1.5ML Solution Pen-injector 0 2 Active cycloSPORINE 0.05 % Ophthalmic Emulsion (Restasis)Indications:Sjo gren's syndrome with keratoconjunctivitis sicca (HCC) Instill into both eyes 1 Drop in the morning AND 1 Drop before bedtime. 16.5 mL 3 2 Active Restasis 0.05 % Ophthalmic Emulsion (cycloSPORINE)Indications :Sjogren's syndrome with keratoconjunctivitis sicca (HCC) Instill 1 Drop into both eyes every 12 hours. 16.5 mL 3 1 04/25/20 22 Discontinu ed(Refill) documented as of this encounter (statuses as of 04/25/2022) Active Problems Problem Noted Date Sjogren's syndrome 04/07/2017 Insomnia Depression Osteoarthritis of both knees Tobacco abuse documented as of this encounter (statuses as of 04/25/2022) Immunizations Name Administration Dates Next Due Zoster [...] encounter Miscellaneous Notes * Telephone Encounter - Kalani Pineda MD - 04/25/2022 4:24 PM EDT Signed Prescriptions: Disp Refills cycloSPORINE 0.05 % Ophthalmic Emulsion (R*16.5 mL3 Sig: Instill into both eyes 1 Drop in the morning AND 1 Drop before bedtime. Authorizing Provider: KALANI PINEDA * Telephone Encounter - Dahiana Maher, business english instructor - 04/25/2022 3:54 PM EDT Did you pend patient's preferred pharmacy and medication before forwarding?yes Pharmacy: [facility] [id number] [address] [place] Pending Prescriptions: Disp Refills cycloSPORINE 0.05 % Ophthalmic Emulsion (*16.5 mL3 Sig: Instill into both eyes 1 Drop in the morning AND 1 Drop before bedtime. Last Visit: 01/22/2022 (in office), Visit date not found (telemedicine) Next Visit: 01/26/2023 If no future appointments scheduled, and last appointment is greater than a year ago, please schedule patient for a follow-up appointment Last date the medication was ordered: 07/29/2021 Is this request for a controlled substance?No Urine Drug Screen:No results found for this or any previous visit. Patient Phone Numbers [email or web address] [phone] Labs: Lab Results Component Value Date/Time CREAT [...] Encounters Date Type Specialty Care Team Description 04/26/2022 Laboratory Laboratory Benji Pulido 132 [facility] [place] [address] 07/30/2022 Hospital Encounter Endoscopy Joann Cheung MD [address] [place] [address] [place] [address] 07/30/2022 Surgery Endoscopy Joann Cheung MD [address] [place] [address] [place] [address] ESOPHAGOGASTRODUODENOSCOPY (EGD), FLEXIBLE, TRANSORAL, DIAGNOSTIC 01/26/2023 Office Visit Rheumatology Kalani Pineda MD [facility] [place] [address] Scheduled Procedures Name Priority Associated Diagnoses Date/Ti me ESOPHAGOGASTRODUODENOSCOPY ( EGD), FLEXIBLE, TRANSORAL, DIAGNOSTIC Dysphagia, unspecified type 07/30/2022 8:30 AM EDT Health Maintenance Due Date Last Done [...] Ages 45-75 2003 Lipid Panel 09/03/2004 09/03/1999, 10/15/1998, 09/04/1997 LUNG CANCER SCREENING - USE SMARTSET [id number] 01/29/2008 Mammogram 01/29/2008 11/02/2000, 08/20/1999 Zoster Vaccines (2 of 2) 12/26/2019 10/31/2019 Influenza Vaccine (FLU shot) (#1) 2022 GARDASIL-HPV IMMUNIZATION SERIES Aged Out No longer eligible b ased on patient's age to complete this topic Hepatitis B Aged Out No longer eligi ble based on patient's age to complete this topic MENINGOCOCCAL (MENACTRA/MENVEO) Aged Out No longer eligible b ased on patient's age to complete this topic documented as of this encounter Implants Not on filedocumented as of this encounter Visit Diagnoses Diagnosis Sjogren's syndrome with keratoconjunctivitis sicca (HCC) Dysphagia, unspecified type documented in this encounter Advance Directives Documents on File Type Date Recorded Patient Television Service Engineer Expl anation Advanced Directive Advanced Directive Advanced Directive Advanced Directive Advanced Directive Advanced Directive Advanced Directive Advanced Directive Advanced Directive Advanced Directive Care Teams Spanish Instructor Relationship Specialty Start Date End Date Dariela Gupta MD [address] [facility] 1 [place] [address] PCP - General Family Medicine 04/06/18 documented as of this encounter
--- OUTSIDE RECORDS SUMMARY | 2023-05-31 12:06 | External Medical Summary | Summary of Care ---
Author Name Unknown Organization [place] [address] Care Team Providers Care Commanding Officer Motorized Squad Name Role Phone Dariela Gupta MD Primary Care Provider [phone] Reason for Visit * Reason Onset Date Comments Fax 02/20/2022 EGD Referral Encounter Details Date Type Department Care Team Description 02/20/2022 Telephone Gastroenterology, [facility] [address] [place] [address] Alina Barbosa PA-C [address] [place] [address] Fax (EGD Referral) Allergies Active Allergy Reactions Severity Noted Date Comments Amoxicillin-Pot Clavulanate 07/24/20 21 Other reaction(s): "bad" diarrhea Codeine Nausea/vomiting 09/25/2015 Meperidine 08/31/2015 Meperidine Nausea/vomiting 09/25/2015 Diphenhydramine 07/24/2021 Other reaction(s): "makes me hyper" Hydrocodone 08/31/2015 Morphine Nausea/vomiting 09/25/2015 Sulfa Antibiotics 09/25/2015 hives Hydrocodone-Acetaminophen Nausea/vomiting 09/25 documented as of this encounter (statuses as of 03/11/2022) Medications Medication Sig Dispensed Refills Start Date [...] 0 01/20/2018 Active Blood Glucose Monitoring Suppl (BulbUCH ULTRA 2) w/Device KIT USE TO TEST BLOOD SUGAR TWICE DAILY. 0 01/20/2018 Active traMADol (ULTRAM) 50 MG Tablet Take 50 mg by mouth every 6 hours as needed. As needed 0 11/16/2019 Active atorvaSTATin (LIPITOR) 20 MG Tablet 1 daily 0 11/01/2019 Active fluticasone (FLONASE) 50 MCG/ACT nasal spray 1 [place]. As needed 0 12/31/2018 Active valACYclovir (VALTREX) [...] as of this encounter (statuses as of 03/11/2022) Active Problems Problem Noted Date Sjogren's syndrome 04/07/2017 Insomnia Depression Osteoarthritis of both knees Tobacco abuse documented as of this encounter (statuses as of 03/11/2022) Immunizations Name Administration Dates Next Due Zoster [...] Miscellaneous Notes * Telephone Encounter - JOHNATHON Sandoval - 03/11/2022 2:46 PM EDT Patient scheduled and aware of 07/[address] Lopez. Prep instructions mailed to home address. Placed on cancellation list. * Telephone Encounter - JOHNATHON Luna - 03/05/2022 11:17 AM EDT Scheduling letter mailed to home address. Called ordering providers office and spoke with Monse. Office aware that we have not made contact with pt yet for scheduling. * Telephone Encounter - JOHNATHON Parker - 02/27/2022 12:59 PM EDT LMOM for pt to call back to schedule. * Telephone Encounter - JOHNATHON Parker - 02/20/2022 2:33 PM EDT Fax received from [facility] to get patient scheduled for an EGD. Ordering: Alina Barbosa PA-C Dx: Dysphagia, unspecified - Z72.0, Tobacco use - R10.13 Records placed in scanning. LMOM for pt to call back to schedule. documented in this encounter Plan of Treatment Upcoming Encounters Date Type Specialty Care Team Description 07/30/2022 Hospital Encounter Endoscopy Joann Cheung MD [address] [place] [address] [place] [address] 07/30/2022 Surgery Endoscopy Joann Cheung MD [address] [place] [address] [place] [address] ESOPHAGOGASTRODUODENOSCOPY (EGD), FLEXIBLE, TRANSORAL, DIAGNOSTIC 01/26/2023 Office Visit Rheumatology Soy Rosa MD [facility] [place] [address] Scheduled Procedures Name Priority Associated Diagnoses Date/Ti me ESOPHAGOGASTRODUODENOSCOPY ( EGD), FLEXIBLE, TRANSORAL, DIAGNOSTIC Dysphagia, unspecified type 07/30/2022 8:30 AM EDT Health Maintenance Due Date Last Done Comments COVID-19 Vaccine (#1) 1965 Pneumococcal Vaccine: Pediatrics (0 to 5 [...] 09/04/1997 LUNG CANCER SCREENING - USE SMARTSET [id number] 01/29/2008 Zoster Vaccines (2 of 2) 12/26/2019 [...] Documents on File Type Date Recorded Patient Technology Sales Consultant Expl anation Advanced Directive Advanced Directive Advanced Directive Advanced Directive Advanced Directive Advanced Directive Advanced Directive Advanced Directive Advanced Directive Care Teams Commanding Officer Motorized Squad Relationship Specialty Start Date End Date Dariela Gupta MD [facility] [place] [address] PCP - General Family Medicine 04/06/18 documented as of this encounter
--- OUTSIDE RECORDS SUMMARY | 2023-05-31 12:06 | External Medical Summary | Summary of Care ---
Author Name Unknown Organization [place] [address] Care Team Providers Care Jewelry Consultant Name Role Phone Dariela Gupta MD Primary Care Provider [phone] Reason for Visit * Reason Onset Date Comments Medication Refill 07/29/2022 Encounter Details Date Type Department Care Team Description 07/29/2022 Telephone Rheumatology [facility] [address] [facility] [place] [address] Soy Rosa MD [facility] [facility] [place] [address] Medication Refill Allergies Active Allergy Reactions Severity Noted Date Comments Amoxicillin-Pot Clavulanate 07/24/20 21 Other reaction(s): "bad" diarrhea Codeine Nausea/vomiting 09/25/2015 Meperidine 08/31/2015 Meperidine Nausea/vomiting 09/25/2015 Diphenhydramine 07/24/2021 Other reaction(s): "makes me hyper" Hydrocodone 08/31/2015 Morphine Nausea/vomiting 09/25/2015 Sulfa Antibiotics 09/25/2015 hives Hydrocodone-Acetaminophen Nausea/vomiting 09/25 documented as of this encounter (statuses as of 07/29/2022) Medications Medication Sig Dispensed Refills Start Date [...] every evening. 1 daily 0 8 Active ONETOUCH DELICA LANCETS 33G MISC USE TO TEST BLOOD SUGAR TWICE A DAY. 0 8 Active ONETOUCH ULTRA BLUE STRP USE TO TEST BLOOD SUGAR TWICE A DAY. 0 8 Active Blood Glucose Monitoring Suppl (CherrishTOUCH ULTRA 2) w/Device KIT USE TO TEST BLOOD SUGAR TWICE DAILY. 0 8 Active traMADol (ULTRAM) 50 MG Tablet Take 50 mg by mouth every 6 hours as needed. As needed 0 0 Active atorvaSTATin (LIPITOR) 20 MG Tablet 1 daily 0 0 Active fluticasone (FLONASE) 50 MCG/ACT nasal spray 1 [place]. As needed 0 9 Active valACYclovir (VALTREX) [...] Oral Tablet (Glucophage) at bedtime . 0 1 Active Aspirin 81 MG Oral [...] 2 MG/1.5ML Solution Pen-injector 0 2 Active Xiidra 5 % Ophthalmic Solution (Lifitegrast) Instill into both eyes 1 Drop 2 times a day . 1 Each 2 Active cycloSPORINE 0.05 % Ophthalmic Emulsion (Restasis)Indications:Sjo gren's syndrome with keratoconjunctivitis sicca (HCC) Instill into both eyes 1 Drop in the morning AND 1 Drop before bedtime. 16.5 mL 3 2 07/29/20 22 Discontinu ed(Formula ry/Cost) documented as of this encounter (statuses as of 07/29/2022) Active Problems Problem Noted Date Sjogren's syndrome 04/07/2017 Insomnia Depression Osteoarthritis of both knees Tobacco abuse documented as of this encounter (statuses as of 07/29/2022) Immunizations Name Administration Dates Next Due Zoster [...] Telephone Encounter - Soy Rosa MD - 07/29/2022 2:28 PM EDT I spoke with patient. Need to switch her eyedrops based on insurance reasons. New prescription sentin. * Telephone Encounter - Soy Rosa MD - 07/29/2022 10:21 AM EDT I called and left a message to call back documented in this encounter Plan of Treatment Upcoming Encounters Date Type Specialty Care Team Description 12/08/2022 Hospital Encounter Endoscopy Joann Cheung MD [address] [place] [address] [place] [address] 12/08/2022 Surgery Endoscopy Joann Cheung MD [address] [place] [address] [place] [address] ESOPHAGOGASTRODUODENOSCOPY (EGD), FLEXIBLE, TRANSORAL, DIAGNOSTIC 01/26/2023 Office Visit Rheumatology Soy Rosa MD [address] [place] [address] Scheduled Procedures Name Priority Associated Diagnoses Date/Ti [...] 09/04/1997 LUNG CANCER SCREENING - USE SMARTSET [id number] 01/29/2008 Mammogram 01/29/2008 11/02/2000, 08/20/1999 Zoster Vaccines [...] Documents on File Type Date Recorded Patient Building Wrecker Expl anation Advanced Directive Advanced Directive Advanced Directive Advanced Directive Advanced Directive Advanced Directive Advanced Directive Advanced Directive Advanced Directive Advanced Directive Advanced Directive Care Teams Jewelry Consultant Relationship Specialty Start Date End Date Dariela Gupta MD [address] [place] [address] PCP - General Family Medicine 04/06/18 documented as of this encounter
--- OUTSIDE RECORDS SUMMARY | 2023-05-31 12:06 | External Medical Summary | Continuity of Care Document ---
Author Name Unknown Organization [place] [address] DEAN Victoria Marisa Address [address] [place], [place] [id number] Care Team Providers Care Engagement Lead Name Role Phone Dariela Gupta Primary Care Physician [phone] [id number] Date(s): 07/09/22 - 07/09/22 [place] [address] [facility] [address], [address] [place] [address] [phone] Discharge Disposition: Home or Self Care Attending [...] inactivated 08/17/19 Give n tetanus/diphtheria/pertuss, acel (Tdap) 06/14/ G iven Medications Adult Aspirin 81 mg oral tablet, chewable Start: 06/10/22 15:41:00 EDT Start Date: 06/10/22 Status: Ordered Advair Diskus 500 mcg-50 mcg Start: 03/05/22 16:08:00 EDT, 1 puff, PO, bid, Disp# 3 each, Refills: 3, Pharmacy: [id number] Start Date: 03/05/22 Stop Date: 02/28/23 Status: Ordered albuterol CFC free 90 mcg/inh MDI Start: 06/05/21 16:50:00 EDT, 2 puff, inhaled, qid, Disp# 3 each, Refills: 1, PRN: as needed for wheezing, Pharmacy: [place] [id number] Start Date: 06/05/21 Status: Ordered atorvastatin 20 mg oral tablet Start: 06/18/22 17:21:00 EDT, See Instructions, Disp# 90 tab, Refills: 0, Take 1 tablet by mouth once daily, Pharmacy: [place] [address] Start Date: 06/18/22 Status: Ordered BD needle Ultra-Fine Pen Savana 32G x 4mm Start: 09/24/20 16:57:00 EST, See Instructions, Disp# 100 each, Refills: 6, Use with insulin pen., Pharmacy: [place] [address] Start Date: 09/24/20 Status: Ordered BD PEN NEEDLE/SAVANA [id number] MIS USE TWICE DAILY WITH INSULIN Start Date: 09/24/20 Status: Ordered BD PEN NEEDLE/SAVANA [id number] MIS BD PEN NEEDLE/SAVANA [id number] MIS, See Instructions, Disp# 100 each, Refills: 1, USE WITH INSULIN PEN,Pharmacy [facility] [address] Start Date: 10/28/21 Status: Ordered BD PEN NEEDLE/SAVANA [id number] MIS Start: 04/23/22 19:48:00 EDT, BD PEN NEEDLE/SAVANA [id number] MIS, See Instructions, Disp# 100 each, Refills: 3, USE WITH INSULIN PEN, Pharmacy [facility] [address] Start Date: 04/23/22 Status: Ordered BD Test Strips 100 ct Start: 02/27/21 15:53:00 EDT, See Instructions, Disp# 100 each, Refills: 3, test daily, Dx : E11.9,Pharmacy: [facility] [address] Start Date: 02/27/21 Status: Ordered Chantix Starter Pack 0.5 mg-1 mg oral tablet Start: 06/10/22 16:14:00 EDT, See Instructions, Disp# 1 kit, as directed per starter pack, Pharmacy: [facility] [address] Start Date: 06/10/22 Status: Ordered citalopram 40 mg oral tablet See Instructions, Disp# 90 tab, Refills: 0, Take 1 tablet by mouth once daily, Pharmacy: [place] [address] Start Date: 08/20/21 Status: Ordered doxepin 25 mg oral capsule Start: 06/23/22 20:17:00 EDT, See Instructions, Disp# 90 cap, Refills: 1, Take 1 capsule by mouth once daily, Pharmacy: [facility] Start Date: 06/23/22 Status: Ordered fluticasone 50 mcg/inh nasal spray Start: 06/13/22 16:56:00 EDT, See Instructions, Disp# 16 g, Refills: 6, Use 1 spray(s) in each nostril once daily, Pharmacy: [facility] [address] Start Date: 06/13/22 Status: Ordered glucometer Start: 02/27/21 15:52:00 EDT, See Instructions, Disp# 1 each, Refills: 0, test daily, Dx E11.9, Pharmacy: [place] [id number] Start Date: 02/27/21 Status: Ordered lancets Start: 02/27/21 15:54:00 EDT, See Instructions, Disp# 100 each, Refills: 3, test daily, Dx: E11.9, Pharmacy: [place] [address] Start Date: 02/27/21 Status: Ordered Levemir FlexTouch 100 units/mL subcutaneous solution Start: 04/23/22 19:48:00 EDT, See Instructions, Disp# 15 mL, Refills: 0, INJECT 60 UNITS SUBCUTANEOUSLY EVERY DAY AT BEDTIME, Pharmacy: [facility] [address] Start Date: 04/23/22 Status: Ordered lisinopril 5 mg oral tablet Start: 06/23/22 20:17:00 EDT, See Instructions, Disp# 90 tab, Refills: 3, Take 1 tablet by mouth once daily, Pharmacy: [facility] [address] Start Date: 06/23/22 Status: Ordered meloxicam 15 mg oral tablet Start: 05/26/17 11:25:00, 1 tab, PO, Daily Start Date: 05/26/17 Status: Ordered Metamucil Start: 02/27/21 15:26:00 EDT, 3.4 g =, PO, Daily Start Date: 02/27/21 Status: Ordered metFORMIN 500 mg oral tablet Start: 04/25/22 16:30:00 EDT, See Instructions, Disp# 120 tab, Refills: 2, Take 2 tablets by mouth twice daily, Pharmacy: [place] [id number] Start Date: 04/25/22 Status: Ordered metFORMIN HCl 500 MG Oral Tablet metFORMIN HCl 500 MG Oral Tablet, See Instructions, Disp# 120 tab, Refills: 6, Take 2 tablets by mouth twice daily, Pharmacy [facility] [address] Start Date: 04/08/21 Status: Ordered MiraLax oral powder for reconstitution Start: 08/05/21 15:25:00 EST, 17 g =, PO, bid, Disp# 1,020 g, Refills: 1, Pharmacy: [facility] [address] Start Date: 08/05/21 Stop Date: 10/04/21 Status: Ordered omeprazole 40 mg oral delayed release capsule Start: 04/25/22 16:11:00 EDT, See Instructions, Disp# 30 cap, Refills: 2, Take 1 capsule by mouth once daily for 30 days, Pharmacy: [facility] [address] Start Date: 04/25/22 Status: Ordered ONETOUCH ULTRA BLUE TEST STRP Start: 03/09/19 12:34:53 EDT, See Instructions, Disp# 50, Refills: 6, USE TO TEST BLOOD SUGAR TWICEA DAY., Pharmacy: [facility] [address], USE TO TEST BLOOD SUGAR TWICE A DAY. Start Date: 03/09/19 Status: Ordered prazosin 2 mg oral capsule Start: 06/23/22 20:17:00 EDT, See Instructions, Disp# 90 cap, Refills: 1, TAKE 1 CAPSULE BY MOUTH EVERY DAY AT BEDTIME, Pharmacy: [facility] [address] Start Date: 06/23/22 Status: Ordered predniSONE 20 mg oral tablet Start: 07/04/22 9:16:00 EDT, 2 tab, PO, Daily, Disp# 10 tab, Pharmacy: [facility] [address] Start Date: 07/04/22 Stop Date: 07/09/22 Status: Ordered semaglutide 1 mg/0.5 mL (1 mg dose) subcutaneous solution Start: 06/18/22 16:51:00 EDT, 1 mg =, subQ, q7days, Disp# 2 mL, Refills: 5, Note to Pharmacy: Jin Srinivasan, Pharmacy: [facility] [address] Start Date: 06/18/22 Stop Date: 12/03/22 Status: Ordered Tessalon 200 mg oral capsule Start: 07/04/22 9:18:00 EDT, 1 cap, PO, tid, Disp# 30 cap, PRN: as needed for cough, [facility] Start Date: 07/04/22 Stop Date: 07/11/22 Status: Ordered triamcinolone 0.5% topical cream Start: 03/14/22 15:54:00 EDT, 1 appl, topical, tid, Disp# 20 g, Refills: 1, [facility] Start Date: 03/14/22 Status: Ordered [...] hyperlipidemia Confirmed Active Fecal incontinence Confirmed Active Leukocytosis Confirmed Active Paresthesia Confirmed Active Self-mutilation Confirmed [...] study with ingested markers within the stomach. [address] [place] [address] Impression: ACR BI-RADS CATEGORY 2: BENIGN 1. [...] w/ hepatic steatosis, reactive associated lymphadenopathy 10[facility] Impression: 1. Nonobstructive bowel gas pattern 2. Moderate constipation 11Impression: 1.8 x 0.5 x1.6 cm pocket of fluid within the subcutaneous tissues of the medial right thigh. This may reflect subcutaneous edema or a tiny residual abscess 12[facility] Right groin 13No acute process identified. Ill-defined [...] zones. 5. Hepatic steatosis. 6. Splenomegaly. Results Radiology Reports * Exam Date Time Procedure Performing Provider Status 07/09/22 1:46 PM Echo Stress, Exercise w/ Contrast Fadia Galvan; Final Notes: (Echo Stress, Exercise w/ Contrast) Reason For Exam: ALVARADO, exertional chest tightness, fatigue, DM, tob abuse Echo Stress, Exercise w/ Contrast Report Signatures Stress ECG Finalized by Dr. Chris Arevalo MD on 07/10/2022 06:05 PM Echo Finalized by Dr. Chris Arevalo MD on 07/10/2022 06:05 PM [place] Act 112: No-No further action needed Summary 1. Negative Exercise Stress EKG and Stress Echo for ischemia at 94 % MPHR. 2. Below average exercise tolerance for age and gender, 72 % of predicted, achieving 4.6 METs. Hypertensive response to exercise with a peak blood pressure of 200/78 at 3 minutes of recovery. Dyspnea rated 7-8/10 at peak exercise with pleuritic chest discomfort rated 4/10, cough and expiratory wheezes. 3. BASELINE ECHO:. 4. Normal left ventricular size and systolic function with no regional wall motion abnormalities. 5. EF as calculated by Biplane Simpsons method 57 %. 6. Mild left ventricular hypertrophy. Supervising: Maggie Jordan RN BMI: 37.25 Contrast/Agitated Saline Contrast Agent/Agitated Saline: Definity IV Access: Left Arm Patient Info Name: MABLE CABRERA Age: 62 years : 1960 Gender: Female Ht: 173 cm Wt: 111 kg BSA: 2.36 m2 Technical Quality: Technically difficult study, Fair Exam Date: 07/09/2022 1:10 PM Exam Location: [facility] Patient Status: Outpatient Staff Ordering Physician: Alina Barbosa Vice President Payer: Fadia Peña RDCS, RVT Attending Physician: Alina Barbosa [id number] [phone] [phone] - Exam Type: Exercise Stress Study Info Indications R0600 - Dyspnea, unspecified * An Exercise stress echocardiogram was performed. * Failed 2D images were enhanced successfully with Definity per lab protocol. * Vice President Payer, Fadia Peña RDCS, RVT, provided education about ultrasound enhancing agent to the patient. ECG Summary Negative exercise ECG for ischemia. Heart rate recovery was 20 bpm at 1 minute. Dyspnea rated 7-8/10 at peak exercise with pleuritic chest discomfort rated 4/10 and expiratory wheezes. Stress ECG Details Protocol: Raji Rest HR: 83 bpm Peak HR: 146 bpm Rest Sys BP: 144 mmHg Peak Sys BP: 200 mmHg Max Pred HR: 156 bpm % Max Pred HR: 94 % Target HR: 133 bpm Max RPP: 29,200 bpm*mmHg Sultana Score: 3 Target HR Summary: Patient's target heart rate was achieved BP Response: Patient exhibited a hypertensive response with stress Termination Reason: Target HR > 85% MPHM, Chest Tightness, Fatigue, Dyspnea Cardiac Symptoms: Dyspnea 7-8/10 at peak exertion, Chest Tightness 4/[address] peak [address]ion Max ST Seg Deviation: 0.00 mm Total Time: 3 min : 25 sec Rest Ibanez BP: 76 mmHg Peak Ibanez BP: 78 mmHg Angina Score: None Total METS: 4.60 Resting ECG Normal sinus rhythm. Non-specific resting ST/T wave changes. Stress ECG No abnormal ST/T wave changes with exercise. Arrhythmias No arrhythmias were observed during the examination. Stress Echo Findings Left Ventricle Normal augmentation of all wall segments without evidence of ischemia with stress. With stress, improvement in the ejection fraction. With stress, left ventricular chamber decreases appropriately. Left Ventricle Normal left ventricular size and systolic function with no regional wall motion abnormalities. EF as calculated by Biplane Simpsons method 57 %. Mild left ventricular hypertrophy. Ventricles Name Value Normal LV Dimensions 2D/MM IVS Diastolic Thickness (2D) 1.2 cm 0.6-0.9 LVID Diastole (2D) 4.6 cm 3.3-5.1 LVIW Diastolic Thickness (2D) 1.1 cm 0.6-0.9 LVID Systole (2D) 3.3 cm 2.2-3.5 LV Mass (2D Cubed) 183.98 g 67.00-162.00 LV Mass Index (2D Cubed) 0.01 g/cm2 0.00-0.01 Relative Wall Thickness (2D) 0.47 LV Fractional Shortening/Ejection Fraction 2D/MM LV Fractional Shortening (2D) 29 % 27-45 LV Diastolic Volume (4C MOD) 154 ml LV Diastolic Volume (2C MOD) 154 ml LV Diastolic Volume (BP MOD) 154 ml 46-106 LV Diastolic Volume Index (BP MOD) 65.32 ml/m2 29.00-61.00 LV Systolic Volume (BP MOD) 66 ml 14-42 LV Systolic Volume Index (BP MOD) 28.16 ml/m2 8.00-24.00 LV EF (BP MOD) 57 % 58-69 LV End Diastolic Volume (BP A-L) 165.17 ml LV End Systolic Volume (BP A-L) 68.56 ml LV EF (BP A-L) 58 % LV Stroke Volume (4C MOD) 84.96 ml Final Signed by:DO Arevalo Jason D Signed (Electronic Signature):07/09/2022 1:10 p Social History Social History Type Response Smoking Status Current every day he lorenza smoker Sex Female Cardiac stress echo study * DO Arevalo Jason D: VERIFY, PERFORM, VERIFY Event Display: Report Authored Date: Report Signatures Stress ECG Finalized by Dr. Chris Arevalo MD on 07/10/2022 06:05 PM Echo Finalized by Dr. Chris Arevalo MD on 07/10/2022 06:05 PM [place] Act 112: No-No further action needed Summary 1. Negative Exercise Stress EKG and Stress Echo for ischemia at 94 % MPHR. 2. Below average exercise tolerance for age and gender, 72 % of predicted, achieving 4.6 METs. Hypertensive response to exercise with a peak blood pressure of 200/78 at 3 minutes of recovery. Dyspnea rated 7-8/10 at peak exercise with pleuritic chest discomfort rated 4/10, cough and expiratory wheezes. 3. BASELINE ECHO:. 4. Normal left ventricular size and systolic function with no regional wall motion abnormalities. 5. EF as calculated by Biplane Simpsons method 57 %. 6. Mild left ventricular hypertrophy. Supervising: Maggie Jordan RN BMI: 37.25 Contrast/Agitated Saline Contrast Agent/Agitated Saline: Definity IV Access: Left Arm Patient Info Name: MABLE CABRERA Age: 62 years : 1960 Gender: Female Ht: 173 cm Wt: 111 kg BSA: 2.36 m2 Technical Quality: Technically difficult study, Fair Exam Date: 07/09/2022 1:10 PM Exam Location: [facility] Patient Status: Outpatient Staff Ordering Physician: Alina Barbosa Vice President Payer: Fadia Peña RDCS, RVT Attending Physician: Alina Barbosa [id number] [phone] - Exam Type: Exercise Stress Study Info Indications R0600 - Dyspnea, unspecified * An Exercise stress echocardiogram was performed. * Failed 2D images were enhanced successfully with Definity per lab protocol. * Vice President Payer, Fadia Peña RDCS, RVT, provided education about ultrasound enhancing agent to the patient. ECG Summary Negative exercise ECG for ischemia. Heart rate recovery was 20 bpm at 1 minute. Dyspnea rated 7-8/10 at peak exercise with pleuritic chest discomfort rated 4/10 and expiratory wheezes. Stress ECG Details Protocol: Raji Rest HR: 83 bpm Peak HR: 146 bpm Rest Sys BP: 144 mmHg Peak Sys BP: 200 mmHg Max Pred HR: 156 bpm % Max Pred HR: 94 % Target HR: 133 bpm Max RPP: 29,200 bpm*mmHg Sultana Score: 3 Target HR Summary: Patient's target heart rate was achieved BP Response: Patient exhibited a hypertensive response with stress Termination Reason: Target HR > 85% MPHM, Chest Tightness, Fatigue, Dyspnea Cardiac Symptoms: Dyspnea 7-8/10 at peak exertion, Chest Tightness 4/[address] at peak exertion Max ST Seg Deviation: 0.00 mm Total Time: 3 min : 25 sec Rest Ibanez BP: 76 mmHg Peak Ibanez BP: 78 mmHg Angina Score: None Total METS: 4.60 Resting ECG Normal sinus rhythm. Non-specific resting ST/T wave changes. Stress ECG No abnormal ST/T wave changes with exercise. Arrhythmias No arrhythmias were observed during the examination. Stress Echo Findings Left Ventricle Normal augmentation of all wall segments without evidence of ischemia with stress. With stress, improvement in the ejection fraction. With stress, left ventricular chamber decreases appropriately. Left Ventricle Normal left ventricular size and systolic function with no regional wall motion abnormalities. EF as calculated by Biplane Simpsons method 57 %. Mild left ventricular hypertrophy. Ventricles Name Value Normal LV Dimensions 2D/MM IVS Diastolic Thickness (2D) 1.2 cm 0.6-0.9 LVID Diastole (2D) 4.6 cm 3.3-5.1 LVIW Diastolic Thickness (2D) 1.1 cm 0.6-0.9 LVID Systole (2D) 3.3 cm 2.2-3.5 LV Mass (2D Cubed) 183.98 g 67.00-162.00 LV Mass Index (2D Cubed) 0.01 g/cm2 0.00-0.01 Relative Wall Thickness (2D) 0.47 LV Fractional Shortening/Ejection Fraction 2D/MM LV Fractional Shortening (2D) 29 % 27-45 LV Diastolic Volume (4C MOD) 154 ml LV Diastolic Volume (2C MOD) 154 ml LV Diastolic Volume (BP MOD) 154 ml 46-106 LV Diastolic Volume Index (BP MOD) 65.32 ml/m2 29.00-61.00 LV Systolic Volume (BP MOD) 66 ml 14-42 LV Systolic Volume Index (BP MOD) 28.16 ml/m2 8.00-24.00 LV EF (BP MOD) 57 % 58-69 LV End Diastolic Volume (BP A-L) 165.17 ml LV End Systolic Volume (BP A-L) 68.56 ml LV EF (BP A-L) 58 % LV Stroke Volume (4C MOD) 84.96 ml Final Signed by:DO Arevalo Jason D Signed (Electronic Signature):07/09/2022 1:10 p Patient Care team information Personnel Name: MD Candy, Dariela Kenny Address: Address: [address] [place] [address]
--- OUTSIDE RECORDS SUMMARY | 2023-05-31 12:06 | External Medical Summary | Summary of Care ---
Author Name Unknown Organization [place] [address] Care Team Providers Care Sawmill Manager Name Role Phone Dariela Gupta MD Primary Care Provider [phone] Reason for Visit * Reason Onset Date Comments Precert Not Needed 05/02/2022 RESTASIS Encounter Details Date Type Department Care Team Description 05/02/2022 Telephone Rheumatology [facility] [address] [facility] [place] [address] [place] [address] [place] [address] [place] [address] Precert Not Needed (RESTASIS) Allergies Active Allergy Reactions Severity Noted Date Comments Amoxicillin-Pot Clavulanate 07/24/20 21 Other reaction(s): "bad" diarrhea Codeine Nausea/vomiting 09/25/2015 Meperidine 08/31/2015 Meperidine Nausea/vomiting 09/25/2015 Diphenhydramine 07/24/2021 Other reaction(s): "makes me hyper" Hydrocodone 08/31/2015 Morphine Nausea/vomiting 09/25/2015 Sulfa Antibiotics 09/25/2015 hives Hydrocodone-Acetaminophen Nausea/vomiting 09/25 documented as of this encounter (statuses as of 05/05/2022) Medications Medication Sig Dispensed Refills Start Date [...] every evening. 1 daily 0 03/19/2018 Active BeamrTOUCH DELICA LANCETS 33G MISC USE TO TEST BLOOD SUGAR TWICE A DAY. 0 01/20/2018 Active BeamrTOUCH ULTRA BLUE STRP USE TO TEST BLOOD SUGAR TWICE A DAY. 0 01/20/2018 Active Blood Glucose Monitoring Suppl (Youcruit ULTRA 2) w/Device KIT USE TO TEST BLOOD SUGAR TWICE DAILY. 0 01/20/2018 Active traMADol (ULTRAM) 50 MG Tablet Take 50 mg by mouth every 6 hours as needed. As needed 0 11/16/2019 Active atorvaSTATin (LIPITOR) 20 MG Tablet 1 daily 0 11/01/2019 Active fluticasone (FLONASE) 50 MCG/ACT nasal spray 1 [place]. As needed 0 12/31/2018 Active valACYclovir (VALTREX) [...] as of this encounter (statuses as of 05/05/2022) Active Problems Problem Noted Date Sjogren's syndrome 04/07/2017 Insomnia Depression Osteoarthritis of both knees Tobacco abuse documented as of this encounter (statuses as of 05/05/2022) Immunizations Name Administration Dates Next Due Zoster [...] encounter Miscellaneous Notes * Telephone Encounter - Dariela Montes De Oca LPN - 05/05/2022 2:16 PM EDT Precert 05/05/2022 11:32 AM JOHNATHON Alonzo - - Note Message from Plan The patient currently has access to the requested medication and a Prior Authorization is not needed for the patient/medication. * Telephone Encounter - Dariela Montes De Oca LPN - 05/02/2022 1:41 PM EDT Please prior auth cyclosporine 0.05% Per cover my meds Christina:[email or web address] Thank you! documented in this encounter Plan of Treatment Upcoming Encounters Date Type Specialty Care Team Description 07/30/2022 Hospital Encounter Endoscopy Joann Cheung MD [address] [place] [address] [place] [address] 07/30/2022 Surgery Endoscopy Joann Cheung MD [address] [place] [address] [place] [address] ESOPHAGOGASTRODUODENOSCOPY (EGD), FLEXIBLE, TRANSORAL, DIAGNOSTIC 01/26/2023 Office Visit Rheumatology Soy Rosa MD [address] [facility] [place] [address] Scheduled Procedures Name Priority Associated Diagnoses Date/Ti [...] 09/04/1997 LUNG CANCER SCREENING - USE SMARTSET 14452 01/29/2008 Mammogram 01/29/2008 11/02/2000, 08/20/1999 Zoster Vaccines [...] Documents on File Type Date Recorded Patient Him Specialist Expl anation Advanced Directive Advanced Directive Advanced Directive Advanced Directive Advanced Directive Advanced Directive Advanced Directive Advanced Directive Advanced Directive Advanced Directive Care Teams Sawmill Manager Relationship Specialty Start Date End Date Dariela Gupta MD [address] [facility] [address] [place] [address] PCP - General Family Medicine 04/06/18 documented as of this encounter
--- OUTSIDE RECORDS SUMMARY | 2023-05-31 12:06 | External Medical Summary | Summary of Care ---
Author Name Unknown Organization [place] [address] Care Team Providers Care Senior Licensing Manager Name Role Phone Dariela Gupta MD Primary Care Provider [phone] Reason for Visit * Reason Onset Date Comments Fax 02/20/2022 EGD Referral Encounter Details Date Type Department Care Team Description 02/20/2022 Telephone Gastroenterology, [facility] [address] [facility] [place] [address] Alina Barbosa PA-C [address] [place] [address] Fax (EGD Referral) Allergies Active Allergy Reactions Severity Noted Date Comments Amoxicillin-Pot Clavulanate 07/24/20 21 Other reaction(s): "bad" diarrhea Codeine Nausea/vomiting 09/25/2015 Meperidine 08/31/2015 Meperidine Nausea/vomiting 09/25/2015 Diphenhydramine 07/24/2021 Other reaction(s): "makes me hyper" Hydrocodone 08/31/2015 Morphine Nausea/vomiting 09/25/2015 Sulfa Antibiotics 09/25/2015 hives Hydrocodone-Acetaminophen Nausea/vomiting 09/25 documented as of this encounter (statuses as of 03/05/2022) Medications Medication Sig Dispensed Refills Start Date [...] 0 01/20/2018 Active Blood Glucose Monitoring Suppl (Analytics QuotientUCH ULTRA 2) w/Device KIT USE TO TEST BLOOD SUGAR TWICE DAILY. 0 01/20/2018 Active traMADol (ULTRAM) 50 MG Tablet Take 50 mg by mouth every 6 hours as needed. As needed 0 11/16/2019 Active atorvaSTATin (LIPITOR) 20 MG Tablet 1 daily 0 11/01/2019 Active fluticasone (FLONASE) 50 MCG/ACT nasal spray 1 [place]. As needed 0 12/31/2018 Active valACYclovir (VALTREX) [...] as of this encounter (statuses as of 03/05/2022) Active Problems Problem Noted Date Sjogren's syndrome 04/07/2017 Insomnia Depression Osteoarthritis of both knees Tobacco abuse documented as of this encounter (statuses as of 03/05/2022) Immunizations Name Administration Dates Next Due Zoster [...] 02/20/2022 2:33 PM EDT Fax received from [facility] to get patient scheduled for an EGD. Ordering: Alina Barbosa PA-C Dx: Dysphagia, unspecified - Z72.0, Tobacco use - R10.13 Records placed in scanning. LMOM for pt to call back to schedule. documented in this encounter Plan of Treatment Upcoming Encounters Date Type Specialty Care Team Description 01/26/2023 Office Visit Rheumatology Soy Rosa MD [address] [facility], [place] [address] Health Maintenance Due Date Last Done Comments [...] 09/04/1997 LUNG CANCER SCREENING - USE SMARTSET 48088 01/29/2008 Zoster Vaccines (2 of 2) 12/26/2019 [...] Documents on File Type Date Recorded Patient Tier Lift Operator Expl anation Advanced Directive Advanced Directive Advanced Directive Advanced Directive Advanced Directive Advanced Directive Advanced Directive Advanced Directive Advanced Directive Care Teams Senior Licensing Manager Relationship Specialty Start Date End Date Dariela Gupta MD [address] [facility] [address] [place] [address] PCP - General Family Medicine 04/06/18 documented as of this encounter
--- OUTSIDE RECORDS SUMMARY | 2023-05-31 12:06 | External Medical Summary | Continuity of Care Document ---
Author Name Unknown Organization [facility] [address] Address [address] [place], [place] [id number] Care Team Providers Care Irrigator Gravity Flow Name Role Phone Dariela Gupta Zoya Primary Care Physician [phone] [id number] Date(s): 06/10/22 - 06/10/22 [facility] [address] [facility] [address], [address] [place] [address] [phone] Encounter Diagnosis Body mass index [BMI] 36.0-36.9, adult(Discharge Diagnosis) - 06/10/22 Type 2 diabetes, HbA1C goal < 7%(Discharge Diagnosis) - 06/10/22 Tobacco user(Discharge Diagnosis) - 06/10/22 Anxiety and depression(Discharge Diagnosis) - 06/10/22 Polyuria(Discharge Diagnosis) - 06/10/22 Vaginal itching(Discharge Diagnosis) - 06/10/22 ALVARADO (dyspnea on exertion)(Discharge Diagnosis) - 06/10/22 Activity intolerance related to fatigue(Discharge Diagnosis) - 06/10/22 Chest tightness(Discharge Diagnosis) - 06/10/22 Type 2 diabetes mellitus without complications(Final) - Other polyuria(Final) - Upper respiratory tract infection due to COVID-19 virus(Discharge Diagnosis) - 06/10/22 Discharge Disposition: Home or Self Care Attending Physician: INGE Barbosa Jessica A Referring Physician: INGE Barbosa Jessica A Allergies, Adverse Reactions, Alerts Substance Reaction Severity Status morphine nausea Active sulfa drugs hives Active Augmentin "bad" diarrhea Active Vicodin nausea Active Benadryl "makes me hyper" Active Darvocet A500 nausea Active Assessment and Plan Extracted from: Title:f/u DM Author:INGE Barbosa Jessica A Date:06/10/22 1.Type 2 diabetes, HbA1C g oal < 7% Type 2 diabetes is chronic and uncontrolled. Goal A1c <7%. Due for updated diabetic labs that were ordered today. I will contact patient with results and we will adjust regimen accordingly. Encouraged to schedulean updated diabetic eye examination. Lipid profile, CMP, TSH, A1c, urine microalbuminordered. RTC in 3 months for recheck. 2.Tobacco user Smoking cessation encouraged and patient is interested in quitting. Chantix starter packprescribed and encouraged to quit smoking within 1 week of starting the medication. Previously tolerateda prescription without side effects. Advised that if medication is helpful she should continue for at least 3 months to prevent risk of relapse. 3.Anxiety and depression Anxiety and depression is chronic and has been worse recently due toloss of her dog. For now she would like to continue current dose of citalopram 40 mg, 1 tab p.o. daily. RTC in 3 months for recheck. 4.Polyuria Discussed that polyuria is likelysecondary touncontrolled diabetes. Urinalysisordered. 5.Vaginal itching Reviewed that vaginal itching is likely secondary to Patricia infection with uncontrolled diabetes. Recommend trial of OTC clotrimazole vaginal cream or Monistat. If symptoms or not improving we could consider fluconazole, but for now would avoid due to documented history of cirrhosis. 6.ALVARADO (dyspnea on exertion) Dyspnea on exertion is chronic and worsening. Recently this has been associated with chest tightness. Stress echo orderedgiven significant comorbiditiesandconcernthat dyspnea is patient's anginal equivalent. Smoking cessation encouraged. Ordered: Echo Stress, Exercise 7.Activity intolerance related to fatigue Stress echo ordered. Ordered: Echo Stress, Exercise 8.Chest tightness Stress echo ordered. Ordered: Echo Stress, Exercise 9.Upper respiratory tract infection due to COVID-19 virus URI secondary to COVID-19 illness has resolved. Orders: varenicline, Start: 06/10/22 16:14:00 EDT, See Instructions, Disp# 1 kit, as directed per starter pack, Pharmacy: [id number] Microalbumin, Urine, Random Time spent on pre-visit plannin minutes Face to face time spent w/ patient:26 minutes Time spent documenting pertinent clinical information into the EMR:11 minutes Total time: 41 minutes Immunizations Given and Recorded Vaccine Date [...] bid, Disp# 3 each, Refills: 3, Pharmacy: [facility] Start Date: 03/05/22 Stop Date: 02/28/23 Status: Ordered albuterol CFC free 90 mcg/inh MDI Start: 06/05/21 16:50:00 EDT, 2 puff, inhaled, qid, Disp# 3 each, Refills: 1, PRN: as needed for wheezing, Pharmacy: [facility] Start Date: 06/05/21 Status: Ordered atorvastatin 20 mg oral tablet See Instructions, Disp# 90 tab, Refills: 1, Take 1 tablet by mouth once daily, Pharmacy: [facility] Start Date: 12/20/21 Status: Ordered BD needle Ultra-Fine Pen Savana 32G x 4mm Start: 09/24/20 16:57:00 EST, See Instructions, Disp# 100 each, Refills: 6, Use with insulin pen., Pharmacy: [facility] Start Date: 09/24/20 Status: Ordered BD PEN NEEDLE/SAVANA [id number] MIS USE TWICE DAILY WITH INSULIN Start Date: 09/24/20 Status: Ordered BD PEN NEEDLE/SAVANA [id number] MIS BD PEN NEEDLE/SAVANA [id number] MIS, See Instructions, Disp# 100 each, Refills: 1, USE WITH INSULIN PEN,Pharmacy [facility] Start Date: 10/28/21 Status: Ordered BD PEN NEEDLE/SAVANA [id number] MIS Start: 04/23/22 19:48:00 EDT, BD PEN NEEDLE/SAVANA [id number] MIS, See Instructions, Disp# 100 each, Refills: 3, USE WITH INSULIN PEN, Pharmacy [facility] Start Date: 04/23/22 Status: Ordered BD Test Strips 100 ct Start: 02/27/21 15:53:00 EDT, See Instructions, Disp# 100 each, Refills: 3, test daily, Dx : E11.9,Pharmacy: [place] [id number] Start Date: 02/27/21 Status: Ordered Chantix Starter Pack 0.5 mg-1 mg oral tablet Start: 06/10/22 16:14:00 EDT, See Instructions, Disp# 1 kit, as directed per starter pack, Pharmacy: [place] [id number] Start Date: 06/10/22 Status: Ordered citalopram 40 mg oral tablet See Instructions, Disp# 90 tab, Refills: 0, Take 1 tablet by mouth once daily, Pharmacy: [facility] [place] [id number] Start Date: 08/20/21 Status: Ordered doxepin 25 mg oral capsule See Instructions, Disp# 90 cap, Refills: 1, Take 1 capsule by mouth once daily, Pharmacy: [place] [id number] Start Date: 12/09/21 Status: Ordered fluticasone 50 mcg/inh nasal spray Start: 06/05/21 16:50:00 EDT, 1 spray, each nostril, Daily, Disp# 16 g, Refills: 2, Pharmacy: [place] [id number] Start Date: 06/05/21 Status: Ordered glucometer Start: 02/27/21 15:52:00 EDT, See Instructions, Disp# 1 each, Refills: 0, test daily, Dx E11.9, Pharmacy: [place] [facility] [id number] Start Date: 02/27/21 Status: Ordered lancets Start: 02/27/21 15:54:00 EDT, See Instructions, Disp# 100 each, Refills: 3, test daily, Dx: E11.9, Pharmacy: [place] [facility] [id number] Start Date: 02/27/21 Status: Ordered Levemir FlexTouch 100 units/mL subcutaneous solution Start: 04/23/22 19:48:00 EDT, See Instructions, Disp# 15 mL, Refills: 0, INJECT 60 UNITS SUBCUTANEOUSLY EVERY DAY AT BEDTIME, Pharmacy: [place] [id number] Start Date: 04/23/22 Status: Ordered lisinopril 5 mg oral tablet Start: 05/31/21 15:51:00 EDT, See Instructions, Disp# 90 tab, Refills: 3, Take 1 tablet by mouth once daily, Pharmacy: [facility] Start Date: 05/31/21 Status: Ordered meloxicam 15 mg oral tablet Start: 05/26/17 11:25:00, 1 tab, PO, Daily Start Date: 05/26/17 Status: Ordered Metamucil Start: 02/27/21 15:26:00 EDT, 3.4 g =, PO, Daily Start Date: 02/27/21 Status: Ordered metFORMIN 500 mg oral tablet Start: 04/25/22 16:30:00 EDT, See Instructions, Disp# 120 tab, Refills: 2, Take 2 tablets by mouth twice daily, Pharmacy: [facility] Start Date: 04/25/22 Status: Ordered metFORMIN HCl 500 MG Oral Tablet metFORMIN HCl 500 MG Oral Tablet, See Instructions, Disp# 120 tab, Refills: 6, Take 2 tablets by mouth twice daily, Pharmacy [facility] Start Date: 04/08/21 Status: Ordered MiraLax oral powder for reconstitution Start: 08/05/21 15:25:00 EST, 17 g =, PO, bid, Disp# 1,020 g, Refills: 1, Pharmacy: [facility] Start Date: 08/05/21 Stop Date: 10/04/21 Status: Ordered omeprazole 40 mg oral delayed release capsule Start: 04/25/22 16:11:00 EDT, See Instructions, Disp# 30 cap, Refills: 2, Take 1 capsule by mouth once daily for 30 days, Pharmacy: [facility] Start Date: 04/25/22 Status: Ordered newMentorUCH ULTRA BLUE TEST STRP Start: 03/09/19 12:34:53 EDT, See Instructions, Disp# 50, Refills: 6, USE TO TEST BLOOD SUGAR TWICEA DAY., Pharmacy: [id number], USE TO TEST BLOOD SUGAR TWICE A DAY. Start Date: 03/09/19 Status: Ordered Ozempic 2 mg/1.5 mL (0.25 mg or 0.5 mg dose) subcutaneous solution Start: 03/05/22 16:08:00 EDT, See Instructions, Disp# 1 each, Refills: 5, 0.25 mg subQ q7 days x 4 weeks, then increase to 0.5 mg subQ q7 days, [facility] Start Date: 03/05/22 Status: Ordered prazosin 2 mg oral capsule See Instructions, Disp# 90 cap, Refills: 1, TAKE 1 CAPSULE BY MOUTH EVERY DAY AT BEDTIME, [facility] Start Date: 12/09/21 Status: Ordered triamcinolone 0.5% topical cream Start: 03/14/22 15:54:00 EDT, 1 appl, topical, tid, Disp# 20 g, Refills: 1, [facility] Start Date: 03/14/22 Status: Ordered Vitamin D3 2000 intl units oral capsule Start: 05/26/17 11:25:00, 1 cap, PO, Daily Start Date: 05/26/17 Status: Ordered Mental Status 06/10/22 Barriers to Learning one year None evide nt Mandatory Health Literacy Documentation Yes Health Literacy Communication Barriers N ever Primary Language Indian Problem List Condition Confirmation Course Effective Dates [...] Effective Dates Health Status Clinical Service Informant Body mass index [BMI] 36.0-36.9, adult Discharge Diagnosis 06/10/22 Non-Specified Tobacco user Discharge Diagnosis 06/10/22 Non-Specified Anxiety and depression Discharge Diagnosis 06/10/22 Non-Specified Type 2 diabetes, HbA1C goal < 7% Discharge Diagnosis 06/10/22 Non-Specified Polyuria Discharge Diagnosis 06/10/22 Non-Specified Vaginal itching Discharge Diagnosis 06/10/22 Non-Specified Upper respiratory tract infection due to COVID-19 virus Discharge Diagnosis 06/10/22 Non-Specified ALVARADO (dyspnea on exertion) Discharge Diagnosis 06/10/22 Non-Specified Activity intolerance related to fatigue Discharge Diagnosis 06/10/22 Non-Specified Chest tightness Discharge Diagnosis 06/10/22 Non-Specified Procedures Procedure Date Related Diagnosis Body Site Status dennishurons study 1 12/16/21 Complet ed KUB X-ray 2 3/17/22 Completed Mammogram 3 10/09/21 Completed Colonoscopy 4, [...] study with ingested markers within the stomach. [address] [place] [address] Impression: ACR BI-RADS CATEGORY 2: BENIGN 1. [...] w/ hepatic steatosis, reactive associated lymphadenopathy 10[facility] Impression: 1. Nonobstructive bowel gas pattern 2. Moderate constipation 11Impression: 1.8 x 0.5 x1.6 cm pocket of fluid within the subcutaneous tissues of the medial right thigh. This may reflect subcutaneous edema or a tiny residual abscess 12[facility] Right groin 13No acute process identified. [...] Comprehensive Metabolic Panel (COMP META B PANEL) 06/10/22 Hemoglobin A1C (HEMOGLOBIN, A1C) 06/10/22 Lipid Profile (LIPOPROTEINS) 06/10/22 Thyroid Stimulating Hormone (TSH) 2 Microalbumin, Urine, Random (MICROALBUMI N, RD UR) 06/10/22 Urine Analysis w/ Reflexed Microscopic. (URINE W/REFLEX MICR) 06/10/22 Most recent to oldest [Reference Range]: 1 eGFR CKD-EPI [>60 mL/min/1.73 m2] >90 mL /min/1.73 m2 1 (06/10/22 4:21 PM) Estimated Average Glucose 312 mg/dL 2 (06/10/22 4:21 PM) Non-HDL 89 mg/dL 3 (06/10/22 4:21 PM) Micro Alb (u) [<2.00 mg/dL] 5.21 mg/dL *HI* (06/10/22 4:20 PM) Anion Gap [5-14 mmol/L] 4 mmol/L *LOW* (06/10/22 4:21 PM) Alb [3.5-5.0 g/dL] 3.8 g/dL (06/10/22 4:21 PM) Alk Phos [38-126 unit/L] 191 unit/L *HI* (06/10/22 4:21 PM) ALT [<35 unit/L] 34 unit/L (06/10/22: PM) AST [15-46 unit/L] 35 unit/L (06/10/22 4:21 PM) Bact (u) [NONE-NONE] FEW 4 *Abnormal* (06/10/22:20 PM) Bili (u) [NEG] NEGATIVE *Unknown* (06/10/22:20 PM) BUN [7-20 mg/dL] 10 mg/dL (06/10/22: PM) Ca [8.4-10.2 mg/dL] 8.7 mg/dL (06/10/22: PM) Chol/HDL 3 (06/10/22: PM) Chol [125-200 mg/dL] 134 mg/dL (06/10/22: PM) Cl- [96-107 mmol/L] 103 mmol/L (06/10/22: PM) HCO3 [22-30 mmol/L] 29 mmol/L (06/10/22: PM) Cret [0.60-1.00 mg/dL] 0.58 mg/dL *LOW* (06/10/22: PM) HbA1c [4.0-6.0 %] 12.5 % *HI* (06/10/22: PM) Glu [74-106 mg/dL] 334 mg/dL *HI* (06/10/22: PM) HDL [>35 mg/dL] 45 mg/dL (06/10/22: PM) K [3.5-5.1 mmol/L] 4.0 mmol/L (06/10/22 4: PM) Ketones [NEG mg/dL] NEGATIVE mg/dL (06/10/22: PM) LDL Chol, Calculated [50-130 mg/dL] 53 m g/dL (06/10/22 4:21 PM) Leuk Est [NEG] NEGATIVE 5 *Unknown* (06/10/22: PM) Micro Alb Ratio [<20 ug/mg cret] 45 ug/m g cret *HI* (06/10/22 4:20 PM) Na [137-145 mmol/L] 136 mmol/L *LOW* (06/10/22 4:21 PM) Nitrite (u) [NEG] NEGATIVE *Unknown* (06/10/22 4:20 PM) T Bili [0.2-1.3 mg/dL] 0.5 mg/dL (06/10/22 4:21 PM) Prot [6.3-8.2 g/dL] 8.3 g/dL *HI* (06/10/22 4:21 PM) TG [<200 mg/dL] 179 mg/dL (06/10/22 4:21 PM) TSH [0.47-4.68 uIU/mL] 0.83 uIU/mL 6 (06/10/22 4:21 PM) Appear (u) CLEAR *Unknown* (06/10/22 4:20 PM) Color (u) YELLOW *Unknown* (06/10/22 4:20 PM) Creat (u) 115.75 mg/dL 7 (06/10/22 4:20 PM) Glu (u) [NEG mg/dL] >1000 mg/dL *Abnormal* (06/10/22 4:20 PM) Hgb (u) [NEG] MODERATE *Abnormal* (06/10/22 4:20 PM) pH (u) [4.5-8.0 unit] 6.0 unit (06/10/22 4:20 PM) Prot (u) [NEG mg/dL] NEGATIVE mg/dL (06/10/22 4:20 PM) RBC (u) [0-4 /HPF] 10-19 /HPF (06/10/22 4:20 PM) Urobili [0.1-1.0 EU/dL] 0.2 EU/dL (06/10/22 4:20 PM) SG [1.005-1.030] 1.020 (06/10/22 4:20 PM) WBC (u) [0-4 /HPF] 0-4 /HPF (06/10/22 4:20 PM) 1Result Comment: Testing Performed By: Dept of Pathology [facility] [address], [address], [place] [address] 2Result Comment: Testing Performed By: Dept of Pathology [facility] [address], [facility] [address], [place] [address] 3Result Comment: Testing Performed By: Dept of Pathology [facility] [address], [facility] [address], [place] [address] 4Result Comment: Testing Performed By: Dept of Pathology [facility] [address], [facility] [address], [place] [address] 5Result Comment: Testing Performed By: Dept of Pathology [facility] [address], [facility] [address], [place] [address] 6Result Comment: Testing Performed By: Dept of Pathology [facility] [address], [facility] [address], [place] [address] 7Result Comment: Reference Range for Random Urine Not Established. Vital Signs Most recent to oldest [Reference Range]: 1 Height 172.7 cm (06/10/22 3:32 PM) Patient Weight 109 kg (06/10/22 3:32 PM) Body Mass Index 36.55 kg/m2 (06/10/22 3:32 PM) Temperature [36.5-37.9 DegC] 36.6 DegC (06/10/22 3:32 PM) Heart Rate 81 bpm (06/10/22 3:32 PM) Respiratory Rate 18 br/min (06/10/22 3:32 PM) Blood Pressure 142/90mmHg (06/10/22 3:32 PM) Cuff Pulse Pressure 52 mmHg (06/10/22 3:32 PM) Social History Social History Type Response Smoking Status Current every day he lorenza smoker Sex Female Patient Care team information Personnel Name: MD Candy, Dariela Kenny Address: Address: [address] [place] [address] [address] [place] [address]
--- OUTSIDE RECORDS SUMMARY | 2023-05-31 12:06 | External Medical Summary | Continuity of Care Document ---
Author Name Unknown Organization [place] [id number] [address] Address [address] [place], [place] [id number] Care Team Providers Care Quality Improvement Coordinator (Rn) Name Role Phone Dariela Gupta Zoya Primary Care Physician [phone] [id number] Date(s): 07/18/22 - 07/18/22 [facility] [address], [address] [place] [address] [phone] Encounter Diagnosis COPD with acute exacerbation(Discharge Diagnosis) - 07/18/22 Post-COVID chronic cough(Discharge Diagnosis) - 07/18/22 Tobacco user(Discharge Diagnosis) - 07/18/22 Discharge Disposition: Home or Self Care Attending Physician: INGE Barbosa Jessica A Referring Physician: INGE Barbosa Jessica A Allergies, Adverse Reactions, Alerts Substance Reaction Severity Status morphine nausea Active sulfa drugs hives Active Augmentin "bad" diarrhea Active Vicodin nausea Active Benadryl "makes me hyper" Active Darvocet A500 nausea Active Assessment and Plan Extracted from: Title:copd exac Author:INGE Barbosa Jessica A Date:07/18/22 1.COPD with acute exacerba tion Acute COPD exacerbationis ongoing and uncontrolled. Goal is resolution of symptoms. Last two clinic noteswere reviewed today. Albuterol nebulizer treatment was given in the office. Patient's lungs were auscultated followingtreatment; wheezing resolved and air exchangeimproved. Coughinglessened as well. Chest x-ray ordered. Given doxycycline 100 mg, 1 cap p.o. twice daily for 10 days and Duoneb 0.5-2.5 mg/3 mL, 3 mL p.o. 4 times dailyas needed for wheezing/tightness/SOB. Nebulizerpres[facility] was [facility] to [facility] patient request. She was given an additionalshort course of prednisone 40 mg, 1 tab p.o. daily x5 daysand she was advised that this will contribute to hyperglycemia. Refilled Tessalon Perles 200 mg, 1 cap p.o. 3 times daily as neededfor 7 days as well. Strongly encourage smoking cessation which she is considering, but not ready to quit at this time. To continue Qcunas020 50 MCG, 1 inhalation p.o. twice daily as well. 2.Post-COVID chronic cough Post COVIDcoughis ongoing and uncontrolled. As above in #1. 3.Tobacco user Smoking cessation encouraged as above. Patient is interested in quitting, but declines at this time. Immunizations Given and Recorded [...] bid, Disp# 3 each, Refills: 3, Pharmacy: [id number] Start Date: 03/05/22 Stop Date: 02/28/23 Status: Ordered albuterol CFC free 90 mcg/inh MDI Start: 06/05/21 16:50:00 EDT, 2 puff, inhaled, qid, Disp# 3 each, Refills: 1, PRN: as needed for wheezing, Pharmacy: [facility] Start Date: 06/05/21 Status: Ordered atorvastatin 20 mg oral tablet Start: 06/18/22 17:21:00 EDT, See Instructions, Disp# 90 tab, Refills: 0, Take 1 tablet by mouth once daily, Pharmacy: [facility] Start Date: 06/18/22 Status: Ordered BD needle Ultra-Fine Pen Savana 32G x 4mm Start: 07/18/22 8:51:00 EDT, See Instructions, Disp# 100 each, Refills: 5, use with insulin pen, Pharmacy: [facility] Start Date: 07/18/22 Status: Ordered BD needle Ultra-Fine Pen Savana 32G x 4mm Start: 07/14/22 16:45:00 EDT, See Instructions, Disp# 100 each, Refills: 6, Use with insulin pen., Pharmacy: [facility] Start Date: 07/14/22 Status: Ordered BD PEN NEEDLE/SAVANA [id number] MIS USE TWICE DAILY WITH INSULIN Start Date: 09/24/20 Status: Ordered BD PEN NEEDLE/SAVANA [id number] MIS BD PEN NEEDLE/SAVANA [id number] MIS, See Instructions, Disp# 100 each, Refills: 1, USE WITH INSULIN PEN,Pharmacy [facility] 2229 Start Date: 10/28/21 Status: Ordered BD Test Strips 100 ct Start: 02/27/21 15:53:00 EDT, See Instructions, Disp# 100 each, Refills: 3, test daily, Dx : E11.9,Pharmacy: [facility] Start Date: 02/27/21 Status: Ordered Chantix Starter Pack 0.5 mg-1 mg oral tablet Start: 06/10/22 16:14:00 EDT, See Instructions, Disp# 1 kit, as directed per starter pack, Pharmacy: [facility] Start Date: 06/10/22 Status: Ordered citalopram 40 mg oral tablet See Instructions, Disp# 90 tab, Refills: 0, Take 1 tablet by mouth once daily, Pharmacy: [facility] Start Date: 08/20/21 Status: Ordered doxepin 25 mg oral capsule Start: 06/23/22 20:17:00 EDT, See Instructions, Disp# 90 cap, Refills: 1, Take 1 capsule by mouth once daily, Pharmacy: [facility]229 Start Date: 06/23/22 Status: Ordered doxycycline hyclate 100 mg oral capsule Start: 07/18/22 9:00:00 EDT, 1 cap, PO, bid, Disp# 20 cap, X 10 day, Stop: 07/28/22 9:00:00 EDT, Pharmacy: [facility] Start Date: 07/18/22 Stop Date: 07/28/22 Status: Ordered DuoNeb 0.5 mg-2.5 mg/3 mL inhalation solution Start: 07/18/22 9:15:00 EDT, 3 mL, inhaled, qid, Disp# 120 mL, PRN: as needed for shortness of breath or wheezing, Pharmacy: [facility] Start Date: 07/18/22 Stop Date: 07/28/22 Status: Ordered fluticasone 50 mcg/inh nasal spray Start: 06/13/22 16:56:00 EDT, See Instructions, Disp# 16 g, Refills: 6, Use 1 spray(s) in each nostril once daily, Pharmacy: [facility] Start Date: 06/13/22 Status: Ordered glucometer Start: 02/27/21 15:52:00 EDT, See Instructions, Disp# 1 each, Refills: 0, test daily, Dx E11.9, Pharmacy: [facility] Start Date: 02/27/21 Status: Ordered lancets Start: 02/27/21 15:54:00 EDT, See Instructions, Disp# 100 each, Refills: 3, test daily, Dx: E11.9, Pharmacy: [facility] Start Date: 02/27/21 Status: Ordered Levemir FlexTouch 100 units/mL subcutaneous solution Start: 07/14/22 16:45:00 EDT, See Instructions, Disp# 15 mL, Refills: 0, INJECT 60 UNITS SUBCUTANEOUSLY EVERY DAY AT BEDTIME, Pharmacy: [facility] Start Date: 07/14/22 Status: Ordered lisinopril 5 mg oral tablet Start: 06/23/22 20:17:00 EDT, See Instructions, Disp# 90 tab, Refills: 3, Take 1 tablet by mouth once daily, Pharmacy: [facility] Start Date: 06/23/22 Status: Ordered meloxicam 15 mg oral tablet Start: 05/26/17 11:25:00, 1 tab, PO, Daily Start Date: 05/26/17 Status: Ordered Metamucil Start: 02/27/21 15:26:00 EDT, 3.4 g =, PO, Daily Start Date: 02/27/21 Status: Ordered metFORMIN 500 mg oral tablet Start: 04/25/22 16:30:00 EDT, See Instructions, Disp# 120 tab, Refills: 2, Take 2 tablets by mouth twice daily, Pharmacy: [facility] Start Date: 04/25/22 Status: Ordered metFORMIN HCl 500 MG Oral Tablet metFORMIN HCl 500 MG Oral Tablet, See Instructions, Disp# 120 tab, Refills: 6, Take 2 tablets by mouth twice daily, Pharmacy [facility] Start Date: 04/08/21 Status: Ordered MiraLax oral powder for reconstitution Start: 08/05/21 15:25:00 EST, 17 g =, PO, bid, Disp# 1,020 g, Refills: 1, Pharmacy: [facility]229 Start Date: 08/05/21 Stop Date: 10/04/21 Status: Ordered omeprazole 40 mg oral delayed release capsule Start: 04/25/22 16:11:00 EDT, See Instructions, Disp# 30 cap, Refills: 2, Take 1 capsule by mouth once daily for 30 days, Pharmacy: [facility] Start Date: 04/25/22 Status: Ordered 51 AutoUCH ULTRA BLUE TEST STRP Start: 03/09/19 12:34:53 EDT, See Instructions, Disp# 50, Refills: 6, USE TO TEST BLOOD SUGAR TWICEA DAY., Pharmacy: [address], USE TO TEST BLOOD SUGAR TWICE A DAY. Start Date: 03/09/19 Status: Ordered prazosin 2 mg oral capsule Start: 06/23/22 20:17:00 EDT, See Instructions, Disp# 90 cap, Refills: 1, TAKE 1 CAPSULE BY MOUTH EVERY DAY AT BEDTIME, Pharmacy: [facility]229 Start Date: 06/23/22 Status: Ordered predniSONE 20 mg oral tablet Start: 07/18/22 9:01:00 EDT, 2 tab, PO, Daily, Disp# 10 tab, X 5 day, Stop: 07/23/22 9:01:00 EDT, Pharmacy: [facility]229 Start Date: 07/18/22 Stop Date: 07/23/22 Status: Ordered semaglutide 1 mg/0.5 mL (1 mg dose) subcutaneous solution Start: 06/18/22 16:51:00 EDT, 1 mg =, subQ, q7days, Disp# 2 mL, Refills: 5, Note to Pharmacy: Jin Srinivasan, Pharmacy: [facility]229 Start Date: 06/18/22 Stop Date: 12/03/22 Status: Ordered Tessalon 200 mg oral capsule Start: 07/18/22 9:01:00 EDT, 1 cap, PO, tid, Disp# 30 cap, PRN: as needed for cough, [facility] Start Date: 07/18/22 Stop Date: 07/25/22 Status: Ordered triamcinolone 0.5% topical cream Start: 03/14/22 15:54:00 EDT, 1 appl, topical, tid, Disp# 20 g, Refills: 1, Pharmacy: [facility] Start Date: 03/14/22 Status: Ordered Vitamin D3 2000 intl units oral capsule Start: 05/26/17 11:25:00, 1 cap, PO, Daily Start Date: 05/26/17 Status: Ordered Mental Status 07/18/22 Barriers to Learning one year None evide nt Mandatory Health Literacy Documentation Yes Health Literacy Communication Barriers N ever Primary Language Azerbaij[place] Problem List Condition Confirmation Course Effective Dates [...] Effective Dates Health Status Clinical Service Informant Post-COVID chronic cough Discharge Diagnosis 07/18/22 Non-Specified Tobacco user Discharge Diagnosis 07/18/22 Non-Specified COPD with acute exacerbation Discharge Diagnosis 07/18/22 Non-Specified Procedures Procedure Date Related Diagnosis Body Site Status [facility] 1 12/16/21 Complet ed KUB X-ray [...] with ingested markers within the stomach. 3[facility] Impression: ACR BI-RADS CATEGORY 2: BENIGN 1. [...] w/ hepatic steatosis, reactive associated lymphadenopathy 10[facility] Impression: 1. Nonobstructive bowel gas pattern 2. Moderate constipation 11Impression: 1.8 x 0.5 x1.6 cm pocket of fluid within the subcutaneous tissues of the medial right thigh. This may reflect subcutaneous edema or a tiny residual abscess 12[facility] Right groin 13No acute process identified. [...] to oldest [Reference Range]: 1 Patient Weight 110.1 kg (07/18/22 8:36 AM) Temperature [36.5-37.9 DegC] 36.7 DegC (07/18/22 8:36 AM) Heart Rate 78 bpm (07/18/22 8:36 AM) Respiratory Rate 20 br/min (07/18/22 8:36 AM) Blood Pressure 136/82mmHg (07/18/22 8:36 AM) Cuff Pulse Pressure 54 mmHg (07/18/22 8:36 AM) BP Location # 1 Left Arm, Manual (07/18/22 8:36 AM) Social History Social History Type Response Smoking Status Current every day he lorenza smoker Sex Female Patient Care team information Personnel Name: MD Candy, Dariela Kenny Address: Address: [address] [place] [id number] [place]
--- OUTSIDE RECORDS SUMMARY | 2023-05-31 12:06 | External Medical Summary | Continuity of Care Document ---
Author Name Unknown Organization [facility] [address] [place] [address] [address] [id number] Care Team Providers Care Machine Baster Name Role Phone Dariela Gupta Primary Care Physician [phone] [id number] Date(s): 07/30/22 - 07/30/22 [facility] [address] [facility] [address] [facility], [facility] [address] [place], [place] [address] [phone] Encounter Diagnosis Lower back pain(Discharge Diagnosis) - 07/30/22 Discharge Disposition: Home or Self Care Attending Physician: JIMY Gardner Barbara H Allergies, Adverse Reactions, Alerts Substance Reaction Severity Status morphine nausea Active sulfa drugs hives Active Augmentin "bad" diarrhea Active Vicodin nausea Active Benadryl "makes me hyper" Active Darvocet A500 nausea Active Assessment and Plan Extracted from: Title:back pain Author:JIMY Gardner Barbara H Juan e:07/30/22 1.Lower back pain Walked through a door - put her hand on the handle to open the door, & tripped on the top step. Roxana pain instantly - body twisted to the left side Caught herself so didn't fall. This happened Thursday evening - was outside to smoke with coffee. Scales pain as 8-9/10 currently - over 10 when it happened. Her knees buckled at the time. She is very stiff seated without any motion & has shallow breathing with the pain. Continued to do exercises she learned at PT. Taking ibuprofen using 6 ibuprofen 3-4 times a day Not helping. She has radiation to her knees bilat All positions hurt the same. After exam, she is in severe pain & taking too much ibuprofen - advised she needs to be seen for pain control at the ED. She agreed to this & will go directly there. Prep time: 4 minutes Education:5 minutes during visit time Time with Patient:17 minutes Total time spent with visit:21 minutes Addendum by JIMY Gardner Barb ara H on July 30, 2022 14:59:45 EDT Report called to [facility] ED to [facility] - also neg SLR, but patient unable to raise her feet more than 4-6 inches off the floor on her own. Immunizations Given and Recorded Vaccine Date Status [...] bid, Disp# 3 each, Refills: 3, Pharmacy: [facility] Start Date: 03/05/22 Stop Date: 02/28/23 Status: Ordered albuterol CFC free 90 mcg/inh MDI Start: 06/05/21 16:50:00 EDT, 2 puff, inhaled, qid, Disp# 3 each, Refills: 1, PRN: as needed for wheezing, Pharmacy: [facility] Start Date: 06/05/21 Status: Ordered atorvastatin 20 mg oral tablet Start: 06/18/22 17:21:00 EDT, See Instructions, Disp# 90 tab, Refills: 0, Take 1 tablet by mouth once daily, Pharmacy: [facility] Start Date: 06/18/22 Status: Ordered BD needle Ultra-Fine Pen Savana 32G x 4mm Start: 07/18/22 8:51:00 EDT, See Instructions, Disp# 100 each, Refills: 5, use with insulin pen, Pharmacy: [facility] Start Date: 07/18/22 Status: Ordered BD needle Ultra-Fine Pen Savana 32G x 4mm Start: 07/14/22 16:45:00 EDT, See Instructions, Disp# 100 each, Refills: 6, Use with insulin pen., Pharmacy: [facility] 2229 Start Date: 07/14/22 Status: Ordered BD PEN NEEDLE/SAVANA [id number] MIS USE TWICE DAILY WITH INSULIN Start Date: 09/24/20 Status: Ordered BD PEN NEEDLE/SAVANA [id number] MIS BD PEN NEEDLE/SAVANA [id number] MIS, See Instructions, Disp# 100 each, Refills: 1, USE WITH INSULIN PEN,Pharmacy [facility] 2229 Start Date: 10/28/21 Status: Ordered BD Test Strips 100 ct Start: 02/27/21 15:53:00 EDT, See Instructions, Disp# 100 each, Refills: 3, test daily, Dx : E11.9,Pharmacy: [place] [id number] Start Date: 02/27/21 Status: Ordered Chantix Starter Pack 0.5 mg-1 mg oral tablet Start: 06/10/22 16:14:00 EDT, See Instructions, Disp# 1 kit, as directed per starter pack, Pharmacy: [facility] Start Date: 06/10/22 Status: Ordered citalopram 40 mg oral tablet See Instructions, Disp# 90 tab, Refills: 0, Take 1 tablet by mouth once daily, Pharmacy: [place] [id number] Start Date: 08/20/21 Status: Ordered doxepin 25 mg oral capsule Start: 06/23/22 20:17:00 EDT, See Instructions, Disp# 90 cap, Refills: 1, Take 1 capsule by mouth once daily, Pharmacy: [facility] Start Date: 06/23/22 Status: Ordered DuoNeb 0.5 mg-2.5 mg/3 mL inhalation solution Start: 07/18/22 9:15:00 EDT, 3 mL, inhaled, qid, Disp# 120 mL, PRN: as needed for shortness of breath or wheezing, Pharmacy: [facility]229 Start Date: 07/18/22 Stop Date: 07/28/22 Status: Ordered fluticasone 50 mcg/inh nasal spray Start: 06/13/22 16:56:00 EDT, See Instructions, Disp# 16 g, Refills: 6, Use 1 spray(s) in each nostril once daily, Pharmacy: [place] [id number] Start Date: 06/13/22 Status: Ordered glucometer Start: 02/27/21 15:52:00 EDT, See Instructions, Disp# 1 each, Refills: 0, test daily, Dx E11.9, Pharmacy: [facility] Start Date: 02/27/21 Status: Ordered lancets Start: 02/27/21 15:54:00 EDT, See Instructions, Disp# 100 each, Refills: 3, test daily, Dx: E11.9, Pharmacy: [facility]229 Start Date: 02/27/21 Status: Ordered Levemir FlexTouch 100 units/mL subcutaneous solution Start: 07/14/22 16:45:00 EDT, See Instructions, Disp# 15 mL, Refills: 0, INJECT 60 UNITS SUBCUTANEOUSLY EVERY DAY AT BEDTIME, Pharmacy: [facility]229 Start Date: 07/14/22 Status: Ordered lisinopril 5 mg oral tablet Start: 06/23/22 20:17:00 EDT, See Instructions, Disp# 90 tab, Refills: 3, Take 1 tablet by mouth once daily, Pharmacy: [facility] Start Date: 06/23/22 Status: Ordered meloxicam [...] by mouth twice daily, Pharmacy: [facility] Start Date: 04/25/22 Status: Ordered metFORMIN HCl 500 MG Oral Tablet metFORMIN HCl 500 MG Oral Tablet, See Instructions, Disp# 120 tab, Refills: 6, Take 2 tablets by mouth twice daily, Pharmacy [facility] Start Date: 04/08/21 Status: Ordered MiraLax oral powder for reconstitution Start: 08/05/21 15:25:00 EST, 17 g =, PO, bid, Disp# 1,020 g, Refills: 1, Pharmacy: [facility] Start Date: 08/05/21 Stop Date: 10/04/21 Status: Ordered omeprazole 40 mg oral delayed release capsule Start: 04/25/22 16:11:00 EDT, See Instructions, Disp# 30 cap, Refills: 2, Take 1 capsule by mouth once daily for 30 days, Pharmacy: [facility] Start Date: 04/25/22 Status: Ordered ONETOUCH ULTRA BLUE TEST STRP Start: 03/09/19 12:34:53 EDT, See Instructions, Disp# 50, Refills: 6, USE TO TEST BLOOD SUGAR TWICEA DAY., Pharmacy: [facility] [address], USE TO TEST BLOOD SUGAR TWICE A DAY. Start Date: 03/09/19 Status: Ordered prazosin 2 mg oral capsule Start: 06/23/22 20:17:00 EDT, See Instructions, Disp# 90 cap, Refills: 1, TAKE 1 CAPSULE BY MOUTH EVERY DAY AT BEDTIME, Pharmacy: [facility] Start Date: 06/23/22 Status: Ordered semaglutide 1 mg/0.5 mL (1 mg dose) subcutaneous solution Start: 06/18/22 16:51:00 EDT, 1 mg =, subQ, q7days, Disp# 2 mL, Refills: 5, Note to Pharmacy: Dispense Ozempic, Pharmacy: [facility] Start Date: 06/18/22 Stop Date: 12/03/22 Status: Ordered Tessalon 200 mg oral capsule Start: 07/18/22 9:01:00 EDT, 1 cap, PO, tid, Disp# 30 cap, PRN: as needed for cough, Pharmacy: [facility] Start Date: 07/18/22 Stop Date: 07/25/22 Status: Ordered triamcinolone 0.5% topical cream Start: 03/14/22 15:54:00 EDT, 1 appl, topical, tid, Disp# 20 g, Refills: 1, Pharmacy: [facility] Start Date: 03/14/22 Status: Ordered Vitamin D3 2000 intl units oral capsule Start: 05/26/17 11:25:00, 1 cap, PO, Daily Start Date: 05/26/17 Status: Ordered Mental Status 07/30/22 Barriers to Learning one year None evide nt Mandatory Health Literacy Documentation Yes Health Literacy Communication Barriers N ever Primary Language Citizen Of [place] Problem List Condition Confirmation Course Effective Dates Status H ealth Status Informant Anxiety and depression Confirmed Active Chronic constipation Confirmed Active COPD (chronic obstructive pulmonary disease) Confirmed Active Dysphagia Confirmed Active Hidradenitis Confirmed Active Borderline hyperlipidemia Confirmed Active Fecal incontinence Confirmed Active Leukocytosis Confirmed Active Lower back pain Confirmed Active Paresthesia Confirmed Active Self-mutilation Confirmed Active Sjogren's disease Confirmed Active Snoring Confirmed Active Tobacco user Confirmed Active Type 2 diabetes, HbA1C goal < 7% Confirmed Active Urinary incontinence Confirmed Active Diagnosis Diagnosis Type Effective Dates Health Status Cl inical Service Informant Lower back pain Discharge Diagnosis 07/30/22 Procedures Procedure Date Related Diagnosis Body Site [...] study with ingested markers within the stomach. [address] [place] [address] Impression: ACR BI-RADS CATEGORY 2: BENIGN 1. [...] w/ hepatic steatosis, reactive associated lymphadenopathy 10[facility] Impression: 1. Nonobstructive bowel gas pattern 2. Moderate constipation 11Impression: 1.8 x 0.5 x1.6 cm pocket of fluid within the subcutaneous tissues of the medial right thigh. This may reflect subcutaneous edema or a tiny residual abscess 12[facility] Right groin 13No acute process identified. Ill-defined [...] Most recent to oldest [Reference Range]: 1 Temperature [36.5-37.9 DegC] 37 DegC (07/30/22 2:15 PM) Heart Rate 78 bpm (07/30/22 2:15 PM) Respiratory Rate 18 br/min (07/30/22 2:15 PM) Blood Pressure 132/74mmHg (07/30/22 2:16 PM) Social History Social History Type Response Smoking Status Current every day he lorenza smoker Sex Female Patient Care team information Personnel Name: MD Candy, Dariela Kenny Address: Address: [address] [place] [address] [address] [place] [address] [place]
--- OUTSIDE RECORDS SUMMARY | 2023-05-31 12:06 | External Medical Summary | Continuity of Care Document ---
Author Name Unknown Organization [address] Address [address] [place], [place] [id number] Care Team Providers Care Destination Specialist Name Role Phone Dariela Gupta Zoya Primary Care Physician [phone] [id number] Date(s): 07/04/22 - 07/04/[address] [facility] [address] [facility], [address] [place] [address] [phone] Encounter Diagnosis Cough(Discharge Diagnosis) - 07/04/22 COPD exacerbation(Discharge Diagnosis) - 07/04/22 Discharge Disposition: Home or Self Care Attending Physician: MD Castillo Michael P Allergies, Adverse Reactions, Alerts Substance Reaction Severity Status morphine nausea Active sulfa drugs hives Active Augmentin "bad" diarrhea Active Vicodin nausea Active Benadryl "makes me hyper" Active Darvocet A500 nausea Active Assessment and Plan Extracted from: Title:Office Visit Note Author:MD Jonathan, Ras ael P Date:07/04/22 1.COPD exacerbation This is a 62 year old female with a significant past medical history of DM type II, HLD, mood disorder, COPD,tobacco use disorder who presents with continued cough. DDx including COPD exacerbation v post-viral cough. Do not see any signs of bacterial infection.COVID and flu are negative. Most likely continued tobacco use is exacerbating it as she endorses this causes her to wheeze. I do think we should proceed with treatment with prednisone 40mg daily for 5 day course, which she agrees. In addition,I recommended that she take guaifenesin OTCas directedfor her cough. We also prescribedTessalon Perlesas needed for cough. Advised her to monitor for any worsening symptoms. She knows that she needs to cut back on smokingand is continue to work with her PCP on this. Advised her toreach out if her symptoms fail to improve or worsen. Then would proceed with chest x-ray. Orders: benzonatate, Start: 07/04/22 9:18:00 EDT, 1 cap, PO, tid, Disp# 30 cap, PRN: as needed for cough, Pharmacy: [facility]229 predniSONE, Start: 07/04/22 9:16:00 EDT, 2 tab, PO, Daily, Disp# 10 tab, Pharmacy: [facility] I spent 30 minutes in [id number] interaction regarding review of ongoing symptoms, discussion counseling regarding furtherdiagnostic testing, discussion counseling regarding further treatment conditions, discussion counseling regarding further management recommendations, [id number] time for chart review and documentation. Immunizations Given and Recorded Vaccine Date Status [...] bid, Disp# 3 each, Refills: 3, Pharmacy: [facility] Start Date: 03/05/22 Stop Date: 02/28/23 Status: Ordered albuterol CFC free 90 mcg/inh MDI Start: 06/05/21 16:50:00 EDT, 2 puff, inhaled, qid, Disp# 3 each, Refills: 1, PRN: as needed for wheezing, Pharmacy: [facility] Start Date: 06/05/21 Status: Ordered atorvastatin 20 mg oral tablet Start: 06/18/22 17:21:00 EDT, See Instructions, Disp# 90 tab, Refills: 0, Take 1 tablet by mouth once daily, Pharmacy: [facility] [address] Start Date: 06/18/22 Status: Ordered BD needle Ultra-Fine Pen Savana 32G x 4mm Start: 09/24/20 16:57:00 EST, See Instructions, Disp# 100 each, Refills: 6, Use with insulin pen., Pharmacy: [place] [id number] Start Date: 09/24/20 Status: Ordered BD PEN NEEDLE/SAVANA [id number] MIS USE TWICE DAILY WITH INSULIN Start Date: 09/24/20 Status: Ordered BD PEN NEEDLE/SAVANA 19LM1UB MIS BD PEN NEEDLE/SAVANA [id number] MIS, See Instructions, Disp# 100 each, Refills: 1, USE WITH INSULIN PEN,Pharmacy [place] [address] Start Date: 10/28/21 Status: Ordered BD PEN NEEDLE/SAVANA 86CS2WM MIS Start: 04/23/22 19:48:00 EDT, BD PEN NEEDLE/SAVANA [id number] MIS, See Instructions, Disp# 100 each, Refills: 3, USE WITH INSULIN PEN, Pharmacy [facility] [address] Start Date: 04/23/22 Status: Ordered BD Test Strips [address] ct Start: 02/27/21 15:53:00 EDT, See Instructions, Disp# 100 each, Refills: 3, test daily, Dx : E11.9,Pharmacy: [facility] [address] Start Date: 02/27/21 Status: Ordered Chantix Starter Pack 0.5 mg-1 mg oral tablet Start: 06/10/22 16:14:00 EDT, See Instructions, Disp# 1 kit, as directed per starter pack, Pharmacy: [facility] [address] Start Date: 06/10/22 Status: Ordered citalopram 40 mg oral tablet See Instructions, Disp# 90 tab, Refills: 0, Take 1 tablet by mouth once daily, Pharmacy: [place] [id number] Start Date: 08/20/21 Status: Ordered doxepin 25 mg oral capsule Start: 06/23/22 20:17:00 EDT, See Instructions, Disp# 90 cap, Refills: 1, Take 1 capsule by mouth once daily, Pharmacy: [facility] [address] Start Date: 06/23/22 Status: Ordered fluticasone 50 mcg/inh nasal spray Start: 06/13/22 16:56:00 EDT, See Instructions, Disp# 16 g, Refills: 6, Use 1 spray(s) in each nostril once daily, Pharmacy: [place] [address] Start Date: 06/13/22 Status: Ordered glucometer Start: 02/27/21 15:52:00 EDT, See Instructions, Disp# 1 each, Refills: 0, test daily, Dx E11.9, Pharmacy: [facility] Start Date: 02/27/21 Status: Ordered lancets Start: 02/27/21 15:54:00 EDT, See Instructions, Disp# 100 each, Refills: 3, test daily, Dx: E11.9, Pharmacy: [facility] [address] Start Date: 02/27/21 Status: Ordered Levemir FlexTouch 100 units/mL subcutaneous solution Start: 04/23/22 19:48:00 EDT, See Instructions, Disp# 15 mL, Refills: 0, INJECT 60 UNITS SUBCUTANEOUSLY EVERY DAY AT BEDTIME, Pharmacy: [facility] [address] Start Date: 04/23/22 Status: Ordered lisinopril 5 mg oral tablet Start: 06/23/22 20:17:00 EDT, See Instructions, Disp# 90 tab, Refills: 3, Take 1 tablet by mouth once daily, Pharmacy: [facility] [address] Start Date: 06/23/22 Status: Ordered meloxicam 15 mg oral tablet Start: 05/26/17 11:25:00, 1 tab, PO, Daily Start Date: 05/26/17 Status: Ordered Metamucil Start: 02/27/21 15:26:00 EDT, 3.4 g =, PO, Daily Start Date: 02/27/21 Status: Ordered metFORMIN 500 mg oral tablet Start: 04/25/22 16:30:00 EDT, See Instructions, Disp# 120 tab, Refills: 2, Take 2 tablets by mouth twice daily, Pharmacy: [facility] [address] Start Date: 04/25/22 Status: Ordered metFORMIN HCl 500 MG Oral Tablet metFORMIN HCl 500 MG Oral Tablet, See Instructions, Disp# 120 tab, Refills: 6, Take 2 tablets by mouth twice daily, Pharmacy [facility] [address] Start Date: 04/08/21 Status: Ordered MiraLax oral powder for reconstitution Start: 08/05/21 15:25:00 EST, 17 g =, PO, bid, Disp# 1,020 g, Refills: 1, Pharmacy: [facility] Start Date: 08/05/21 Stop Date: 10/04/21 Status: Ordered omeprazole 40 mg oral delayed release capsule Start: 04/25/22 16:11:00 EDT, See Instructions, Disp# 30 cap, Refills: 2, Take 1 capsule by mouth once daily for 30 days, Pharmacy: [facility] [address] Start Date: 04/25/22 Status: Ordered ONETOUCH ULTRA BLUE TEST STRP Start: 03/09/19 12:34:53 EDT, See Instructions, Disp# 50, Refills: 6, USE TO TEST BLOOD SUGAR TWICEA DAY., Pharmacy: [id number], USE TO TEST BLOOD SUGAR TWICE A DAY. Start Date: 03/09/19 Status: Ordered prazosin 2 mg oral capsule Start: 06/23/22 20:17:00 EDT, See Instructions, Disp# 90 cap, Refills: 1, TAKE 1 CAPSULE BY MOUTH EVERY DAY AT BEDTIME, Pharmacy: [facility] [address] Start Date: 06/23/22 Status: Ordered predniSONE 20 mg oral tablet Start: 07/04/22 9:16:00 EDT, 2 tab, PO, Daily, Disp# 10 tab, Pharmacy: [facility] [address] Start Date: 07/04/22 Stop Date: 07/09/22 Status: Ordered semaglutide 1 mg/0.5 mL (1 mg dose) subcutaneous solution Start: 06/18/22 16:51:00 EDT, 1 mg =, subQ, q7days, Disp# 2 mL, Refills: 5, Note to Pharmacy: Dispense Ozempic, Pharmacy: [facility] [address] Start Date: 06/18/22 Stop Date: 12/03/22 Status: Ordered Tessalon 200 mg oral capsule Start: 07/04/22 9:18:00 EDT, 1 cap, PO, tid, Disp# 30 cap, PRN: as needed for cough, Pharmacy: [facility] Start Date: 07/04/22 Stop Date: 07/11/22 Status: Ordered triamcinolone 0.5% topical cream Start: 03/14/22 15:54:00 EDT, 1 appl, topical, tid, Disp# 20 g, Refills: 1, Pharmacy: [facility] [address] Start Date: 03/14/22 Status: Ordered Vitamin D3 2000 intl units oral capsule Start: 05/26/17 11:25:00, 1 cap, PO, Daily Start Date: 05/26/17 Status: Ordered Mental Status 07/04/22 Barriers to Learning one year None evide nt Mandatory Health Literacy Documentation Yes Health Literacy Communication Barriers N ever Primary Language Bulgarian Problem List Condition Confirmation Course Effective Dates [...] Effective Dates Health Status Clinical Service Informant Cough Discharge Diagnosis 07/04/22 Non-Specified COPD exacerbation Discharge Diagnosis 07/04/22 Procedures Procedure Date Related Diagnosis Body Site [...] study with ingested markers within the stomach. [address] [place] [address] Impression: ACR BI-RADS CATEGORY 2: BENIGN 1. [...] hepatic steatosis, reactive associated lymphadenopathy 10[facility] Impression: 1. Nonobstructive bowel gas pattern 2. Moderate constipation 11Impression: 1.8 x 0.5 x1.6 cm pocket of fluid within the subcutaneous tissues of the medial right thigh. This may reflect subcutaneous edema or a tiny residual abscess 12[facility] Right groin 13No acute process identified. Ill-defined [...] 6. Splenomegaly. Results Laboratory List Name Date FluA/B+SARS CoV2 [facility] POC Outpt Most recent to oldest [Reference Range]: 1 Rapid Influenza A, POC Negative 1 (07/04/22 9:14 AM) Rapid Influenza B, POC Negative (07/04/22 9:14 AM) Rapid Influenza A Screen Ref Range Negat dwaine (07/04/22 9:14 AM) Rapid Influenza B Screen Ref Range Negat dwaine (07/04/22 9:14 AM) COVID-19 Coronavirus Antigen POC Negativ e 2 (07/04/22 9:14 AM) 1Result Comment: Performed at: [facility], [address] [facility], [address], [place] [address] 2Result Comment: Positive results indicate the presence of viral antigens, but clinical correlation with patient history and other diagnostic information is necessary to determine infection status. Positive results do not rule out bacterial infection or co-infection with other viruses. The agent detected may not bethe definite cause of disease. Negative results should be treated as presumptive, do not rule out SARS-CoV-2 infection and should not be used as the sole basis for treatment or patient management decisions, including infection control decisions. Negative results should be considered in the context of a patients recent exposures, history and the presence of clinical signs and symptoms consistent with COVID-19, and confirmed with a molecular assay, if necessary, for patient management. Performed at: [facility], [address] [facility], [address], [place] [address] Vital Signs Most recent to oldest [Reference Range]: 1 Patient Weight 111.8 kg (07/04/22 8:56 AM) Temperature [36.5-37.9 DegC] 36.3 DegC *LOW* (07/04/22 8:56 AM) Heart Rate 76 bpm (07/04/22 8:56 AM) Respiratory Rate 20 br/min (07/04/22 8:56 AM) Blood Pressure 156/84mmHg (07/04/22 8:56 AM) Cuff Pulse Pressure 72 mmHg (07/04/22 8:56 AM) BP Location # 1 Left Arm, Manual (07/04/22 8:56 AM) Social History Social History Type Response Smoking Status Current every day he lorenza smoker Sex Female Patient Care team information Personnel Name: MD Candy, Dariela Kenny Address: Address: [address] [place] [address] [address] [place] [address] [place]
--- OUTSIDE RECORDS SUMMARY | 2023-05-31 12:06 | External Medical Summary | Summary of Care ---
Author Name Unknown Organization [place] [address] Care Team Providers Care Front Desk Attendant Name Role Phone Dariela Gupta MD Primary Care Provider [phone] Reason for Visit * Reason Onset Date Comments Fax 02/20/2022 EGD Referral Encounter Details Date Type Department Care Team Description 02/20/2022 Telephone Gastroenterology, [facility] [address] [facility] [place] [address] Alina Barbosa PA-C [address] [place] [address] Fax (EGD Referral) Allergies Active Allergy Reactions Severity Noted Date Comments Amoxicillin-Pot Clavulanate 07/24/20 21 Other reaction(s): "bad" diarrhea Codeine Nausea/vomiting 09/25/2015 Meperidine 08/31/2015 Meperidine Nausea/vomiting 09/25/2015 Diphenhydramine 07/24/2021 Other reaction(s): "makes me hyper" Hydrocodone 08/31/2015 Morphine Nausea/vomiting 09/25/2015 Sulfa Antibiotics 09/25/2015 hives Hydrocodone-Acetaminophen Nausea/vomiting 09/25 documented as of this encounter (statuses as of 02/27/2022) Medications Medication Sig Dispensed Refills Start Date [...] 0 01/20/2018 Active Blood Glucose Monitoring Suppl (PapayaMobileUCH ULTRA 2) w/Device KIT USE TO TEST BLOOD SUGAR TWICE DAILY. 0 01/20/2018 Active traMADol (ULTRAM) 50 MG Tablet Take 50 mg by mouth every 6 hours as needed. As needed 0 11/16/2019 Active atorvaSTATin (LIPITOR) 20 MG Tablet 1 daily 0 11/01/2019 Active fluticasone (FLONASE) 50 MCG/ACT nasal spray 1 [place]. As needed 0 12/31/2018 Active valACYclovir (VALTREX) [...] as of this encounter (statuses as of 02/27/2022) Active Problems Problem Noted Date Sjogren's syndrome 04/07/2017 Insomnia Depression Osteoarthritis of both knees Tobacco abuse documented as of this encounter (statuses as of 02/27/2022) Immunizations Name Administration Dates Next Due Zoster [...] 02/20/2022 2:33 PM EDT Fax received from [facility] to get patient scheduled for an EGD. Ordering: Ailna Barbosa PA-C Dx: Dysphagia, unspecified - Z72.0, Tobacco use - R10.13 Records placed in scanning. LMOM for pt to call back to schedule. documented in this encounter Plan of Treatment Upcoming Encounters Date Type Specialty Care Team Description 01/26/2023 Office Visit Rheumatology Soy Rosa MD [address] [facility], [place] [phone] Health Maintenance Due Date Last Done Comments [...] 09/04/1997 LUNG CANCER SCREENING - USE SMARTSET [id number] 01/29/2008 Zoster Vaccines (2 of 2) 12/26/2019 [...] Documents on File Type Date Recorded Patient Formula Technician Expl anation Advanced Directive Advanced Directive Advanced Directive Advanced Directive Advanced Directive Advanced Directive Advanced Directive Advanced Directive Advanced Directive Care Teams Front Desk Attendant Relationship Specialty Start Date End Date Dariela Gupta MD [address] [place] [id number] PCP - General Family Medicine 04/06/18 documented as of this encounter
--- OUTSIDE RECORDS SUMMARY | 2023-05-31 12:06 | External Medical Summary | Continuity of Care Document ---
Author Name Unknown Organization [place] [address] RONYLA GAURANG A Address [address] [place], [place] [id number] Care Team Providers Care Batch Blender Name Role Phone Dariela Gupta Primary Care Physician [phone] [id number] Date(s): 03/14/22 - 03/14/[address] GAURANG A [facility] [address] [address] [phone] Encounter Diagnosis Sinusitis(Discharge Diagnosis) - 03/14/22 Dermatitis(Discharge Diagnosis) - 03/14/22 Discharge Disposition: Home or Self Care Attending Physician: JIMY Bob Tara Allergies, Adverse Reactions, Alerts Substance Reaction Severity Status morphine nausea Active sulfa drugs hives Active Augmentin "bad" diarrhea Active Vicodin nausea Active Benadryl "makes me hyper" Active Darvocet A500 nausea Active Assessment and Plan Extracted from: Title:ABRS Author:JIMY Bob Tara Date: 1.Sinusitis Acute/Chronic: acute Goal:Resolution/ control Data: pt report and exam Plan: Due to duration of illness will treat for ABRS with abx. She is allergic to augmentin. Will use doxy. Reviewed that will make sensitive to sun. Use nasal steroid, can use mucinex, honey for cough, NSAID/tylenol for pain, cool mist humidifier and plenty of fluids. Good hand hygiene to limit spread.O2 sat is good. Lungs clear. No signs of COPD flare. Contd using inhalers. She does smoke but is not ready to quit. 2.Dermatitis Acute/Chronic: acute Goal:Resolution/ control Data: pt report and exam Plan:Cristobal rx steroid cream as she has DM. Only itchy on forearms. Do not want to give systemic as it will increase her BSG. Pt agrees. Orders: doxycycline, Start: 03/14/22 15:51:00 EDT, 1 tab, PO, bid, Disp# 14 tab, X 7 day, Stop: 03/21/22 15:51:00 EDT, Pharmacy: [facility] triamcinolone topical, Start: 03/14/22 15:54:00 EDT, 1 appl, topical, tid, Disp# 20 g, Refills: 1, Pharmacy: [facility] time spent reviewing chart, face to face visit, ordersand documentation: 20 min Immunizations Given and Recorded Vaccine Date Status Refusal Reason zoster vaccine, inactivated 01/31/20 Given zoster vaccine, inactivated 10/31/19 Given influenza virus vaccine, inactivated 08/17/19 Give n tetanus/diphtheria/pertuss, acel (Tdap) 06/14/18 G iven Medications Advair Diskus 500 mcg-50 mcg Start: 03/05/22 16:08:00 EDT, 1 puff, PO, bid, Disp# 3 each, Refills: 3, Pharmacy: [facility] Start Date: 03/05/22 Stop Date: 02/28/23 Status: Ordered albuterol CFC free 90 mcg/inh MDI Start: 06/05/21 16:50:00 EDT, 2 puff, inhaled, qid, Disp# 3 each, Refills: 1, PRN: as needed for wheezing, Pharmacy: [facility] Start Date: 06/05/21 Status: Ordered atorvastatin 20 mg oral tablet See Instructions, Disp# 90 tab, Refills: 1, Take 1 tablet by mouth once daily, Pharmacy: [facility] Start Date: 12/20/21 Status: Ordered BD needle Ultra-Fine Pen Savana 32G x 4mm Start: 09/24/20 16:57:00 EST, See Instructions, Disp# 100 each, Refills: 6, Use with insulin pen., Pharmacy: [facility] Start Date: 09/24/20 Status: Ordered BD PEN NEEDLE/SAVANA [id number] MIS USE TWICE DAILY WITH INSULIN Start Date: 09/24/20 Status: Ordered BD PEN NEEDLE/SAVANA [id number] MIS BD PEN NEEDLE/SAVANA [id number] MIS, See Instructions, Disp# 100 each, Refills: 1, USE WITH INSULIN PEN,Pharmacy [facility] Start Date: 10/28/21 Status: Ordered BD Test Strips 100 ct Start: 02/27/21 15:53:00 EDT, See Instructions, Disp# 100 each, Refills: 3, test daily, Dx : E11.9,Pharmacy: [facility] Start Date: 02/27/21 Status: Ordered citalopram 40 mg oral tablet See Instructions, Disp# 90 tab, Refills: 0, Take 1 tablet by mouth once daily, Pharmacy: [place] [address] Start Date: 08/20/21 Status: Ordered doxepin 25 mg oral capsule See Instructions, Disp# 90 cap, Refills: 1, Take 1 capsule by mouth once daily, Pharmacy: [place] [id number] Start Date: 12/09/21 Status: Ordered doxycycline hyclate 100 mg oral tablet Start: 03/14/22 15:51:00 EDT, 1 tab, PO, bid, Disp# 14 tab, X 7 day, Stop: 03/21/22 15:51:00 EDT, Pharmacy: [facility] Start Date: 03/14/22 Stop Date: 03/21/22 Status: Ordered fluticasone 50 mcg/inh nasal spray Start: 06/05/21 16:50:00 EDT, 1 spray, each nostril, Daily, Disp# 16 g, Refills: 2, Pharmacy: [facility] Start Date: 06/05/21 Status: Ordered glucometer Start: 02/27/21 15:52:00 EDT, See Instructions, Disp# 1 each, Refills: 0, test daily, Dx E11.9, Pharmacy: [facility] Start Date: 02/27/21 Status: Ordered lancets Start: 02/27/21 15:54:00 EDT, See Instructions, Disp# 100 each, Refills: 3, test daily, Dx: E11.9, Pharmacy: [facility] Start Date: 02/27/21 Status: Ordered Levemir FlexTouch 100 units/mL subcutaneous solution See Instructions, Disp# 15 mL, Refills: 2, INJECT 60 UNITS SUBCUTANEOUSLY EVERY DAY AT BEDTIME, Pharmacy: [place] [address] Start Date: 01/20/22 Status: Ordered lisinopril 5 mg oral tablet Start: 05/31/21 15:51:00 EDT, See Instructions, Disp# 90 tab, Refills: 3, Take 1 tablet by mouth once daily, Pharmacy: [facility] Start Date: 05/31/21 Status: Ordered meloxicam 15 mg oral tablet Start: 05/26/17 11:25:00, 1 tab, PO, Daily Start Date: 05/26/17 Status: Ordered Metamucil Start: 02/27/21 15:26:00 EDT, 3.4 g =, PO, Daily Start Date: 02/27/21 Status: Ordered metFORMIN 500 mg oral tablet Start: 03/22/20 13:33:00 EDT, 2 tab, PO, bid, Disp# 120 tab, Refills: 6, Pharmacy: [facility] Start Date: 03/22/20 Status: Ordered metFORMIN HCl 500 MG Oral Tablet metFORMIN HCl 500 MG Oral Tablet, See Instructions, Disp# 120 tab, Refills: 6, Take 2 tablets by mouth twice daily, Pharmacy [facility] Start Date: 04/08/21 Status: Ordered MiraLax oral powder for reconstitution Start: 08/05/21 15:25:00 EST, 17 g =, PO, bid, Disp# 1,020 g, Refills: 1, Pharmacy: [facility] Start Date: 08/05/21 Stop Date: 10/04/21 Status: Ordered omeprazole 40 mg oral delayed release capsule Start: 02/13/22 9:19:00 EDT, See Instructions, Disp# 30 cap, Refills: 1, Take 1 capsule by mouth once daily for 30 days, Pharmacy: [facility] Start Date: 02/13/22 Status: Ordered ONETOUCH ULTRA BLUE TEST STRP Start: 03/09/19 12:34:53 EDT, See Instructions, Disp# 50, Refills: 6, USE TO TEST BLOOD SUGAR TWICEA DAY., Pharmacy: [facility] [address], USE TO TEST BLOOD SUGAR TWICE A DAY. Start Date: 03/09/19 Status: Ordered Ozempic 2 mg/1.5 mL (0.25 mg or 0.5 mg dose) subcutaneous solution Start: 03/05/22 16:08:00 EDT, See Instructions, Disp# 1 each, Refills: 5, 0.25 mg subQ q7 days x 4 weeks, then increase to 0.5 mg subQ q7 days, [facility] Start Date: 03/05/22 Status: Ordered prazosin 2 mg oral capsule See Instructions, Disp# 90 cap, Refills: 1, TAKE 1 CAPSULE BY MOUTH EVERY DAY AT BEDTIME, [facility] Start Date: 12/09/21 Status: Ordered triamcinolone 0.5% topical cream Start: 03/14/22 15:54:00 EDT, 1 appl, topical, tid, Disp# 20 g, Refills: 1, [facility] Start Date: 03/14/22 Status: Ordered Vitamin D3 2000 intl units oral capsule Start: 05/26/17 11:25:00, 1 cap, PO, Daily Start Date: 05/26/17 Status: Ordered Mental Status 03/14/22 Barriers to Learning one year None evide nt Mandatory Health Literacy Documentation Yes Health Literacy Communication Barriers N ever Primary Language Azeri Problem List Condition Effective Dates Status Health Status Inform ant Anxiety and depression(Confirmed) Active Chronic constipation(Confirmed) Active COPD (chronic obstructive pu lmonary disease)(Confirmed) Active Dysphagia(Confirmed) Active Hidradenitis(Confirmed) Active Borderline hyperlipidemia(Confirmed) Active Fecal incontinence(Confirmed) Active Leukocytosis(Confirmed) Active Paresthesia(Confirmed) Active Self-mutilation(Confirmed) Active Sjogren's disease(Confirmed) Active Snoring(Confirmed) Active Tobacco user(Confirmed) Active Type 2 diabetes, HbA1C goal < 7%(Confirmed) Active Urinary incontinence(Confirmed) Active Diagnosis Diagnosis Type Effective Dates Health Status Clini heather Service Informant Sinusitis Discharge Diagnosis 03/14/22 Dermatitis Discharge Diagnosis 03/14/22 Procedures Procedure Date Related Diagnosis Body Site Status dennisslidells study 1 12/16/21 Complet ed KUB X-ray [...] with ingested markers within the stomach. 3[facility] Impression: ACR BI-RADS CATEGORY 2: BENIGN [...] w/ hepatic steatosis, reactive associated lymphadenopathy 10[facility] Impression: 1. Nonobstructive bowel gas pattern 2. Moderate constipation 11Impression: 1.8 x 0.5 x1.6 cm pocket of fluid within the subcutaneous tissues of the medial right thigh. This may reflect subcutaneous edema or a tiny residual abscess 12[facility] Right groin 13No acute process identified. [...] oldest [Reference Range]: 1 Height 172.7 cm (03/14/22 3:32 PM) Patient Weight 111.7 kg (03/14/22 3:32 PM) Body Mass Index 37.45 kg/m2 (03/14/22 3:32 PM) Temperature [36.5-37.9 DegC] 37.2 DegC (03/14/22 3:32 PM) Heart Rate 79 bpm (03/14/22 3:32 PM) Respiratory Rate 22 br/min (03/14/22 3:32 PM) Blood Pressure 160/82mmHg (03/14/22 3:32 PM) Cuff Pulse Pressure 78 mmHg (03/14/22 3:32 PM) Social History Social History Type Response Smoking Status Current every day he lorenza smoker Sex Female Care Team Personnel Name: MD Candy, Dariela Kenny Address: [address] [place] [address], [place] [address] [place]
--- OUTSIDE RECORDS SUMMARY | 2023-05-31 12:07 | External Medical Summary | Summary of Care ---
Author Name Unknown Organization [place] [address] Care Team Providers Care Police Justice Name Role Phone Dariela Gupta MD Primary Care Provider [phone] Reason for Visit * Reason Onset Date Comments Fax 02/20/2022 EGD Referral Encounter Details Date Type Department Care Team Description 02/20/2022 Telephone Gastroenterology, [facility] [address] [place] [address] Alina Barbosa PA-C [address] [place] [address] Fax (EGD Referral) Allergies Active Allergy Reactions [...] 0 01/20/2018 Active Blood Glucose Monitoring Suppl (PinocularUCH ULTRA 2) w/Device KIT USE TO TEST BLOOD SUGAR TWICE DAILY. 0 01/20/2018 Active traMADol (ULTRAM) 50 MG Tablet Take 50 mg by mouth every 6 hours as needed. As needed 0 11/16/2019 Active atorvaSTATin (LIPITOR) 20 MG Tablet 1 daily 0 11/01/2019 Active fluticasone (FLONASE) 50 MCG/ACT nasal spray 1 [place]. As needed 0 12/31/2018 Active valACYclovir (VALTREX) [...] 02/20/2022 2:33 PM EDT Fax received from [facility] to get patient scheduled for an EGD. Ordering: Alina Barbosa PA-C Dx: Dysphagia, unspecified - Z72.0, Tobacco use - R10.13 Records placed in scanning. LMOM for pt to call back to schedule. 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
--- OUTSIDE RECORDS SUMMARY | 2023-05-31 12:07 | External Medical Summary | Continuity of Care Document ---
Author Name Unknown Organization [place] [address] DEAN Cunningham Address [address], [place] [id number] Care Team Providers Care Package Line Operator Name Role Phone Dariela Gupta Zoya Primary Care Physician [phone] [facility]counter [id number] Date(s): 11/28/21 - 11/28/21 [place] [address] [facility] [address], [address] [place] [address] [phone] Encounter Diagnosis Acute cystitis(Discharge Diagnosis) - 11/28/21 Epigastric pain(Discharge Diagnosis) - 11/28/21 Dysphagia(Discharge Diagnosis) - 11/28/21 Nausea(Discharge Diagnosis) - 11/28/21 Chronic constipation(Discharge Diagnosis) - 11/28/21 Tobacco user(Discharge Diagnosis) - 11/28/21 Type 2 diabetes, HbA1C goal < 7%(Discharge Diagnosis) - 11/28/21 Discharge Disposition: Home or Self Care Attending Physician: INGE Barbosa Jessica A Allergies, Adverse Reactions, Alerts Substance Reaction Severity Status morphine nausea Active sulfa drugs hives Active Augmentin "bad" diarrhea Active Vicodin nausea Active Benadryl "makes me hyper" Active Darvocet A500 nausea Active Assessment and Plan Extracted from: Title:Office Visit Note Author:INGE Barbosa Jessica A Date:11/28/21 1.Acute cystitis Discontinue nitrofurantoin asculture and susceptibility report showedmedicationeffectiveness was intermediate. Givencephalexin 500 mg, 1 tab p.o. twice daily for 7 daysas patient is allergic toAugmentin, sulfa drugs and takescitalopram, so to avoid fluoroquinolone use due to increased risk of prolonged QT syndrome. Recommend follow-up in 3 to 4 weeks for recheck marleny UA. 2.Nausea Reviewed that I suspect nausea is multifactorialand likely related to ongoing constipation and possibly gastritis. Discussed that she may have a component of diabetic gastroparesis due to prolonged and uncontrolledtype 2 diabetes. Will consider gastric emptying study in the future with GI. Given ondansetron 4 mg ODT, 1 tab p.o. every 8 hours as needed for nausea. Inyo diet encouraged. 3.Chronic constipation Chronic constipation is uncontrolled and CT scan of the abdomen/pelvis was reviewed with patient,which showed moderate fecal retention. Encouraged to follow bowel regimen as recommended by GIif possible. Suspect this may be contributing to nauseaand epigastric discomfort. Advised to return to the ER if would develop any inability to pass gas/stool, vomiting, fever, worsening pain or new symptoms. She agreed. 4.Epigastric pain Start omeprazole 40 mg, 1 tab p.o.daily x8 weeks. Differential diagnosisincludes, but not limited to:Gastritis, GERD, gastroparesis, PUD, constipation, CAD, pancreatitis, ischemic bowel disease, other etiology. To keep upcoming appointment with GIon 12/09/2021. RTCin 3 to 4 weeks for recheck here. 5.Dysphagia Dysphagia is chronic and uncontrolled. To start omeprazole as above in #4. Once acute symptoms have improved would consider proceeding with EGD. 6.Tobacco user Smoking cessation encouraged and patient is not interested in quitting at this time. 7.Type 2 diabetes, HbA1C goal < 7% Type II DM is chronic and uncontrolled. Goal A1c <7%. Patient is overdue for diabetic examination and labs. We did discuss that uncontrolledDM may be contributing to GI symptoms and possible gastroparesis. This also increases her risk of micro and macrovascular disease. Patient is to follow-up in 3 to 4 weeks for diabetic examination and recheck of abdominal symptoms and UTI. Orders: cephalexin, Start: 11/28/21 16:51:00 EST, 1 cap, PO, q12h, Disp# 14 cap, Pharmacy: [facility] omeprazole, Start: 11/28/21 16:53:00 EST, 1 cap, PO, Daily, Disp# 30 cap, Refills: 1, Pharmacy: [facility] ondansetron, Start: 11/28/21 16:53:00 EST, 1 tab, PO, tid, Disp# 15 tab, PRN: as needed for nausea/vomiting, Pharmacy: [facility] Time spent on pre-visit plannin minutes on hospital record review Face to face time spent w/ patient:31 minutes Time spent documenting pertinent clinical information into the EMR:15 minutes Total time: 49 minutes Immunizations Given and Recorded Vaccine Date Status Refusal Reason zoster vaccine, inactivated 01/31/20 Given zoster vaccine, inactivated 10/31/19 Given influenza virus vaccine, inactivated 08/17/19 Give n tetanus/diphtheria/pertuss, acel (Tdap) 06/14/18 G iven Medications Advair Diskus 500 mcg-50 mcg Start: 04/09/20 10:11:00 EDT, 1 puff, PO, bid, Disp# 3 each, Refills: 3, Pharmacy: [facility] Start Date: 04/09/20 Stop Date: 04/04/21 Status: Ordered albuterol CFC free 90 mcg/inh MDI Start: 06/05/21 16:50:00 EDT, 2 puff, inhaled, qid, Disp# 3 each, Refills: 1, PRN: as needed for wheezing, Pharmacy: [facility] 2229 Start Date: 06/05/21 Status: Ordered atorvastatin 20 mg oral tablet Start: 05/24/21 16:51:00 EDT, See Instructions, Disp# 90 tab, Refills: 1, Take 1 tablet by mouth once daily, Pharmacy: [facility] 2229 Start Date: 05/24/21 Status: Ordered BD needle Ultra-Fine Pen Savana 32G x 4mm Start: 09/24/20 16:57:00 EST, See Instructions, Disp# 100 each, Refills: 6, Use with insulin pen., Pharmacy: [facility] 2229 Start Date: 09/24/20 Status: Ordered BD PEN NEEDLE/SAVANA [id number] MIS USE TWICE DAILY WITH INSULIN Start Date: 09/24/20 Status: Ordered BD PEN NEEDLE/SAVANA [id number] MIS BD PEN NEEDLE/SAVANA [id number] MIS, See Instructions, Disp# 100 each, Refills: 1, USE WITH INSULIN PEN,Pharmacy [facility] 2229 Start Date: 10/28/21 Status: Ordered BD Test Strips 100 ct Start: 02/27/21 15:53:00 EDT, See Instructions, Disp# 100 each, Refills: 3, test daily, Dx : E11.9,Pharmacy: [place] [address] Start Date: 02/27/21 Status: Ordered cephalexin 500 mg oral capsule Start: 11/28/21 16:51:00 EST, 1 cap, PO, q12h, Disp# 14 cap, Pharmacy: [place] [address] Start Date: 11/28/21 Stop Date: 12/05/21 Status: Ordered citalopram 40 mg oral tablet See Instructions, Disp# 90 tab, Refills: 0, Take 1 tablet by mouth once daily, Pharmacy: [place] [address] Start Date: 08/20/21 Status: Ordered doxepin 25 mg oral capsule Start: 05/24/21 16:51:00 EDT, See Instructions, Disp# 90 cap, Refills: 1, Take 1 capsule by mouth once daily, Pharmacy: [place] [id number] Start Date: 05/24/21 Status: Ordered fluticasone 50 mcg/inh nasal spray Start: 06/05/21 16:50:00 EDT, 1 spray, each nostril, Daily, Disp# 16 g, Refills: 2, Pharmacy: [place] [address] Start Date: 06/05/21 Status: Ordered glucometer Start: 02/27/21 15:52:00 EDT, See Instructions, Disp# 1 each, Refills: 0, test daily, Dx E11.9, Pharmacy: [facility] Start Date: 02/27/21 Status: Ordered lancets Start: 02/27/21 15:54:00 EDT, See Instructions, Disp# 100 each, Refills: 3, test daily, Dx: E11.9, Pharmacy: [facility] Start Date: 02/27/21 Status: Ordered Levemir FlexTouch 100 units/mL subcutaneous solution Start: 07/09/21 16:50:00 EDT, 60 unit =, subQ, qhs, Disp# 15 mL, Refills: 6, Pharmacy: [place] [id number] Start Date: 07/09/21 Status: Ordered lisinopril 5 mg oral tablet Start: 05/31/21 15:51:00 EDT, See Instructions, Disp# 90 tab, Refills: 3, Take 1 tablet by mouth once daily, Pharmacy: [place] [address] Start Date: 05/31/21 Status: Ordered meloxicam 15 mg oral tablet Start: 05/26/17 11:25:00, 1 tab, PO, Daily Start Date: 05/26/17 Status: Ordered Metamucil Start: 02/27/21 15:26:00 EDT, 3.4 g =, PO, Daily Start Date: 02/27/21 Status: Ordered metFORMIN 500 mg oral tablet Start: 03/22/20 13:33:00 EDT, 2 tab, PO, bid, Disp# 120 tab, Refills: 6, Pharmacy: [facility] Start Date: 03/22/20 Status: Ordered metFORMIN HCl 500 MG Oral Tablet metFORMIN HCl 500 MG Oral Tablet, See Instructions, Disp# 120 tab, Refills: 6, Take 2 tablets by mouth twice daily, Pharmacy [facility] 2229 Start Date: 04/08/21 Status: Ordered MiraLax oral powder for reconstitution Start: 08/05/21 15:25:00 EST, 17 g =, PO, bid, Disp# 1,020 g, Refills: 1, Pharmacy: [facility] 2229 Start Date: 08/05/21 Stop Date: 10/04/21 Status: Ordered omeprazole 40 mg oral delayed release capsule Start: 11/28/21 16:53:00 EST, 1 cap, PO, Daily, Disp# 30 cap, Refills: 1, Pharmacy: [facility] 2229 Start Date: 11/28/21 Stop Date: 01/27/22 Status: Ordered ondansetron 4 mg oral tablet, disintegrating Start: 11/28/21 16:53:00 EST, 1 tab, PO, tid, Disp# 15 tab, PRN: as needed for nausea/vomiting, Pharmacy: [facility] 2229 Start Date: 11/28/21 Stop Date: 12/03/21 Status: Ordered ONETOUCH ULTRA BLUE TEST STRP Start: 03/09/19 12:34:53 EDT, See Instructions, Disp# 50, Refills: 6, USE TO TEST BLOOD SUGAR TWICEA DAY., Pharmacy: [facility] [address], USE TO TEST BLOOD SUGAR TWICE A DAY. Start Date: 03/09/19 Status: Ordered prazosin 2 mg oral capsule See Instructions, Disp# 90 cap, Refills: 0, TAKE 1 CAPSULE BY MOUTH EVERY DAY AT BEDTIME, Pharmacy:[facility] 2230 Start Date: 08/26/21 Status: Ordered Vitamin D3 2000 intl units oral capsule Start: 05/26/17 11:25:00, 1 cap, PO, Daily Start Date: 05/26/17 Status: Ordered Mental Status 11/28/21 Barriers to Learning one year None evide nt Mandatory Health Literacy Documentation Yes Health Literacy Communication Barriers N ever Problem List Condition Effective Dates Status Health [...] Effective Dates Health Status Clinical Service Informant Chronic constipation Discharge Diagnosis 11/28/21 Non-Specified Tobacco user Discharge Diagnosis 11/28/21 Non-Specified Epigastric pain Discharge Diagnosis 11/28/21 Non-Specified Acute cystitis Discharge Diagnosis 11/28/21 Non-Specified Type 2 diabetes, HbA1C goal < 7% Discharge Diagnosis 11/28/21 Non-Specified Nausea Discharge Diagnosis 11/28/21 Non-Specified Dysphagia Discharge Diagnosis 11/28/21 Procedures Procedure Date Related Diagnosis Body Site Status Mammogram 1 10/09/21 Completed Colonoscopy 2, 3, 4 06/21/21 Compl eted CXR - Chest X-ray 5 03/11/21 Compl eted X-ray 6 11/16/[address] of abdomen and pelvis wit h contrast 7 06/22/19 Completed KUB X-ray 8 02/14/19 Completed Ultrasound right groin 9 05/09/18 Completed Incision and drainage of abscess 10 05/07/18 Completed Chest x-ray 11 10/18/[address] of chest [address] [place] [address] Impression: ACR BI-RADS CATEGORY 2: BENIGN 1. No evidence of malignancy 2Pathology results: Colon, hepatic flexure: tubular adenoma. B) [...] part. Dysplasia and carcinoma are NOT seen. 3Repeat in 3 years. 4One 4mm polyp at the hepatic flexure, removed [...] anal verge are normal on retroflextion view. 51. Normal lung volumes. No radiographic evidence of COPD on current exam. 2. Possible trace left pleural effusion with possible small ateleactasis at the left base. 6Right shoulder 3 views; right humerus 2 views, right clavicle 2 views IMPRESSION: 1. There is no radiographic evidence of right shoulder fracture or dislocation. 2. There is no radiographic evidence of right clavicular fracture. 3. There is no radiographic evidence of right humeral fracture. 7mild wall thickening of sigmoid colon & upper rectum, mild proctocolitis, likely infectious; cirrhosis w/ hepatic steatosis, reactive associated lymphadenopathy 8[facility] Impression: 1. Nonobstructive bowel gas pattern 2. Moderate constipation 9Impression: 1.8 x 0.5 x1.6 cm pocket of fluid within the subcutaneous tissues of the medial right thigh. This may reflect subcutaneous edema or a tiny residual abscess 10[facility] Right groin 11No acute process identified. Ill-defined hazy subsegmental left basilar opacities suggest atelectasis. 12WITH ANGIO 1. No acute aortic pathology or [...] [Reference Range]: 1 Patient Weight 110.1 kg (11/28/21 4:25 PM) Temperature [36.5-37.9 DegC] 36.8 DegC (11/28/21 4:25 PM) Heart Rate 96 bpm (11/28/21 4:25 PM) Respiratory Rate 20 br/min (11/28/21 4:25 PM) Blood Pressure 96/64mmHg (11/28/21 4:25 PM) Cuff Pulse Pressure 32 mmHg (11/28/21 4:25 PM) BP Location # 1 Left Arm, Manual (11/28/21 4:25 PM) Social History Social History Type Response Smoking Status Current every day he lorenza smoker Sex Female
--- OUTSIDE RECORDS SUMMARY | 2023-05-31 12:07 | External Medical Summary | Summary of Care ---
Author Name Unknown Organization [place] [address] Care Team Providers Care Hospice Care Consultant Name Role Phone Dariela Gupta MD Primary Care Provider [phone] Reason for Visit * Reason Onset Date Comments Test Results 01/30/2022 Encounter Details Date Type Department Care Team Description 01/30/2022 Telephone Rheumatology [facility] [address] [facility] [place] [address] Soy Rosa [facility] [address] [facility] [place] [address] Test Results Allergies Active Allergy Reactions Severity Noted Date Comments Amoxicillin-Pot Clavulanate 07/24/20 21 Other reaction(s): "bad" diarrhea Codeine Nausea/vomiting 09/25/2015 Meperidine 08/31/2015 Meperidine Nausea/vomiting 09/25/2015 Diphenhydramine 07/24/2021 Other reaction(s): "makes me hyper" Hydrocodone 08/31/2015 Morphine Nausea/vomiting 09/25/2015 Sulfa Antibiotics 09/25/2015 hives Hydrocodone-Acetaminophen Nausea/vomiting 09/25 documented as of this encounter (statuses as of 01/30/2022) Medications Medication Sig Dispensed Refills Start Date [...] 0 01/20/2018 Active Blood Glucose Monitoring Suppl (Coffee Meets BagelUCH ULTRA 2) w/Device KIT USE TO TEST BLOOD SUGAR TWICE DAILY. 0 01/20/2018 Active traMADol (ULTRAM) 50 MG Tablet Take 50 mg by mouth every 6 hours as needed. As needed 0 11/16/2019 Active atorvaSTATin (LIPITOR) 20 MG Tablet 1 daily 0 11/01/2019 Active fluticasone (FLONASE) 50 MCG/ACT nasal spray 1 Equality. As needed 0 12/31/2018 Active valACYclovir (VALTREX) [...] as of this encounter (statuses as of 01/30/2022) Active Problems Problem Noted Date Sjogren's syndrome 04/07/2017 Insomnia Depression Osteoarthritis of both knees Tobacco abuse documented as of this encounter (statuses as of 01/30/2022) Immunizations Name Administration Dates Next Due Zoster [...] Telephone Encounter - Soy Rosa MD - 01/30/2022 1:18 PM EDT I discussed lab results with patient. Will recheck CBC in 1 month. documented in this encounter Plan of Treatment Upcoming Encounters Date Type Specialty Care Team Description 01/26/2023 Office Visit Rheumatology Soy Rosa MD [address] [place] [address] Scheduled Orders Name Type Priority Associated Diagnoses Orde r Schedule CBC WITH WBC DIFFERENTIAL Lab Routine Sjogren's syndrome with keratoconjunctivitis sicca (HCC) Expected: 01/30/2022, Expires: 01/30/2023 Health Maintenance Due Date Last Done Comments COVID-19 Vaccine (1) 1965 Pneumococcal Vaccine: Pediatrics (0 to 5 Years) and At-Risk Patients (6 to 64 Years) (1 of 2 - PPSV23) 01/29/1966 Depression Screening, Annual for Pts 12 [...] 09/04/1997 LUNG CANCER SCREENING - USE SMARTSET [id number] 01/29/2008 Zoster Vaccines (2 of 2) 12/26/2019 [...] Diagnoses Diagnosis Sjogren's syndrome with keratoconjunctivitis sicca (HCC)- Primary documented in this encounter Advance Directives Documents on File Type Date Recorded 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 Maribell Morales [facility] [address] [place] [address] PCP - General Family Medicine 04/06/18 documented as of this encounter
--- OUTSIDE RECORDS SUMMARY | 2023-05-31 12:07 | External Medical Summary | Continuity of Care Document ---
Author Name Unknown Organization [place] [address] DEANARPAN Cunningham Address [address] [place], [place] [id number] Care Team Providers Care Nursing Department Chairperson Name Role Phone Dariela Gupta Primary Care Physician [phone] [id number] Date(s): 12/19/21 - 12/19/21 [place] [address] [facility] [address], [address] [place] [address] [phone] Encounter Diagnosis DM (diabetes mellitus), type 2, uncontrolled(Discharge Diagnosis) - 12/19/21 Acute cystitis(Discharge Diagnosis) - 12/19/21 Epigastric pain(Discharge Diagnosis) - 12/19/21 Dysphagia(Discharge Diagnosis) - 12/19/21 Tobacco abuse(Discharge Diagnosis) - 12/19/21 Type 2 diabetes mellitus with hyperglycemia(Final) - Discharge Disposition: Home or Self Care Attending Physician: INGE Barbosa Jessica A Referring Physician: INGE Barbosa Jessica A Allergies, Adverse Reactions, Alerts Substance Reaction Severity Status morphine nausea Active sulfa drugs hives Active Augmentin "bad" diarrhea Active Vicodin nausea Active Benadryl "makes me hyper" Active Darvocet A500 nausea Active Assessment and Plan Extracted from: Title:Office Visit Note Author:INGE Barbosa Jessica A Date:12/19/21 1.DM (diabetes mellitus), type 2, uncontrolled Type II DM is chronic and uncontrolled. Goal A1c is <7 to 7.5%. Lipid profile, CMP, A1c, TSH and urine microalbumin ordered. I will contact patient once results of labs have been received and we will likely need to intensify her medical regimen. Will likely consider addingaGLP-1 receptoragonist. RTC in 3 to 4 months with myself or Dr. Gupta. 2.Acute cystitis Cystitis has clinically resolvedwithcompletion of cephalexin 500 mg twice daily for 7 days. Follow-up if symptoms recur. 3.Epigastric pain Epigastric pain has resolved with omeprazole 40 mg, 1 tab p.o. daily. She will complete 8-week course of the medication. 4.Dysphagia Chronic dysphagia is uncontrolled. Goal is resolution of symptoms. Continue omeprazole 40 mg, 1 tab p.o. daily. EGD orderedto start and may also need to consider barium swallow. [facility]. 5.Tobacco abuse Smoking cessation encouraged, but patient is not interested in quitting at this time. Immunizations Given and Recorded Vaccine Date Status Refusal Reason zoster vaccine, inactivated 01/31/20 Given zoster vaccine, inactivated 10/31/19 Given influenza virus vaccine, inactivated 08/17/19 Give n tetanus/diphtheria/pertuss, acel (Tdap) 06/14/18 G iven Medications Advair Diskus 500 mcg-50 mcg Start: 04/09/20 10:11:00 EDT, 1 puff, PO, bid, Disp# 3 each, Refills: 3, [id number] Start Date: 04/09/20 Stop Date: 04/04/21 Status: Ordered albuterol CFC free 90 mcg/inh MDI Start: 06/05/21 16:50:00 EDT, 2 puff, inhaled, qid, Disp# 3 each, Refills: 1, PRN: as needed for wheezing, Pharmacy: [facility] Start Date: 06/05/21 Status: Ordered atorvastatin 20 mg oral tablet See Instructions, Disp# 90 tab, Refills: 1, Take 1 tablet by mouth once daily, Pharmacy: [facility] [employer] [facility] Start Date: 12/20/21 Status: Ordered BD needle Ultra-Fine Pen Savana 32G x 4mm Start: 09/24/20 16:57:00 EST, See Instructions, Disp# 100 each, Refills: 6, Use with insulin pen., Pharmacy: [facility] [employer] [facility] Start Date: 09/24/20 Status: Ordered BD PEN NEEDLE/SAVANA [id number] MIS USE TWICE DAILY WITH INSULIN Start Date: 09/24/20 Status: Ordered BD PEN NEEDLE/SAVANA [id number] MIS BD PEN NEEDLE/SAVANA [id number] MIS, See Instructions, Disp# 100 each, Refills: 1, USE WITH INSULIN PEN,Pharmacy [facility] Start Date: 10/28/21 Status: Ordered BD Test Strips 100 ct Start: 02/27/21 15:53:00 EDT, See Instructions, Disp# 100 each, Refills: 3, test daily, Dx : E11.9,Pharmacy: [place] [id number] Start Date: 02/27/21 Status: Ordered citalopram 40 mg oral tablet See Instructions, Disp# 90 tab, Refills: 0, Take 1 tablet by mouth once daily, Pharmacy: [place] [id number] Start Date: 08/20/21 Status: Ordered doxepin 25 mg oral capsule See Instructions, Disp# 90 cap, Refills: 1, Take 1 capsule by mouth once daily, Pharmacy: [place] [id number] Start Date: 12/09/21 Status: Ordered fluticasone 50 mcg/inh nasal spray Start: 06/05/21 16:50:00 EDT, 1 spray, each nostril, Daily, Disp# 16 g, Refills: 2, Pharmacy: [facility] Start Date: 06/05/21 Status: Ordered glucometer Start: 02/27/21 15:52:00 EDT, See Instructions, Disp# 1 each, Refills: 0, test daily, Dx E11.9, Pharmacy: [facility] Start Date: 02/27/21 Status: Ordered lancets Start: 02/27/21 15:54:00 EDT, See Instructions, Disp# 100 each, Refills: 3, test daily, Dx: E11.9, Pharmacy: [facility] Start Date: 02/27/21 Status: Ordered Levemir FlexTouch 100 units/mL subcutaneous solution Start: 07/09/21 16:50:00 EDT, 60 unit =, subQ, qhs, Disp# 15 mL, Refills: 6, Pharmacy: [facility] Start Date: 07/09/21 Status: Ordered lisinopril 5 mg oral tablet Start: 05/31/21 15:51:00 EDT, See Instructions, Disp# 90 tab, Refills: 3, Take 1 tablet by mouth once daily, Pharmacy: [place] [id number] Start Date: 05/31/21 Status: Ordered meloxicam 15 mg oral tablet Start: 05/26/17 11:25:00, 1 tab, PO, Daily Start Date: 05/26/17 Status: Ordered Metamucil Start: 02/27/21 15:26:00 EDT, 3.4 g =, PO, Daily Start Date: 02/27/21 Status: Ordered metFORMIN 500 mg oral tablet Start: 03/22/20 13:33:00 EDT, 2 tab, PO, bid, Disp# 120 tab, Refills: 6, Pharmacy: [place] [address] Start Date: 03/22/20 Status: Ordered metFORMIN HCl 500 MG Oral Tablet metFORMIN HCl 500 MG Oral Tablet, See Instructions, Disp# 120 tab, Refills: 6, Take 2 tablets by mouth twice daily, Pharmacy [facility] Start Date: 04/08/21 Status: Ordered MiraLax oral powder for reconstitution Start: 08/05/21 15:25:00 EST, 17 g =, PO, bid, Disp# 1,020 g, Refills: 1, Pharmacy: [facility] Start Date: 08/05/21 Stop Date: 10/04/21 Status: Ordered omeprazole 40 mg oral delayed release capsule Start: 11/28/21 16:53:00 EST, 1 cap, PO, Daily, Disp# 30 cap, Refills: 1, Pharmacy: [facility] Start Date: 11/28/21 Stop Date: 01/27/22 Status: Ordered ondansetron 4 mg oral tablet, disintegrating Start: 11/28/21 16:53:00 EST, 1 tab, PO, tid, Disp# 15 tab, PRN: as needed for nausea/vomiting, Pharmacy: [facility] Start Date: 11/28/21 Stop Date: 12/03/21 Status: Ordered ONETOUCH ULTRA BLUE TEST STRP Start: 03/09/19 12:34:53 EDT, See Instructions, Disp# 50, Refills: 6, USE TO TEST BLOOD SUGAR TWICEA DAY., Pharmacy: [id number], USE TO TEST BLOOD SUGAR TWICE A DAY. Start Date: 03/09/19 Status: Ordered Ozempic 2 mg/1.5 mL (0.25 mg or 0.5 mg dose) subcutaneous solution Start: 12/20/21 15:27:00 EDT, See Instructions, Disp# 1 each, Refills: 5, 0.25 mg subQ q7 days x 4 weeks, then increase to 0.5 mg subQ q7 days, Pharmacy: [facility] Start Date: 12/20/21 Status: Ordered prazosin 2 mg oral capsule See Instructions, Disp# 90 cap, Refills: 1, TAKE 1 CAPSULE BY MOUTH EVERY DAY AT BEDTIME, Pharmacy:[facility] Start Date: 12/09/21 Status: Ordered Vitamin D3 2000 intl units oral capsule Start: 05/26/17 11:25:00, 1 cap, PO, Daily Start Date: 05/26/17 Status: Ordered Mental Status 12/19/21 Barriers to Learning one year None evide [...] Effective Dates Health Status Clinical Service Informant DM (diabetes mellitus), type 2, uncontrolled Discharge Diagnosis 12/19/21 Non-Specified Epigastric pain Discharge Diagnosis 12/19/21 Non-Specified Acute cystitis Discharge Diagnosis 12/19/21 Non-Specified Tobacco abuse Discharge Diagnosis 12/19/21 Non-Specified Dysphagia Discharge Diagnosis 12/19/21 Non-Specified Procedures Procedure Date Related Diagnosis Body Site Status dennismarks study 1 12/16/21 Complet ed KUB X-ray [...] with ingested markers within the stomach. 3[facility] Impression: ACR BI-RADS CATEGORY 2: [...] hepatic steatosis, reactive associated lymphadenopathy 10[facility] Impression: 1. Nonobstructive bowel gas pattern 2. Moderate constipation 11Impression: 1.8 x 0.5 x1.6 cm pocket of fluid within the subcutaneous tissues of the medial right thigh. This may reflect subcutaneous edema or a tiny residual abscess 12[facility] Right groin 13No acute process [...] 6. Splenomegaly. Results Laboratory List Name Date Microalbumin, Urine, Random (MICROALBUMI N, RD UR) 12/19/21 Comprehensive Metabolic Panel (COMP META B PANEL) 12/19/21 Hemoglobin A1C (HEMOGLOBIN, A1C) 12/19/21 Lipid Profile (LIPOPROTEINS) 12/19/21 Thyroid Stimulating Hormone (TSH) 2 Most recent to oldest [Reference Range]: 1 Estimated Average Glucose 355 mg/dL 1 (12/19/21 2:08 PM) Non-HDL 59 mg/dL 2 (12/19/21 2:08 PM) Estimated GFR, Black Race [>60 mL/min/1. 73 m2] >60 mL/min/1.73 m2 (12/19/21 2:08 PM) Estimated GFR, non-Black Race [>60 mL/mi n/1.73 m2] >60 mL/min/1.73 m2 (12/19/21 2:08 PM) Micro Alb (u) [<2.00 mg/dL] 1.27 mg/dL (12/19/21 2:14 PM) Anion Gap [5-14 mmol/L] 4 mmol/L 3 *LOW* (12/19/21 2:08 PM) Alb [3.5-5.0 g/dL] 3.5 g/dL (12/19/21 2:08 PM) Alk Phos [38-126 unit/L] 163 unit/L *HI* (12/19/21 2:08 PM) ALT [<35 unit/L] 37 unit/L *HI* (12/19/21 2:08 PM) AST [15-46 unit/L] 39 unit/L (12/19/21 2:08 PM) BUN [7-20 mg/dL] 15 mg/dL (12/19/21 2:08 PM) Ca [8.4-10.2 mg/dL] 8.8 mg/dL (12/19/21 2:08 PM) Chol/HDL 2 (12/19/21 2:08 PM) Chol [125-200 mg/dL] 111 mg/dL *LOW* (12/19/21 2:08 PM) Cl- [96-107 mmol/L] 105 mmol/L (12/19/21 2:08 PM) HCO3 [22-30 mmol/L] 27 mmol/L (12/19/21 2:08 PM) Cret [0.60-1.00 mg/dL] 0.46 mg/dL *LOW* (12/19/21 2:08 PM) HbA1c [4.0-6.0 %] 14.0 % 4 *HI* (12/19/21 2:08 PM) Glu [74-106 mg/dL] 262 mg/dL *HI* (12/19/21 2:08 PM) HDL [>35 mg/dL] 52 mg/dL (12/19/21 2:08 PM) K [3.5-5.1 mmol/L] 4.4 mmol/L (12/19/21 2:08 PM) LDL Chol, Calculated [50-130 mg/dL] 43 m g/dL *LOW* (12/19/21 2:08 PM) Micro Alb Ratio [<20 ug/mg cret] 21 ug/m g cret *HI* (12/19/21 2:14 PM) Na [137-145 mmol/L] 136 mmol/L *LOW* (12/19/21 2:08 PM) T Bili [0.2-1.3 mg/dL] 0.6 mg/dL (12/19/21 2:08 PM) Prot [6.3-8.2 g/dL] 7.8 g/dL (12/19/21 2:08 PM) TG [<200 mg/dL] 82 mg/dL (12/19/21 2:08 PM) TSH [0.47-4.68 uIU/mL] 0.93 uIU/mL 5 (12/19/21 2:08 PM) Creat (u) 60.14 mg/dL 6 (12/19/21 2:14 PM) 1Result Comment: Testing Performed By: Dept of Pathology [facility] [address], [facility] [address] [place], [place] [address] 2Result Comment: Testing Performed By: Dept of Pathology [facility], [address] [facility], [place] [address] 3Result Comment: Testing Performed By: Dept of Pathology [facility] Dean[place], [address] [facility], [place] [address] 4Result Comment: CHECKED 5Result Comment: Testing Performed By: Dept of Pathology [facility], [address] [facility], [place] [address] 6Result Comment: Reference Range for Random Urine Not Established. Vital Signs Most recent to oldest [Reference Range]: 1 Patient Weight 110.7 kg (12/19/21 1:38 PM) Temperature [36.5-37.9 DegC] 36.7 DegC (12/19/21 1:38 PM) Heart Rate 74 bpm (12/19/21 1:38 PM) Respiratory Rate 20 br/min (12/19/21 1:38 PM) Blood Pressure 146/78mmHg (12/19/21 1:38 PM) Cuff Pulse Pressure 68 mmHg (12/19/21 1:38 PM) BP Location # 1 Left Arm, Manual (12/19/21 1:38 PM) Social History Social History Type Response Smoking Status Current every day he lorenza smoker Sex Female
--- OUTSIDE RECORDS SUMMARY | 2023-05-31 12:07 | External Medical Summary ---
Author Name Unknown Address Unknown Organization [facility] [address] [place] [address] Laboratory Report Ordering Provider Test Date Status MIRIAM URIARTE 01/22/2022 16:06:27 Final Observation Date Value Abnormality Reference (Units ) Status WBC, Total 01/22/2022 16:06:27 5.86 4.00-10.8 0 (K/uL) Final RBC 01/22/2022 16:06:27 4.76 3.85-5.15 (M/uL) Final Hemoglobin 01/22/2022 16:06:27 15.1 12.0-15.3 (g/dL) Final HCT 01/22/2022 16:06:27 43.5 36.0-45.2 (%) Final MCV 01/22/2022 16:06:27 91.4 81.5-97.5 (fL) Final MCH 01/22/2022 16:06:27 31.7 27.0-34.0 (pg) Final MCHC 01/22/2022 16:06:27 34.7 32.0-36.0 (g/dL) Final RDW 01/22/2022 16:06:27 12.8 11.5-15.5 (%) Final Platelets 01/22/2022 16:06:27 132 Below low normal 140 -400 (K/uL) Final MPV 01/22/2022 16:06:27 10.1 6.6-11.1 ( fL) Final [facility] Location [facility] [address] [place] [address]
--- OUTSIDE RECORDS SUMMARY | 2023-05-31 12:07 | External Medical Summary | Summary of Care ---
Author Name Unknown Organization [place] [address] Care Team Providers Care Whale Fisherman Name Role Phone Dariela Gupta MD Primary Care Provider [phone] Reason for Visit * Reason Comments Rheum Follow Up follow up Encounter Details Date Type Department Care Team Description 01/22/2022 Office Visit Rheumatology [facility] [place] [address] [facility] [place] [address] Soy Rosa MD [address] [facility] [place] [address] Sjogren's syndrome with keratoconjunctivitis sicca (HCC)*; Encounter for therapeutic drug monitoring Allergies Active Allergy Reactions Severity Noted Date Comments Amoxicillin-Pot Clavulanate 07/24/20 21 Other reaction(s): "bad" diarrhea Codeine Nausea/vomiting 09/25/2015 Meperidine 08/31/2015 Meperidine Nausea/vomiting 09/25/2015 Diphenhydramine 07/24/2021 Other reaction(s): "makes me hyper" Hydrocodone 08/31/2015 Morphine Nausea/vomiting 09/25/2015 Sulfa Antibiotics 09/25/2015 hives Hydrocodone-Acetaminophen Nausea/vomiting 09/25 documented as of this encounter (statuses as of 01/22/2022) Medications Medication Sig Dispensed Refills Start Date [...] SUGAR TWICE A DAY. 0 01/20/2018 Active [employer] W[employer]CH ULTRA BLUE STRP USE TO TEST BLOOD SUGAR TWICE A DAY. 0 01/20/2018 Active Blood Glucose Monitoring Suppl ([employer] ULTRA 2) w/Device KIT USE TO TEST BLOOD SUGAR TWICE DAILY. 0 01/20/2018 Active traMADol (ULTRAM) 50 MG Tablet Take 50 mg by mouth every 6 hours as needed. As needed 0 11/16/2019 Active atorvaSTATin (LIPITOR) 20 MG Tablet 1 daily 0 11/01/2019 Active fluticasone (FLONASE) 50 MCG/ACT nasal spray 1 Bernie. As needed 0 12/31/2018 Active valACYclovir (VALTREX) [...] Oral Tablet Take 1 Tablet by mouth daily. 30 Tablet 2 08/26/2021 Active Omeprazole 40 MG Oral Capsule Delayed Release (PriLOSEC) TAKE 1 CAPSULE BY MOUTH ONCE DAILY FOR 30 DAYS 0 01/04/2022 Active Ozempic (0.25 or 0.5 MG/DOSE) 2 MG/1.5ML Solution Pen-injector 0 01/18/2022 Act dwaine documented as of this encounter (statuses as of 01/22/2022) Active Problems Problem Noted Date Sjogren's syndrome 04/07/2017 Insomnia Depression Osteoarthritis of both knees Tobacco abuse documented as of this encounter (statuses as of 01/22/2022) Immunizations Name Administration Dates Next Due Zoster [...] on file documented as of this encounter Last Filed Vital Signs Vital Sign Reading Time Taken Comments Blood Pressure 128/76 01/22/2022 3:19 PM EDT Pulse - - Temperature 36.5 C (97.7 F) 01/22/2022 3:19 PM ED T Respiratory Rate - - Oxygen Saturation - - Inhaled Oxygen Concentration - - Weight 112.3 kg (247 lb 9.6 oz) 01/22/2022 3:19 PM EDT Height - - Body Mass Index 38.21 09/25/2015 3:54 PM EST documented in this encounter Progress Notes * Soy Rosa MD - 01/22/2022 3:25 PM EDT Subjective: Patient seen today for further follow up evaluation of Sjogren's. Since the last visit she reports that the her dryness is about the dsame. Her last exam was about 2-3 yrs ago. It is scanned in from 2019. She needs to get back in with the doctor plans on doing so shortly. She does not have any teeth and has upper dentures. She does not use any ulvy-goy-pdauxtq dry products for her mouth. She doeshave restasis for her eyes. No significant joint complaints at this time. She has not gotten vaccinated, she is not sure about getting the COVID vaccines. She wonders if she had COVID when all this was starting because she was pretty sick around that time. Did review some outside lab work that she has through her PCP office. The available Care everywhere. Noted her A1c was 14. Musculoskeletal ROS: . Abnormal: joint pain . Pain scale (0-10): 0 Other ROS: . Constitutional: normal . Head normal . Eyes: dryness . Ears, nose, throat, mouth: dry mouth . Cardiovascular: normal . Respiratory: normal . Gastrointestinal: normal . Genitourinary: normal All other ROS reviewed and negative Social History: Social History Tobacco Use Smoking status: Current Every Day Smoker Packs/day: 1.00 Years: 30.00 Pack years: 30.00 Types: Cigarettes Smokeless tobacco: Never Used Substance Use Topics Alcohol use: No Vaping/E-Cigarette Use Vaping/E-Cigarette Substances Vaping/E-Cigarette Devices Current Outpatient Medications Medication Sig Dispense Refill albuterol (VENTOLIN HFA) 108 (90 BASE) MCG/ACT inhaler Inhale 2 Puffs by mouth every 6 hours asneeded. traZODone (DESYREL) 50 MG Tablet Take 50 mg by mouth at bedtime. doxepin (SINEQUAN) 25 MG Capsule Take 25 mg by mouth at bedtime. 1 tab at bedtime 0 BuPROPion HCl ER, SR, (WELLBUTRIN SR) 200 MG TB12 Take 200 mg by mouth daily. In the morning. 0 citalopram (CELEXA) 40 MG Tablet Take 40 mg by mouth every evening. 1 daily 0 ONETOUCH DELICA LANCETS 33G MISC USE TO TEST BLOOD SUGAR TWICE A DAY. 0 ONETOUCH ULTRA BLUE STRP USE TO TEST BLOOD SUGAR TWICE A DAY. 0 Blood Glucose Monitoring Suppl ([employer] Warranty[employer]OUCH ULTRA 2) w/Device KIT USE TO TEST BLOOD SUGAR TWICE DAILY. 0 atorvaSTATin (LIPITOR) 20 MG Tablet 1 daily fluticasone (FLONASE) 50 MCG/ACT nasal spray 1 Bernie. As needed valACYclovir (VALTREX) 1000 MG Tablet As needed insulin Detemir (LEVEMIR) 100 UNIT/ML injection Pt reported taking 60 units lisinopril (PRINIVIL) 5 MG Tablet 1 daily BD PEN NEEDLE SHERRY U/F 32G X 4 MM prazosin (MINIPRESS) 2 MG Capsule Take 2 mg by mouth daily. Loratadine 10 MG Oral Capsule Take 10 mg by mouth. metFORMIN HCl 500 MG Oral Tablet (Glucophage) Aspirin 81 MG Oral Tablet Delayed Release Take 81 mg by mouth daily. Restasis 0.05 % Ophthalmic Emulsion (cycloSPORINE) Instill 1 Drop into both eyes every 12 hours. 16.5 mL 3 Meloxicam 15 MG Oral Tablet Take 1 Tablet by mouth daily. 30 Tablet 2 Omeprazole 40 MG Oral Capsule Delayed Release (PriLOSEC) TAKE 1 CAPSULE BY MOUTH ONCE DAILY FOR30 DAYS Ozempic (0.25 or 0.5 MG/DOSE) 2 MG/1.5ML Solution Pen-injector traMADol (ULTRAM) 50 MG Tablet Take 50 mg by mouth every 6 hours as needed. As needed (Patient not taking: Reported on 01/22/2022 ) No current facility-administered medications for this visit. Physical Exam: BP 128/76 | Temp 36.5 C (97.7 F) (Infrared ) | Wt 112.3 kg (247 lb 9.6 oz) | BMI 38.21 kg/m |BSA 2.31 m General: alert, healthy, no distress and well nourished HENT: normocephalic, external ears normal, no mucosal erythema, no mucosal edema, no oral ulcers, dry oral mucosa noted Eye Exam: PERRL, EOMI, conjunctiva are pink and non-injected, sclera clear Neck: supple, no adenopathy, thyroid normal size, non-tender, without nodularity Lymph: no palpable lymphadenopathy Heart: regular rate & rhythm and no gallops Lungs: clear to auscultation , no rales, wheezes or rhonchi Abdomen: abdomen soft, non-tender, obese and normal bowel sounds Musculoskeletal Exam: . Synovitis: None . Tenderness: None Assessment: M35.01 Sjogren's syndrome with keratoconjunctivitis sicca (HCC) (primary encounter diagnosis) Z51.81 Encounter for therapeutic drug monitoring Overall is pretty stable Sjogren's. Needs to get back in with her eye doctor. Continue Restasis. Discussed ulwy-gtv-msfrrxd products for dry mouth. Spent time discussing COVID vaccination and strongly recommend she gets these completed. Plan: 1. Get blood work ordered 2. Continue Restasis for eyes 3. Needs to get set up with eye doctor for repeat exam 4. Return to clinic 1 year 5. Spent time discussing the COVID vaccines and strongly recommend she gets them done Soy Rosa MD Department of Rheumatology documented in this encounter Nursing Notes * Dariela Montes De Oca LPN - 01/22/2022 3:19 PM EDT Chief Complaint Patient presents with Rheum Follow Up follow up documented in this encounter Plan of Treatment Upcoming Encounters Date Type Specialty Care Team Description 01/22/2022 Laboratory [facility] [address] [facility] [address] Sjogren's syndrome with keratoconjunctivitis sicca (HCC); Encounter for therapeutic drug monitoring 01/26/2023 Office Visit Rheumatology Soy Rosa MD [address] [place] [address], [place] [address] Pending Results Name Type Priority Associated Diagnoses Date /Time SARS-COV-2 ANTIBODY Lab Routine Sjogren's syndrome with keratoconjunctivitis sicca (HCC) Encounter for therapeutic drug monitoring 01/22/2022 4:06 PM EDT Scheduled Orders Name Type Priority Associated Diagnoses Orde r Schedule SARS-COV-2 ANTIBODY Lab Routine Sjogren's syndrome with keratoconjunctivitis sicca (HCC) Encounter for therapeutic drug monitoring Expected: 01/22/2022, Expires: 01/22/2023 Health Maintenance Due Date Last Done Comments [...] 09/04/1997 LUNG CANCER SCREENING - USE SMARTSET 54050 01/29/2008 Zoster Vaccines (2 of 2) 12/26/2019 10/31/2019 DIABETES SCREEN EVERY 3 YRS-AGE 45 AND ABOVE 05/21/2020 05/21/2017, 10/15/2015, 09/22/2000, Additional history exists Influenza Vaccine (FLU shot) (Season Ended) 2022 GARDASIL-HPV IMMUNIZATION SERIES Aged Out No longer eligible based on patient's age to complete this topic MENINGOCOCCAL (MENACTRA/MENVEO) Aged Out No longer eligible based on patient's age to complete this topic documented as of this encounter Implants Not on filedocumented as of this encounter Visit Diagnoses Diagnosis Sjogren's syndrome with keratoconjunctivitis sicca (HCC)- Primary Encounter for therapeutic drug monitoring Sjogren's syndrome with keratoconjunctivitis sicca (HCC) Encounter for therapeutic drug monitoring documented in this encounter Advance Directives Documents on File Type Date Recorded 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
--- OUTSIDE RECORDS SUMMARY | 2023-05-31 12:07 | External Medical Summary | Continuity of Care Document ---
Author Name Unknown Organization [place] [address] [facility] Address [address] [place] [phone] Care Team Providers Care Economic Analysis Director Name Role Phone Dariela Gupta Primary Care Physician [phone] Encounter [facility] [id number] Date(s): 12/09/21 - 12/09/21 [place] [address] [facility] [address] [address] [phone] Encounter Diagnosis Chronic constipation(Discharge Diagnosis) - 12/09/21 Discharge Disposition: Home or Self Care Attending Physician: JIMY Rendon Janet Griffith Referring Physician: JIMY Rendon Janet Griffith Allergies, Adverse Reactions, Alerts Substance Reaction Severity Status morphine nausea Active sulfa drugs hives Active Augmentin "bad" diarrhea Active Vicodin nausea Active Benadryl "makes me hyper" Active Darvocet A500 nausea Active Assessment and Plan Extracted from: Title:Office Visit Note Author:JIMY Rendon Janet Griffith Date:12/09/21 1.Chronic constipation The patient is a xrwyrpos99-wrrx-gmi femalethat presents today for follow-up with a complaint of chronic constipationwith fecal incontinence that has been worse over the last year. 1. Chronic constipation:Patient has had chronic constipation dating back to her teenage years. She does have a history of bladderprolapse with a bladder sling. Goal will be to optimize her chronic constipation. Will obtain KUB sits marker imagingfor further evaluation 2. Fecal incontinence:Have asked the patient to continue Metamucil 2 tablespoons daily.Significantly improved2 weeks 3. Colorectal cancer surveillance:Patient had multiple findings noted on her colonoscopyas outlined in HPI. She is due for repeat colonoscopy in 3 years (05/2024). 4. GI office visit follow-up in 2 weeks, sooner if needed. She was encouraged to contact the office with any questions or concerns Ordered: XR Abdomen 1 View Sitzmark Day 0 XR Abdomen 1 View Sitzmark Day 5 Immunizations Given and Recorded Vaccine Date Status Refusal Reason zoster vaccine, inactivated 01/31/20 Given zoster vaccine, inactivated 10/31/19 Given influenza virus vaccine, inactivated 08/17/19 Give n tetanus/diphtheria/pertuss, acel (Tdap) 06/14/18 G iven Medications Advair Diskus 500 mcg-50 mcg Start: 04/09/20 10:11:00 EDT, 1 puff, PO, bid, Disp# 3 each, Refills: 3, Pharmacy: [facility] Start Date: 04/09/20 Stop Date: 04/04/21 Status: Ordered albuterol CFC free 90 mcg/inh MDI Start: 06/05/21 16:50:00 EDT, 2 puff, inhaled, qid, Disp# 3 each, Refills: 1, PRN: as needed for wheezing, Pharmacy: [facility] Start Date: 06/05/21 Status: Ordered atorvastatin 20 mg oral tablet Start: 05/24/21 16:51:00 EDT, See Instructions, Disp# 90 tab, Refills: 1, Take 1 tablet by mouth once daily, Pharmacy: [facility] Start Date: 05/24/21 Status: Ordered BD needle Ultra-Fine Pen Savana 32G x 4mm Start: 09/24/20 16:57:00 EST, See Instructions, Disp# 100 each, Refills: 6, Use with insulin pen., Pharmacy: [facility] Start Date: 09/24/20 Status: Ordered BD PEN NEEDLE/SAVANA [id number] MIS USE TWICE DAILY WITH INSULIN Start Date: 09/24/20 Status: Ordered BD PEN NEEDLE/SAVANA [id number] MIS BD PEN NEEDLE/SAVANA [id number] MIS, See Instructions, Disp# 100 each, Refills: 1, USE WITH INSULIN PEN,Pharmacy [facility] Start Date: 10/28/21 Status: Ordered BD Test Strips 100 ct Start: 02/27/21 15:53:00 EDT, See Instructions, Disp# 100 each, Refills: 3, test daily, Dx : E11.9,Pharmacy: [facility] Start Date: 02/27/21 Status: Ordered cephalexin 500 mg oral capsule Start: 11/28/21 16:51:00 EST, 1 cap, PO, q12h, Disp# 14 cap, Pharmacy: [facility] Start Date: 11/28/21 Stop Date: 12/05/21 Status: Ordered citalopram 40 mg oral tablet See Instructions, Disp# 90 tab, Refills: 0, Take 1 tablet by mouth once daily, Pharmacy: [place] [address] Start Date: 08/20/21 Status: Ordered doxepin 25 mg oral capsule See Instructions, Disp# 90 cap, Refills: 1, Take 1 capsule by mouth once daily, Pharmacy: [place] [address] Start Date: 12/09/21 Status: Ordered fluticasone 50 mcg/inh nasal spray Start: 06/05/21 16:50:00 EDT, 1 spray, each nostril, Daily, Disp# 16 g, Refills: 2, Pharmacy: [place] [address] Start Date: 06/05/21 Status: Ordered glucometer Start: 02/27/21 15:52:00 EDT, See Instructions, Disp# 1 each, Refills: 0, test daily, Dx E11.9, Pharmacy: [place] [address] Start Date: 02/27/21 Status: Ordered lancets Start: 02/27/21 15:54:00 EDT, See Instructions, Disp# 100 each, Refills: 3, test daily, Dx: E11.9, Pharmacy: [place] [address] Start Date: 02/27/21 Status: Ordered Levemir FlexTouch 100 units/mL subcutaneous solution Start: 07/09/21 16:50:00 EDT, 60 unit =, subQ, qhs, Disp# 15 mL, Refills: 6, Pharmacy: [place] [address] Start Date: 07/09/21 Status: Ordered lisinopril 5 mg oral tablet Start: 05/31/21 15:51:00 EDT, See Instructions, Disp# 90 tab, Refills: 3, Take 1 tablet by mouth once daily, Pharmacy: [place] [address] Start Date: 05/31/21 Status: Ordered meloxicam 15 mg oral tablet Start: 05/26/17 11:25:00, 1 tab, PO, Daily Start Date: 05/26/17 Status: Ordered Metamucil Start: 02/27/21 15:26:00 EDT, 3.4 g =, PO, Daily Start Date: 02/27/21 Status: Ordered metFORMIN 500 mg oral tablet Start: 03/22/20 13:33:00 EDT, 2 tab, PO, bid, Disp# 120 tab, Refills: 6, Pharmacy: [place] [address] Start Date: 03/22/20 Status: Ordered metFORMIN HCl 500 MG Oral Tablet metFORMIN HCl 500 MG Oral Tablet, See Instructions, Disp# 120 tab, Refills: 6, Take 2 tablets by mouth twice daily, Pharmacy [facility] Start Date: 04/08/21 Status: Ordered MiraLax oral powder for reconstitution Start: 08/05/21 15:25:00 EST, 17 g =, PO, bid, Disp# 1,020 g, Refills: 1, Pharmacy: [facility] Start Date: 08/05/21 Stop Date: 10/04/21 Status: Ordered omeprazole 40 mg oral delayed release capsule Start: 11/28/21 16:53:00 EST, 1 cap, PO, Daily, Disp# 30 cap, Refills: 1, Pharmacy: [facility] Start Date: 11/28/21 Stop Date: 01/27/22 Status: Ordered ondansetron 4 mg oral tablet, disintegrating Start: 11/28/21 16:53:00 EST, 1 tab, PO, tid, Disp# 15 tab, PRN: as needed for nausea/vomiting, Pharmacy: [facility] Start Date: 11/28/21 Stop Date: 12/03/21 Status: Ordered ONETOUCH ULTRA BLUE TEST STRP Start: 03/09/19 12:34:53 EDT, See Instructions, Disp# 50, Refills: 6, USE TO TEST BLOOD SUGAR TWICEA DAY., Pharmacy: [address], USE TO TEST BLOOD SUGAR TWICE A DAY. Start Date: 03/09/19 Status: Ordered prazosin 2 mg oral capsule See Instructions, Disp# 90 cap, Refills: 1, TAKE 1 CAPSULE BY MOUTH EVERY DAY AT BEDTIME, Pharmacy:[facility] Start Date: 12/09/21 Status: Ordered Vitamin D3 2000 intl units oral capsule Start: 05/26/17 11:25:00, 1 cap, PO, Daily Start Date: 05/26/17 Status: Ordered Mental Status 12/09/21 Barriers to Learning one year None evide nt Mandatory Health Literacy Documentation Yes Health Literacy Communication Barriers N ever Primary Language Fijian Problem List Condition Effective Dates Status Health [...] Clinical Service Informant Chronic constipation Discharge Diagnosis 12/09/21 Procedures Procedure Date Related Diagnosis Body Site [...] 10/18/[address] of chest [address] [place] [address] Impression: ACR BI-RADS CATEGORY 2: BENIGN 1. [...] w/ hepatic steatosis, reactive associated lymphadenopathy 8[facility] Impression: 1. Nonobstructive bowel gas pattern 2. Moderate constipation 9Impression: 1.8 x 0.5 x1.6 cm pocket of fluid within the subcutaneous tissues of the medial right thigh. This may reflect subcutaneous edema or a tiny residual abscess 10[facility] Right groin 11No acute process identified. Ill-defined [...] to oldest [Reference Range]: 1 Patient Weight 111.5 kg (12/09/21 3:44 PM) Heart Rate 73 bpm (12/09/21 3:44 PM) Respiratory Rate 16 br/min (12/09/21 3:44 PM) Blood Pressure 128/76mmHg (12/09/21 3:44 PM) Cuff Pulse Pressure 52 mmHg (12/09/21 3:44 PM) BP Location # 1 Left Arm, Manual (12/09/21 3:44 PM) Social History Social History Type Response Smoking Status Current every day he lorenza smoker Sex Female
--- OUTSIDE RECORDS SUMMARY | 2023-05-31 12:07 | External Medical Summary | Continuity of Care Document ---
Author Name Unknown Organization [place] [address] [facility] Address [address] [place], [place] [id number] Care Team Providers Care Brush Head Maker Name Role Phone Dariela Gupta Primary Care Physician [phone] Encounter [facility] [id number] Date(s): 10/07/21 - 10/07/21 [place] [address] [facility] [address] [address] [phone] Encounter Diagnosis Chronic constipation(Discharge Diagnosis) - 10/07/21 Fecal incontinence(Discharge Diagnosis) - 10/07/21 Discharge Disposition: Home or Self Care Attending Physician: JIMY Rendon Janet Griffith Referring Physician: JIMY Rendon Janet Griffith Allergies, Adverse Reactions, Alerts Substance Reaction Severity Status morphine nausea Active sulfa drugs hives Active Augmentin "bad" diarrhea Active Vicodin nausea Active Benadryl "makes me hyper" Active Darvocet A500 nausea Active Assessment and Plan Extracted from: Title:Office Visit Note Author:JIMY Rendon Janet Griffith Date:10/07/21 1.Chronic constipation The patient is a qbhlxhud90-nbzl-zad femalethat presents today for follow-up with a complaint of chronic constipationwith fecal incontinence that has been worse over the last year. 1. Chronic constipation:Patient has had chronic constipation dating back to her teenage years. She does have a history of bladderprolapse with a bladder sling. Goal will be to optimize her chronic constipation. I have asked her to add MiraLAX 1capful twice daily and titrate as needed. 2. Fecal incontinence:Have asked the patient to continue Metamucil 2 tablespoons daily.Significantly improved/ 3. Colorectal cancer surveillance:Patient had multiple findings noted on her colonoscopyas outlined in HPI. She is due for repeat colonoscopy in 3 years (05/2024). 4. GI office visit follow-up in 2 months, sooner if needed. She was encouraged to contact the office with any questions or concerns 2.Fecal incontinence See above Immunizations Given and Recorded Vaccine Date Status Refusal Reason zoster vaccine, inactivated 01/31/20 Given zoster vaccine, inactivated 10/31/19 Given influenza virus vaccine, inactivated 08/17/19 Give n tetanus/diphtheria/pertuss, acel (Tdap) 06/14/18 G iven Medications Advair Diskus 500 mcg-50 mcg Start: 04/09/20 10:11:00 EDT, 1 puff, PO, bid, Disp# 3 each, Refills: 3, Pharmacy: [facility] Start Date: 04/09/20 Stop Date: 04/04/21 Status: Ordered albuterol CFC free 90 mcg/inh MDI Start: 06/05/21 16:50:00 EDT, 2 puff, inhaled, qid, Disp# 3 each, Refills: 1, PRN: as needed for wheezing, Pharmacy: [facility] Start Date: 06/05/21 Status: Ordered atorvastatin 20 mg oral tablet Start: 05/24/21 16:51:00 EDT, See Instructions, Disp# 90 tab, Refills: 1, Take 1 tablet by mouth once daily, Pharmacy: [facility] Start Date: 05/24/21 Status: Ordered BD needle Ultra-Fine Pen Savana 32G x 4mm Start: 09/24/20 16:57:00 EST, See Instructions, Disp# 100 each, Refills: 6, Use with insulin pen., Pharmacy: [facility] Start Date: 09/24/20 Status: Ordered BD PEN NEEDLE/SAVANA [id number] MIS USE TWICE DAILY WITH INSULIN Start Date: 09/24/20 Status: Ordered BD Test Strips 100 ct Start: 02/27/21 15:53:00 EDT, See Instructions, Disp# 100 each, Refills: 3, test daily, Dx : E11.9,Pharmacy: [facility] Start Date: 02/27/21 Status: Ordered citalopram 40 mg oral tablet See Instructions, Disp# 90 tab, Refills: 0, Take 1 tablet by mouth once daily, Pharmacy: [facility] Start Date: 08/20/21 Status: Ordered doxepin 25 mg oral capsule Start: 05/24/21 16:51:00 EDT, See Instructions, Disp# 90 cap, Refills: 1, Take 1 capsule by mouth once daily, Pharmacy: [facility] Start Date: 05/24/21 Status: Ordered fluticasone 50 mcg/inh nasal spray Start: 06/05/21 16:50:00 EDT, 1 spray, each nostril, Daily, Disp# 16 g, Refills: 2, Pharmacy: [facility] Start Date: 06/05/21 Status: Ordered glucometer Start: 02/27/21 15:52:00 EDT, See Instructions, Disp# 1 each, Refills: 0, test daily, Dx E11.9, Pharmacy: [facility] Start Date: 02/27/21 Status: Ordered lancets Start: 02/27/21 15:54:00 EDT, See Instructions, Disp# 100 each, Refills: 3, test daily, Dx: E11.9, Pharmacy: [facility] Start Date: 02/27/21 Status: Ordered Levemir FlexTouch 100 units/mL subcutaneous solution Start: 07/09/21 16:50:00 EDT, 60 unit =, subQ, qhs, Disp# 15 mL, Refills: 6, Pharmacy: [facility] Start Date: 07/09/21 Status: Ordered lisinopril 5 mg oral tablet Start: 05/31/21 15:51:00 EDT, See Instructions, Disp# 90 tab, Refills: 3, Take 1 tablet by mouth once daily, Pharmacy: [facility] Start Date: 05/31/21 Status: Ordered meloxicam 15 mg oral tablet Start: 05/26/17 11:25:00, 1 tab, PO, Daily Start Date: 05/26/17 Status: Ordered Metamucil Start: 02/27/21 15:26:00 EDT, 3.4 g =, PO, Daily Start Date: 02/27/21 Status: Ordered metFORMIN 500 mg oral tablet Start: 03/22/20 13:33:00 EDT, 2 tab, PO, bid, Disp# 120 tab, Refills: 6, Pharmacy: [facility] Start Date: 03/22/20 Status: Ordered metFORMIN HCl 500 MG Oral Tablet metFORMIN HCl 500 MG Oral Tablet, See Instructions, Disp# 120 tab, Refills: 6, Take 2 tablets by mouth twice daily, Pharmacy [facility] Start Date: 04/08/21 Status: Ordered MiraLax oral powder for reconstitution Start: 08/05/21 15:25:00 EST, 17 g =, PO, bid, Disp# 1,020 g, Refills: 1, Pharmacy: [facility] Start Date: 08/05/21 Stop Date: 10/04/21 Status: Ordered ONETOUCH ULTRA BLUE TEST STRP Start: 03/09/19 12:34:53 EDT, See Instructions, Disp# 50, Refills: 6, USE TO TEST BLOOD SUGAR TWICEA DAY., Pharmacy: [facility] [address], USE TO TEST BLOOD SUGAR TWICE A DAY. Start Date: 03/09/19 Status: Ordered prazosin 2 mg oral capsule See Instructions, Disp# 90 cap, Refills: 0, TAKE 1 CAPSULE BY MOUTH EVERY DAY AT BEDTIME, Pharmacy:[facility] Start Date: 08/26/21 Status: Ordered Vitamin D3 2000 intl units oral capsule Start: 05/26/17 11:25:00, 1 cap, PO, Daily Start Date: 05/26/17 Status: Ordered Mental Status 10/07/21 Barriers to Learning one year None evide nt Mandatory Health Literacy Documentation Yes Health Literacy Communication Barriers N ever Primary Language Pashto Problem List Condition Effective Dates Status Health Status Inform ant COPD with acute exacerbation(Confirmed) Active COPD exacerbation(Confirmed) Active Acute upper respiratory infection(Confirmed) Active Anxiety and depression(Confirmed) Active Bilateral pneumonia(Confirmed) Active Chest pain(Confirmed) Active Chronic constipation(Confirmed) Active COPD (chronic obstructive pu lmonary disease)(Confirmed) Active Dysphagia(Confirmed) Active Grief reaction(Confirmed) Active Hidradenitis(Confirmed) Active Borderline hyperglycemia(Confirmed) Active Borderline hyperlipidemia(Confirmed) Active Fecal incontinence(Confirmed) Active Leukocytosis(Confirmed) Active Paresthesia(Confirmed) Active Breast cancer screening by mammogram(Confirmed) Active Acute seasonal allergic rhinitis(Confirmed) Active Self-mutilation(Confirmed) Active Right shoulder pain(Confirmed) Active Sjogren's disease(Confirmed) Active Snoring(Confirmed) Active TP (tinea pedis)(Confirmed) Active Tobacco user(Confirmed) Active Type 2 diabetes, HbA1C goal < 7%(Confirmed) Active Urinary incontinence(Confirmed) Active Diagnosis Diagnosis Type Effective Dates Health Status Clinical Service Informant Fecal incontinence Discharge Diagnosis 10/07/21 Chronic constipation Discharge Diagnosis 10/07/21 Procedures Procedure Date Related Diagnosis Body Site Status Colonoscopy 1, 2, 3 06/21/21 Compl eted CXR - Chest X-ray 4 03/11/21 Compl eted X-ray 5 11/16/[address] of abdomen and pelvis wit h contrast 6 06/22/19 Completed KUB X-ray 7 02/14/19 Completed Ultrasound right groin 8 05/09/18 Completed Incision and drainage of abscess 9 05/07/18 Completed Chest x-ray 10 10/18/[address] of chest 11 Completed 1Pathology results: Colon, hepatic flexure: tubular adenoma. B) [...] part. Dysplasia and carcinoma are NOT seen. 2Repeat in 3 years. 3One 4mm polyp at the hepatic flexure, removed [...] anal verge are normal on retroflextion view. 41. Normal lung volumes. No radiographic evidence of COPD on current exam. 2. Possible trace left pleural effusion with possible small ateleactasis at the left base. 5Right shoulder 3 views; right humerus 2 views, right clavicle 2 views IMPRESSION: 1. There is no radiographic evidence of right shoulder fracture or dislocation. 2. There is no radiographic evidence of right clavicular fracture. 3. There is no radiographic evidence of right humeral fracture. 6mild wall thickening of sigmoid colon & upper rectum, mild proctocolitis, likely infectious; cirrhosis w/ hepatic steatosis, reactive associated lymphadenopathy 7[facility] Impression: 1. Nonobstructive bowel gas pattern 2. Moderate constipation 8Impression: 1.8 x 0.5 x1.6 cm pocket of fluid within the subcutaneous tissues of the medial right thigh. This may reflect subcutaneous edema or a tiny residual abscess 9[facility] Right groin 10No acute process identified. Ill-defined hazy subsegmental left basilar opacities suggest atelectasis. 11[facility] ANGIO 1. No acute aortic pathology or [...] to oldest [Reference Range]: 1 Patient Weight 115.8 kg (10/07/21 2:58 PM) Heart Rate 76 bpm (10/07/21 2:58 PM) Respiratory Rate 18 br/min (10/07/21 2:58 PM) Blood Pressure 128/78mmHg (10/07/21 2:58 PM) Cuff Pulse Pressure 50 mmHg (10/07/21 2:58 PM) BP Location # 1 Left Arm, Manual (10/07/21 2:58 PM) Social History Social History Type Response Smoking Status Current every day ght smoker Sex Female
--- OUTSIDE RECORDS SUMMARY | 2023-05-31 12:07 | External Medical Summary | Summary of Care ---
Author Name Unknown Organization [place] [address] Care Team Providers Care Telephone Order Clerk Room Service Name Role Phone Dariela Gupta MD Primary Care Provider [phone] Reason for Visit * Reason Comments Rheum Follow Up follow up Encounter Details Date Type Department Care Team Description 01/22/2022 Office Visit Rheumatology [facility] [place] [address] [place] [address] Kalani Pineda MD [address] [place] [address] Sjogren's syndrome with keratoconjunctivitis sicca (HCC)*; Encounter for therapeutic drug monitoring Allergies Active Allergy Reactions Severity Noted Date Comments Amoxicillin-Pot Clavulanate 07/24/20 21 Other reaction(s): "bad" diarrhea Codeine Nausea/vomiting 09/25/2015 Meperidine 08/31/2015 Meperidine Nausea/vomiting 09/25/2015 Diphenhydramine 07/24/2021 Other reaction(s): "makes me hyper" Hydrocodone 08/31/2015 Morphine Nausea/vomiting 09/25/2015 Sulfa Antibiotics 09/25/2015 hives Hydrocodone-Acetaminophen Nausea/vomiting 09/25 documented as of this encounter (statuses as of 01/23/2022) Medications Medication Sig Dispensed Refills Start Date [...] SUGAR TWICE A DAY. 0 01/20/2018 Active RuangguruTOUCH ULTRA BLUE STRP USE TO TEST BLOOD SUGAR TWICE A DAY. 0 01/20/2018 Active Blood Glucose Monitoring Suppl (HEXIO ULTRA 2) w/Device KIT USE TO TEST BLOOD SUGAR TWICE DAILY. 0 01/20/2018 Active traMADol (ULTRAM) 50 MG Tablet Take 50 mg by mouth every 6 hours as needed. As needed 0 11/16/2019 Active atorvaSTATin (LIPITOR) 20 MG Tablet 1 daily 0 11/01/2019 Active fluticasone (FLONASE) 50 MCG/ACT nasal spray 1 [place]. As needed 0 12/31/2018 Active valACYclovir (VALTREX) [...] as of this encounter (statuses as of 01/23/2022) Active Problems Problem Noted Date Sjogren's syndrome 04/07/2017 Insomnia Depression Osteoarthritis of both knees Tobacco abuse documented as of this encounter (statuses as of 01/23/2022) Immunizations Name Administration Dates Next Due Zoster [...] documented in this encounter Progress Notes * Kalani Pineda MD - 01/22/2022 3:25 PM EDT Subjective: [...] upper dentures. She does not use any bxpf-cmv-rryrziw dry products for her mouth. She doeshave [...] A DAY. 0 Blood Glucose Monitoring Suppl (RuangguruTOUCH ULTRA 2) w/Device KIT USE TO TEST BLOOD SUGAR TWICE DAILY. 0 atorvaSTATin (LIPITOR) 20 MG Tablet 1 daily fluticasone (FLONASE) 50 MCG/ACT nasal spray 1 [place]. As needed valACYclovir (VALTREX) 1000 MG Tablet [...] with her eye doctor. Continue Restasis. Discussed xoml-khf-qkaqedt products for dry mouth. Spent time discussing COVID vaccination and strongly recommend she gets these completed. Plan: 1. Get blood work ordered 2. Continue Restasis for eyes 3. Needs to get set up with eye doctor for repeat exam 4. Return to clinic 1 year 5. Spent time discussing the COVID vaccines and strongly recommend she gets them done Kalani Pineda MD Department of Rheumatology documented in this encounter Nursing Notes * Dariela Montes De Oca LPN - 01/22/2022 3:19 PM EDT Chief Complaint Patient presents with Rheum Follow Up follow up documented in this encounter Miscellaneous Notes * Addendum Note - Kalani Pineda MD - 01/23/2022 7:56 AM EDT Addended by: KALANI PINEDA on: 01/23/2022 07:56 AM Modules accepted: Orders documented in this encounter Plan of Treatment Upcoming Encounters Date Type Specialty Care Team Description 01/26/2023 Office Visit Rheumatology Kalani Pineda MD [address] [place] [address] Scheduled Orders Name Type Priority Associated Diagnoses Orde r Schedule COMPREHENSIVE METABOLIC PANEL Lab Routine Sjogren's syndrome with keratoconjunctivitis sicca (HCC) Encounter for therapeutic drug monitoring Expected: 01/23/2022, Expires: 01/23/2023 Health Maintenance Due Date Last Done Comments [...] 09/04/1997 LUNG CANCER SCREENING - USE SMARTSET 24637 01/29/2008 Zoster Vaccines (2 of 2) 12/26/2019 [...] Not on filedocumented as of this encounter Results * SARS-COV-2 ANTIBODY (01/22/2022 4:06 PM EDT) SARS-CoV-2 Antibody Negative Comment: No antibodies to SARS-CoV-2 detected. Negative results may occur in patients that are immunosuppressed or in specimens collected </=14 days after symptom onset. Additionally, antibodies may decline overtime and become negative. If acute or early COVID-19 infection is highly suspected, molecular testing for acute infection is recommended. Results from antibody testing should not be used to diagnose or exclude COVID-19 infection or to inform infection status/immunity. Test results reported to [facility]. 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
--- OUTSIDE RECORDS SUMMARY | 2023-05-31 12:07 | External Medical Summary | Summary of Care ---
Author Name Unknown Organization [place] [address] Care Team Providers Care Portable Track Crew Chief Name Role Phone Dariela Gupta MD Primary Care Provider [phone] Reason for Visit * Reason Comments Rheum Follow Up follow up Encounter Details Date Type Department Care Team Description 07/24/2021 Office Visit Rheumatology [facility] [address] [facility] [place] [address] Kalani Pineda MD [facility] [place] [address] [phone] Sjogren's syndrome with keratoconjunctivitis sicca (HCC)*; Primary osteoarthritis of both knees Allergies Active Allergy Reactions Severity Noted Date Comments Amoxicillin-Pot Clavulanate 07/24/20 21 Other reaction(s): "bad" diarrhea Codeine Nausea/vomiting 09/25/2015 Meperidine 08/31/2015 Meperidine Nausea/vomiting 09/25/2015 Diphenhydramine 07/24/2021 Other reaction(s): "makes me hyper" Hydrocodone 08/31/2015 Morphine Nausea/vomiting 09/25/2015 Sulfa Antibiotics 09/25/2015 hives Hydrocodone-Acetaminophen Nausea/vomiting 09/25 documented as of this encounter (statuses as of 07/29/2021) Medications Medication Sig Dispensed Refills Start Date [...] 0 01/20/2018 Active Blood Glucose Monitoring Suppl (DocuSign ULTRA 2) w/Device KIT USE TO TEST BLOOD SUGAR TWICE DAILY. 0 01/20/2018 Active traMADol (ULTRAM) 50 MG Tablet Take 50 mg by mouth every 6 hours as needed. As needed 0 11/16/2019 Active atorvaSTATin (LIPITOR) 20 MG Tablet 1 daily 0 11/01/2019 Active fluticasone (FLONASE) 50 MCG/ACT nasal spray 1 [place]. As needed 0 12/31/2018 Active valACYclovir (VALTREX) [...] mg by mouth daily. 0 07/29/2019 Active Meloxicam 15 MG Oral Tablet Take 1 Tab by mouth daily. 30 Tab 1 06/17/2021 Active Loratadine 10 MG Oral Capsule Take 10 mg by mouth. 0 Active metFORMIN HCl 500 MG Oral Tablet (Glucophage) 0 06/08/2021 Activ e Aspirin 81 MG Oral Tablet Delayed Release Take 81 mg by mouth daily. 0 Active Restasis 0.05 % Ophthalmic Emulsion (cycloSPORINE)Indications :Sjogren's syndrome with keratoconjunctivitis sicca (HCC) Instill 1 Drop into both eyes every 12 hours. 16.5 mL 3 07/29/2021 Active MetFORMIN (GLUCOPHAGE) 1000 MG Tablet 1 twice daily 0 03/20/2018 1 Discontinu ed(Medicat ion List Clean Up) cyclosporine (RESTASIS) 0.05 % ophthalmic emulsion 1 Drop every 12 hours. 0 1 Discontinu ed(Refill) Restasis 0.05 % Ophthalmic Emulsion (cycloSPORINE) Instill 1 Drop into both eyes every 12 hours. 60 mL 11 07/24/2021 1 Discontinu ed(Refill) documented as of this encounter (statuses as of 07/29/2021) Active Problems Problem Noted Date Sjogren's syndrome 04/07/2017 Insomnia Depression Osteoarthritis of both knees Tobacco abuse documented as of this encounter (statuses as of 07/29/2021) Immunizations Name Administration Dates Next Due Zoster Vaccine Recombinant (Shingrix) 10/31/2019 documented as of this encounter Social History Tobacco Use Types Packs/Day Years Used Date Current Every Day Smoker Cigarettes 1 30 Smokeless Tobacco: Never Used Alcohol Use Drinks/Week oz/Week Comments No Sex Assigned at Date Recorded Not on file Job Start Date Occupation Industry Not on file Not on file Not on file documented as of this encounter Last Filed Vital Signs Vital Sign Reading Time Taken Comments Blood Pressure 134/86 07/24/2021 2:29 PM EDT Pulse - - Temperature 36.5 C (97.7 F) 07/24/2021 2:29 PM ED T Respiratory Rate - - Oxygen Saturation - - Inhaled Oxygen Concentration - - Weight 114.7 kg (252 lb 14.4 oz) 07/24/2021 2:29 PM EDT Height - - Body Mass Index 39.03 09/25/2015 3:54 PM EST documented in this encounter Progress Notes * Kalani Pineda MD - 07/24/2021 2:41 PM EDT Subjective: Patient seen today for further follow up evaluation of osteoarthritis, Sjogren's. Since the last visit she reports that she ran out of restasis and has not got it refilled. 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 she reports her insurance does not cover eye care. Her dry mouth is gettingworse. She has dentures for the top but not bottom. Does have a bump on her lower gum that needs addressing. She has not seen a dentist in a while now. She not really using any dryness products either. She continues to deal with pain of both knees. She is on Mobic daily. She has noted if she stops Mobic arthritis pains worsen. She has not tried Voltaren gel for the knees. No injections. Musculoskeletal ROS: . Abnormal: joint pain . Pain scale (0-10): 3 Other ROS: . Constitutional: normal . Head normal . Eyes: dryness . Ears, nose, throat, mouth: dry mouth . Cardiovascular: normal . Respiratory: normal . Gastrointestinal: normal . Genitourinary: normal . Skin: normal All other ROS reviewed and negative [...] Puffs by mouth every 6 hours asneeded. doxepin (SINEQUAN) 25 MG Capsule Take 25 [...] A DAY. 0 Blood Glucose Monitoring Suppl (ONETOUCH ULTRA 2) w/Device KIT USE TO TEST BLOOD SUGAR TWICE DAILY. 0 atorvaSTATin (LIPITOR) 20 MG Tablet 1 daily fluticasone (FLONASE) 50 MCG/ACT nasal spray 1 [place]. As needed cyclosporine (RESTASIS) 0.05 % ophthalmic emulsion 1 Drop every 12 hours. insulin Detemir (LEVEMIR) 100 UNIT/ML injection Pt reported taking 60 units lisinopril (PRINIVIL) 5 MG Tablet 1 daily BD PEN NEEDLE SHERRY U/F 32G X 4 MM prazosin (MINIPRESS) 2 MG Capsule Take 2 mg by mouth daily. Meloxicam 15 MG Oral Tablet Take 1 Tab by mouth daily. 30 Tab 1 metFORMIN HCl 500 MG Oral Tablet (Glucophage) Aspirin 81 MG Oral Tablet Delayed Release Take 81 mg by mouth daily. traZODone (DESYREL) 50 MG Tablet Take 50 mg by mouth at bedtime. traMADol (ULTRAM) 50 MG Tablet Take 50 mg by mouth every 6 hours as needed. As needed valACYclovir (VALTREX) 1000 MG Tablet As needed Loratadine 10 MG Oral Capsule Take 10 mg by mouth. No current facility-administered medications for this visit. Physical Exam: BP 134/86 | Temp 36.5 C (97.7 F) (Tympanic) | Wt 114.7 kg (252 lb 14.4 oz) | BMI 39.03 kg/m |BSA 2.34 m General: alert, healthy, no distress and well nourished HENT: normocephalic, external ears normal, no mucosal erythema, no mucosal edema, no oral ulcers, dentures noted in the top the mouth, no dentures in the bottom. Mild dryness noted Eye Exam: PERRL, EOMI, conjunctiva are pink and non-injected, sclera clear Neck: supple, no adenopathy, thyroid normal size, non-tender, without nodularity Lymph: no palpable lymphadenopathy Heart: regular rate & rhythm and no gallops Lungs: clear to auscultation , no rales, wheezes or rhonchi Abdomen: abdomen soft, non-tender and normal bowel sounds Musculoskeletal Exam: Crepitus on exam of both knees without effusions No synovitis of the hands Assessment: M35.01 Sjogren's syndrome with keratoconjunctivitis sicca (HCC) (primary encounter diagnosis) M17.0 Primary osteoarthritis of both knees Discussed several issues. For her knee arthritis would continue with Mobic and discussed Voltaren gel. Could consider injections in the future. As for her Sjogren's, discussed using [id number] dryness products and refilled her restasis. Also would stop at [facility] to see if she qualifies furtherfree dental clinic for evaluation and potential lower dentures as well. Plan: 1. Discussed [id number] products for dryness 2. Refilled her restasis 3. Discussed trial Voltaren gel along with Mobic 4. Lab work ordered 5. With stop by CV IM to see if she qualifies for the dental clinic 6. To consider injections to the knees 7. Return to clinic in 6 months or sooner for knee injections Kalani Pineda MD Department of Rheumatology documented in this encounter Nursing Notes * Dariela Montes De Oca LPN - 07/24/2021 2:28 PM EDT Chief Complaint Patient presents with Rheum Follow Up follow up documented in this encounter Miscellaneous Notes * Addendum Note - Kalani Pineda MD - 07/29/2021 9:39 AM EDT Addended by: KALANI PINEDA on: 07/29/2021 09:39 AM Modules accepted: Orders documented in this encounter Plan of Treatment Upcoming Encounters Date Type Specialty Care Team Description 01/22/2022 Office Visit Rheumatology Kalani Pineda MD [address] [place] [address] [phone] Scheduled Orders Name Type Priority Associated Diagnoses Orde r Schedule ERYTHROCYTE SEDIMENTATION RATE (ESR) Lab Routine Sjogren's syndrome with keratoconjunctivitis sicca (HCC) Expected: 07/24/2021, Expires: 07/24/2022 CBC WITH WBC DIFFERENTIAL Lab Routine Sjogren's syndrome with keratoconjunctivitis sicca (HCC) Ordered: 07/24/2021 COMPREHENSIVE METABOLIC PANEL Lab Routine Sjogren's syndrome with keratoconjunctivitis sicca (HCC) Expected: 07/24/2021 (Approximate), Expires: 10/24/2021 Health Maintenance Due Date Last Done Comments Pneumococcal Vaccine: Pediatrics (0 to 5 Years) and At-Risk Patients (6 to 64 Years) (1 of 2 - PPSV23) 01/29/1966 COVID-19 Vaccine (1) 1970 DTaP,Tdap,and Td Vaccines (1 - Tdap) 1977 PAP SMEAR-EVERY 3 YRS,AGES 21-65 1979 BREAST CANCER SCREENING DISCUSSION YEARLY AGES 40-75 11/02/2001 11/02/2000, 08/20/1999 LIPID SCREEN EVERY 5 YRS-WOMEN AGE 45-75 09/03/2004 09/03/1999, 10/15/1998, 09/04/1997 LUNG CANCER SCREENING - USE SMARTSET 02629 2013 *DEPRESSION SCREENING,ANNUAL FOR PTS 12 AND OVER 10/06/2015 *COLORECTAL CANCER SCREENING (COLONOSCOPY 10 YEARS; SIGMOIDOSCOPY 5 YEARS; COLOGUARD 3 YEARS; FOBT 1 YEAR),AGES 50-75 11/01/2017 *BASIC METABOLIC PANEL (BMP) FOR HTN YEARLY 12/01/2019 Zoster Vaccines (2 of 2) 12/26/2019 10/31/2019 DIABETES SCREEN EVERY 3 YRS-AGE 45 AND ABOVE 05/21/2020 05/21/2017, 10/15/2015, 09/22/2000, Additional history exists Influenza Vaccine (FLU shot) (#1) 2021 MENINGOCOCCAL (MENACTRA/MENVEO) Aged Out No longer eligible based on patient's age to complete this topic documented as of this encounter Implants Not on filedocumented as of this encounter Visit Diagnoses Diagnosis Sjogren's syndrome with keratoconjunctivitis sicca (HCC)- Primary Primary osteoarthritis of both knees Primary localized osteoarthrosis, lower leg documented in this encounter Advance Directives Documents on File Type Date Recorded Patient Event Specialist Expl anation Advanced Directive Advanced Directive Advanced Directive Advanced Directive Advanced Directive Advanced Directive Advanced Directive
--- OUTSIDE RECORDS SUMMARY | 2023-05-31 12:07 | External Medical Summary | Summary of Care ---
Author Name Unknown Organization [place] [address] Care Team Providers Care Miner Helper Name Role Phone Dariela Gupta MD Primary Care Provider [phone] Reason for Visit * Reason Onset Date Comments Medication Refill 08/26/2021 Encounter Details Date Type Department Care Team Description 08/26/2021 Refill Rheumatology [place] [address] [facility] [place] [address] Kalani Pineda MD [facility] [place] [address] Allergies Active Allergy Reactions Severity Noted Date Comments Amoxicillin-Pot Clavulanate 07/24/20 21 Other reaction(s): "bad" diarrhea Codeine Nausea/vomiting 09/25/2015 Meperidine 08/31/2015 Meperidine Nausea/vomiting 09/25/2015 Diphenhydramine 07/24/2021 Other reaction(s): "makes me hyper" Hydrocodone 08/31/2015 Morphine Nausea/vomiting 09/25/2015 Sulfa Antibiotics 09/25/2015 hives Hydrocodone-Acetaminophen Nausea/vomiting 09/25 documented as of this encounter (statuses as of 08/26/2021) Medications Medication Sig Dispensed Refills Start Date [...] 0 8 Active Blood Glucose Monitoring Suppl (iDentiMobTOUCH ULTRA 2) w/Device KIT USE TO TEST BLOOD SUGAR TWICE DAILY. 0 8 Active traMADol (ULTRAM) 50 MG Tablet Take 50 mg by mouth every 6 hours as needed. As needed 0 0 Active atorvaSTATin (LIPITOR) 20 MG Tablet 1 daily 0 0 Active fluticasone (FLONASE) 50 MCG/ACT nasal spray 1 [place]. As needed 0 9 Active valACYclovir (VALTREX) [...] every 12 hours. 16.5 mL 3 1 Active Meloxicam 15 MG Oral Tablet Take 1 Tablet by mouth daily. 30 Tablet 2 1 Active Meloxicam 15 MG Oral Tablet Take 1 Tab by mouth daily. 30 Tab 1 1 08/26/20 21 Discontinu ed(Refill) documented as of this encounter (statuses as of 08/26/2021) Active Problems Problem Noted Date Sjogren's syndrome 04/07/2017 Insomnia Depression Osteoarthritis of both knees Tobacco abuse documented as of this encounter (statuses as of 08/26/2021) Immunizations Name Administration Dates Next Due Zoster [...] encounter Miscellaneous Notes * Telephone Encounter - Colette Jerry RPh - 08/26/2021 4:05 PM EST Signed Prescriptions: Disp Refills Meloxicam 15 MG Oral Tablet 30 Tab*2 Sig: Take 1 Tablet by mouth daily.Authorizing Provider: KALANI PINEDA User: COLETTE JERRY * Telephone Encounter - Colette Jerry RPh - 08/26/2021 4:03 PM EST Rheumatology: Refill Request(s) Medication was refilled Labs in CE from 05/23/21 Colette Jerry RPh [facility] Clinical Pharmacist Rheumatology Department 08/26/2021,4:03 PM * Telephone Encounter - Augusta Kulkarni CPhT - 08/26/2021 3:50 PM EST Received call from PATIENT requesting the following medication(s) be refilled. Confirmed patient has been seen within the last year. Pt is out of Rx. Pending Prescriptions: Disp Refills Meloxicam 15 MG Oral Tablet 30 Tab*1 Sig: Take 1 Tablet by mouth daily. Last Office/Telemedicine Visit: 07/24/2021 Next Office Visit: 01/22/2022 Scheduled Provider(s): Kalani Pineda MD If no future appointments scheduled, and last appointment is greater than a year ago, please schedule patient for a follow-up appointment Last date the medication was ordered: 06/17/2021 Pharmacy: Is this request for a controlled substance?No Urine Drug Screen:No results found for this or any previous visit. Patient Phone Numbers Labs: Lab Results Component Value Date/Time CREAT 0.7 05/21/2017 01:48 PM POTASSIUM 4.5 05/21/2017 01:48 PM TSH 2.09 06/05/1997 11:19 AM LDLCALC 101 09/03/1999 12:18 PM ALT 26 05/21/2017 01:48 PM HGBA1C 6.7 (H) 12/15/2000 02:57 PM documented in this encounter Plan of Treatment Upcoming Encounters Date Type Specialty Care Team Description 01/22/2022 Office Visit Rheumatology Kalani Pineda MD [address] [place] [address] Health Maintenance Due Date Last Done Comments [...] 09/04/1997 LUNG CANCER SCREENING - USE SMARTSET 71618 2013 *DEPRESSION SCREENING,ANNUAL FOR PTS 12 AND [...] Documents on File Type Date Recorded Patient Workers Compensation Claims Analyst Expl anation Advanced Directive Advanced Directive Advanced Directive Advanced Directive Advanced Directive Advanced Directive Advanced Directive Care Teams Miner Helper Relationship Specialty Start Date End Date Dariela Gupta MD [address] [place] [id number] PCP - General Family Medicine 04/06/18 documented as of this encounter
--- OUTSIDE RECORDS SUMMARY | 2023-05-31 12:07 | External Medical Summary | Continuity of Care Document ---
Author Name Unknown Organization [address] Address [address] [place] [id number] Care Team Providers Care Sales Promotion Coordinator Name Role Phone Dariela Gupta Primary Care Physician [phone] [id number] Date(s): 08/05/21 - 08/05/[address] [facility] [address] [address] [phone] Encounter Diagnosis Body mass index [BMI] 38.0-38.9, adult(Discharge Diagnosis) - 08/05/21 Chronic constipation(Discharge Diagnosis) - 08/05/21 Fecal incontinence(Discharge Diagnosis) - 08/05/21 Discharge Disposition: Home or Self Care Attending Physician: JIMY Rendon Janet Griffith Allergies, Adverse Reactions, Alerts Substance Reaction Severity Status morphine nausea Active sulfa drugs hives Active Augmentin "bad" diarrhea Active Vicodin nausea Active Benadryl "makes me hyper" Active Darvocet A500 nausea Active Assessment and Plan Extracted from: Title:Office Visit Note Author:JIMY Rendon Janet Griffith Date:08/05/21 1.Chronic constipation The patient is a [id number] femalethat presents today for follow- up with a complaint of chronic constipationwith fecal [...] the patient to continue Metamucil 2 tablespoons daily. May need to discontinue thisifconstipationdoes not improve. May also need [place] as well as anorectal manometry. This was reviewed with the patient today. 3. Colorectal cancer surveillance:Patient had multiple findings noted on her colonoscopyas outlined in HPI. She is due for repeat colonoscopy in 3 years (05/2024). 4. GI office visit follow-up in 2 months, sooner if needed Ordered: polyethylene glycol 3350, Start: 08/05/21 15:25:00 EST, 17 g =, PO, bid, Disp# 1,020 g, Refills: 1, Pharmacy: [facility] [address] 2.Fecal incontinence see above Ordered: polyethylene glycol 3350, Start: 08/05/21 15:25:00 EST, 17 g =, PO, bid, Disp# 1,020 g, Refills: 1, Pharmacy: [facility] 2[address] Immunizations Given and Recorded Vaccine Date Status Refusal Reason zoster vaccine, inactivated 01/31/20 Given zoster vaccine, inactivated 10/31/19 Given influenza virus vaccine, inactivated 08/17/19 Give n tetanus/diphtheria/pertuss, acel (Tdap) 06/14/18 G iven Medications Advair Diskus 500 mcg-50 mcg Start: 04/09/20 10:11:00 EDT, 1 puff, PO, bid, Disp# 3 each, Refills: 3, Pharmacy: [facility] Start Date: 04/09/20 Stop Date: 04/04/21 Status: Ordered albuterol CFC free 90 mcg/inh MDI Start: 06/05/21 16:50:00 EDT, 2 puff, inhaled, qid, Disp# 3 each, Refills: 1, PRN: as needed for wheezing, Pharmacy: [facility] 2[address] Start Date: 06/05/21 Status: Ordered atorvastatin 20 mg oral tablet Start: 05/24/21 16:51:00 EDT, See Instructions, Disp# 90 tab, Refills: 1, Take 1 tablet by mouth once daily, Pharmacy: [facility] Start Date: 05/24/21 Status: Ordered BD needle Ultra-Fine Pen [place] 32G x 4mm Start: 09/24/20 16:57:00 EST, See Instructions, Disp# 100 each, Refills: 6, Use with insulin pen., Pharmacy: [facility] 2[address] Start Date: 09/24/20 Status: Ordered BD PEN NEEDLE/SAVANA [id number] MIS USE TWICE DAILY WITH INSULIN Start Date: 09/24/20 Status: Ordered BD Test Strips 100 ct Start: 02/27/21 15:53:00 EDT, See Instructions, Disp# 100 each, Refills: 3, test daily, Dx : E11.9,Pharmacy: [facility] [address] Start Date: 02/27/21 Status: Ordered citalopram 40 mg oral tablet Start: 05/31/21 15:51:00 EDT, See Instructions, Disp# 90 tab, Refills: 3, Take 1 tablet by mouth once daily, Pharmacy: [facility] [address] Start Date: 05/31/21 Status: Ordered doxepin 25 mg oral capsule Start: 05/24/21 16:51:00 EDT, See Instructions, Disp# 90 cap, Refills: 1, Take 1 capsule by mouth once daily, Pharmacy: [facility] [address] Start Date: 05/24/21 Status: Ordered fluticasone 50 mcg/inh nasal spray Start: 06/05/21 16:50:00 EDT, 1 spray, each nostril, Daily, Disp# 16 g, Refills: 2, Pharmacy: [facility] [address] Start Date: 06/05/21 Status: Ordered glucometer Start: 02/27/21 15:52:00 EDT, See Instructions, Disp# 1 each, Refills: 0, test daily, Dx E11.9, Pharmacy: [facility] [address] Start Date: 02/27/21 Status: Ordered lancets Start: 02/27/21 15:54:00 EDT, See Instructions, Disp# 100 each, Refills: 3, test daily, Dx: E11.9, Pharmacy: [facility] [address] Start Date: 02/27/21 Status: Ordered Levemir FlexTouch 100 units/mL subcutaneous solution Start: 07/09/21 16:50:00 EDT, 60 unit =, subQ, qhs, Disp# 15 mL, Refills: 6, Pharmacy: [facility] [address] Start Date: 07/09/21 Status: Ordered lisinopril 5 mg oral tablet Start: 05/31/21 15:51:00 EDT, See Instructions, Disp# 90 tab, Refills: 3, Take 1 tablet by mouth once daily, Pharmacy: [facility] Start Date: 05/31/21 Status: Ordered meloxicam 15 mg oral tablet Start: 05/26/17 11:25:00, 1 tab, PO, Daily Start Date: 05/26/17 Status: Ordered Metamucil Start: 02/27/21 15:26:00 EDT, 3.4 g =, PO, Daily Start Date: 02/27/21 Status: Ordered metFORMIN 500 mg oral tablet Start: 03/22/20 13:33:00 EDT, 2 tab, PO, bid, Disp# 120 tab, Refills: 6, Pharmacy: [id number] Start Date: 03/22/20 Status: Ordered metFORMIN HCl 500 MG Oral Tablet metFORMIN HCl 500 MG Oral Tablet, See Instructions, Disp# 120 tab, Refills: 6, Take 2 tablets by mouth twice daily, Pharmacy [facility] Start Date: 04/08/21 Status: Ordered MiraLax oral powder for reconstitution Start: 08/05/21 15:25:00 EST, 17 g =, PO, bid, Disp# 1,020 g, Refills: 1, Pharmacy: [facility] Start Date: 08/05/21 Stop Date: 10/04/21 Status: Ordered ONETOUCH ULTRA BLUE TEST STRP Start: 03/09/19 12:34:53 EDT, See Instructions, Disp# 50, Refills: 6, USE TO TEST BLOOD SUGAR TWICEA DAY., Pharmacy: [address], USE TO TEST BLOOD SUGAR TWICE A DAY. Start Date: 03/09/19 Status: Ordered prazosin 2 mg oral capsule See Instructions, Disp# 90 cap, Refills: 1, TAKE 1 CAPSULE BY MOUTH EVERY DAY AT BEDTIME, Pharmacy:[facility] Start Date: 02/14/21 Status: Ordered Vitamin D3 2000 intl units oral capsule Start: 05/26/17 11:25:00, 1 cap, PO, Daily Start Date: 05/26/17 Status: Ordered Mental Status 08/05/21 Barriers to Learning one year None evide nt Mandatory Health Literacy Documentation Yes Communication Barrier Present No Health Literacy Communication Barriers N ever Primary Language [place]agu[place] Problem List Condition Effective Dates Status Health [...] Clinical Service Informant Body mass index [BMI] 38.0-38.9, adult Discharge Diagnosis 08/05/21 Non-Specified Chronic constipation Discharge Diagnosis 08/05/21 Fecal incontinence Discharge Diagnosis 08/05/21 Procedures Procedure Date Related Diagnosis Body Site [...] w/ hepatic steatosis, reactive associated lymphadenopathy 7[facility] Impression: 1. Nonobstructive bowel gas pattern 2. Moderate constipation 8Impression: 1.8 x 0.5 x1.6 cm pocket of fluid within the subcutaneous tissues of the medial right thigh. This may reflect subcutaneous edema or a tiny residual abscess 9[facility] Right groin 10No acute process identified. Ill-defined [...] recent to oldest [Reference Range]: 1 Height 172.72 cm (08/05/21 3:05 PM) Patient Weight 113.5 kg (08/05/21 3:05 PM) Body Mass Index 38.05 kg/m2 (08/05/21 3:05 PM) Heart Rate 64 bpm (08/05/21 3:05 PM) Respiratory Rate 16 br/min (08/05/21 3:05 PM) Blood Pressure 148/86mmHg (08/05/21 3:05 PM) Cuff Pulse Pressure 62 mmHg (08/05/21 3:05 PM) BP Location # 1 Left Arm (08/05/21 3:05 PM) Social History Social History Type Response Smoking Status Current every day he lorenza smoker Sex Female
--- OUTSIDE RECORDS SUMMARY | 2023-05-31 12:07 | External Medical Summary | Summary of Care ---
Author Name Unknown Organization [place] [address] Care Team Providers Care Armed Guard Name Role Phone Dariela Gupta MD Primary Care Provider [phone] Reason for Visit * Reason Comments Outpatient Testing Encounter Details Date Type Department Care Team Description 01/22/2022 Laboratory Laboratory, [facility] [address] [facility] [place] [address] [facility] [address] [facility] [address] Sjogren's syndrome with keratoconjunctivitis sicca (HCC); Encounter for therapeutic drug monitoring Allergies Active [...] every evening. 1 daily 0 03/19/2018 Active [place] GardensTOUCH DELICA LANCETS 33G MISC USE TO TEST BLOOD SUGAR TWICE A DAY. 0 01/20/2018 Active [place] GardensTOUCH ULTRA BLUE STRP USE TO TEST BLOOD SUGAR TWICE A DAY. 0 01/20/2018 Active Blood Glucose Monitoring Suppl (EventComboUCH ULTRA 2) w/Device KIT USE TO TEST BLOOD SUGAR TWICE DAILY. 0 01/20/2018 Active traMADol (ULTRAM) 50 MG Tablet Take 50 mg by mouth every 6 hours as needed. As needed 0 11/16/2019 Active atorvaSTATin (LIPITOR) 20 MG Tablet 1 daily 0 11/01/2019 Active fluticasone (FLONASE) 50 MCG/ACT nasal spray 1 [place]. As needed 0 12/31/2018 Active valACYclovir (VALTREX) [...] on file documented as of this encounter Plan of Treatment Upcoming Encounters Date Type Specialty Care Team Description 01/26/2023 Office Visit Rheumatology Soy Rosa MD [address] [place] [address] Pending Results Name Type Priority Associated Diagnoses Date /Time ERYTHROCYTE SEDIMENTATION RATE (ESR) Lab Routine Sjogren's syndrome with keratoconjunctivitis sicca (HCC) 01/22/2022 4:06 PM EDT SARS-COV-2 ANTIBODY Lab Routine Sjogren's syndrome with keratoconjunctivitis sicca (HCC) Encounter for therapeutic drug monitoring 01/22/2022 4:06 PM EDT Health Maintenance Due Date Last [...] 09/04/1997 LUNG CANCER SCREENING - USE SMARTSET 03633 01/29/2008 Zoster Vaccines (2 of 2) 12/26/2019 [...] Diagnosis Sjogren's syndrome with keratoconjunctivitis sicca (HCC) Encounter for therapeutic drug monitoring documented in this encounter Advance Directives Documents on File Type Date Recorded Patient Joiner Expl anation Advanced Directive Advanced Directive Advanced Directive Advanced Directive Advanced Directive Advanced Directive Advanced Directive Advanced Directive Advanced Directive Care Teams Armed Guard Relationship Specialty Start Date End Date Dariela Gupta MD [address] [place] [id number] PCP - General Family Medicine 04/06/18 documented as of this encounter
--- OUTSIDE RECORDS SUMMARY | 2023-05-31 12:07 | External Medical Summary ---
Author Name Unknown Address Unknown Organization [id number]:[facility] [place] - [address] [place] [address] Laboratory Report Ordering Provider Test Date Status MIRIAM URIARTE 01/22/2022 16:06:20 Final Observation Date Value Abnormality Reference (Units ) Status SARS-CoV-2 (COVID-19) Ab [Presence] in Serum or Plasma by Immunoassay 01/22/2022 16:06:20 Negative Negative Final Performing Location [facility] - [address] [place] [address]
--- OUTSIDE RECORDS SUMMARY | 2023-05-31 12:07 | External Medical Summary ---
Author Name Unknown Address Unknown Organization K01:[facility] [place] [address] [place] [address] Laboratory Report Ordering Provider Test Date Status MIRIAM URIARTE 01/22/2022 16:06:20 Final Observation Date Value Abnormality Reference (Units ) Status BUN 01/22/2022 16:06:20 10 6-20 (mg/dL) Final Creatinine 01/22/2022 16:06:20 0.6 0.5-1.0 (mg/dL) Final Glomerular filtration rate/1.73 sq M.predicted [Volume Rate/Area] in Serum, Plasma or Blood by Creatinine-based formula (CKD-EPI) 01/22/2022 16:06:20 >90 >=60 (mL/min) Final Performing Location LABORATORY C - [address] [place] [address]
--- OUTSIDE RECORDS SUMMARY | 2023-05-31 12:07 | External Medical Summary ---
Author Name Unknown Address Unknown Organization K01:[facility]ATORY [facility] [place] - [address] [place] [address] Laboratory Report Ordering Provider Test Date Status MIRIAM URIARTE 01/22/2022 16:06:28 Final Observation Date Value Abnormality Reference (Units ) Status Erythrocyte sedimentation rate by Photometric method 01/22/2022 16:06:28 53 Above high normal <30 (mm/hour) Final Performing Location [facility]ORY [facility] - [address] [place] [address]
--- OUTSIDE RECORDS SUMMARY | 2023-05-31 12:07 | External Medical Summary | Summary of Care ---
Author Name Unknown Organization [place] [address] Care Team Providers Care Tenter Frame Back Tender Name Role Phone Dariela Gupta MD Primary Care Provider [phone] Reason for Visit * Reason Comments eRx-Medication Refill Encounter Details Date Type Department Care Team Description 01/20/2022 Refill Rheumatology [facility] [place] [address] [place] [place] [address] Kalani Pineda MD [address] [facility] [place] [address] Encounter for long-term (current) use of medications* Allergies Active Allergy Reactions Severity Noted Date [...] 0 8 Active Blood Glucose Monitoring Suppl (PropertygateUCH ULTRA 2) w/Device KIT USE TO TEST BLOOD SUGAR TWICE DAILY. 0 8 Active traMADol (ULTRAM) 50 MG Tablet Take 50 mg by mouth every 6 hours as needed. As needed 0 0 Active atorvaSTATin (LIPITOR) 20 MG Tablet 1 daily 0 0 Active fluticasone (FLONASE) 50 MCG/ACT nasal spray 1 [place]. As needed 0 9 Active valACYclovir (VALTREX) [...] HCl 500 MG Oral Tablet (Glucophage) 0 02 1 Active Aspirin 81 MG Oral Tablet Delayed Release Take 81 mg by mouth daily. 0 Active Restasis 0.05 % Ophthalmic Emulsion (cycloSPORINE)Indication s:Sjogren's syndrome with keratoconjunctivitis sicca (HCC) Instill 1 Drop into both eyes every 12 hours. 16.5 mL 3 1 Active Meloxicam 15 MG Oral Tablet Take 1 tablet by mouth once daily 90 Tablet 1 2 Active Meloxicam 15 MG Oral Tablet Take 1 Tablet by mouth daily. 30 Tablet 2 1 022 Discontinued documented as of this encounter (statuses as [...] encounter Miscellaneous Notes * Telephone Encounter - Kelvin Miramontes RPh - 01/23/2022 10:22 AM EDT Signed Prescriptions: Disp Refills Meloxicam 15 MG Oral Tablet 90 Tab*1 Sig: Take 1 tablet by mouthonce dailyAuthorizing Provider: KALANI PINEDA User: KELVIN MIRAMONTES * Telephone Encounter - Kelvin Miramontes RPh - 01/23/2022 10:16 AM EDT Rheumatology: Refill Request(s) Per review of the refill parameters, Medication was refilled Kelvin Miramontes RPh [facility] Clinical Pharmacist Rheumatology Department 01/23/2022,10:16 AM * Telephone Encounter - Kelvin Miramontes RPh - 01/23/2022 6:37 AM EDT Pt had blood work done yesterday - CMP was missed added on. Thanks, Kelvin Miramontes, PharmD, MS Clinical [facility] [phone] 01/23/2022 6:37 AM * Telephone Encounter - [facility] - 01/20/2022 3:26 PM EDT Pending Prescriptions: Disp Refills Meloxicam 15 MG Oral Tablet 30 Tab*0 Sig: Take 1 tablet by mouth once daily documented in this encounter Plan of Treatment Upcoming Encounters Date Type Specialty Care Team Description 01/26/2023 Office Visit Rheumatology Kalani Pineda MD [address] [place] [address] Health Maintenance Due Date Last Done Comments [...] 09/04/1997 LUNG CANCER SCREENING - USE SMARTSET 08348 01/29/2008 Zoster Vaccines (2 of 2) 12/26/2019 [...] as of this encounter Visit Diagnoses Diagnosis Encounter for long-term (current) use of medications- Primary Encounter for long-term (current) use of other medications documented in this encounter Advance Directives Documents on File Type Date Recorded Patient Project Director Expl anation Advanced Directive Advanced Directive Advanced Directive Advanced Directive Advanced Directive Advanced Directive Advanced Directive Advanced Directive Advanced Directive Care Teams Tenter Frame Back Tender Relationship Specialty Start Date End Date Dariela Gupta MD [address] [place] [id number] PCP - General Family Medicine 04/06/18 documented as of this encounter
--- OUTSIDE RECORDS SUMMARY | 2023-05-31 12:07 | External Medical Summary ---
Author Name Unknown Address Unknown Organization K0G:[facility]ATORY [place] [facility] - [address] [place] [address] Laboratory Report Ordering Provider Test Date Status MIRIAM URIARTE 01/22/2022 16:06:27 Final Observation Date Value Abnormality Reference (Units ) Status SYNC LEUKOCYTES IN BLOOD BY AUTOMATED COUNT 01/22/2022 16:06:27 5.86 4.00-10.80 (K/uL) Final Segs 01/22/2022 16:06:27 54.8 40.0-75.0 (%) Final Lymphs % 01/22/2022 16:06:27 30.9 18.0-42.0 (%) Final Monos 01/22/2022 16:06:27 12.5 Above high normal 1.0-11.0 (%) Final Eosinophils 01/22/2022 16:06:27 1.5 0.0-6.0 (%) Final Basos 01/22/2022 16:06:27 0.3 0.0-2.0 (%) Final Absolute Segs 01/22/2022 16:06:27 3.21 1.80-7.70 (K/uL) Final Lymphs, absolute 01/22/2022 16:06:27 1.81 1.00-4.80 (K/ul) Final Monos, Abs 01/22/2022 16:06:27 0.73 0.00-1.10 (K/uL) Final Eos, Abs 01/22/2022 16:06:27 0.09 0.00-0.70 (K/uL) Final Basos, Abs 01/22/2022 16:06:27 0.02 0.00-0.20 (K/uL) Final Performing Location LAB[facility]ORY [place] [facility] - [address] [place] [address]
--- OUTSIDE RECORDS SUMMARY | 2023-05-31 12:08 | External Medical Summary | Continuity of Care Document ---
Author Name Unknown Organization [facility] [address] [facility] 2 Address [address] [address] Care Team Providers Care Can Capper Name Role Phone Dariela Gupta Primary Care Physician [phone] Encounter [facility] [id number] Date(s): 12/28/20 - 12/28/20 [facility] [address] [facility] [address] [place], [place] [address] [address] Encounter Diagnosis Fecal incontinence(Discharge Diagnosis) - 12/28/20 Discharge Disposition: Home or Self Care Attending Physician: JIMY Rendon Janet Griffith Referring Physician: MD Gupta Amy L Allergies, Adverse Reactions, Alerts Substance Reaction Severity [...] tetanus/diphtheria/pertuss, acel (Tdap) 06/14/ G iven Medications Advair Diskus 500 mcg-50 mcg Start: 04/09/20 10:11:00 EDT, 1 puff, PO, bid, Disp# 3 each, Refills: 3, [id number] Start Date: 04/09/20 Stop Date: 04/04/21 Status: Ordered atorvastatin 20 mg oral tablet See Instructions, Disp# 90 tab, Refills: 3, Take 1 tablet by mouth once daily, Pharmacy: [facility], 172.72, cm, 03/22/20 13:02:00 EDT, Height Start Date: 04/30/20 Status: Ordered BD needle Ultra-Fine Pen Savana 32G x 4mm Start: 09/24/20 16:57:00 EST, See Instructions, Disp# 100 each, Refills: 6, Use with insulin pen., Pharmacy: [facility]229 Start Date: 09/24/20 Status: Ordered BD PEN NEEDLE/SAVANA [id number] MIS USE TWICE DAILY WITH INSULIN Start Date: 09/24/20 Status: Ordered citalopram 40 mg oral tablet Start: 02/15/20 17:05:00 EDT, 40 mg =, PO, Daily, Disp# 90 tab, Refills: 1, Pharmacy: [facility]229 Start Date: 02/15/20 Status: Ordered doxepin 25 mg oral capsule See Instructions, Disp# 90 cap, Refills: 0, Take 1 capsule by mouth once daily, Pharmacy: [facility]229 Start Date: 11/09/20 Status: Ordered Levemir FlexTouch 100 units/mL subcutaneous solution Start: 01/25/20 15:30:00 EDT, 55 unit =, subQ, qhs, Disp# 15 mL, Refills: 6, Pharmacy: [facility]229 Start Date: 01/25/20 Status: Ordered lisinopril 5 mg oral tablet Start: 08/20/20 7:48:00 EST, 1 tab, PO, Daily, Disp# 90 tab, Refills: 1, Pharmacy: [facility] Start Date: 08/20/20 Status: Ordered meloxicam 15 mg oral tablet Start: 05/26/17 11:25:00, 1 tab, PO, Daily Start Date: 05/26/17 Status: Ordered metFORMIN 500 mg oral tablet Start: 03/22/20 13:33:00 EDT, 2 tab, PO, bid, Disp# 120 tab, Refills: 6, Pharmacy: [place] [address] Start Date: 03/22/20 Status: Ordered multivitamin Start: 05/26/17 11:25:00, 1 tab, PO, Daily Start Date: 05/26/17 Status: Ordered ONETOUCH ULTRA BLUE TEST STRP Start: 03/09/19 12:34:53 EDT, See Instructions, Disp# 50, Refills: 6, USE TO TEST BLOOD SUGAR TWICEA DAY., Pharmacy: [facility] [address], USE TO TEST BLOOD SUGAR TWICE A DAY. Start Date: 03/09/19 Status: Ordered prazosin 2 mg oral capsule Start: 08/03/20 14:22:00 EST, 1 cap, PO, qhs, Disp# 90 cap, Refills: 1, Pharmacy: [facility] Start Date: 08/03/20 Status: Ordered ProAir HFA 90 mcg/inh inhalation aerosol Start: 08/12/19 18:06:28 EST, 2 puff, inhaled, qid, Disp# 1 each, Refills: 5, PRN: as needed for wheezing, [facility]: [facility] [address] Start Date: 08/12/19 Status: Ordered Probiotic Formula Start: 12/28/20 13:00:00 EDT, 1 cap, PO, Daily Start Date: 12/28/20 Status: Ordered Vitamin D3 2000 intl units oral capsule Start: 05/26/17 11:25:00, 1 cap, PO, Daily Start Date: 05/26/17 Status: Ordered Wixela Inhub 250 mcg-50 mcg inhalation powder Start: 02/21/20 16:48:00 EDT, 1 inh, inhaled, bid, Disp# 1 each, Refills: 6, Pharmacy: [facility] Start Date: 02/21/20 Status: Ordered Mental Status 12/28/20 Barriers to Learning one year None evide nt Mandatory Health Literacy Documentation Yes Health Literacy Communication Barriers N ever Primary Language Czech Problem List Condition Effective Dates Status Health Status Inform ant COPD with acute exacerbation(Confirmed) Active COPD exacerbation(Confirmed) Active Acute upper respiratory infection(Confirmed) Active Anxiety and depression(Confirmed) Active Chest pain(Confirmed) Active Dysphagia(Confirmed) Active Grief reaction(Confirmed) Active Hidradenitis(Confirmed) Active Borderline hyperglycemia(Confirmed) Active Borderline hyperlipidemia(Confirmed) Active Leukocytosis(Confirmed) Active Paresthesia(Confirmed) Active Breast cancer screening by mammogram(Confirmed) Active Acute seasonal allergic rhinitis(Confirmed) Active Self-mutilation(Confirmed) Active Right shoulder pain(Confirmed) Active Sjogren's disease(Confirmed) Active Snoring(Confirmed) Active Tobacco user(Confirmed) Active Type 2 diabetes, HbA1C goal < 7%(Confirmed) Active Urinary incontinence(Confirmed) Active Diagnosis Diagnosis Type Effective Dates Health Status Clinical Service Informant Fecal incontinence Discharge Diagnosis 12/28/20 Procedures Procedure Date Related Diagnosis Body Site Status X-ray 1 11/16/[address] of abdomen and pelvis wit h contrast 2 06/22/19 Completed KUB X-ray 3 02/14/19 Completed Ultrasound right groin 4 05/09/18 Completed Incision and drainage of abscess 5 05/07/18 Completed Chest x-ray 6 10/18/[address] of chest 7 Completed 1Right shoulder 3 views; right humerus 2 views, right clavicle 2 views IMPRESSION: 1. There is no radiographic evidence of right shoulder fracture or dislocation. 2. There is no radiographic evidence of right clavicular fracture. 3. There is no radiographic evidence of right humeral fracture. 2mild wall thickening of sigmoid colon & upper rectum, mild proctocolitis, likely infectious; cirrhosis w/ hepatic steatosis, reactive associated lymphadenopathy 3[facility] Impression: 1. Nonobstructive bowel gas pattern 2. Moderate constipation 4Impression: 1.8 x 0.5 x1.6 cm pocket of fluid within the subcutaneous tissues of the medial right thigh. This may reflect subcutaneous edema or a tiny residual abscess 5[facility] Right groin 6No acute process identified. Ill-defined hazy subsegmental left basilar opacities suggest atelectasis. 7WITH ANGIO 1. No acute aortic pathology or evidence of pulmonary thromboembolic disease. 2. Mild to moderate bilateral bronchial wall thickening compatible with bronchitis. 3. Subsegmental linear consolidative and patchy ground glass opacities of the lung bases suggest atelectasis. 4. Mild paraseptal emphysematous changes of the upper ling zones. 5. Hepatic steatosis. 6. Splenomegaly. Vital Signs Most recent to oldest [Reference Range]: 1 Heart Rate 76 bpm (12/28/20 1:01 PM) Respiratory Rate 16 br/min (12/28/20 1:01 PM) Blood Pressure 132/80mmHg (12/28/20 1:01 PM) Cuff Pulse Pressure 52 mmHg (12/28/20 1:01 PM) BP Location # 1 Left Arm (12/28/20 1:01 PM) Social History Social History Type Response Smoking Status Current every day he lorenza smoker Sex Female
--- OUTSIDE RECORDS SUMMARY | 2023-05-31 12:08 | External Medical Summary | Continuity of Care Document ---
Author Name Unknown Organization [facility] [address] [address] [address] Care Team Providers Care Labor Relations Or Personnel Negotiator Name Role Phone Dariela Gupta Primary Care Physician [phone] Encounter [facility] [id number] Date(s): 01/09/21 - 01/09/21 [facility] [address] [place] [address] Practice Site [address] [facility], [facility] [address] [place], [place] [address] [phone] Discharge Disposition: Home or Self Care Attending Physician: MD Gupta Amy L Referring Physician: MD Gupta Amy L Allergies, [...] bid, Disp# 3 each, Refills: 3, [facility]: [id number] Start Date: 04/09/20 Stop Date: 04/04/21 Status: Ordered atorvastatin 20 mg oral tablet See Instructions, Disp# 90 tab, Refills: 3, Take 1 tablet by mouth once daily, Pharmacy: [facility], 172.72, cm, 03/22/20 13:02:00 EDT, Height Start Date: 04/30/20 Status: Ordered BD needle Ultra-Fine Pen Savana 32G x 4mm Start: 09/24/20 16:57:00 EST, See Instructions, Disp# 100 each, Refills: 6, Use with insulin pen., Pharmacy: [facility] 2229 Start Date: 09/24/20 Status: Ordered BD PEN NEEDLE/SAVANA [id number] MIS USE TWICE DAILY WITH INSULIN Start Date: 09/24/20 Status: Ordered citalopram 40 mg oral tablet Start: 02/15/20 17:05:00 EDT, 40 mg =, PO, Daily, Disp# 90 tab, Refills: 1, Pharmacy: [facility] 2229 Start Date: 02/15/20 Status: Ordered doxepin 25 mg oral capsule See Instructions, Disp# 90 cap, Refills: 0, Take 1 capsule by mouth once daily, Pharmacy: [facility]229 Start Date: 11/09/20 Status: Ordered Levemir FlexTouch 100 units/mL subcutaneous solution Start: 01/25/20 15:30:00 EDT, 55 unit =, subQ, qhs, Disp# 15 mL, Refills: 6, Pharmacy: [facility]229 Start Date: 01/25/20 Status: Ordered lisinopril 5 mg oral tablet Start: 08/20/20 7:48:00 EST, 1 tab, PO, Daily, Disp# 90 tab, Refills: 1, Pharmacy: [facility] Start Date: 08/20/20 Status: Ordered meloxicam 15 mg oral tablet Start: 05/26/17 11:25:00, 1 tab, PO, Daily Start Date: 05/26/17 Status: Ordered metFORMIN 500 mg oral tablet Start: 03/22/20 13:33:00 EDT, 2 tab, PO, bid, Disp# 120 tab, Refills: 6, Pharmacy: [place] [address] Start Date: 03/22/20 Status: Ordered multivitamin Start: 05/26/17 11:25:00, 1 tab, PO, Daily Start Date: 05/26/17 Status: Ordered ONETOUCH ULTRA BLUE TEST STRP Start: 03/09/19 12:34:53 EDT, See Instructions, Disp# 50, Refills: 6, USE TO TEST BLOOD SUGAR TWICEA DAY., Pharmacy: [facility] [address], USE TO TEST BLOOD SUGAR TWICE A DAY. Start Date: 03/09/19 Status: Ordered prazosin 2 mg oral capsule Start: 08/03/20 14:22:00 EST, 1 cap, PO, qhs, Disp# 90 cap, Refills: 1, Pharmacy: [email or web address] Start Date: 08/03/20 Status: Ordered ProAir HFA 90 mcg/inh inhalation aerosol Start: 08/12/19 18:06:28 EST, 2 puff, inhaled, qid, Disp# 1 each, Refills: 5, PRN: as needed for wheezing, [facility]: [facility] [address] Start Date: 08/12/19 Status: Ordered Probiotic Formula Start: 12/28/20 13:00:00 EDT, 1 cap, PO, Daily Start Date: 12/28/20 Status: Ordered Vitamin D3 2000 intl units oral capsule Start: 05/26/17 11:25:00, 1 cap, PO, Daily Start Date: 05/26/17 Status: Ordered Wixela Inhub 250 mcg-50 mcg inhalation powder Start: 02/21/20 16:48:00 EDT, 1 inh, inhaled, bid, Disp# 1 each, Refills: 6, Pharmacy: [facility] Start Date: 02/21/20 Status: Ordered Problem List Condition Effective Dates Status Health [...] goal < 7%(Confirmed) Active Urinary incontinence(Confirmed) Active Procedures Procedure Date Related Diagnosis Body [...] w/ hepatic steatosis, reactive associated lymphadenopathy 3[facility] Impression: 1. Nonobstructive bowel gas pattern 2. Moderate constipation 4Impression: 1.8 x 0.5 x1.6 cm pocket of fluid within the subcutaneous tissues of the medial right thigh. This may reflect subcutaneous edema or a tiny residual abscess 5[facility] Right groin 6No acute process identified. Ill-defined [...]
--- OUTSIDE RECORDS SUMMARY | 2023-05-31 12:08 | External Medical Summary | Summary of Care ---
Author Name Unknown Organization [place] [address] Care Team Providers Care Electrical Inspector Name Role Phone Dariela Gupta MD Primary Care Provider [phone] Reason for Visit * Reason Comments eRx-Medication Refill Encounter Details Date Type Department Care Team Description 10/27/2020 Refill Rheumatology [facility] iYfan Palumbo [address] [facility] [place] [address] Soy Pineda MD [address] [facility] [place] [address] [phone] Allergies Active Allergy Reactions Severity Noted Date Comments Codeine Nausea/vomiting 09/25/2015 Meperidine 08/31/2015 Meperidine Nausea/vomiting 09/25/2015 Hydrocodone 08/31/2015 Morphine Nausea/vomiting 09/25/2015 Sulfa Antibiotics 09/25/2015 hives Hydrocodone-Acetaminophen Nausea/vomiting 09/25 documented as of this encounter (statuses as of 10/30/2020) Medications Medication Sig Dispensed Refills Start Date End Date Status albuterol (VENTOLIN HFA) 108 (90 BASE) MCG/ACT inhaler Inhale 2 Puffs by mouth every 6 hours as needed. 0 Active traZODone (DESYREL) 50 MG Tablet Take 50 mg by mouth at bedtime. 0 Active doxepin (SINEQUAN) 25 MG Capsule Take 25 mg by mouth at bedtime. 1 tab at bedtime 0 04/01/2017 Active MetFORMIN (GLUCOPHAGE) 1000 MG Tablet 1 twice daily 0 03/20/2018 Active BuPROPion HCl ER, SR, (WELLBUTRIN SR) [...] 0 01/20/2018 Active Blood Glucose Monitoring Suppl (ONETOUCH ULTRA 2) w/Device KIT USE TO TEST BLOOD SUGAR TWICE DAILY. 0 01/20/2018 Active traMADol (ULTRAM) 50 MG Tablet Take 50 mg by mouth every 6 hours as needed. As needed 0 11/16/2019 Active atorvaSTATin (LIPITOR) 20 MG Tablet 1 daily 0 11/01/2019 Active fluticasone (FLONASE) 50 MCG/ACT nasal spray 1 [place]. As needed 0 12/31/2018 Active valACYclovir (VALTREX) 1000 MG Tablet As needed 0 03/09/2019 Active cyclosporine (RESTASIS) 0.05 % ophthalmic emulsion 1 Drop every 12 hours. 0 Active insulin Detemir (LEVEMIR) 100 UNIT/ML injection Start: 09/16/19 14:23:47 EST, See Instructions, Disp# 12 mL, Refills: 6, 12 units SQ in am; 44 UNITS SUBCUTANEOUSLY AT BEDTIme, Pharmacy: [id number] 0 09/16/2019 Active lisinopril (PRINIVIL) 5 MG Tablet 1 daily 0 11/01/2019 Active BD PEN NEEDLE SHERRY U/F 32G X 4 MM 0 11/21/2019 Active prazosin (MINIPRESS) 2 MG Capsule Take 2 mg by mouth daily. 0 07/29/2019 Active Meloxicam 15 MG Oral Tablet Take 1 tablet by mouth once daily 90 Tab 1 10/30/2020 Active Meloxicam 15 MG Tablet Take 1 Tab by mouth daily. 90 Tab 1 01/16/2020 Discontinued documented as of this encounter (statuses as of 10/30/2020) Active Problems Problem Noted Date Sjogren's syndrome 04/07/2017 Insomnia Depression Osteoarthritis of both knees Tobacco abuse documented as of this encounter (statuses as of 10/30/2020) Immunizations Name Administration Dates Next Due Zoster Vaccine Recombinant (Shingrix) 10/31/2019 documented as of this encounter Social History Tobacco Use Types Packs/Day Years Used Date Current Every Day Smoker Cigarettes 1 30 Smokeless Tobacco: Never Used Alcohol Use Drinks/Week oz/Week Comments No Sex Assigned at Date Recorded Not on file documented as of this encounter Miscellaneous Notes * Telephone Encounter - Soy Pineda MD - 10/30/2020 8:49 AM EST Signed Prescriptions: Disp Refills Meloxicam 15 MG Oral Tablet 90 Tab 1 Sig: Take 1 tablet by mouth once daily Authorizing Provider: SOY PINEDA * Telephone Encounter - Yanet Graham RN - 10/30/2020 8:32 AM EST Pending Prescriptions: Disp Refills Meloxicam 15 MG Oral Tablet 90 Tab 1 Sig: Take 1 tablet by mouth once daily * Telephone Encounter - Herminia Rubalcava breast worker - 10/29/2020 4:59 PM EST Pending Prescriptions: Disp Refills Meloxicam 15 MG Oral Tablet 90 Tab 0 Sig: Take 1 tablet by mouth once daily * Telephone Encounter - Herminia Rubalcava PHARM Tech - 10/29/2020 4:58 PM EST Pending Prescriptions: Disp Refills Meloxicam 15 MG Oral Tablet 90 Tab 0 Sig: Take 1 tablet by mouth once daily Last Office/Telemedicine Visit: 11/28/2019 Next Office Visit: 11/27/2020 Scheduled Provider(s): Soy Pineda MD If no future appointments scheduled, and last appointment is greater than a year ago, please schedule patient for a follow-up appointment Last date the medication was ordered: 01/16/20 Pharmacy: [facility] [id number] [place] Is this request for a controlled substance?No [...] Encounters Date Type Specialty Care Team Description 11/27/2020 Office Visit Rheumatology Soy Pineda MD [address] [place] [address] [phone] Health Maintenance Due Date Last Done Comments Pneumococcal Vaccine: Pediatrics (0 to 5 Years) and At-Risk Patients (6 to 64 Years) (1 of 1 - PPSV23) 01/29/1964 DTaP,Tdap,and Td Vaccines (1 - Tdap) 1977 PAP SMEAR-EVERY 3 YRS,AGES 21-65 1979 BREAST CANCER SCREENING DISCUSSION YEARLY AGES 40-75 11/02/2001 11/02/2000, 08/20/1999 LIPID SCREEN EVERY 5 YRS-WOMEN AGE 45-75 09/03/2004 09/03/1999, 10/15/1998, 09/04/1997 LUNG CANCER SCREENING YEARLY-USE SMARTSET 85129 2013 *DEPRESSION SCREENING,ANNUAL FOR PTS 12 AND OVER 10/06/2015 *COLORECTAL CANCER SCREENING (COLONOSCOPY 10 YEARS; SIGMOIDOSCOPY 5 YEARS; COLOGUARD 3 YEARS; FOBT 1 YEAR),AGES 50-75 11/01/2017 *BASIC METABOLIC PANEL (BMP) FOR HTN YEARLY 12/01/2019 Zoster Vaccines (2 of 2) 12/26/2019 10/31/2019 Influenza Vaccine (FLU shot) (#1) 2020 DIABETES SCREEN EVERY 3 YRS-AGE 45 AND ABOVE 05/21/2020 05/21/2017, 10/15/2015, 09/22/2000, Additional history exists MENINGOCOCCAL (MENACTRA/MENVEO) Aged Out No longer eligible based on patient's age to complete this topic documented as of this encounter Implants Not on filedocumented as of this encounter Advance Directives Documents on File Type Date Recorded Patient Loan Specialist Expl anation Advanced Directive Advanced Directive Advanced Directive
--- OUTSIDE RECORDS SUMMARY | 2023-05-31 12:08 | External Medical Summary | Continuity of Care Document ---
Author Name Unknown Organization [place] [address] [address] Address [address] [place] [address] Care Team Providers Care Cvt Rn Name Role Phone Dariela Gupta Primary Care Physician [phone] Encounter [facility] [id number] Date(s): 05/31/21 - 05/31/21 [place] [address] [facility] [place] [address] [facility] [address] [place] [address] us [phone] Encounter Diagnosis Type 2 diabetes, HbA1c goal < 7%(Discharge Diagnosis) - 05/31/21 Anxiety and depression(Discharge Diagnosis) - 05/31/21 COPD (chronic obstructive pulmonary disease)(Discharge Diagnosis) - 05/31/21 Tobacco user(Discharge Diagnosis) - 05/31/21 Breast cancer screening by mammogram(Discharge Diagnosis) - 05/31/21 Discharge Disposition: Home or Self Care Attending Physician: MD Gupta Amy L Referring Physician: MD Gupta Amy L Allergies, Adverse Reactions, Alerts Substance Reaction Severity Status morphine nausea Active sulfa drugs hives Active Augmentin "bad" diarrhea Active Vicodin nausea Active Benadryl "makes me hyper" Active Darvocet A500 nausea Active Assessment and Plan Extracted from: Title:Office Visit Note Author:MD Gupta Amy L D ate:05/31/21 1.Type 2 diabetes, HbA1c g oal < 7% Reviewed recent labs, showing A1C to have increased from 12% to 12.9%. Will have her increase her insulin to 60 units. Advised to take this before her day begins with regard to meals. Do not take if not eating. Recheck A1C in 3 months. Strongly advised to see eye doctor. 2.Anxiety and depression Discussed with her that this is likely worsening her diabetic control. She had followed previously with psychiatry & was lost to their follow up. Since she has been on multiple different meds, with only limited success, I advised her to try to re-establish with psychiatry. 3.COPD (chronic obstructive pulmonary disease) Stable,continuesame inhalers. 4.Tobacco user She does not feel that she is able to mady thinks about quitting at this time. 5.Breast cancer screening by mammogram Discussed controversies surrounding routine use of mammograms for screening. Also discussed limitations of mammogram for dense breasts & high prevalence of dense breasts. Pt understands & prefers to continue yearly screening.Mammogram ordered. 6. Health maintenance She is scheduled for colonoscopy soon. Ordered: MG. Mammo Digital Screening Bilateral Orders: citalopram, Start: 05/31/21 15:51:00 EDT, See Instructions, Disp# 90 tab, Refills: 3, Take 1 tablet by mouth once daily, Pharmacy: [id number] insulin detemir, Start: 05/31/21 14:28:00 EDT, 60 unit =, subQ, qhs, Disp# 15 mL, Refills: 6, other lisinopril, Start: 05/31/21 15:51:00 EDT, See Instructions, Disp# 90 tab, Refills: 3, Take 1 tablet by mouth once daily, Pharmacy: [facility] Return in 3 months. Time: Total time spent with this patient on day of evaluation including chart review, ordering, education and coordination of care elements: 39_ minutes Immunizations Given and Recorded Vaccine Date Status Refusal Reason zoster vaccine, inactivated 01/31/20 Given zoster vaccine, inactivated 10/31/19 Given influenza virus vaccine, inactivated 08/17/19 Give n tetanus/diphtheria/pertuss, acel (Tdap) 06/14/18 G iven Medications Advair Diskus 500 mcg-50 mcg Start: 04/09/20 10:11:00 EDT, 1 puff, PO, bid, Disp# 3 each, Refills: 3, Pharmacy: [id number] Start Date: 04/09/20 Stop Date: 04/04/21 Status: Ordered atorvastatin 20 mg oral tablet Start: 05/24/21 16:51:00 EDT, See Instructions, Disp# 90 tab, Refills: 1, Take 1 tablet by mouth once daily, Pharmacy: [id number] Start Date: 05/24/21 Status: Ordered BD needle Ultra-Fine Pen [place] 32G x 4mm Start: 09/24/20 16:57:00 EST, See Instructions, Disp# 100 each, Refills: 6, Use with insulin pen., Pharmacy: [facility] Start Date: 09/24/20 Status: Ordered BD PEN NEEDLE/SAVANA [id number] MIS USE TWICE DAILY WITH INSULIN Start Date: 09/24/20 Status: Ordered BD Test Strips 100 ct Start: 02/27/21 15:53:00 EDT, See Instructions, Disp# 100 each, Refills: 3, test daily, Dx : E11.9,Pharmacy: [place] [id number] Start Date: 02/27/21 Status: Ordered citalopram 40 mg oral tablet Start: 05/31/21 15:51:00 EDT, See Instructions, Disp# 90 tab, Refills: 3, Take 1 tablet by mouth once daily, Pharmacy: [place] [id number] Start Date: 05/31/21 Status: Ordered doxepin 25 mg oral capsule Start: 05/24/21 16:51:00 EDT, See Instructions, Disp# 90 cap, Refills: 1, Take 1 capsule by mouth once daily, Pharmacy: [place] [id number] Start Date: 05/24/21 Status: Ordered glucometer Start: 02/27/21 15:52:00 EDT, See Instructions, Disp# 1 each, Refills: 0, test daily, Dx E11.9, Pharmacy: [facility] [address] Start Date: 02/27/21 Status: Ordered lancets Start: 02/27/21 15:54:00 EDT, See Instructions, Disp# 100 each, Refills: 3, test daily, Dx: E11.9, Pharmacy: [place] [id number] Start Date: 02/27/21 Status: Ordered Levemir FlexTouch 100 units/mL subcutaneous solution Start: 05/31/21 14:28:00 EDT, 60 unit =, subQ, qhs, Disp# 15 mL, Refills: 6, other Start Date: 05/31/21 Status: Ordered lisinopril 5 mg oral tablet Start: 05/31/21 15:51:00 EDT, See Instructions, Disp# 90 tab, Refills: 3, Take 1 tablet by mouth once daily, Pharmacy: [place] [id number] Start Date: 05/31/21 Status: Ordered meloxicam 15 mg oral tablet Start: 05/26/17 11:25:00, 1 tab, PO, Daily Start Date: 05/26/17 Status: Ordered Metamucil Start: 02/27/21 15:26:00 EDT Start Date: 02/27/21 Status: Ordered metFORMIN 500 mg oral tablet Start: 03/22/20 13:33:00 EDT, 2 tab, PO, bid, Disp# 120 tab, Refills: 6, Pharmacy: [id number] Start Date: 03/22/20 Status: Ordered metFORMIN HCl 500 MG Oral Tablet metFORMIN HCl 500 MG Oral Tablet, See Instructions, Disp# 120 tab, Refills: 6, Take 2 tablets by mouth twice daily, Pharmacy [id number] Start Date: 04/08/21 Status: Ordered ONETOUCH ULTRA BLUE TEST STRP Start: 03/09/19 12:34:53 EDT, See Instructions, Disp# 50, Refills: 6, USE TO TEST BLOOD SUGAR TWICEA DAY., Pharmacy: [facility] [address], USE TO TEST BLOOD SUGAR TWICE A DAY. Start Date: 03/09/19 Status: Ordered prazosin 2 mg oral capsule See Instructions, Disp# 90 cap, Refills: 1, TAKE 1 CAPSULE BY MOUTH EVERY DAY AT BEDTIME, Pharmacy:[facility] Start Date: 02/14/21 Status: Ordered Vitamin D3 2000 intl units oral capsule Start: 05/26/17 11:25:00, 1 cap, PO, Daily Start Date: 05/26/17 Status: Ordered Mental Status 05/31/21 Barriers to Learning one year None evide nt Mandatory Health Literacy Documentation Yes Health Literacy Communication Barriers N ever Primary Language Kyrgyz Problem List Condition Effective Dates Status Health Status Inform ant COPD with acute exacerbation(Confirmed) Active COPD exacerbation(Confirmed) Active Acute upper respiratory infection(Confirmed) Active Anxiety and depression(Confirmed) Active Bilateral pneumonia(Confirmed) Active Chest pain(Confirmed) Active COPD (chronic obstructive pu lmonary disease)(Confirmed) [...] Effective Dates Health Status Clinical Service Informant Breast cancer screening by mammogram Discharge Diagnosis 05/31/21 Non-Specified Tobacco user Discharge Diagnosis 05/31/21 Non-Specified COPD (chronic obstructive pulmonary disease) Discharge Diagnosis 05/31/21 Non-Specified Type 2 diabetes, HbA1c goal < 7% Discharge Diagnosis 05/31/21 Non-Specified Anxiety and depression Discharge Diagnosis 05/31/21 Non-Specified Procedures Procedure Date Related Diagnosis Body Site Status CXR - Chest X-ray 1 03/11/21 Compl eted X-ray 2 11/16/[address] of abdomen and pelvis wit h contrast 3 06/22/19 Completed KUB X-ray 4 02/14/19 Completed Ultrasound right groin 5 05/09/18 Completed Incision and drainage of abscess 6 05/07/18 Completed Chest x-ray 7 10/18/[address] of chest 8 Completed 11. Normal lung volumes. No radiographic evidence of COPD on current exam. 2. Possible trace left pleural effusion with possible small ateleactasis at the left base. 2Right shoulder 3 views; right humerus 2 views, right clavicle 2 views IMPRESSION: 1. There is no radiographic evidence of right shoulder fracture or dislocation. 2. There is no radiographic evidence of right clavicular fracture. 3. There is no radiographic evidence of right humeral fracture. 3mild wall thickening of sigmoid colon & upper rectum, mild proctocolitis, likely infectious; cirrhosis w/ hepatic steatosis, reactive associated lymphadenopathy 4[facility] Impression: 1. Nonobstructive bowel gas pattern 2. Moderate constipation 5Impression: 1.8 x 0.5 x1.6 cm pocket of fluid within the subcutaneous tissues of the medial right thigh. This may reflect subcutaneous edema or a tiny residual abscess 6[facility] Right groin 7No acute process identified. Ill-defined hazy subsegmental left basilar opacities suggest atelectasis. 8WITH ANGIO 1. No acute aortic pathology or [...] to oldest [Reference Range]: 1 Patient Weight 112.5 kg (05/31/21 1:59 PM) Heart Rate 78 bpm (05/31/21 1:59 PM) Respiratory Rate 20 br/min (05/31/21 1:59 PM) Blood Pressure 130/90mmHg (05/31/21 1:59 PM) Cuff Pulse Pressure 40 mmHg (05/31/21 1:59 PM) BP Location # 1 Left Arm (05/31/21 1:59 PM) Social History Social History Type Response Smoking Status Current every day he lorenza smoker Sex Female
--- OUTSIDE RECORDS SUMMARY | 2023-05-31 12:08 | External Medical Summary | Summary of Care ---
Author Name Unknown Organization [place] [address] Care Team Providers Care Icing Mixer Name Role Phone Dariela Gupta MD Primary Care Provider Encounter Details Date Type Department Care Team Description 07/26/2021 Telephone Rheumatology [facility] [place] [address] [place] [address] Soy Rosa MD [address] [facility] [place] [address] Allergies Active Allergy Reactions Severity Noted Date Comments Amoxicillin-Pot Clavulanate 07/24/20 21 Other reaction(s): "bad" diarrhea Codeine Nausea/vomiting 09/25/2015 Meperidine 08/31/2015 Meperidine Nausea/vomiting 09/25/2015 Diphenhydramine 07/24/2021 Other reaction(s): "makes me hyper" Hydrocodone 08/31/2015 Morphine Nausea/vomiting 09/25/2015 Sulfa Antibiotics 09/25/2015 hives Hydrocodone-Acetaminophen Nausea/vomiting 09/25 documented as of this encounter (statuses as of 07/26/2021) Medications Medication Sig Dispensed Refills Start Date [...] 0 01/20/2018 Active Blood Glucose Monitoring Suppl (SynderoTOUCH ULTRA 2) w/Device KIT USE TO TEST BLOOD SUGAR TWICE DAILY. 0 01/20/2018 Active traMADol (ULTRAM) 50 MG Tablet Take 50 mg by mouth every 6 hours as needed. As needed 0 11/16/2019 Active atorvaSTATin (LIPITOR) 20 MG Tablet 1 daily 0 11/01/2019 Active fluticasone (FLONASE) 50 MCG/ACT nasal spray 1 [place]. As needed 0 12/31/2018 Active valACYclovir (VALTREX) [...] eyes every 12 hours. 16.5 mL 3 07/26/2021 Active Restasis 0.05 % Ophthalmic Emulsion (cycloSPORINE) Instill 1 Drop into both eyes every 12 hours. 60 mL 11 07/24/2021 Discontinu ed(Refill) documented as of this encounter (statuses as of 07/26/2021) Active Problems Problem Noted Date Sjogren's syndrome 04/07/2017 Insomnia Depression Osteoarthritis of both knees Tobacco abuse documented as of this encounter (statuses as of 07/26/2021) Immunizations Name Administration Dates Next Due Zoster [...] encounter Miscellaneous Notes * Telephone Encounter - Heather Harris MD - 07/26/2021 3:14 PM EDT Prescription updated * Telephone Encounter - Dariela Montes De Oca LPN - 07/26/2021 1:19 PM EDT [facility] requesting a 90 day supply of Restasis 0.05% documented in this encounter Plan of Treatment Upcoming Encounters Date Type Specialty Care Team Description 01/22/2022 Office Visit Rheumatology Soy Rosa MD [address] [place] [address] [phone] Health Maintenance Due Date Last Done Comments [...] 09/04/1997 LUNG CANCER SCREENING - USE SMARTSET 29251 2013 *DEPRESSION SCREENING,ANNUAL FOR PTS 12 AND [...] Documents on File Type Date Recorded 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
--- OUTSIDE RECORDS SUMMARY | 2023-05-31 12:08 | External Medical Summary | Summary of Care ---
Author Name Unknown Organization [place] [address] Care Team Providers Care Interventional Sale Consultant Name Role Phone Dariela uGpta MD Primary Care Provider Reason for Visit * Reason Onset Date Comments Medication Refill 05/24/2021 Medication Refill 06/17/2021 Encounter Details Date Type Department Care Team Description 05/24/2021 Refill Rheumatology [facility] [place] [address] [facility] [place] [address] Kalani Pineda MD [address] [facility] [place] [address] [phone] Allergies Active Allergy Reactions Severity Noted Date Comments Codeine Nausea/vomiting 09/25/2015 Meperidine 08/31/2015 Meperidine Nausea/vomiting 09/25/2015 Hydrocodone 08/31/2015 Morphine Nausea/vomiting 09/25/2015 Sulfa Antibiotics 09/25/2015 hives Hydrocodone-Acetaminophen Nausea/vomiting 09/25 documented as of this encounter (statuses as of 06/17/2021) Medications Medication Sig Dispensed Refills Start Date [...] fluticasone (FLONASE) 50 MCG/ACT nasal spray 1 [place]. As needed 0 12/31/2018 Active valACYclovir (VALTREX) 1000 MG Tablet As needed 0 03/09/2019 Active cyclosporine (RESTASIS) 0.05 % ophthalmic emulsion 1 Drop every 12 hours. 0 Active insulin Detemir (LEVEMIR) 100 UNIT/ML injection Start: 09/16/19 14:23:47 EST, See Instructions, Disp# 12 mL, Refills: 6, 12 units SQ in am; 44 UNITS SUBCUTANEOUSLY AT BEDTIme, Pharmacy: [facility] [address] 0 09/16/2019 Active lisinopril (PRINIVIL) 5 MG Tablet 1 daily 0 11/01/2019 Active BD PEN NEEDLE SHERRY U/F 32G X 4 MM 0 11/21/2019 Active prazosin (MINIPRESS) 2 MG Capsule Take 2 mg by mouth daily. 0 07/29/2019 Active Meloxicam 15 MG Oral Tablet Take 1 Tab by mouth daily. 90 Tab 0 05/24/2021 Active Meloxicam 15 MG Oral Tablet Take 1 tablet by mouth once daily 90 Tab 1 10/30/2020 Discontinue d(Refill) documented as of this encounter (statuses as of 06/17/2021) Active Problems Problem Noted Date Sjogren's syndrome 04/07/2017 Insomnia Depression Osteoarthritis of both knees Tobacco abuse documented as of this encounter (statuses as of 06/17/2021) Immunizations Name Administration Dates Next Due Zoster Vaccine Recombinant (Shingrix) 10/31/2019 documented as of this encounter Social History Tobacco Use Types Packs/Day Years Used Date Current Every Day Smoker Cigarettes 1 30 Smokeless Tobacco: Never Used Alcohol Use Drinks/Week oz/Week Comments No Sex Assigned at Date Recorded Not on file documented as of this encounter Miscellaneous Notes * Addendum Note - Jewels Levi CPhT - 06/17/2021 2:47 PM EDT Addended by: JEWELS LEVI on: 06/17/2021 02:47 PM Modules accepted: Orders * Telephone Encounter - Jewels Levi CPhT - 06/17/2021 2:41 PM EDT Pt calling for a refill. After calling [facility] it was determined that they made an error and didn'tput refills on a 30DS. Please send a new rx with remaining refills, pre-pended. Please reroute RX to [facility] [address] [place] [address] [facility] Pending Prescriptions: Disp Refills Meloxicam 15 MG Oral Tablet 30 Tab 1 Sig: Take 1 Tab by mouth daily. Last Office/Telemedicine Visit: 11/28/2019 Next Office Visit: 07/24/2021 Scheduled Provider(s): Kalani Pineda MD If no future appointments scheduled, and last appointment is greater than a year ago, please schedule patient for a follow-up appointment Last date the medication was ordered: 05/24/2021 Patient Phone Numbers Labs: Lab Results Component Value Date/Time CREAT 0.7 05/21/2017 01:48 PM POTASSIUM 4.5 05/21/2017 01:48 PM TSH 2.09 06/05/1997 11:19 AM LDLCALC 101 09/03/1999 12:18 PM ALT 26 05/21/2017 01:48 PM HGBA1C 6.7 (H) 12/15/2000 02:57 PM * Telephone Encounter - Dahiana Jerry [facility] - 05/24/2021 4:20 PM EDT Signed Prescriptions: Disp Refills Meloxicam 15 MG Oral Tablet 90 Tab 0 Sig: Take 1 Tab by mouth daily.Authorizing Provider: KALANI PINEDA User: DAHIANA JERRY * Telephone Encounter - Dahiana Jerry [facility] - 05/24/2021 4:20 PM EDT Clinical Pharmacy Service (Rheumatology): Refill Request(s) PHYSICIAN ACTION NEEDED: No action needed Assessment & Plan After reviewing the parameters in order to refill the patient's medication(s), the following was determined: The medication(s), mobic, were refilled and no parameters needed to be addressed. No communication to requesting entity necessary Refill Parameters The following parameters were assessed in order to decide whether or not this refill was appropriate: If the patient was seen in the last twelve months If the labs were completed in the last 6-12 months If the labs were within normal limits or stable at baseline If the dose was correct and/or if the prescription sig reflects the current prescribed dose If there were any new drug interactions with the patient's DMARD therapy If there were any care gaps/baseline labs that need to be addressed Dahiana Jerry [facility] Clinical Pharmacist Rheumatology Department 05/24/2021,4:20 PM * Telephone Encounter - Lina Cueto PHARM Tech - 05/24/2021 4:07 PM EDT Sent high priority, pt has 1 remaining. Received call from pt requesting the following medication(s) be refilled. Patient due for follow upoffice visit. Agreed to be transferred to scheduling. Pending Prescriptions: Disp Refills Meloxicam 15 MG Oral Tablet 90 Tab 1 Sig: Take 1 Tab by mouth daily. Last Office/Telemedicine Visit: 11/28/2019 07/24/2021 If no future appointments scheduled, and last appointment is greater than a year ago, please schedule patient for a follow-up appointment Last date the medication was ordered: 10/30/20 Pharmacy: [facility] [address] [place] Is this request for a controlled substance?No [...] Encounters Date Type Specialty Care Team Description 07/24/2021 Office Visit Rheumatology Kalani Pineda MD [address] [place] [address] Health Maintenance Due Date Last Done Comments [...] 09/04/1997 LUNG CANCER SCREENING - USE SMARTSET 26328 2013 *DEPRESSION SCREENING,ANNUAL FOR PTS 12 AND [...] Documents on File Type Date Recorded 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
--- OUTSIDE RECORDS SUMMARY | 2023-05-31 12:08 | External Medical Summary | Continuity of Care Document ---
Author Name Unknown Organization [place] [address] DEAN Cunningham Address [address] [place] [address] Care Team Providers Care Drilling Contractor Name Role Phone Dariela Gupta Primary Care Physician [phone] [id number] Date(s): 03/22/21 - 03/22/[address], [address] [place] [address]- [phone] Discharge Disposition: Home or Self Care Attending [...] bid, Disp# 3 each, Refills: 3, [id number] Start Date: 04/09/20 Stop Date: 04/04/21 Status: Ordered atorvastatin 20 mg oral tablet See Instructions, Disp# 90 tab, Refills: 3, Take 1 tablet by mouth once daily, Pharmacy: [facility], 172.72, cm, 03/22/20 13:02:00 EDT, Height Start Date: 04/30/20 Status: Ordered BD needle Ultra-Fine Pen [place] 32G x 4mm Start: 09/24/20 16:57:00 EST, See Instructions, Disp# 100 each, Refills: 6, Use with insulin pen., Pharmacy: [place] [address] Start Date: 09/24/20 Status: Ordered BD PEN NEEDLE/SAVANA 63MP5EP MIS USE TWICE DAILY WITH INSULIN Start Date: 09/24/20 Status: Ordered BD Test Strips 100 ct Start: 02/27/21 15:53:00 EDT, See Instructions, Disp# 100 each, Refills: 3, test daily, Dx : E11.9,Pharmacy: [place] [address] Start Date: 02/27/21 Status: Ordered citalopram 40 mg oral tablet See Instructions, Disp# 90 tab, Refills: 0, Take 1 tablet by mouth once daily, Pharmacy: [place] [address] Start Date: 02/19/21 Status: Ordered doxepin 25 mg oral capsule See Instructions, Disp# 90 cap, Refills: 0, Take 1 capsule by mouth once daily, Pharmacy: [place] [address] Start Date: 02/19/21 Status: Ordered glucometer Start: 02/27/21 15:52:00 EDT, See Instructions, Disp# 1 each, Refills: 0, test daily, Dx E11.9, Pharmacy: [place] [address] Start Date: 02/27/21 Status: Ordered lancets Start: 02/27/21 15:54:00 EDT, See Instructions, Disp# 100 each, Refills: 3, test daily, Dx: E11.9, Pharmacy: [place] [address] Start Date: 02/27/21 Status: Ordered Levemir FlexTouch 100 units/mL subcutaneous solution Start: 01/25/20 15:30:00 EDT, 55 unit =, subQ, qhs, Disp# 15 mL, Refills: 6, Pharmacy: [place] [address] Start Date: 01/25/20 Status: Ordered lisinopril 5 mg oral tablet See Instructions, Disp# 90 tab, Refills: 0, Take 1 tablet by mouth once daily, Pharmacy: [place] [address] Start Date: 02/19/21 Status: Ordered meloxicam 15 mg oral tablet Start: 05/26/17 11:25:00, 1 tab, PO, Daily Start Date: 05/26/17 Status: Ordered Metamucil Start: 02/27/21 15:26:00 EDT Start Date: 02/27/21 Status: Ordered metFORMIN 500 mg oral tablet Start: 03/22/20 13:33:00 EDT, 2 tab, PO, bid, Disp# 120 tab, Refills: 6, Pharmacy: [facility] Start Date: 03/22/20 Status: Ordered multivitamin Start: 05/26/17 11:25:00, 1 tab, PO, Daily Start Date: 05/26/17 Status: Ordered ONECloud LendingUCH ULTRA BLUE TEST STRP Start: 03/09/19 12:34:53 EDT, See Instructions, Disp# 50, Refills: 6, USE TO TEST BLOOD SUGAR TWICEA DAY., Pharmacy: [facility], USE TO TEST BLOOD SUGAR TWICE A DAY. Start Date: 03/09/19 Status: Ordered prazosin 2 mg oral capsule See Instructions, Disp# 90 cap, Refills: 1, TAKE 1 CAPSULE BY MOUTH EVERY DAY AT BEDTIME, Pharmacy:[facility] Start Date: 02/14/21 Status: Ordered ProAir HFA 90 mcg/inh inhalation aerosol Start: 08/12/19 18:06:28 EST, 2 puff, inhaled, qid, Disp# 1 each, Refills: 5, PRN: as needed for wheezing, Pharmacy: [facility] [place] [address] Start Date: 08/12/19 Status: Ordered Probiotic Formula Start: 12/28/20 13:00:00 EDT, 1 cap, PO, Daily Start Date: 12/28/20 Status: Ordered Vitamin D3 2000 intl units oral capsule Start: 05/26/17 11:25:00, 1 cap, PO, Daily Start Date: 05/26/17 Status: Ordered Wixela Inhub 250 mcg-50 mcg inhalation powder Start: 02/21/20 16:48:00 EDT, 1 inh, inhaled, bid, Disp# 1 each, Refills: 6, Pharmacy: [facility] Start Date: 02/21/20 Status: Ordered Problem List Condition Effective Dates Status Health Status Inform ant COPD with acute exacerbation(Confirmed) Active COPD exacerbation(Confirmed) Active Acute upper respiratory infection(Confirmed) Active Anxiety and depression(Confirmed) Active Bilateral pneumonia(Confirmed) Active Chest pain(Confirmed) Active Dysphagia(Confirmed) Active Grief [...] w/ hepatic steatosis, reactive associated lymphadenopathy 4[facility] Impression: 1. Nonobstructive bowel gas pattern 2. Moderate constipation 5Impression: 1.8 x 0.5 x1.6 cm pocket of fluid within the subcutaneous tissues of the medial right thigh. This may reflect subcutaneous edema or a tiny residual abscess 6[facility] Right groin 7No acute process identified. Ill-defined [...]
--- OUTSIDE RECORDS SUMMARY | 2023-05-31 12:08 | External Medical Summary | Summary of Care ---
Author Name Unknown Organization [place] [address] Care Team Providers Care Grain Elevator Superintendent Name Role Phone Dariela Gupta MD Primary Care Provider [phone] Reason for Visit * Reason Comments Rheum Follow Up 1 year recheck Encounter Details Date Type Department Care Team Description 11/28/2019 [facility] [address] [facility] [place] [address] Soy Rosa MD [address] [facility] [place] [address] [phone] Sjogren's syndrome with keratoconjunctivitis sicca (HCC)*; Primary osteoarthritis of both knees Allergies Active Allergy Reactions Severity Noted Date Comments Codeine Nausea/vomiting 09/25/2015 Meperidine 08/31/2015 Meperidine Nausea/vomiting 09/25/2015 Hydrocodone 08/31/2015 Morphine Nausea/vomiting 09/25/2015 Sulfa Antibiotics 09/25/2015 hives Hydrocodone-Acetaminophen Nausea/vomiting 09/25 documented as of this encounter (statuses as of 11/28/2019) Medications Medication Sig Dispensed Refills Start Date [...] BLOOD SUGAR TWICE DAILY. 0 01/20/2018 Active Meloxicam 15 MG Tablet Take 1 Tab by mouth daily. 90 Tab 2 09/13/2019 Active traMADol (ULTRAM) 50 MG Tablet Take 50 mg by mouth every 6 hours as needed. As needed 0 11/16/2019 Active atorvaSTATin (LIPITOR) 20 MG Tablet 1 daily 0 11/01/2019 Active fluticasone (FLONASE) 50 MCG/ACT nasal spray 1 [place]. As needed 0 12/31/2018 Active valACYclovir (VALTREX) 1000 MG Tablet As needed 0 03/09/2019 Active cyclosporine (RESTASIS) 0.05 % ophthalmic emulsion 1 Drop every 12 hours. 0 Active insulin Detemir (LEVEMIR) 100 UNIT/ML injection Start: 09/16/19 14:23:47 EST, See Instructions, Disp# 12 mL, Refills: 6, 12 units SQ in am; 44 UNITS SUBCUTANEOUSLY AT BEDTIme, Pharmacy: [address] 0 09/16/2019 Active lisinopril (PRINIVIL) 5 MG Tablet 1 daily 0 11/01/2019 Active BD PEN NEEDLE SHERRY U/F 32G X 4 MM 0 11/21/2019 Active prazosin (MINIPRESS) 2 MG Capsule Take 2 mg by mouth daily. 0 07/29/2019 Active Meloxicam 15 MG Tablet Take 15 mg by mouth at bedtime. 0 0 Discontinue d(Medicatio n List Clean Up) citalopram (CELEXA) 20 MG Tablet Take 20 mg by mouth daily. 0 0 Discontinue d(Patient preference/ discontinua tion) prazosin (MINIPRESS) 1 MG Capsule 1 daily 0 03/19/2018 0 Discontinue d(Medicatio n/Dose Changed) LORAzepam (ATIVAN) 0.5 MG Tablet 0.5 mg. As needed 0 09/16/2019 0 Discontinue d(Patient preference/ discontinua tion) documented as of this encounter (statuses as of 11/28/2019) Active Problems Problem Noted Date Sjogren's syndrome 04/07/2017 Insomnia Depression Osteoarthritis of both knees Tobacco abuse documented as of this encounter (statuses as of 11/28/2019) Immunizations Name Administration Dates Next Due Zoster [...] file Not on file Not on file Travel History Travel Start Travel End documented as of this encounter Last Filed Vital Signs Vital Sign Reading Time Taken Comments Blood Pressure 140/80 11/28/2019 3:53 PM EST Pulse - - Temperature 36.8 C (98.2 F) 11/28/2019 3:53 PM ES T Respiratory Rate - - Oxygen Saturation - - Inhaled Oxygen Concentration - - Weight 112 kg (247 lb) 11/28/2019 3:53 PM EST Height - - Body Mass Index 38.11 09/25/2015 3:54 PM EST documented in this encounter Progress Notes * Soy Rosa MD - 11/28/2019 4:02 PM EST Subjective: Patient seen today for further follow up evaluation of osteoarthritis, Sjogren's. Since the last visit she reports that her arthritis is doing okay but does worsen with the cold weather changes. She continues with dry eyes more than mouth and uses restasis and that helps. She has some dry mouth at night and has water at the bedside. No parotiditis or salivary gland swelling. She does have some TMJ issues. I do have an ophthalmology note form last november that indicates dryness. She denies any dental health issues but is edentulous with dentures. As for arthritis she does take Mobic every day. She has not tried using it as needed. She reports that her blood work has been fine for PCP. She has some upcoming lab work. She does not use any Biotene products for her mouth. A lot of her joint painis related to her left knee. Musculoskeletal ROS: . Abnormal: joint pain . Pain scale (0-10): 5 Other ROS: . Constitutional: normal . Head [...] Current Outpatient Medications Medication Sig Dispense Refill atorvaSTATin (LIPITOR) 20 MG Tablet 1 daily BD PEN NEEDLE SHERRY U/F 32G X 4 MM cyclosporine (RESTASIS) 0.05 % ophthalmic emulsion 1 Drop every 12 hours. fluticasone (FLONASE) 50 MCG/ACT nasal spray 1 [place]. As needed insulin Detemir (LEVEMIR) 100 UNIT/ML injection Start: 09/16/19 14:23:47 EST, See Instructions, Disp# 12 mL, Refills: 6, 12 units SQ in am; 44 UNITS SUBCUTANEOUSLY AT BEDTIme, Pharmacy: [address] lisinopril (PRINIVIL) 5 MG Tablet 1 daily prazosin (MINIPRESS) 2 MG Capsule Take 2 mg by mouth daily. traMADol (ULTRAM) 50 MG Tablet Take 50 mg by mouth every 6 hours as needed. As needed valACYclovir (VALTREX) 1000 MG Tablet As needed Meloxicam 15 MG Tablet Take 1 Tab by mouth daily. 90 Tab 2 Blood Glucose Monitoring Suppl (ONETOUCH ULTRA 2) w/Device KIT USE TO TEST BLOOD SUGAR TWICE DAILY. 0 BuPROPion HCl ER, SR, (WELLBUTRIN SR) 200 MG TB12 Take 200 mg by mouth daily. In the morning. 0 citalopram (CELEXA) 40 MG Tablet Take 40 mg by mouth every evening. 1 daily 0 MetFORMIN (GLUCOPHAGE) 1000 MG Tablet 1 twice daily ONETOUCH DELICA LANCETS 33G MISC USE TO TEST BLOOD SUGAR TWICE A DAY. 0 ONETOUCH ULTRA BLUE STRP USE TO TEST BLOOD SUGAR TWICE A DAY. 0 doxepin (SINEQUAN) 25 MG Capsule Take 25 mg by mouth at bedtime. 1 tab at bedtime 0 albuterol (VENTOLIN HFA) 108 (90 BASE) MCG/ACT inhaler Inhale 2 Puffs by mouth every 6 hours asneeded. Meloxicam 15 MG Tablet Take 15 mg by mouth at bedtime. traZODone (DESYREL) 50 MG Tablet Take 50 mg by mouth at bedtime. Physical Exam: BP 140/80 | Temp (Src) 98.2 (Tympanic) | Wt 247 lbs (112.038kg) | BMI 38.11 kg/m | BSA 2.31 m General: alert, healthy, no distress and well nourished HENT: normocephalic, external ears normal, no mucosal erythema, no mucosal edema, moist mucosa, no oral ulcers Eye Exam: PERRL, EOMI, conjunctiva are pink and non-injected, sclera clear Neck: supple, no adenopathy, thyroid normal size, non-tender, without nodularity Lymph: no palpable lymphadenopathy Heart: regular rate & rhythm and no gallops Lungs: clear to auscultation , no rales, wheezes or rhonchi Abdomen: abdomen soft, non-tender and normal bowel sounds Musculoskeletal Exam: No synovitis or effusions No tenderness Assessment: (M35.01) Sjogren's syndrome with keratoconjunctivitis sicca (HCC) (primary encounter diagnosis) (M17.0) Primary osteoarthritis of both knees Overall she has stable Sjogren's and will continue to treat conservatively and with Restasis. As for arthritis she will continue with Mobic but can try taking it more on as needed basis Plan: 1. Try moving Mobic to more as needed 2. Have upcoming lab work sent to me 3. Continue with Restasis for dry eyes and conservative measures for dry mouth 4. Return to clinic 1 year Soy Rosa MD Department of Rheumatology documented in this encounter Nursing Notes * Yohan Abreu LPN - 11/28/2019 3:53 PM EST Chief Complaint Patient presents with Rheum Follow Up 1 year recheck documented in this encounter Plan of Treatment Upcoming Encounters Date Type Specialty Care Team Description 11/27/2020 Office Visit Rheumatology Soy Rosa MD [address] [place] [address] [phone] Health Maintenance Due Date Last Done Comments Pneumococcal Vaccine: Pediatrics (0 to 5 Years) and At-Risk Patients (6 to 64 Years) (1 of 1 - PPSV23) 01/29/1966 DTaP,Tdap,and Td Vaccines (1 - Tdap) 1969 PAP SMEAR-EVERY 3 YRS,AGES 21-65 1979 BREAST CANCER SCREENING DISCUSSION YEARLY AGES 40-75 11/02/2001 11/02/2000, 08/20/1999 LIPID SCREEN EVERY 5 YRS-WOMEN AGE 45-75 09/03/2004 09/03/1999, 10/15/1998, 09/04/1997 Zoster Vaccines (1 of 2) 01/29/2008 LUNG CANCER SCREENING YEARLY-USE SMARTSET 22806 2013 *DEPRESSION SCREENING,ANNUAL FOR PTS 12 AND OVER 10/06/2015 *COLORECTAL CANCER SCREENING (COLONOSCOPY 10 YEARS; SIGMOIDOSCOPY 5 YEARS; COLOGUARD 3 YEARS; FOBT 1 YEAR),AGES 50-75 11/01/2017 Influenza Vaccine (FLU shot) (#1) 2019 DIABETES SCREEN EVERY 3 YRS-AGE 45 AND [...] Documents on File Type Date Recorded Patient Draw Frame Tender Expl anation Advanced Directive Advanced Directive Advanced Directive"
--- OUTSIDE RECORDS SUMMARY | 2023-05-31 12:08 | External Medical Summary | Summary of Care ---
Author Name Unknown Organization [place] [address] Care Team Providers Care Residential Construction Instructor Name Role Phone Dariela Gupta MD Primary Care Provider [phone] Reason for Visit * Reason Onset Date Comments Medication Refill 05/24/2021 Encounter Details Date Type Department Care Team Description 05/24/2021 Refill Rheumatology [place] [address] [facility] [place] [address] Kalani Pineda MD [facility] [place] [address] [phone] Allergies Active Allergy Reactions Severity Noted Date Comments Codeine Nausea/vomiting 09/25/2015 Meperidine 08/31/2015 Meperidine Nausea/vomiting 09/25/2015 Hydrocodone 08/31/2015 Morphine Nausea/vomiting 09/25/2015 Sulfa Antibiotics 09/25/2015 hives Hydrocodone-Acetaminophen Nausea/vomiting 09/25 documented as of this encounter (statuses as of 05/24/2021) Medications Medication Sig Dispensed Refills Start Date [...] fluticasone (FLONASE) 50 MCG/ACT nasal spray 1 [place]. As needed 0 12/31/2018 Active valACYclovir (VALTREX) 1000 MG Tablet As needed 0 03/09/2019 Active cyclosporine (RESTASIS) 0.05 % ophthalmic emulsion 1 Drop every 12 hours. 0 Active insulin Detemir (LEVEMIR) 100 UNIT/ML injection Start: 09/16/19 14:23:47 EST, See Instructions, Disp# 12 mL, Refills: 6, 12 units SQ in am; 44 UNITS SUBCUTANEOUSLY AT BEDTIme, Pharmacy: [id number] 0 09/16/2019 Active lisinopril (PRINIVIL) 5 [...] as of this encounter (statuses as of 05/24/2021) Active Problems Problem Noted Date Sjogren's syndrome 04/07/2017 Insomnia Depression Osteoarthritis of both knees Tobacco abuse documented as of this encounter (statuses as of 05/24/2021) Immunizations Name Administration Dates Next Due Zoster Vaccine Recombinant (Shingrix) 10/31/2019 documented as of this encounter Social History Tobacco Use Types Packs/Day Years Used Date Current Every Day Smoker Cigarettes 1 30 Smokeless Tobacco: Never Used Alcohol Use Drinks/Week oz/Week Comments No Sex Assigned at Date Recorded Not on file documented as of this encounter Miscellaneous Notes * Telephone Encounter - Colette Jerry [facility] - 05/24/2021 4:20 PM EDT Signed Prescriptions: Disp Refills Meloxicam 15 MG Oral Tablet 90 Tab 0 Sig: Take 1 Tab by mouth daily.Authorizing Provider: KALANI PINEDA User: COLETTE JERRY * Telephone Encounter - Colette Jerry RP - 05/24/2021 4:20 PM EDT Clinical Pharmacy [...] gaps/baseline labs that need to be addressed Colette Jerry [facility] Clinical Pharmacist Rheumatology Department 05/24/2021,4:20 PM * [...] the medication was ordered: 10/30/20 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
--- OUTSIDE RECORDS SUMMARY | 2023-05-31 12:08 | External Medical Summary | Summary of Care ---
Author Name Unknown Organization [place] [address] Care Team Providers Care Depalletizer Operator Name Role Phone Dariela Gupta MD Primary Care Provider Reason for Visit * Reason Onset Date Comments Medication Refill 05/24/2021 Medication Refill 06/17/2021 Encounter Details Date Type Department Care Team Description 05/24/2021 Refill Rheumatology [facility] [place] [address] [facility] [place] [address] Kalani Pineda MD [address] [facility] [place] [address] [phone] Allergies Active Allergy Reactions Severity Noted Date [...] fluticasone (FLONASE) 50 MCG/ACT nasal spray 1 Shannon. As needed 0 12/31/2018 Active valACYclovir (VALTREX) 1000 MG Tablet As needed 0 03/09/2019 Active cyclosporine (RESTASIS) 0.05 % ophthalmic emulsion 1 Drop every 12 hours. 0 Active insulin Detemir (LEVEMIR) 100 UNIT/ML injection Start: 09/16/19 14:23:47 EST, See Instructions, Disp# 12 mL, Refills: 6, 12 units SQ in am; 44 UNITS SUBCUTANEOUSLY AT BEDTIme, Pharmacy: [facility] [address] 0 09/16/2019 Active lisinopril (PRINIVIL) 5 MG Tablet 1 daily 0 11/01/2019 Active BD PEN NEEDLE SHERRY U/F 32G X 4 MM 0 11/21/2019 Active prazosin (MINIPRESS) 2 MG Capsule Take 2 mg by mouth daily. 0 07/29/2019 Active Meloxicam 15 MG Oral Tablet Take 1 Tab by mouth daily. 30 Tab 1 06/17/2021 Active Meloxicam 15 MG Oral Tablet Take 1 tablet by mouth once daily 90 Tab 1 10/30/2020 1 Discontinue d(Refill) Meloxicam 15 MG Oral Tablet Take 1 Tab by mouth daily. 90 Tab 0 05/24/2021 1 Discontinue d(Refill) documented as of this encounter [...] encounter Miscellaneous Notes * Addendum Note - Dahiana Jerry [facility] - 06/17/2021 3:06 PM EDT Addended by: DAHIANA JERRY on: 06/17/2021 03:06 PM Modules accepted: Orders * Telephone Encounter - Dahiana Jerry [facility] - 06/17/2021 3:06 PM EDT Signed Prescriptions: Disp Refills Meloxicam 15 MG Oral Tablet 30 Tab 1 Sig: Take 1 Tab by mouth daily.Authorizing Provider: KALANI PINEDA User: DAHIANA JERRY * Telephone Encounter - Dahiana Jerry [facility] - 06/17/2021 3:06 PM EDT Rerouted remaining refills to new pharmacy as requested. Thank you, Dahiana Jerry, PharmD Clinical Pharmacist Telepharmacy 06/17/2021, 3:06 PM * Addendum Note - Jewels Levi, [facility] - 06/17/2021 2:47 PM EDT Addended by: JEWELS LEVI on: 06/17/2021 02:47 PM Modules accepted: Orders * Telephone Encounter - Jewels Levi [facility]PhT - 06/17/2021 2:41 PM EDT Pt calling for a refill. After calling [facility] it was determined that they made an error and didn'tput refills on a 30DS. Please send a new rx with remaining refills, pre-pended. Please reroute RX to [facility] [address] [place] [address] [address] [place] Pending Prescriptions: Disp Refills Meloxicam 15 MG Oral Tablet 30 Tab 1 Sig: Take 1 Tab by mouth daily. Last Office/Telemedicine Visit: 11/28/2019 Next Office Visit: 07/24/2021 Scheduled Provider(s): Kalain Pineda MD If no future appointments scheduled, [...] 02:57 PM * Telephone Encounter - Dahiana Jerry, [facility] - 05/24/2021 4:20 PM EDT Signed Prescriptions: Disp Refills Meloxicam 15 MG Oral Tablet 90 Tab 0 Sig: Take 1 Tab by mouth daily.Authorizing Provider: KALANI PINEDA User: DAHIANA JERRY * Telephone Encounter - Dahiana Jerry [facility] - 05/24/2021 4:20 PM EDT [...] that need to be addressed Dahiana Jerry [facility] Clinical Pharmacist Rheumatology Department 05/24/2021,4:20 PM [...] was ordered: 10/30/20 Pharmacy: [facility] [id number] [place] [place] Is this request for a [...] 07/24/2021 Office Visit Rheumatology Kalani Pineda MD [address] [place] [address] Health Maintenance Due Date Last Done [...] 09/04/1997 LUNG CANCER SCREENING - USE SMARTSET 28343 2013 *DEPRESSION SCREENING,ANNUAL FOR PTS 12 AND [...] Documents on File Type Date Recorded Patient Smoking Tobacco 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
--- OUTSIDE RECORDS SUMMARY | 2023-05-31 12:08 | External Medical Summary | Continuity of Care Document ---
Author Name Unknown Organization [facility] [address] Address [address] [place] [address] Care Team Providers Care Director Building Name Role Phone Dariela Gupta Primary Care Physician [phone] Encounter [facility] [id number] Date(s): 05/23/21 - 05/23/21 [facility] [address] [place] [address] [place] Encounter Diagnosis Type 2 diabetes mellitus without complications(Final) - Hyperlipidemia, unspecified(Final) - Discharge Disposition: Home or Self [...] bid, Disp# 3 each, Refills: 3, Pharmacy: [facility] [id number] Start Date: 04/09/20 Stop Date: 04/04/21 Status: Ordered atorvastatin 20 mg oral tablet Start: 05/24/21 16:51:00 EDT, See Instructions, Disp# 90 tab, Refills: 1, Take 1 tablet by mouth once daily, Pharmacy: [facility] Start Date: 05/24/21 Status: Ordered BD needle Ultra-Fine Pen Savana 32G x 4mm Start: 09/24/20 16:57:00 EST, See Instructions, Disp# 100 each, Refills: 6, Use with insulin pen., Pharmacy: [place] [id number] Start Date: 09/24/20 Status: Ordered BD PEN NEEDLE/SAVANA [id number] MIS USE TWICE DAILY WITH INSULIN Start Date: 09/24/20 Status: Ordered BD Test Strips 100 ct Start: 02/27/21 15:53:00 EDT, See Instructions, Disp# 100 each, Refills: 3, test daily, Dx : E11.9,Pharmacy: [facility] [address] Start Date: 02/27/21 Status: Ordered citalopram 40 mg oral tablet See Instructions, Disp# 90 tab, Refills: 0, Take 1 tablet by mouth once daily, Pharmacy: [place] [id number] Start Date: 02/19/21 Status: Ordered doxepin 25 mg oral capsule Start: 05/24/21 16:51:00 EDT, See Instructions, Disp# 90 cap, Refills: 1, Take 1 capsule by mouth once daily, Pharmacy: [facility] [address]229 Start Date: 05/24/21 Status: Ordered glucometer Start: 02/27/21 15:52:00 EDT, See Instructions, Disp# 1 each, Refills: 0, test daily, Dx E11.9, Pharmacy: [facility] 2229 Start Date: 02/27/21 Status: Ordered lancets Start: 02/27/21 15:54:00 EDT, See Instructions, Disp# 100 each, Refills: 3, test daily, Dx: E11.9, Pharmacy: [facility] [address]229 Start Date: 02/27/21 Status: Ordered Levemir FlexTouch 100 units/mL subcutaneous solution Start: 01/25/20 15:30:00 EDT, 55 unit =, subQ, qhs, Disp# 15 mL, Refills: 6, Pharmacy: [facility] 2229 Start Date: 01/25/20 Status: Ordered lisinopril 5 mg oral tablet See Instructions, Disp# 90 tab, Refills: 0, Take 1 tablet by mouth once daily, Pharmacy: [place] [id number] Start Date: 02/19/21 Status: Ordered meloxicam 15 mg oral tablet Start: 05/26/17 11:25:00, 1 tab, PO, Daily Start Date: 05/26/17 Status: Ordered Metamucil Start: 02/27/21 15:26:00 EDT Start Date: 02/27/21 Status: Ordered metFORMIN 500 mg oral tablet Start: 03/22/20 13:33:00 EDT, 2 tab, PO, bid, Disp# 120 tab, Refills: 6, Pharmacy: [facility] Start Date: 03/22/20 Status: Ordered metFORMIN HCl 500 MG Oral Tablet metFORMIN HCl 500 MG Oral Tablet, See Instructions, Disp# 120 tab, Refills: 6, Take 2 tablets by mouth twice daily, Pharmacy [facility] Start Date: 04/08/21 Status: Ordered multivitamin Start: 05/26/17 11:25:00, 1 tab, PO, Daily Start Date: 05/26/17 Status: Ordered ONETOUCH ULTRA BLUE TEST STRP Start: 03/09/19 12:34:53 EDT, See Instructions, Disp# 50, Refills: 6, USE TO TEST BLOOD SUGAR TWICEA DAY., Pharmacy: [address], USE TO TEST BLOOD SUGAR TWICE A DAY. Start Date: 03/09/19 Status: Ordered prazosin 2 mg oral capsule See Instructions, Disp# 90 cap, Refills: 1, TAKE 1 CAPSULE BY MOUTH EVERY DAY AT BEDTIME, Pharmacy:[facility] 2229 Start Date: 02/14/21 Status: Ordered ProAir HFA 90 mcg/inh inhalation aerosol Start: 08/12/19 18:06:28 EST, 2 puff, inhaled, qid, Disp# 1 each, Refills: 5, PRN: as needed for wheezing, Pharmacy: [address] Start Date: 08/12/19 Status: Ordered Probiotic Formula Start: 12/28/20 13:00:00 EDT, 1 cap, PO, Daily Start Date: 12/28/20 Status: Ordered Vitamin D3 2000 intl units oral capsule Start: 05/26/17 11:25:00, 1 cap, PO, Daily Start Date: 05/26/17 Status: Ordered Wixela Inhub 250 mcg-50 mcg inhalation powder Start: 02/21/20 16:48:00 EDT, 1 inh, inhaled, bid, Disp# 1 each, Refills: 6, Pharmacy: [facility] Start Date: 02/21/20 Status: Ordered [...] w/ hepatic steatosis, reactive associated lymphadenopathy 4[facility] Impression: 1. Nonobstructive bowel gas pattern 2. Moderate constipation 5Impression: 1.8 x 0.5 x1.6 cm pocket of fluid within the subcutaneous tissues of the medial right thigh. This may reflect subcutaneous edema or a tiny residual abscess 6[facility] Right groin 7No acute process identified. Ill-defined [...] Comprehensive Metabolic Panel (COMP META B PANEL) 05/23/21 Hemoglobin A1C (HEMOGLOBIN, A1C) 05/23/21 Lipid Profile (LIPOPROTEINS) 05/23/21 Most recent to oldest [Reference Range]: 1 Estimated Average Glucose 324 mg/dL 1 (05/23/21 2:07 PM) Non-HDL 91 mg/dL 2 (05/23/21 2:07 PM) Estimated GFR, Black Race [>60 mL/min/1. 73 m2] >60 mL/min/1.73 m2 (05/23/21 2:07 PM) Estimated GFR, non-Black Race [>60 mL/mi n/1.73 m2] >60 mL/min/1.73 m2 (05/23/21 2:07 PM) Anion Gap [5-14 mmol/L] 7 mmol/L 3 (05/23/21 2:07 PM) Alb [3.5-5.0 g/dL] 3.5 g/dL (05/23/21 2:07 PM) Alk Phos [38-126 unit/L] 183 unit/L *HI* (05/23/21 2:07 PM) ALT [<35 unit/L] 42 unit/L *HI* (05/23/21 2:07 PM) AST [15-46 unit/L] 47 unit/L *HI* (05/23/21 2:07 PM) BUN [7-20 mg/dL] 21 mg/dL *HI* (05/23/21 2:07 PM) Ca [8.4-10.2 mg/dL] 9.0 mg/dL (05/23/21 2:07 PM) Chol/HDL 3 (05/23/21 2:07 PM) Chol [125-200 mg/dL] 128 mg/dL (05/23/21 2:07 PM) Cl- [96-107 mmol/L] 103 mmol/L (05/23/21 2:07 PM) HCO3 [22-30 mmol/L] 30 mmol/L (05/23/21 2:07 PM) Cret [0.60-1.00 mg/dL] 0.47 mg/dL *LOW* (05/23/21 2:07 PM) HbA1c [4.0-6.0 %] 12.9 % *HI* (05/23/21 2:07 PM) Glu [74-106 mg/dL] 283 mg/dL *HI* (05/23/21 2:07 PM) HDL [>35 mg/dL] 37 mg/dL (05/23/21 2:07 PM) K [3.5-5.1 mmol/L] 4.1 mmol/L (05/23/21:07 PM) LDL Chol, Calculated [50-130 mg/dL] 63 m g/dL (05/23/21 2:07 PM) Na [137-145 mmol/L] 140 mmol/L (05/23/21:07 PM) T Bili [0.2-1.3 mg/dL] 0.7 mg/dL (05/23/21 2:07 PM) Prot [6.3-8.2 g/dL] 8.0 g/dL (05/23/21 2:07 PM) TG [<200 mg/dL] 138 mg/dL (05/23/21 2:07 PM) 1Result Comment: Testing Performed By: Dept of Pathology [facility] [address], [address] [facility] [place] [address] 2Result Comment: Testing Performed By: Dept of Pathology [facility] [address], [address] [place] [address] 3Result Comment: Testing Performed By: Dept of Pathology [facility] [address], [address] [facility], [place] [address] Social History Social History Type Response Smoking Status Current every day he lorenza smoker Sex Female
--- OUTSIDE RECORDS SUMMARY | 2023-05-31 12:08 | External Medical Summary | Summary of Care ---
Author Name Unknown Organization [place] [address] Care Team Providers Care Heat Regulator Name Role Phone Dariela Gupta MD Primary Care Provider [phone] Reason for Visit * Reason Comments Rheum Follow Up follow up Encounter Details Date Type Department Care Team Description 07/24/2021 Office Visit Rheumatology [facility] [address] [place] [address] Soy Rosa MD [facility] [facility] [place] [address] [phone] Sjogren's syndrome with keratoconjunctivitis sicca (HCC)*; Primary osteoarthritis of both knees Allergies Active Allergy Reactions Severity Noted Date Comments Amoxicillin-Pot Clavulanate 07/24/20 21 Other reaction(s): "bad" diarrhea Codeine Nausea/vomiting 09/25/2015 Meperidine 08/31/2015 Meperidine Nausea/vomiting 09/25/2015 Diphenhydramine 07/24/2021 Other reaction(s): "makes me hyper" Hydrocodone 08/31/2015 Morphine Nausea/vomiting 09/25/2015 Sulfa Antibiotics 09/25/2015 hives Hydrocodone-Acetaminophen Nausea/vomiting 09/25 documented as of this encounter (statuses as of 07/24/2021) Medications Medication Sig Dispensed Refills Start Date [...] 0 01/20/2018 Active Blood Glucose Monitoring Suppl ([employer] ULTRA 2) w/Device KIT USE TO TEST BLOOD SUGAR TWICE DAILY. 0 01/20/2018 Active traMADol (ULTRAM) 50 MG Tablet Take 50 mg by mouth every 6 hours as needed. As needed 0 11/16/2019 Active atorvaSTATin (LIPITOR) 20 MG Tablet 1 daily 0 11/01/2019 Active fluticasone (FLONASE) 50 MCG/ACT nasal spray 1 [place]. As needed 0 12/31/2018 Active valACYclovir (VALTREX) [...] 500 MG Oral Tablet (Glucophage) 0 06/08/2021 Active Aspirin 81 MG Oral Tablet Delayed Release Take 81 mg by mouth daily. 0 Active Restasis 0.05 % Ophthalmic Emulsion (cycloSPORINE) Instill 1 Drop into both eyes every 12 hours. 60 mL 11 07/24/2021 Active MetFORMIN (GLUCOPHAGE) 1000 MG Tablet 1 twice daily 0 03/20/2018 07/24/2021 Discontinue d( Medication List Clean Up) cyclosporine (RESTASIS) 0.05 % ophthalmic emulsion 1 Drop every 12 hours. 0 07/24/2021 Discontinued( Refill) documented as of this encounter (statuses as of 07/24/2021) Active Problems Problem Noted Date Sjogren's syndrome 04/07/2017 Insomnia Depression Osteoarthritis of both knees Tobacco abuse documented as of this encounter (statuses as of 07/24/2021) Immunizations Name Administration Dates Next Due Zoster [...] Progress Notes * Soy Rosa MD - 07/24/2021 2:41 PM EDT Subjective: Patient seen today for further follow up evaluation of osteoarthritis, Sjogren's. Since the last visit she reports that she ran out of restasis and has not got it refilled. She has not seen her vp patient in some time. she reports her insurance [...] A DAY. 0 Blood Glucose Monitoring Suppl ([employer] ULTRA 2) w/Device KIT USE TO TEST BLOOD SUGAR TWICE DAILY. 0 atorvaSTATin (LIPITOR) 20 MG Tablet 1 daily fluticasone (FLONASE) 50 MCG/ACT nasal spray 1 [place]. As needed cyclosporine (RESTASIS) 0.05 % ophthalmic [...] future. As for her Sjogren's, discussed using [id number] dryness products and refilled her restasis. Also would stop at [facility] to see if she qualifies furtherfree dental clinic for evaluation and potential lower dentures as well. Plan: 1. Discussed [id number]-[id number] products for dryness 2. Refilled her restasis 3. Discussed trial Voltaren gel along with Mobic 4. Lab work ordered 5. With stop by [facility] to see if she qualifies for the dental clinic 6. To consider injections to the knees 7. Return to clinic in 6 months or sooner for knee injections Soy Rosa MD Department of Rheumatology documented in this encounter Nursing Notes * Dariela Montes De Oca LPN - 07/24/2021 2:28 PM EDT Chief Complaint Patient presents with Rheum Follow Up follow up documented in this encounter Plan of Treatment Upcoming Encounters Date Type Specialty Care Team Description 01/22/2022 Office Visit Rheumatology Soy Rosa MD [address] [place] [address] [phone] Scheduled Orders Name Type Priority Associated Diagnoses [...] 09/04/1997 LUNG CANCER SCREENING - USE SMARTSET 90287 2013 *DEPRESSION SCREENING,ANNUAL FOR PTS 12 AND [...] Documents on File Type Date Recorded Patient Coordinator Skill Training Program Expl anation Advanced Directive Advanced Directive Advanced Directive Advanced Directive Advanced Directive Advanced Directive Advanced Directive
--- OUTSIDE RECORDS SUMMARY | 2023-05-31 12:08 | External Medical Summary | Continuity of Care Document ---
Author Name Unknown Organization [place] [address] [address] [address] Care Team Providers Care Security Field Supervisor Name Role Phone Dariela Gupta Primary Care Physician [phone] [id number] Date(s): 01/02/21 - 01/02/21 [facility] [address] [place] [address] Practice Site [address] [facility] [address] [place], [place] [address]Zmoja [phone] Discharge Disposition: Home or Self Care Attending [...] bid, Disp# 3 each, Refills: 3, [id number] Start Date: 04/09/20 Stop Date: 04/04/21 Status: Ordered atorvastatin 20 mg oral tablet See Instructions, Disp# 90 tab, Refills: 3, Take 1 tablet by mouth once daily, Pharmacy: [facility], 172.72, cm, 03/22/20 13:02:00 EDT, Height Start Date: 04/30/20 Status: Ordered BD needle Ultra-Fine Pen Savana 32G x 4mm Start: 09/24/20 16:57:00 EST, See Instructions, Disp# 100 each, Refills: 6, Use with insulin pen., Pharmacy: [facility] 2229 Start Date: 09/24/20 Status: Ordered BD PEN NEEDLE/SAVANA [id number] MIS USE TWICE DAILY WITH INSULIN Start Date: 09/24/20 Status: Ordered citalopram 40 mg oral tablet Start: 02/15/20 17:05:00 EDT, 40 mg =, PO, Daily, Disp# 90 tab, Refills: 1, Pharmacy: [facility] [address] Start Date: 02/15/20 Status: Ordered doxepin 25 mg oral capsule See Instructions, Disp# 90 cap, Refills: 0, Take 1 capsule by mouth once daily, Pharmacy: [facility] [address] Start Date: 11/09/20 Status: Ordered Levemir FlexTouch 100 units/mL subcutaneous solution Start: 01/25/20 15:30:00 EDT, 55 unit =, subQ, qhs, Disp# 15 mL, Refills: 6, Pharmacy: [facility] [address] Start Date: 01/25/20 Status: Ordered lisinopril 5 mg oral tablet Start: 08/20/20 7:48:00 EST, 1 tab, PO, Daily, Disp# 90 tab, Refills: 1, Pharmacy: [facility] Start Date: 08/20/20 Status: Ordered meloxicam 15 mg oral tablet Start: 05/26/17 11:25:00, 1 tab, PO, Daily Start Date: 05/26/17 Status: Ordered metFORMIN 500 mg oral tablet Start: 03/22/20 13:33:00 EDT, 2 tab, PO, bid, Disp# 120 tab, Refills: 6, Pharmacy: [place] [id number] Start Date: 03/22/20 Status: Ordered multivitamin Start: 05/26/17 11:25:00, 1 tab, PO, Daily Start Date: 05/26/17 Status: Ordered ONETOUCH ULTRA BLUE TEST STRP Start: 03/09/19 12:34:53 EDT, See Instructions, Disp# 50, Refills: 6, USE TO TEST BLOOD SUGAR TWICEA DAY., Pharmacy: [facility] [address], USE TO TEST BLOOD SUGAR TWICE A DAY. Start Date: 03/09/19 Status: Ordered prazosin 2 mg oral capsule Start: 08/03/20 14:22:00 EST, 1 cap, PO, qhs, Disp# 90 cap, Refills: 1, [facility] Start Date: 08/03/20 Status: Ordered ProAir HFA 90 mcg/inh inhalation aerosol Start: 08/12/19 18:06:28 EST, 2 puff, inhaled, qid, Disp# 1 each, Refills: 5, PRN: as needed for wheezing, [facility]: [facility] [address] Start Date: 08/12/19 Status: Ordered Probiotic Formula Start: 12/28/20 13:00:00 EDT, 1 cap, PO, Daily Start Date: 12/28/20 Status: Ordered Vitamin D3 2000 intl units oral capsule Start: 05/26/17 11:25:00, 1 cap, PO, Daily Start Date: 05/26/17 Status: Ordered Wixela Inhub 250 mcg-50 mcg inhalation powder Start: 02/21/20 16:48:00 EDT, 1 inh, inhaled, bid, Disp# 1 each, Refills: 6, Pharmacy: [facility] Start Date: 02/21/20 Status: [...] w/ hepatic steatosis, reactive associated lymphadenopathy 3[facility] Impression: 1. Nonobstructive bowel gas pattern 2. Moderate constipation 4Impression: 1.8 x 0.5 x1.6 cm pocket of fluid within the subcutaneous tissues of the medial right thigh. This may reflect subcutaneous edema or a tiny residual abscess 5[facility] Right groin 6No acute process identified. Ill-defined [...]
--- OUTSIDE RECORDS SUMMARY | 2023-05-31 12:08 | External Medical Summary | Continuity of Care Document ---
Author Name Unknown Organization [place] [address] [address] Address [address] [place] [address] Care Team Providers Care Fountain Attendant Name Role Phone Dariela Gupta Primary Care Physician [phone] Encounter [facility] [id number] Date(s): 12/07/20 - 12/07/20 [place] [address] [facility] [place] [address] [facility] [address] [place] [address]- [phone] Encounter Diagnosis Type 2 diabetes, HbA1C goal < 7%(Discharge Diagnosis) - 12/07/20 Fecal incontinence(Discharge Diagnosis) - 12/07/20 Grief reaction(Discharge Diagnosis) - 12/07/20 Self-mutilation(Discharge Diagnosis) - 12/07/20 Bony exostosis of mandible(Discharge Diagnosis) - 12/07/20 Type 2 diabetes mellitus without complications(Final) - Discharge Disposition: Home or Self Care Attending Physician: MD Gupta Amy L Referring Physician: MD Gupta Amy L Allergies, Adverse Reactions, Alerts Substance Reaction Severity Status morphine nausea Active sulfa drugs hives Active Augmentin "bad" diarrhea Active Vicodin nausea Active Benadryl "makes me hyper" Active Darvocet A500 nausea Active Assessment and Plan Extracted from: Title:Office Visit Note Author:MD Gupta Amy L D ate:12/07/20 1.Type 2 diabetes, HbA1C g oal < 7% Suspect that her diabetic control has deteriorated significantly, but will get glucose, A1C & urine microalbumin. To decide on med changes according to these results. 2.Fecal incontinence Advised her to use fiber gummies daily consistently. Refer to GI, as she needs colonoscopy & may need specialized rectal studies (ie manometry). 3.Grief reaction Ivav-up-bbal counselling performed. 4.Self-mutilation Advised to trim nails completely & file. Reiterated not to pick. 5.Bony exostosis of mandible Refer to oral surgery. Orders: Microalbumin, Urine, Random Return in 1 month Time: Total time spent with this patient on day of evaluation including chart review, ordering, education and coordination of care elements: 33_ minutes Immunizations Given and Recorded Vaccine Date Status Refusal Reason zoster vaccine, inactivated 01/31/20 Given zoster vaccine, inactivated 10/31/19 Given influenza virus vaccine, inactivated 08/17/19 Give n tetanus/diphtheria/pertuss, acel (Tdap) 06/14/18 G iven Medications Advair Diskus 500 mcg-50 mcg Start: 04/09/20 10:11:00 EDT, 1 puff, PO, bid, Disp# 3 each, Refills: 3, Pharmacy: [facility] Start Date: 04/09/20 Stop Date: 04/04/21 Status: Ordered atorvastatin 20 mg oral tablet See Instructions, Disp# 90 tab, Refills: 3, Take 1 tablet by mouth once daily, Pharmacy: [facility], 172.72, cm, 03/22/20 13:02:00 EDT, Height Start Date: 04/30/20 Status: Ordered BD needle Ultra-Fine Pen Savana 32G x 4mm Start: 09/24/20 16:57:00 EST, See Instructions, Disp# 100 each, Refills: 6, Use with insulin pen., Pharmacy: [facility] Start Date: 09/24/20 Status: Ordered BD PEN NEEDLE/SAVANA [id number] MIS USE TWICE DAILY WITH INSULIN Start Date: 09/24/20 Status: Ordered citalopram 40 mg oral tablet Start: 02/15/20 17:05:00 EDT, 40 mg =, PO, Daily, Disp# 90 tab, Refills: 1, Pharmacy: [facility] Start Date: 02/15/20 Status: Ordered doxepin 25 mg oral capsule See Instructions, Disp# 90 cap, Refills: 0, Take 1 capsule by mouth once daily, Pharmacy: [facility] Start Date: 11/09/20 Status: Ordered Levemir FlexTouch 100 units/mL subcutaneous solution Start: 01/25/20 15:30:00 EDT, 55 unit =, subQ, qhs, Disp# 15 mL, Refills: 6, Pharmacy: [place] [address] Start Date: 01/25/20 Status: Ordered lisinopril 5 mg oral tablet Start: 08/20/20 7:48:00 EST, 1 tab, PO, Daily, Disp# 90 tab, Refills: 1, Pharmacy: [place] [address] Start Date: 08/20/20 Status: Ordered meloxicam 15 mg oral tablet Start: 05/26/17 11:25:00, 1 tab, PO, Daily Start Date: 05/26/17 Status: Ordered metFORMIN 500 mg oral tablet Start: 03/22/20 13:33:00 EDT, 2 tab, PO, bid, Disp# 120 tab, Refills: 6, Pharmacy: [place] [address] Start Date: 03/22/20 Status: Ordered multivitamin Start: 05/26/17 11:25:00, 1 tab, PO, Daily Start Date: 05/26/17 Status: Ordered ONEaddwishUCH ULTRA BLUE TEST STRP Start: 03/09/19 12:34:53 EDT, See Instructions, Disp# 50, Refills: 6, USE TO TEST BLOOD SUGAR TWICEA DAY., Pharmacy: [address], USE TO TEST BLOOD SUGAR TWICE A DAY. Start Date: 03/09/19 Status: Ordered prazosin 2 mg oral capsule Start: 08/03/20 14:22:00 EST, 1 cap, PO, qhs, Disp# 90 cap, Refills: 1, Pharmacy: [facility] Start Date: 08/03/20 Status: Ordered ProAir HFA 90 mcg/inh inhalation aerosol Start: 08/12/19 18:06:28 EST, 2 puff, inhaled, qid, Disp# 1 each, Refills: 5, PRN: as needed for wheezing, Pharmacy: [address] Start Date: 08/12/19 Status: Ordered Vitamin D3 2000 intl units oral capsule Start: 05/26/17 11:25:00, 1 cap, PO, Daily Start Date: 05/26/17 Status: Ordered Wixela Inhub 250 mcg-50 mcg inhalation powder Start: 02/21/20 16:48:00 EDT, 1 inh, inhaled, bid, Disp# 1 each, Refills: 6, Pharmacy: [facility] Start Date: 02/21/20 Status: Ordered Mental Status 12/07/20 Barriers to Learning one year None evide [...] Effective Dates Health Status Clinical Service Informant Bony exostosis of mandible Discharge Diagnosis 12/07/20 Non-Specified Type 2 diabetes, HbA1C goal < 7% Discharge Diagnosis 12/07/20 Non-Specified Fecal incontinence Discharge Diagnosis 12/07/20 Non-Specified Self-mutilation Discharge Diagnosis 12/07/20 Non-Specified Grief reaction Discharge Diagnosis 12/07/20 Non-Specified Procedures Procedure Date Related Diagnosis Body [...] cirrhosis w/ hepatic steatosis, reactive associated lymphadenopathy [address] [place] [address] Impression: 1. Nonobstructive bowel gas pattern 2. Moderate constipation 4Impression: 1.8 x 0.5 x1.6 cm pocket of fluid within the subcutaneous tissues of the medial right thigh. This may reflect subcutaneous edema or a tiny residual abscess 5[facility] Right groin 6No acute process identified. Ill-defined [...] Microalbumin, Urine, Random (MICROALBUMI N, RD UR) 12/07/20 Comprehensive Metabolic Panel (COMP META B PANEL) 12/07/20 Hemoglobin A1C (HEMOGLOBIN, A1C) 12/07/20 Lipid Profile (LIPOPROTEINS) 12/07/20 Most recent to oldest [Reference Range]: 1 Estimated Average Glucose 298 mg/dL 1 (12/07/20 4:12 PM) Non-HDL 107 mg/dL 2 (12/07/20 4:12 PM) Estimated GFR, Black Race [>60 mL/min/1. 73 m2] >60 mL/min/1.73 m2 (12/07/20 4:12 PM) Estimated GFR, non-Black Race [>60 mL/mi n/1.73 m2] >60 mL/min/1.73 m2 (12/07/20 4:12 PM) Micro Alb (u) [<2.00 mg/dL] <1.20 mg/dL (12/07/20 4:19 PM) Anion Gap [5-14 mmol/L] 3 mmol/L 3 *LOW* (12/07/20 4:12 PM) Alb [3.5-5.0 g/dL] 3.6 g/dL (12/07/20 4:12 PM) Alk Phos [38-126 unit/L] 145 unit/L *HI* (12/07/20 4:12 PM) ALT [<35 unit/L] 34 unit/L (12/07/20 4:12 PM) AST [15-46 unit/L] 37 unit/L (12/07/20 4:12 PM) BUN [7-20 mg/dL] 14 mg/dL (12/07/20 4:12 PM) Ca [8.4-10.2 mg/dL] 8.7 mg/dL (12/07/20 4:12 PM) Chol/HDL 4 (12/07/20 4:12 PM) Chol [125-200 mg/dL] 146 mg/dL (12/07/20 4:12 PM) Cl- [96-107 mmol/L] 102 mmol/L (12/07/20 4:12 PM) HCO3 [22-30 mmol/L] 29 mmol/L (12/07/20 4:12 PM) Cret [0.60-1.00 mg/dL] 0.49 mg/dL *LOW* (12/07/20 4:12 PM) HbA1c [4.0-6.0 %] 12.0 % *HI* (12/07/20 4:12 PM) Glu [74-106 mg/dL] 417 mg/dL *HI* (12/07/20 4:12 PM) HDL [>35 mg/dL] 39 mg/dL (12/07/20 4:12 PM) K [3.5-5.1 mmol/L] 4.5 mmol/L (12/07/20 4:12 PM) LDL Chol, Calculated [50-130 mg/dL] 51 m g/dL (12/07/20 4:12 PM) Micro Alb Ratio [<20] NOT CALCULATED (12/07/20 4:19 PM) Na [137-145 mmol/L] 134 mmol/L *LOW* (12/07/20 4:12 PM) T Bili [0.2-1.3 mg/dL] 0.4 mg/dL (12/07/20 4:12 PM) Prot [6.3-8.2 g/dL] 7.6 g/dL (12/07/20 4:12 PM) TG [<200 mg/dL] 279 mg/dL *HI* (12/07/20 4:12 PM) Creat (u) 41.01 mg/dL 4 (12/07/20 4:19 PM) 1Result Comment: Testing Performed By: Dept of Pathology [facility] [address], [address], [place] [address] 2Result Comment: Testing Performed By: Dept of Pathology [facility] [address], [address], [place] [address] 3Result Comment: Testing Performed By: Dept of Pathology [facility] [address], [address], [place] [address] 4Result Comment: Reference Range for Random Urine Not Established. Vital Signs Most recent to oldest [Reference Range]: 1 Patient Weight 116.1 kg (12/07/20 3:31 PM) Respiratory Rate 22 br/min (12/07/20 3:31 PM) Blood Pressure 134/80mmHg (12/07/20 3:31 PM) Cuff Pulse Pressure 54 mmHg (12/07/20 3:31 PM) BP Location # 1 Left Arm (12/07/20 3:31 PM) Social History Social History Type Response Smoking Status Current every day he lorenza smoker Sex Female
--- OUTSIDE RECORDS SUMMARY | 2023-05-31 12:08 | External Medical Summary | Continuity of Care Document ---
Author Name Unknown Organization [place] [address] [address] Address [address] [place] [address] Care Team Providers Care Boiler Maker Name Role Phone Dariela Gupta Primary Care Physician [phone] Encounter [facility] [id number] Date(s): 02/27/21 - 02/27/21 [place] [address] [facility] [place] [address] [facility] [address] [place] [address]- [phone] Encounter Diagnosis Type 2 diabetes, HbA1C goal < 7%(Discharge Diagnosis) - 02/27/21 COPD with acute exacerbation(Discharge Diagnosis) - 02/27/21 Bilateral pneumonia(Discharge Diagnosis) - 02/27/21 Anxiety and depression(Discharge Diagnosis) - 02/27/21 Tobacco user(Discharge Diagnosis) - 02/27/21 Fecal incontinence(Discharge Diagnosis) - 02/27/21 Borderline hyperlipidemia(Discharge Diagnosis) - 02/27/21 TP (tinea pedis)(Discharge Diagnosis) - 02/27/21 Discharge Disposition: Home or Self Care Attending Physician: MD Gupta Amy L Referring Physician: MD Gupta Amy L Allergies, Adverse Reactions, Alerts Substance Reaction Severity Status morphine nausea Active sulfa drugs hives Active Augmentin "bad" diarrhea Active Vicodin nausea Active Benadryl "makes me hyper" Active Darvocet A500 nausea Active Assessment and Plan Extracted from: Title:Office Visit Note Author:MD Gupta Amy L D ate:02/27/21 1.Type 2 diabetes, HbA1C g oal < 7% Discussed with her that she needs to take care of herself, despite her griefabout her brother's . She agrees & will try harder to get her diabetes under control. Given new prescriptions for glucometer & testing supplies. Get labs, tho she realizes that they will not be likely to be ideal. Return in 3 months. 2.Anxiety and depression Discussed at length, she is hopeful that getting outdoors to help her son with landscaping will brighten her mood. Continue Citalopram. 3.Bilateral pneumonia Reassured that this can take time to resolve completely, however, her cough is improving. Will recheck CXR, to ensure resolution. 4.COPD with acute exacerbation She is trying to cut down on smoking, which is to be commended. She will continue to work towards quitting. Ordered: XR Chest 2 Views 5.TP (tinea pedis) Try OTC antifungals, pumice feet after bathing & apply [employer] working feet. 6.Fecal incontinence If CXR is normal, she may reschedule colonoscopy. 7.Tobacco user As above. 8.Borderline hyperlipidemia Recheck lipids & LFT's. Orders: diabetes supplies, Start: 02/27/21 15:52:00 EDT, See Instructions, Disp# 1 each, Refills: 0, test daily, Dx E11.9, [facility], Start: 02/27/21 15:53:00 EDT, See Instructions, Disp# 100 each, Refills: 3, test daily, Dx : E11.9, [facility] diabetes [facility], Start: 02/27/21 15:54:00 EDT, See Instructions, Disp# 100 each, Refills: 3, test daily, Dx: E11.9, Pharmacy: [facility] Return in 3 months. Time: Total time spent with this patient on day of evaluation including chart review, ordering, education and coordination of care elements: _44 minutes Immunizations Given and Recorded Vaccine Date Status Refusal Reason zoster vaccine, inactivated 01/31/20 Given zoster vaccine, inactivated 10/31/19 Given influenza virus vaccine, inactivated 08/17/19 Give n tetanus/diphtheria/pertuss, acel (Tdap) 06/14/ G iven Medications Advair Diskus 500 mcg-50 mcg Start: 04/09/20 10:11:00 EDT, 1 puff, PO, bid, Disp# 3 each, Refills: 3, Pharmacy: [id number] Start Date: 04/09/20 Stop Date: 04/04/21 Status: Ordered atorvastatin 20 mg oral tablet See Instructions, Disp# 90 tab, Refills: 3, Take 1 tablet by mouth once daily, Pharmacy: [place] [address], 172.72, cm, 03/22/20 13:02:00 EDT, Height Start Date: 04/30/20 Status: Ordered BD needle Ultra-Fine Pen Savana 32G x 4mm Start: 09/24/20 16:57:00 EST, See Instructions, Disp# 100 each, Refills: 6, Use with insulin pen., [facility] Start Date: 09/24/20 Status: Ordered BD PEN NEEDLE/SAVANA [id number] MIS USE TWICE DAILY WITH INSULIN Start Date: 09/24/20 Status: Ordered BD Test Strips 100 ct Start: 02/27/21 15:53:00 EDT, See Instructions, Disp# 100 each, Refills: 3, test daily, Dx : E11.9,Pharmacy: [place] [address] Start Date: 02/27/21 Status: Ordered citalopram 40 mg oral tablet See Instructions, Disp# 90 tab, Refills: 0, Take 1 tablet by mouth once daily, Pharmacy: [place] [address] Start Date: 02/19/21 Status: Ordered doxepin 25 mg oral capsule See Instructions, Disp# 90 cap, Refills: 0, Take 1 capsule by mouth once daily, Pharmacy: [place] [address] Start Date: 02/19/21 Status: Ordered glucometer Start: 02/27/21 15:52:00 EDT, See Instructions, Disp# 1 each, Refills: 0, test daily, Dx E11.9, Pharmacy: [place] [address] Start Date: 02/27/21 Status: Ordered lancets Start: 02/27/21 15:54:00 EDT, See Instructions, Disp# 100 each, Refills: 3, test daily, Dx: E11.9, Pharmacy: [place] [address] Start Date: 02/27/21 Status: Ordered Levemir FlexTouch 100 units/mL subcutaneous solution Start: 01/25/20 15:30:00 EDT, 55 unit =, subQ, qhs, Disp# 15 mL, Refills: 6, Pharmacy: [place] [address] Start Date: 01/25/20 Status: Ordered lisinopril 5 mg oral tablet See Instructions, Disp# 90 tab, Refills: 0, Take 1 tablet by mouth once daily, [facility] Start Date: 02/19/21 Status: Ordered meloxicam 15 mg oral tablet Start: 05/26/17 11:25:00, 1 tab, PO, Daily Start Date: 05/26/17 Status: Ordered Metamucil Start: 02/27/21 15:26:00 EDT Start Date: 02/27/21 Status: Ordered metFORMIN 500 mg oral tablet Start: 03/22/20 13:33:00 EDT, 2 tab, PO, bid, Disp# 120 tab, Refills: 6, [facility] Start Date: 03/22/20 Status: Ordered multivitamin Start: 05/26/17 11:25:00, 1 tab, PO, Daily Start Date: 05/26/17 Status: Ordered ONETOUCH ULTRA BLUE TEST STRP Start: 03/09/19 12:34:53 EDT, See Instructions, Disp# 50, Refills: 6, USE TO TEST BLOOD SUGAR TWICEA DAY., Pharmacy: [address], USE TO TEST BLOOD SUGAR TWICE A DAY. Start Date: 03/09/19 Status: Ordered prazosin 2 mg oral capsule See Instructions, Disp# 90 cap, Refills: 1, TAKE 1 CAPSULE BY MOUTH EVERY DAY AT BEDTIME, Pharmacy:[facility] Start Date: 02/14/21 Status: Ordered ProAir HFA 90 mcg/inh inhalation aerosol Start: 08/12/19 18:06:28 EST, 2 puff, inhaled, qid, Disp# 1 each, Refills: 5, PRN: as needed for wheezing, Pharmacy: [address] Start Date: 08/12/19 Status: Ordered Probiotic Formula Start: 12/28/20 13:00:00 EDT, 1 cap, PO, Daily Start Date: 12/28/20 Status: Ordered Vitamin D3 2000 intl units oral capsule Start: 05/26/17 11:25:00, 1 cap, PO, Daily Start Date: 05/26/17 Status: Ordered Wixela Inhub 250 mcg-50 mcg inhalation powder Start: 02/21/20 16:48:00 EDT, 1 inh, inhaled, bid, Disp# 1 each, Refills: 6, Pharmacy: [facility] Start Date: 02/21/20 Status: Ordered Mental Status 02/27/21 Barriers to Learning one year None evide nt Mandatory Health Literacy Documentation Yes Health Literacy Communication Barriers N ever Primary Language Yi Problem List Condition Effective Dates Status Health [...] Effective Dates Health Status Clinical Service Informant Tobacco user Discharge Diagnosis 02/27/21 Non-Specified COPD with acute exacerbation Discharge Diagnosis 02/27/21 Non-Specified Bilateral pneumonia Discharge Diagnosis 02/27/21 Non-Specified Fecal incontinence Discharge Diagnosis 02/27/21 Non-Specified Type 2 diabetes, HbA1C goal < 7% Discharge Diagnosis 02/27/21 Non-Specified Borderline hyperlipidemia Discharge Diagnosis 02/27/21 Non-Specified Anxiety and depression Discharge Diagnosis 02/27/21 Non-Specified TP (tinea pedis) Discharge Diagnosis 02/27/21 Non-Specified Procedures Procedure Date Related Diagnosis Body [...] w/ hepatic steatosis, reactive associated lymphadenopathy 3[facility] Impression: 1. Nonobstructive bowel gas pattern 2. Moderate constipation 4Impression: 1.8 x 0.5 x1.6 cm pocket of fluid within the subcutaneous tissues of the medial right thigh. This may reflect subcutaneous edema or a tiny residual abscess 5[facility] Right groin 6No acute process identified. [...] [Reference Range]: 1 Patient Weight 116.1 kg (02/27/21 3:23 PM) Heart Rate 86 bpm (02/27/21 3:23 PM) Blood Pressure 132/80mmHg (02/27/21 3:23 PM) Cuff Pulse Pressure 52 mmHg (02/27/21 3:23 PM) BP Location # 1 Left Arm (02/27/21 3:23 PM) Social History Social History Type Response Smoking Status Current every day he lorenza smoker Sex Female
--- OUTSIDE RECORDS SUMMARY | 2023-05-31 12:08 | External Medical Summary | Summary of Care ---
Author Name Unknown Organization [place] [address] Care Team Providers Care Oil Prospecting Observer Name Role Phone Dariela Gupta MD Primary Care Provider Reason for Visit * Reason Comments Medication Refill Encounter Details Date Type Department Care Team Description 01/16/2020 Refill Rheumatology [place] Yifan Garnett [address] [facility] [place] [address] Soy Pineda MD [address] [facility] [place] [id number] Allergies Active Allergy Reactions Severity Noted Date Comments Codeine Nausea/vomiting 09/25/2015 Meperidine 08/31/2015 Meperidine Nausea/vomiting 09/25/2015 Hydrocodone 08/31/2015 Morphine Nausea/vomiting 09/25/2015 Sulfa Antibiotics 09/25/2015 hives Hydrocodone-Acetaminophen Nausea/vomiting 09/25 documented as of this encounter (statuses as of 01/16/2020) Medications Medication Sig Dispensed Refills Start Date [...] fluticasone (FLONASE) 50 MCG/ACT nasal spray 1 [place]. As needed 0 12/31/2018 Active valACYclovir (VALTREX) 1000 MG Tablet As needed 0 03/09/2019 Active cyclosporine (RESTASIS) 0.05 % ophthalmic emulsion 1 Drop every 12 hours. 0 Active insulin Detemir (LEVEMIR) 100 UNIT/ML injection Start: 09/16/19 14:23:47 EST, See Instructions, Disp# 12 mL, Refills: 6, 12 units SQ in am; 44 UNITS SUBCUTANEOUSLY AT BEDTIme, Pharmacy: [facility] [address] 0 09/16/2019 Active lisinopril (PRINIVIL) 5 MG Tablet 1 daily 0 11/01/2019 Active BD PEN NEEDLE SHERRY U/F 32G X 4 MM 0 11/21/2019 Active prazosin (MINIPRESS) 2 MG Capsule Take 2 mg by mouth daily. 0 07/29/2019 Active Meloxicam 15 MG Tablet Take 1 Tab by mouth daily. 90 Tab 1 01/16/2020 Active Meloxicam 15 MG Tablet Take 1 Tab by mouth daily. 90 Tab 2 09/13/2019 0 Discontinue d(Refill) documented as of this encounter (statuses as of 01/16/2020) Active Problems Problem Noted Date Sjogren's syndrome 04/07/2017 Insomnia Depression Osteoarthritis of both knees Tobacco abuse documented as of this encounter (statuses as of 01/16/2020) Immunizations Name Administration Dates Next Due Zoster [...] Travel End documented as of this encounter Miscellaneous Notes * Telephone Encounter - Maryellen Grady [facility] - 01/16/2020 9:41 AM EDT Signed Prescriptions: Disp Refills Meloxicam 15 MG Tablet 90 Tab 1 Sig: Take 1 Tab by mouth daily.Authorizing Provider: SOY PINEDA User: MARYELLEN GRADY * Telephone Encounter - Maryellen Grady [facility] - 01/16/2020 9:39 AM EDT Reissued balance remaining at this time on refill; resent to different pharmacy as requested. Thanks, Maryellen Grady [facility] Clinical Pharmacist Telepharmacy [phone] 01/16/2020, 9:41 AM * Telephone Encounter - Susi Dixon [facility] - 01/16/2020 9:25 AM EDT Please re route this rx Pending Prescriptions: Disp Refills Meloxicam 15 MG Tablet 90 Tab 2 Sig: Take 1 Tab by mouth daily. Last Office/Telemedicine Visit: 11/28/2019 Next Office Visit: 11/27/2020 Scheduled Provider(s): Soy Pineda MD If no future appointments scheduled, and last appointment is greater than a year ago, please schedule patient for a follow-up appointment Last date the medication was ordered: 09/13/19 Pharmacy: [facility] [address] [place] [address] DEAN YI Is this request for a [...] Care Team Description 11/27/2020 Office Visit Rheumatology OpSoy rodriguez MD [address] [place] [address] [phone] Health Maintenance Due Date Last Done Comments [...] 10/15/1998, 09/04/1997 LUNG CANCER SCREENING YEARLY-USE SMARTSET 76861 2013 *DEPRESSION SCREENING,ANNUAL FOR PTS 12 AND OVER 10/06/2015 *COLORECTAL CANCER SCREENING (COLONOSCOPY 10 YEARS; SIGMOIDOSCOPY 5 YEARS; COLOGUARD 3 YEARS; FOBT 1 YEAR),AGES 50-75 11/01/2017 Influenza Vaccine (FLU shot) (#1) 2019 *BASIC METABOLIC PANEL (BMP) FOR HTN YEARLY [...] Documents on File Type Date Recorded Patient Quality Control Analyst Expl anation Advanced Directive Advanced Directive Advanced Directive
--- OUTSIDE RECORDS SUMMARY | 2023-05-31 12:09 | External Medical Summary ---
Author Name Unknown Address [address] [place] [address] Phone Organization K0G:[facility] [address] [facility] [place] [address] Laboratory Report Ordering Provider Test Date Status MIRIAM URIARTE 05/21/2017 13:48:00 Final Observation Date Value Abnormality Reference Status WBC, Total 05/21/2017 14:01 6.37 4.00-10.80 F inal RBC 05/21/2017 14:01 4.57 3.85-5.15 Fin al Hemoglobin 05/21/2017 14:01 14.5 12.0-15.3 Fi nal HCT 05/21/2017 14:01 42.0 36.0-45.2 Fin al MCV 05/21/2017 14:01 91.9 81.5-97.5 Fin al MCH 05/21/2017 14:01 31.7 27.0-34.0 Fin al MCHC 05/21/2017 14:01 34.5 32.0-36.0 Fin al RDW 05/21/2017 14:01 12.0 11.5-15.5 Fin al Platelets 05/21/2017 14:01 163 140-400 Fin al MPV 05/21/2017 14:01 9.7 6.6-11.1 Fin al Segs 05/21/2017 14:01 43.1 40-75 Fin al Lymphs % 05/21/2017 14:01 42.5 Above high normal 18-42 Final Monos 05/21/2017 14:01 11.9 Above high normal 1-11 Final Eosinophils 05/21/2017 14:01 2.2 0-6 F inal Basos 05/21/2017 14:01 0.3 0-2 Fin al Absolute Segs 05/21/2017 14:01 2.74 1.8-7.7 Final Lymphs, absolute 05/21/2017 14:01 2.71 1.0-4. 8 Final Monos, Abs 05/21/2017 14:01 0.76 0.0-1.1 Fi nal Peggy, Abs 05/21/2017 14:01 0.14 0.0-0.7 Fin ana Feldmanos, Abs 05/21/2017 14:01 0.02 0.0-0.2 Fi nal Performing Location [address] [address]
--- OUTSIDE RECORDS SUMMARY | 2023-05-31 12:09 | External Medical Summary ---
Author Name Unknown Address [address] [place] [address] Phone Organization K01:[facility] [address] [facility] [address] Laboratory Report Ordering Provider Test Date Status MIRIAM URIARTE MD [id number] Final Obs # Observation Date Value Abnormality Reference Status Performing Location 0 PHYLICIA DILUTION [id number] >[id number] Above high normal <40 Final [facility] [address] [facility] [address] 1 PHYLICIA PATTERN [id number] SPECKLED Final [facility] [address] [facility] [facility] [address] 2 SSA Ab [id number] 74.5 Above high normal <20 Final [facility] [address] [facility] [address]
--- OUTSIDE RECORDS SUMMARY | 2023-05-31 12:09 | External Medical Summary ---
Author Name Unknown Address [facility] [place] [address] Phone Organization K01:[facility] [address] [address] Laboratory Report Ordering Provider Test Date Status MIRIAM URIARTE MD [id number] Final Obs # Observation Date Value Abnormality Reference Status Performing Location 0 BUN [id number] 12 6-20 Final [facility] [address] [facility] [address] 1 Creatinine [id number] 0.6 0.5-1.0 [facility] [address] [facility] [address]
--- OUTSIDE RECORDS SUMMARY | 2023-05-31 12:09 | External Medical Summary | Summary of Care ---
Author Name Unknown Organization [place] [address] Care Team Providers Care Client Support Analyst Name Role Phone Dariela Gupta MD Primary Care Provider Encounter Details Date Type Department Care Team Description 12/24/2018 Scan Encounter Rheumatology [facility] [address] [facility] [place] [address] Soy Rosa MD [address] [facility] [place] [address] [phone] <No scans attached> Allergies Active Allergy Reactions Severity Noted Date Comments Codeine Nausea/vomiting 09/25/2015 Meperidine 08/31/2015 Meperidine Nausea/vomiting 09/25/2015 Hydrocodone 08/31/2015 Morphine Nausea/vomiting 09/25/2015 Sulfa Antibiotics 09/25/2015 hives Hydrocodone-Acetaminophen Nausea/vomiting 09/25 documented as of this encounter (statuses as of 01/07/2019) Medications Medication Sig Dispensed Refills Start Date End Date Status Meloxicam 15 MG Tablet Take 15 mg by mouth at bedtime. 0 Active albuterol (VENTOLIN HFA) 108 (90 BASE) MCG/ACT inhaler Inhale 2 Puffs by mouth every 6 hours as needed. 0 Active traZODone (DESYREL) 50 MG Tablet Take 50 mg by mouth at bedtime. 0 Active citalopram (CELEXA) 20 MG Tablet Take 20 mg by mouth daily. 0 Active doxepin (SINEQUAN) 25 MG Capsule [...] every evening. 1 daily 0 03/19/2018 Active prazosin (MINIPRESS) 1 MG Capsule 1 daily 0 03/19/2018 Active ONETOUCH DELICA LANCETS 33G MISC USE TO TEST BLOOD SUGAR TWICE A DAY. 0 01/20/2018 Active ONETOUCH ULTRA BLUE STRP USE TO TEST BLOOD SUGAR TWICE A DAY. 0 01/20/2018 Active Blood Glucose Monitoring Suppl ([employer]TOUCH ULTRA 2) w/Device KIT USE TO TEST BLOOD SUGAR TWICE DAILY. 0 01/20/2018 Active Meloxicam 15 MG Tablet Take 1 Tab by mouth daily. 90 Tab 2 11/12/2018 Active documented as of this encounter (statuses as of 01/07/2019) Active Problems Problem Noted Date Sjogren's syndrome 04/07/2017 Insomnia Depression Osteoarthritis of both knees Tobacco abuse documented as of this encounter (statuses as of 01/07/2019) Social History Tobacco Use Types Packs/Day Years Used Date Current Every Day Smoker Cigarettes 1 30 Smokeless Tobacco: Never Used Alcohol Use Drinks/Week oz/Week Comments No Sex Assigned at Date Recorded Not on file Job Start Date Occupation Industry Not on file Not on file Not on file Travel History Travel Start Travel End documented as of this encounter Plan of Treatment Upcoming Encounters Date Type Specialty Care Team Description 04/08/2019 Office Visit Rheumatology Soy Rosa MD [address] [place] [address] [phone] Nurse Mikhail Garnett Rheumatology [place] [address] [facility] [place] [address] [phone] Health Maintenance Due Date Last Done Comments DTaP,Tdap,and Td Vaccines (1 - Tdap) 1977 PNEUMOCOCCAL 19-64 MEDIUM RISK (1 of 1 - PPSV23) 1977 PAP SMEAR-EVERY 3 YRS,AGES 21-65 1979 BREAST CANCER SCREENING DISCUSSION YEARLY AGES 40-75 11/02/2001 11/02/2000, 08/20/1999 LIPID SCREEN EVERY 5 YRS-WOMEN AGE 45-75 09/03/2004 09/03/1999, 10/15/1998, 09/04/1997 LUNG CANCER SCREENING YEARLY-USE SMARTSET 30373 2013 *DEPRESSION SCREENING, ANNUAL FOR PTS 18 AND OVER 10/06/2015 *COLORECTAL CANCER SCREENING (COLONOSCOPY 10 YEARS; SIGMOIDOSCOPY 5 YEARS; COLOGUARD 3 YEARS; FOBT 1 YEAR),AGES 50-75 11/01/2017 Influenza Vaccine (FLU shot) (#1) 2018 DIABETES SCREEN EVERY 3 YRS-AGE 45 AND ABOVE 05/21/2020 05/21/2017, 10/15/2015, 09/22/2000, Additional history exists MENINGOCOCCAL (MENACTRA) Aged Out No longer eligible based on patient's age to complete this topic documented as of this encounter Implants Not on filedocumented as of this encounter Advance Directives Patient has advance care planning documents on file. For more information, please contact: [place] [phone]
--- OUTSIDE RECORDS SUMMARY | 2023-05-31 12:09 | External Medical Summary ---
Author Name Unknown Address [address] [id number] Phone Organization K01:[facility] [address] [id number] Laboratory Report Ordering Provider Test Date Status MIRIAM URIARTE MD [id number] Final Obs # Observation Date Value Abnormality Reference Status Performing Location 0 ESR [id number] Above high normal 0-20 Final [facility] [address] [facility] [address]
--- OUTSIDE RECORDS SUMMARY | 2023-05-31 12:09 | External Medical Summary ---
Author Name Unknown Address [address] [facility] [place] [place] Phone Organization K01:[facility] [address] [facility] [address] Laboratory Report Ordering Provider Test Date Status MIRIAM URIARTE MD [id number] Final Obs # Observation Date Value Abnormality Reference Status Performing Location 0 WBC [id number] 6.28 4.00-10.80 Final [facility] [address] [facility] [address] 1 RBC [id number] 4.87 3.85-5.15 Final [facility] [address] [facility] [address] 2 Hemoglobin [id number] 15.0 12.0-15.3 Final [facility] [address] [facility] [address] 3 HCT [id number] 44.4 36.0-45.2 Final [facility] [address] [facility] [address] 4 MCV [id number] 91.2 81.5-97.5 [facility] [address] [facility] [address] 5 MCH [id number] 30.8 27.0-34.0 [facility] [address] [facility] [address] 6 MCHC [id number] 33.8 32.0-36.0 Final [facility] [address] [facility] [address] 7 RDW [id number] 12.1 11.5-15.5 [facility] [address] [facility] [address] 8 Platelets [id number] 179 140-400 Final [facility] [address] [facility] [address] 9 MPV [id number] 10.3 6.6-11.1 Final [facility] [address] [facility] [address] 10 Segs [id number] 44 40-75 Final [facility] [address] [facility] [address] 11 Lymphocytes [id number] 37 18-42 Final [facility] [address] [facility] 12 Monos [id number] 16 Above high normal 1-11 Final [facility] [address] [facility] 13 Eosinophils [id number] 2 0-6 Final [facility] [address] [facility] 14 Basos [id number] 1 0-2 Final [facility] [address] [facility] 15 Segmented Neutrophils, Abs [id number] 2.73 1.8-7.7 Final [facility] [address] [facility] 16 Lymphs, Abs [id number] 2.33 1.0-4.8 Final [facility] [address] [facility] 17 Monos, Abs [id number] 1.02 0.0-1.1 [facility] [address] [facility] 18 Eos, Abs [id number] 0.14 0.0-0.7 Final [facility] [address] [facility] 19 Basos, Abs [id number] 0.04 0.0-0.2 [facility] [address] [facility]
--- OUTSIDE RECORDS SUMMARY | 2023-05-31 12:09 | External Medical Summary ---
Author Name Unknown Address [address] [facility] [place] [address] Phone Organization K0G:Toni Pulido [address] [place] [address] [place] [address] Laboratory Report Ordering Provider Test Date Status MIRIAM URIARTE 05/21/2017 13:48:00 Final Observation Date Value Abnormality Reference Status ESR 05/21/2017 14:36 35 Above high normal 0-20 Final Performing Location [facility] [place] [facility] Pulido [address] [facility] [place] [address]
--- OUTSIDE RECORDS SUMMARY | 2023-05-31 12:09 | External Medical Summary | Summary of Care ---
Author Name Unknown Organization [place] [address] Care Team Providers Care Law Office Assistant Name Role Phone Dariela Gupta MD Primary Care Provider [phone] Reason for Visit * Reason Comments Medication Refill Encounter Details Date Type Department Care Team Description 11/11/2018 Refill Rheumatology [facility] [address] [facility] [place] [address] Kalani Pineda MD [address] [facility] [address] [place] [address] [phone] Allergies Active Allergy Reactions Severity Noted Date Comments Codeine Nausea/vomiting 09/25/2015 Meperidine 08/31/2015 Meperidine Nausea/vomiting 09/25/2015 Hydrocodone 08/31/2015 Morphine Nausea/vomiting 09/25/2015 Sulfa Antibiotics 09/25/2015 hives Hydrocodone-Acetaminophen Nausea/vomiting 09/25 documented as of this encounter (statuses as of 11/12/2018) Medications Medication Sig Dispensed Refills Start Date [...] 0 01/20/2018 Active Blood Glucose Monitoring Suppl ([employer]TOUCH ULTRA 2) w/Device KIT USE TO TEST BLOOD SUGAR TWICE DAILY. 0 01/20/2018 Active Meloxicam 15 MG Tablet Take 1 Tab by mouth daily. 90 Tab 2 11/12/2018 Active Meloxicam 15 MG Tablet take 1 tablet by mouth once daily 90 Tab 2 02/12/2018 11/11/2018 Discontinued documented as of this encounter (statuses as of 11/12/2018) Active Problems Problem Noted Date Sjogren's syndrome 04/07/2017 Insomnia Depression Osteoarthritis of both knees Tobacco abuse documented as of this encounter (statuses as of 11/12/2018) Social History Tobacco Use Types Packs/Day Years [...] Telephone Encounter - Kalani Pineda MD - 11/12/2018 8:10 AM EST Signed Prescriptions: Disp Refills Meloxicam 15 MG Tablet 90 Tab 2 Sig: Take 1 Tab by mouth daily. Authorizing Provider: KALANI PINEDA * Telephone Encounter - Enid Lakhani, paper carrier - 11/11/2018 4:28 PM EST Pending Prescriptions: Disp Refills Meloxicam 15 MG Tablet 90 Tab 2 Sig: Take 1 Tab by mouth daily. Last Office Visit: 04/06/2018 Next Office Visit: 04/05/2019 Scheduled Provider(s): Kalani Pineda MD; Nurse Arrival Rheumatology [place] If no future appointments scheduled, and last appointment is greater than a year ago, please schedule patient for a follow-up appointment Last date the medication was ordered: 02/12/2018 Patient Phone Numbers Labs: Lab Results Component Value Date/Time CREAT 0.7 05/21/2017 01:48 PM POTASSIUM 4.5 05/21/2017 01:48 PM TSH 2.09 06/05/1997 11:19 AM LDLCALC 101 09/03/1999 12:18 PM ALT 26 05/21/2017 01:48 PM HGBA1C 6.7 (H) 12/15/2000 02:57 PM documented in this encounter Plan of Treatment Upcoming Encounters Date Type Specialty Care Team Description 04/05/2019 Office Visit Rheumatology Kalani Pineda MD [address] [facility] [place] [address] [phone] Tamir Nurse Mikhail Rheumatology [place] [address] [place] [address] [phone] Health Maintenance Due Date Last Done Comments DTaP,Tdap,and Td Vaccines (1 - Tdap) 1977 PNEUMOCOCCAL 19-64 MEDIUM RISK (1 of 1 - PPSV23) 1977 PAP SMEAR-EVERY 3 YRS,AGES 21-65 1979 BREAST CANCER SCREENING DISCUSSION YEARLY AGES 40-75 11/02/2001 11/02/2000, 08/20/1999 LIPID SCREEN EVERY 5 YRS-WOMEN AGE 45-75 09/03/2004 09/03/1999, 10/15/1998, 09/04/1997 LUNG CANCER SCREENING YEARLY-USE SMARTSET 79688 2013 *DEPRESSION SCREENING, ANNUAL FOR PTS 18 [...] For more information, please contact: [place] [phone]
--- OUTSIDE RECORDS SUMMARY | 2023-05-31 12:09 | External Medical Summary ---
Author Name Unknown Address [address] [facility] [place] [address] Phone Organization K0G:ANN Pulido [address] [facility] [place] [address] Laboratory Report Ordering Provider Test Date Status MIRIAM URIARTE 05/21/2017 13:48:00 Final Observation Date Value Abnormality Reference Status BUN 05/21/2017 15:04 19 6-20 Fin al Creatinine 05/21/2017 15:04 0.7 0.5-1.0 Fi nal Performing Location [facility] [employer] [address] [place] [address]
--- OUTSIDE RECORDS SUMMARY | 2023-05-31 12:09 | External Medical Summary | Summary of Care ---
Author Name Unknown Organization [place] [address] Phone Care Team Providers Care Supervisor Wound Name Role Phone Dariela Gupta MD Primary Care Provider [phone] Reason for Visit * Reason Comments Rheum Follow Up 1 year recheck Encounter Details Date Type Department Care Team Description 04/06/2018 Office Visit Rheumatology [place] [address] [facility] [place] [address] Soy Rosa MD [address] [facility] [place] [address] [phone] Sjogren's syndrome with keratoconjunctivitis sicca (HCC)*;Primary osteoarthritis of both knees Allergies Active Allergy Reactions Severity Noted Date Comments Codeine Nausea/vomiting 09/25/2015 Meperidine Nausea/vomiting 09/25/2015 Morphine Nausea/vomiting 09/25/2015 Sulfa Antibiotics 09/25/2015 hives Hydrocodone-Acetaminophen Nausea/vomiting 09/25 as of this encounter Medications Prescription Sig. Disp. Refills Start Date End Date Status doxepin (SINEQUAN) 25 MG Capsule Take 25 mg by mouth at bedtime. 1 tab at bedtime 0 04/01/2017 Active Meloxicam 15 MG Tablet take 1 tablet by mouth once daily 90 Tab 2 02/12/2018 Active MetFORMIN (GLUCOPHAGE) 1000 MG Tablet 1 twice daily 03/20/2018 Active BuPROPion HCl ER, SR, (WELLBUTRIN [...] BLOOD SUGAR TWICE DAILY. 0 01/20/2018 Active citalopram (CELEXA) 20 MG Tablet Take 20 mg by mouth daily. 1 1/2 daily 04/06/2018 Discontinued prazosin (MINIPRESS) 2 MG Capsule 1 tab at bedtime 0 04/01/2017 04/06/2018 Discontinued as of this encounter Active Problems Problem Noted Date Sjogren's syndrome (HCC) 04/07/2017 Insomnia Depression Osteoarthritis of both knees Tobacco abuse as of this encounter Social History Tobacco Use Types Packs/Day Years Used Date Current Every Day Smoker Cigarettes 1 30 Smokeless Tobacco: Never Used Alcohol Use Drinks/Week oz/Week Comments No Sex Assigned at Date Recorded Not on file as of this encounter Last Filed Vital Signs Vital Sign Reading Time Taken Blood Pressure 130/78 04/06/2018 11:02 AM EDT Pulse - - Temperature 36.6 C (97.9 F) 04/06/2018 1 1:02 AM EDT Respiratory Rate - - Oxygen Saturation - - Inhaled Oxygen Concentration - - Weight 112.5 kg (248 lb) 04/06/2018 11: 02 AM EDT Height - - Body Mass Index 38.27 04/06/2018 11:02 AM EDT in this encounter Progress Notes * Soy Rosa MD - 04/06/2018 11:08 AM EDT Formatting of this note may be different from the original. Subjective: Patient seen today for further follow up evaluation of osteoarthritis, Sjogren's. Since the last visit she continues to deal with dry eyes but states they are doing better than last year. She mainly uses artifical tears but does not have to use them daily. No restasis, plugs. No real dry mouth. Shealso deals with some arthritis in her knees - worse on left side and worse with the rainy weather. Tylenol does not help. Is on mobic daily. She has history of arthroscopic surgery to the left knee. She reports that she is going to be getting blood work soon for her PCP. No other issues. Does report a history of parotiditis. Musculoskeletal ROS: . Abnormal: joint pain . Pain scale (0-10): 2 Other ROS: . Constitutional: normal . Head normal . Eyes: dryness . Ears, nose, throat, mouth: normal . Cardiovascular: normal . Respiratory: normal . Gastrointestinal: normal . Genitourinary: normal . Skin: normal All other ros reviewed and negative Social History: Social History Substance Use Topics Smoking status: Current Every Day Smoker Packs/day: 1.00 Years: 30.00 Types: Cigarettes Smokeless tobacco: Never Used Alcohol use No Current Outpatient Prescriptions Medication Sig Dispense Refill Blood Glucose Monitoring Suppl ([employer] ULTRA 2) w/Device KIT USE TO TEST BLOOD SUGAR TWICE DAILY. 0 BuPROPion HCl ER, SR, (WELLBUTRIN SR) 200 MG TB12 Take 200 mg by mouth daily. In the morning. 0 citalopram (CELEXA) 40 MG Tablet Take 40 mg by mouth every evening. 1 daily 0 MetFORMIN (GLUCOPHAGE) 1000 MG Tablet 1 twice daily [employer] DELICA LANCETS 33G MISC USE TO TEST BLOOD SUGAR TWICE A DAY. 0 [employer] ULTRA BLUE STRP USE TO TEST BLOOD SUGAR TWICE A DAY. 0 prazosin (MINIPRESS) 1 MG Capsule 1 daily 0 Meloxicam 15 MG Tablet take 1 tablet by mouth once daily 90 Tab 2 doxepin (SINEQUAN) 25 MG Capsule Take 25 mg by mouth at bedtime. 1 tab at bedtime 0 Physical Exam: BP 130/78 | Temp (Src) 97.9 (Tympanic) | Wt 248 lbs (112.492kg) | BMI 38.27 kg/m | BSA 2.31 m General: alert, healthy, no distress, well nourished and well developed HENT: normocephalic, external ears normal, no mucosal erythema, no mucosal edema, mildly dry mucosa, no oral ulcers Eye Exam: PERRL, EOMI, conjunctiva are pink and non-injected, sclera clear Neck: supple, no adenopathy Lymph: no palpable lymphadenopathy Heart: regular rate & rhythm and no gallops Lungs: clear to auscultation , no rales, wheezes or rhonchi Abdomen: abdomen soft, non-tender, obese and normal bowel sounds Musculoskeletal Exam: Mild crepitus left knee with anterior pain on exam No knee effusions No synovitis Assessment: M35.01 Sjogren's syndrome with keratoconjunctivitis sicca (HCC) (primary encounter diagnosis) M17.0 Primary osteoarthritis of both knees Overall stable Sjogren 's with minimal use of [id number] eyedrops. No significant dry mouth. Has some left knee arthritis that is managed conservatively and with Mobic. If knee pain worsens cancontact for injection. Plan: 1. Continue conservative measures for dryness 2. Continue Mobic and as needed Tylenol 3. Contact if knee pain worsens for an injection 4. Have upcoming labs results sent to me 5. Return to clinic 1 year Soy Rosa MD Department of Rheumatology in this encounter Nursing Notes * Brady Pramodmeredith [place], SENIOR FRONT END WEB DEVELOPER - 04/06/2018 11:00 AM EDT Formatting of this note may be different from the original. Chief Complaint Patient presents with Rheum Follow Up 1 year recheck in this encounter Plan of Treatment Upcoming Encounters Date Type Specialty Care Team Description 04/05/2019 Office Visit Rheumatology Soy Rosa MD [address] [facility] [address] [place], [place] [address] [phone] Health Maintenance Due Date Last Done Comments DTaP,Tdap,and Td Vaccines (1 - Tdap) 1979 PNEUMOCOCCAL 19-64 MEDIUM RI SK (1 of 1 - PPSV23) 1977 PAP SMEAR-EVERY 3 YRS,AGES 21-65 1979 BREAST CANCER SCREENING DISC USSION YEARLY AGES 40-75 11/02/2001 11/02/2000, 08/20/1999 LIPID SCREEN EVERY 5 YRS-WOM EN AGE 45-75 09/03/2004 09/03/1999, 10/15/1998, 09/04/1997 LUNG CANCER SCREENING YEARLY -USE SMARTSET 13702 2013 *DEPRESSION SCREENING, ANNUA Zoya FOR PTS 18 AND OVER 10/06/2015 *COLORECTAL CANCER SCREENING (COLONOSCOPY 10 YEARS; SIGMOIDOSCOPY 5 YEARS; COLOGUARD 3 YEARS; FOBT 1 YEAR),AGES 50-75 11/01/2017 Influenza Vaccine (FLU shot) (#1) 2018 DIABETES SCREEN EVERY 3 YRS- AGE 45 AND ABOVE 05/21/2020 05/21/2017, 10/15/2015, 09/22/2000, Additional history exists as of this encounter Implants Not on fileas of this encounter Visit Diagnoses Diagnosis Sjogren's syndrome with shon toconjunctivitis sicca (HCC) - Primary Primary osteoarthritis of sravani th knees Primary localized osteoarthrosis, lower leg in this encounter"
--- OUTSIDE RECORDS SUMMARY | 2023-05-31 12:09 | External Medical Summary | Summary of Care ---
Author Name Unknown Organization [place] [address] Care Team Providers Care Monogram Maker Name Role Phone Dariela Gupta MD Primary Care Provider [phone] Reason for Visit * Reason Comments Medication Refill Mobic Encounter Details Date Type Department Care Team Description 09/13/2019 Refill Rheumatology [facility] [place] [address] [facility] [place] [address] Kalani Pineda MD [address] [facility] [place] [address] [phone] Allergies Active Allergy Reactions Severity Noted Date Comments Codeine Nausea/vomiting 09/25/2015 Meperidine 08/31/2015 Meperidine Nausea/vomiting 09/25/2015 Hydrocodone 08/31/2015 Morphine Nausea/vomiting 09/25/2015 Sulfa Antibiotics 09/25/2015 hives Hydrocodone-Acetaminophen Nausea/vomiting 09/25 documented as of this encounter (statuses as of 09/13/2019) Medications Medication Sig Dispensed Refills Start Date [...] 0 01/20/2018 Active Blood Glucose Monitoring Suppl ([employer]OUCH ULTRA 2) w/Device KIT USE TO TEST BLOOD SUGAR TWICE DAILY. 0 01/20/2018 Active Meloxicam 15 MG Tablet Take 1 Tab by mouth daily. 90 Tab 2 09/13/2019 Active Meloxicam 15 MG Tablet Take 1 Tab by mouth daily. 90 Tab 2 11/12/2018 09/13/2019 Discontinued( Refill) documented as of this encounter (statuses as of 09/13/2019) Active Problems Problem Noted Date Sjogren's syndrome 04/07/2017 Insomnia Depression Osteoarthritis of both knees Tobacco abuse documented as of this encounter (statuses as of 09/13/2019) Social History Tobacco Use Types Packs/Day Years [...] Telephone Encounter - Kalani Pineda MD - 09/13/2019 4:20 PM EST Signed Prescriptions: Disp Refills Meloxicam 15 MG Tablet 90 Tab 2 Sig: Take 1 Tab by mouth daily. Authorizing Provider: KALANI PINEDA * Telephone Encounter - Ene Terry LPN - 09/13/2019 3:56 PM EST Pending Prescriptions: Disp Refills Meloxicam 15 MG Tablet 90 Tab 2 Sig: Take 1 Tab by mouth daily. * Telephone Encounter - Ct Concepcion CPhT - 09/13/2019 3:41 PM EST Pt scheduled an appointment for 11/28/2019. Pt concerned she she will run out of meds before appointment. Proactive refill request Please review and approve if appropriate Pending Prescriptions: Disp Refills Meloxicam 15 MG Tablet 90 Tab 2 Sig: Take 1 Tab by mouth daily. Last Office Visit: 04/06/2018 Next Office Visit: 11/28/2019 Scheduled Provider(s): Kalani Pineda MD If no future appointments scheduled, and last appointment is greater than a year ago, please schedule patient for a follow-up appointment Last date the medication was ordered: 11/12/2018 Pharmacy: [facility] [address] Is this request for a controlled substance?No [...] Encounters Date Type Specialty Care Team Description 11/28/2019 Office Visit Rheumatology Kalani Pineda MD [address] [place] [address] [phone] Health Maintenance Due Date Last Done Comments [...] 2) 01/29/2008 LUNG CANCER SCREENING YEARLY-USE SMARTSET 42721 2013 *DEPRESSION SCREENING,ANNUAL FOR PTS 12 AND [...] Documents on File Type Date Recorded Patient [employer] Gear Generator Expl anation Advanced Directive Advanced Directive
--- OUTSIDE RECORDS SUMMARY | 2023-05-31 12:09 | External Medical Summary | Summary of Care ---
Author Name Unknown Organization [place] [address] Phone Care Team Providers Care Bell Spinner Name Role Phone Jose Haro MD Primary Care Provider [phone] Reason for Visit * Reason Comments eRx-Medication Refill Encounter Details Date Type Department Care Team Description 02/12/2018 Refill Rheumatology [place] [id number] [facility] [place] [address] Kalani Pineda MD [facility] [place] [address] [phone] Allergies Active Allergy Reactions Severity Noted Date Comments Codeine Nausea/vomiting 09/25/2015 Meperidine Nausea/vomiting 09/25/2015 Morphine Nausea/vomiting 09/25/2015 Sulfa Antibiotics 09/25/2015 hives Hydrocodone-Acetaminophen Nausea/vomiting 09/25 as of this encounter Medications Prescription Sig. Disp. Refills Start Date End Date Status citalopram (CELEXA) 20 MG Tablet Take 20 mg by mouth daily. 1 1/2 daily Active doxepin (SINEQUAN) 25 MG Capsule Take 25 mg by mouth at bedtime. 1 tab at bedtime 0 04/01/2017 Active prazosin (MINIPRESS) 2 MG Capsule 1 tab at bedtime 0 04/01/2017 Active Meloxicam 15 MG Tablet take 1 tablet by mouth once daily 90 Tab 2 02/12/2018 Active Meloxicam 15 MG Tablet Take 1 Tab by mouth daily. 90 Tab 4 12/12/2016 02/12/2018 Discontinued as of this encounter Active Problems [...] Not on file as of this encounter Miscellaneous Notes * Telephone Encounter - Hilda WalkerKRISTINA - 02/12/2018 3:22 PM EDT Signed Prescriptions: Disp Refills Meloxicam 15 MG Tablet 90 Tab 2 Sig: take 1 tablet by mouth once daily Authorizing Provider: KALANI PINEDA * Telephone Encounter - Kalani Pineda MD - 02/12/2018 1:24 PM EDT Signed Prescriptions: Disp Refills Meloxicam 15 MG Tablet 90 Tab 2 Sig: take 1 tablet by mouth once daily Authorizing Provider: KALANI PINEDA * Telephone Encounter - Sheela Bettencourt OSA - 02/12/2018 1:14 PM EDT Formatting of this note may be different from the original. Pt calling requesting a new rx to be sent. She stated she is now out of the medication. Pending Prescriptions: Disp Refills Meloxicam 15 MG Tablet [Pharmacy Med Name*90 Tab 2 Sig: take 1 tablet by mouth once daily Last Office Visit: 04/07/2017 Next Office Visit: 04/06/2018 Scheduled Provider(s): Kalani Pineda MD If no future appointments scheduled, and last appointment is greater than a year ago, please schedule patient for a follow-up appointment Last date the medication was ordered: 12/12/2016 Patient Phone Numbers Labs: Lab Results Component Value Date/Time CREAT 0.7 05/21/2017 01:48 PM POTASSIUM 4.5 05/21/2017 01:48 PM TSH 2.09 06/05/1997 11:19 AM LDLCALC 101 09/03/1999 12:18 PM ALT 26 05/21/2017 01:48 PM HGBA1C 6.7 (H) 12/15/2000 02:57 PM in this encounter Plan of Treatment Upcoming Encounters Date Type Specialty Care Team Description 04/06/2018 Office Visit Rheumatology Kalani Pineda MD [address] [facility] [address] [place] [id number] Health Maintenance Due Date Last Done Comments DTaP,Tdap,and Td Vaccines (1 - Tdap) 1977 PNEUMOCOCCAL 19-64 MEDIUM RI SK (1 of - PPSV23) 1977 PAP SMEAR-EVERY 3 YRS,AGES 21-65 1979 BREAST CANCER SCREENING DISC USSION YEARLY AGES 40-75 11/02/2001 11/02/2000, 08/20/1999 LIPID SCREEN EVERY 5 YRS-WOM EN AGE 45-75 09/03/2004 09/03/1999, 10/15/1998, 09/04/1997 LUNG CANCER SCREENING YEARLY -USE SMARTSET [id number] 2013 *DEPRESSION SCREENING, ANNUA L FOR PTS 18 AND OVER 10/06/2015 *COLORECTAL CANCER SCREENING (COLONOSCOPY 10 YEARS; SIGMOIDOSCOPY 5 YEARS; COLOGUARD 3 YEARS; FOBT 1 YEAR),AGES 50-75 11/01/2017 Influenza Vaccine (FLU shot) (Season Ended) 2018 DIABETES SCREEN EVERY 3 YRS- AGE 45 AND ABOVE 05/21/2020 05/21/2017, 10/15/2015, 09/22/2000, Additional history exists as of this encounter Implants Not on fileas of this encounter
--- OUTSIDE RECORDS SUMMARY | 2023-05-31 12:09 | External Medical Summary ---
Author Name Unknown Address [address] [place], [place] [address] [address] Phone Organization K0G:[address] [place] [address] Laboratory Report Ordering Provider Test Date Status MIRIAM URIARTE 05/21/2017 13:48:00 Final Observation Date Value Abnormality Reference Status Albumin 05/21/2017 15:04 3.8 3.8-5.0 Fin al AST (Aspartate aminotransferase) 05/21/2017 15:04 26 10-35 Final Alk Phos 05/21/2017 15:04 88 0-153 Fin al ALT (Alanine aminotransferase) 05/21/2017 15:04 26 10-35 Final Bilirubin, Total 05/21/2017 15:04 0.3 0-1.2 Final Bilirubin, Direct 05/21/2017 15:09 <0.2 0.0-0 .3 Final Protein 05/21/2017 15:04 7.7 6.0-8.3 Fin al Performing Location [address] [place] [address]
== END 2023-05-23 18:40 | disposition home or self-care (01) | DRG 759 ==
LOC: ED 15:43 → 3E 20:54 → INTOOBSV 20:54 → 3E 22:28

== ENCOUNTER 2024-12-28 09:20 | Observation (INO) ==
--- NOTE | 2024-12-28 09:30 | Emergency Department Note ---
Impression & Plan Acute hypotension, Syncope, Weakness, Vomiting ED Provider Note NAME: MABLE CABRERA AGE: 64 SEX: F : 1960 ARRIVES VIA: Ambulance INFORMANT: Patient ED PROVIDER(S): Renato Dean DO CHIEF COMPLAINT: Syncope, vomiting HPI: Patient is a 64-year-old female with a past medical history of obesity, diabetes, splenomegaly, cirrhosis, CAD, current smoker who presents to the ER for vomiting. Patient notes that she had an EGD performed yesterday because she was having trouble swallowing. She denies any headache or change in vision. No chest pain but does admit to a cough. No belly pain but persistent vomiting. No dysuria, urgency, or frequency. No other exacerbating or remitting factors. ADDITIONAL HISTORY OBTAINED: Per HPI Chronic Medical/Social Conditions Affecting Care: Per HPI PAST MEDICAL HISTORY:See Below PAST SURGICAL HISTORY:See Below FAMILY HISTORY:See Below SOCIAL HISTORY:See Below HOME MEDICATIONS:See Below ALLERGIES:See Below VITALS:See Below PHYSICAL EXAMINATION: GENERAL: Sitting up in bed, alert, ill-appearing, EYE EXAM: normal conjunctiva. PERRL and EOM's grossly intact. OROPHARYNX: no exudate, no erythema, lips, buccal mucosa, and tongue normal and mucous membranes are moist NECK: supple, no nuchal rigidity, no adenopathy, non-tender LUNGS: Clear to auscultation. Normal chest wall mechanics HEART: no murmurs, S1 normal and S2 normal ABDOMEN: abdomen soft, non-tender, normo-active bowel sounds, no masses, no rebound or guarding. UPPER EXTREMITIES: upper extremities are grossly normal. LOWER EXTREMITIES: No pitting edema. NEURO EXAM: Normal sensorium, cranial nerves II-XII grossly intact, normal speech, no gross weakness of arms, no gross weakness of legs. No drift. Finger to nose intact. Gross sensation intact. MEDICAL DECISION MAKING: Patient is a 64-year-old female with a past medical history of diabetes, cirrhosis and CAD who presents to the ER for nausea and vomiting status post EGD yesterday. IV was established and blood work was obtained. Labs show no significant leukocytosis or anemia. Mild thrombocytopenia at 110. BMP along LFTs bilirubin was unremarkable. Troponin was negative. Lipase was normal. Patient had several episodes of vomiting and was hypotensive with systolic pressures in the 90s. She received 2 L of IV fluids and blood pressures did trend up. Syncopal event has not reoccurred since transportation via EMS. Discussed the case with Dr. Jimenez for further evaluation management treatment. Patient was given IV Zofran as well while here in the ER. Consults/Care Managements Discussions: Per MDM Triage Nursing notes reviewed. Limited review of prior medical records performed Vital Signs: reviewed and remarkable for no significant abnormalities Differential diagnosis: Differential diagnoses includes but is not limited to gastritis, peptic ulcer disease, GERD, gallbladder disease, pancreatitis, small bowel obstruction, appendicitis, diverticulitis, hernia, urinary tract infection, torsion, perforation, trauma, infectious. ER treatment provided: See below Diagnostics interpreted by me include EKG and cardiac monitoring as listed below: -Cardiac Monitoring: An order was placed for continuous cardiac monitoring. The monitor shows a rate of 70 with sinus rhythm. -ECG: Sinus rhythm rate of 65 Normal axis No PVCs QTc 532 -Laboratory studies:Interpreted by me as stated above in MDM and shown below. Imaging studies: Xrays: As interpreted by me: Portable AP upright 1 view of the chest shows no focal infiltrate CTs show: CT abdomen pelvis shows no obvious acute pathology other than worsening cirrhosis Procedures:none Critical Care: None Past Med/Surg History Problem List (Updated 12/28/24 @ 12:55 by Renato Dean DO) Vomiting (Acute) Weakness (Acute) Syncope (Acute) Acute hypotension (Acute) Syncope Vulvar cellulitis COVID-19 (Acute) Encounter for pre-operative examination Fecal incontinence Obesity Encounter for pre-operative examination DM type 2 (diabetes mellitus, type 2) Splenomegaly pt unable to confirm Cirrhosis CAD (coronary artery disease), [place] coronary artery Current smoker Costochondritis, acute Hyperglycemia (Acute) Sjogrens syndrome Dyslipidemia COPD (chronic obstructive pulmonary disease) (Acute) Diabetes (Chronic) Cellulitis of thigh Depression Medical History Splenomegaly pt unsure Tick bite hx - last summer x4 - no testing "I keep forgetting to ask" Depression Migraines CAD (coronary artery disease) No stents - No Cardiology Dysphagia Cirrhosis "I'm to have a biopsy next month" Sjogren syndrome Dyslipidemia DM type 2 (diabetes mellitus, type 2) oral History of COVID-2021 - no hospitalization Fungal infection "a few sores on my head. They're scabbed over" COPD (chronic obstructive pulmonary disease) Vulvar abscess Abscess of vagina hx - no current issues Psoriasis Osteoarthritis TMJ (temporomandibular joint disorder) No clicking or locking - "Something is protruding out of my gums on the bottom. It's covered though and causes pain." Irregular heart rhythm "it sometimes will pound." no cad intern Constipation metamucil Surgical History Hx of tooth extraction upper dentures History of colonoscopy (2020) History of tonsillectomy History of arthroscopy of left knee History of removal of cyst "groin area" History of bladder surgery History of cardiac catheterization 20 years ago - [facility] -- no stents Hx of cholecystectomy Family History Brother Family history of diabetes mellitus Other Hypertension No family history of adverse response to anesthesia Social History Smoking Status: Current every day smoker Tobacco Type: Cigars Cigarettes Per Day: 1 pk; Second Hand Exposure: No; Do You Dip or Chew Tobacco: No; Hx Alcohol Use: No Hx Substance Use: No Preferred Language: Paraguayan Communication Ability: Effective Senior Case Manager Required: No Beliefs That Will Affect Care: None Current Living Situation: Alone Feels Safe at Home: Yes Assistive Devices: Denture - Upper and Glasses Allergies Allergies Allergy/AdvReac Type Severity Reaction Status Date / Time morphine Allergy Intermediate Shakiness, Verified 12/28/24 12:03 hives Opioids - Morphine Analogues Allergy Intermediate Can only Unverified 12/28/24 12:03 tolerate Tramadol, all others cause Hives/Tremors Sulfa (Sulfonamide Allergy Intermediate Hives Verified 12/28/24 12:03 Antibiotics) Home Meds Home Medications Medication Instructions Recorded Confirmed cholecalciferol (vitamin D3) 25 2,000 unit PO QAM 02/14/19 12/27/24 mcg (1,000 unit) capsule (Vitamin D3) citalopram 40 mg tablet (Celexa) 40 mg PO HS 02/14/19 12/27/24 doxepin 25 mg capsule 25 mg PO HS 02/14/19 12/27/24 multivitamin 1 tab PO QAM 02/14/19 12/27/24 fluticasone propionate 50 1 spray intranasal HS PRN Allergy 06/22/19 12/27/24 mcg/actuation nasal Symptoms spray,suspension lisinopril 5 mg tablet 5 mg PO HS 06/22/19 12/27/24 prazosin 2 mg capsule 2 mg PO HS 06/22/19 12/27/24 aspirin 81 mg chewable tablet 81 mg PO HS 02/12/21 12/27/24 atorvastatin 20 mg tablet (Lipitor) 20 mg PO HS 02/12/21 12/27/24 psyllium husk 3.4 gram/5.4 gram 2 tbsp PO QAM PRN Constipation 02/12/21 12/27/24 oral powder (Metamucil) fluticasone fur. 100 mcg-umeclid 1 inh inhalation DAILY 05/22/23 12/27/24 62.5 mcg-vilant 25 mcg inhalat.powder (Trelegy Ellipta) clindamycin phosphate 1 % topical 1 applic topical TID PRN Skin 12/20/24 12/27/24 gel Irritation metformin 500 mg tablet 1,000 mg PO HS 12/20/24 12/27/24 tirzepatide 10 mg/0.5 mL 10 mg subcut WK 12/20/24 12/27/24 subcutaneous pen injector (José Luis) Previous Rx's Medication Instructions Recorded ibuprofen 200 mg tablet 600 mg (3 x 200 mg) PO Q6H PRN 05/23/20 pain #30 tabs Results & Data (ED) Vital Signs Vital Signs - 24 hr 12/28/24 09:32 12/28/24 09:34 12/28/24 09:42 Temperature 36.4 C L Temperature Source Oral Pulse Rate 66 66 66 Pulse Rate from SpO2 Sensor 65 Respiratory Rate 19 22 Respiratory Effort / Characteristics Non-Labored Spontaneous Respiratory Depth Normal Respiratory Pattern Regular Blood Pressure 97/50 L 98/54 L Blood Pressure Mean 65 68 Pulse Oximetry 90 96 Oxygen Delivery Method Room Air Oxymask Oxygen Flow Rate 4 Sepsis Recent Fever Within 48 Hours No Sepsis New/Unexplained Change in Mental Status N/A Sepsis Action Taken by Nursing No Action Required 12/28/24 09:45 12/28/24 09:48 12/28/24 10:09 Temperature Temperature Source Pulse Rate 88 77 Pulse Rate from SpO2 Sensor 89 76 Respiratory Rate 24 19 Respiratory Effort / Characteristics Respiratory Depth Respiratory Pattern Blood Pressure 111/52 L 98/45 L Blood Pressure Mean 71 62 Pulse Oximetry 91 94 95 Oxygen Delivery Method Room Air Room Air Room Air Oxygen Flow Rate Sepsis Recent Fever Within 48 Hours Sepsis New/Unexplained Change in Mental Status Sepsis Action Taken by Nursing 12/28/24 10:15 12/28/24 10:27 12/28/24 10:31 Temperature Temperature Source Pulse Rate 75 74 Pulse Rate from SpO2 Sensor 75 75 Respiratory Rate 18 13 Respiratory Effort / Characteristics Respiratory Depth Respiratory Pattern Blood Pressure 90/36 L 100/42 L 92/73 L Blood Pressure Mean 54 61 76 Pulse Oximetry 94 97 Oxygen Delivery Method Room Air Room Air Oxygen Flow Rate Sepsis Recent Fever Within 48 Hours Sepsis New/Unexplained Change in Mental Status Sepsis Action Taken by Nursing 12/28/24 10:45 12/28/24 11:15 12/28/24 11:30 Temperature Temperature Source Pulse Rate 78 84 Pulse Rate from SpO2 Sensor 78 83 Respiratory Rate 17 18 Respiratory Effort / Characteristics Respiratory Depth Respiratory Pattern Blood Pressure 113/62 138/74 122/69 Blood Pressure Mean 79 95 87 Pulse Oximetry 92 97 Oxygen Delivery Method Room Air Room Air Oxygen Flow Rate Sepsis Recent Fever Within 48 Hours Sepsis New/Unexplained Change in Mental Status Sepsis Action Taken by Nursing 12/28/24 11:33 12/28/24 11:45 Temperature Temperature Source Pulse Rate 79 Pulse Rate from SpO2 Sensor 79 Respiratory Rate 21 Respiratory Effort / Characteristics Respiratory Depth Respiratory Pattern Blood Pressure 141/69 H Blood Pressure Mean 82 Pulse Oximetry 94 Oxygen Delivery Method Room Air Oxygen Flow Rate Sepsis Recent Fever Within 48 Hours Sepsis New/Unexplained Change in Mental Status Sepsis Action Taken by Nursing Laboratory Data 12/28/24 09:40 12/28/24 09:40 Lab Results 12/28/24 Range/Units 09:40 WBC 5.70 (4.8-10.8) K/ul RBC 4.25 (4.20-5.40) M/uL Hgb 12.0 (12.0-16.0) g/dl Hct 36.8 L (37.0-47.0) % MCV 86.6 (80.0-100.0) fL MCH 28.2 (25.0-34.0) pg MCHC 32.6 (32.0-36.0) g/dL RDW Std Deviation 49.6 H (36.4-46.3) fL RDW Coeff of Sarai 15.8 H (11.5-14.5) % Plt Count 110 L (130-400) K/uL MPV 10.4 (9.4-12.4) fL Immature Gran % (Auto) 0.5 % Neut % (Auto) 51.2 % Lymph % (Auto) 34.6 % Talbot % (Auto) 11.8 % Eos % (Auto) 1.4 % Baso % (Auto) 0.5 % Neut # (Auto) 2.92 (1.40-6.50) K/uL Lymph # (Auto) 1.97 (1.20-3.40) K/uL Talbot # (Auto) 0.67 H (0.11-0.59) K/uL Eos # (Auto) 0.08 (0.00-0.50) K/uL Baso # (Auto) 0.03 (0.00-0.20) K/uL Immature Gran # (Auto) 0.03 (0.01-0.20) K/uL Sodium 137 (136-145) mmol/L Potassium 3.7 (3.5-5.1) mmol/L Chloride 107 (98-107) mmol/L Carbon Dioxide 23 (21-32) mmol/L Anion Gap 7 (3-11) BUN 9 (6-23) mg/dl Creatinine 0.79 (0.6-1.2) mg/dl Est Cr Clr Drug Dosing 86.0 ml/min eGFR 82.45 BUN/Creatinine Ratio 11.4 (10-20) Glucose 206 H (70-99(Fasting)) mg/dl POC Glucose 230 H (70-99) mg/dl Calcium 8.3 L (8.6-10.3) mg/dl Total Bilirubin 0.5 (0.2-1.0) mg/dl AST 25 (13-39) U/L ALT 15 (7-52) U/L Alkaline Phosphatase 107 H (34-104) U/L Troponin I High Sens 6.4 (0-14) pg/ml Total Protein 7.1 (6.0-8.3) gm/dl Albumin 3.2 L (3.4-5.0) gm/dl Globulin 3.9 (2.5-4.0) gm/dl Albumin/Globulin Ratio 0.8 L (0.9-2) Lipase 26 (11-82) U/L Administered Medications Discontinued Medications Sodium Chloride (Nss) 1,000 mls @ 999 mls/hr IV .Q1H1M ONE Stop: 12/28/24 10:25 Last Infusion: 12/28/24 11:06 Dose: Infused Documented By: Admin: 12/28/24 09:42 Dose: 999 mls/hr Documented By: KEEGAN Sodium Chloride (Nss) 1,000 mls @ 999 mls/hr IV .Q1H1M ONE Stop: 12/28/24 11:55 Last Admin: 12/28/24 11:14 Dose: 999 mls/hr Documented By: KEEGAN Ioversol (Optiray 320 100ml) 93 ml IV ONCE ONE Stop: 12/28/24 10:57 Last Admin: 12/28/24 10:56 Dose: 93 ml Documented By: EUGENIE Ondansetron HCl (Ondansetron Inj 2 Mg/Ml 2 Ml Vial) 4 mg IV NOW STA Stop: 12/28/24 09:27 Last Admin: 12/28/24 09:43 Dose: 4 mg Documented By: KEEGAN Imaging Data Radiologist's Impression: Abdomen/Pelvis CT 12/28/24 09:[address] WITH IV CONTRAST CT DOSE: 1507.39 mGy.cm HISTORY: Acute mid abdominal pain with nausea and vomiting and syncope. Recent endoscopy mid abd pain s/p egd TECHNIQUE: Multiaxial CT images of the abdomen and pelvis were performed following the IV administration of 93 cc of Optiray, A dose lowering technique was utilized adhering to the principles of ALARA. COMPARISON STUDY: 11/21/2021 FINDINGS: Coronary artery calcifications. No acute process of the lower chest. Bibasilar atelectasis. No pneumatosis or pneumoperitoneum. Spleen measures up to 13.97 m in length. Subcentimeter hypodense lesion of the inferior spleen is too small to characterize, likely benign and not seen on prior. Unremarkable pancreas and right adrenal gland. Left adrenal gland thickening suggestive of hyperplasia with unchanged 11 mm nodule. Progressively worsened hepatic cirrhosis. No liver mass. Patent portal vein. Cholecystectomy. Periportal and precaval lymphadenopathy redemonstrated. No hydronephrosis. There are a few scattered bilateral renal cysts. Decompressed urinary bladder with wall thickening. Thickened endometrium measures 10 mm at the fundus. Atherosclerosis of the aorta and branch vessels. Mild distal esophageal wall thickening. When debris within the proximal stomach. Colonic diverticulosis without acute diverticulitis. Mild to moderate colonic fecal retention. Nonvisualization of the appendix. Unremarkable soft tissues. No acute fracture. IMPRESSION: 1. No acute intra-abdominal or intrapelvic abnormality identified. 2. No bowel obstruction, bowel wall thickening or pneumoperitoneum. 3. Progressive worsening of the cirrhosis. No hepatic mass or ascites identified. 4. Splenomegaly with mild abdominal varicosities compatible with portal venous hypertension. 5. Unchanged periportal and precaval lymphadenopathy, likely secondary to the chronic liver disease. ACT 112: Negative or not required by law. The above report was generated using voice recognition software. It may contain grammatical, syntax or spelling errors. Electronically signed by: Kalen Wang M.D. 12/28/2024 11:22 AM Chest X-Ray 12/28/24 09:25 XR chest 1V portable CLINICAL HISTORY: Syncope. COMPARISON STUDY: Chest radiograph July 15, 2023. Chest CT May 23, 2020. FINDINGS: Lung volumes are unchanged. There is no pneumothorax or pleural effusion. Cardiac mediastinal silhouette is stable. There is no evidence for pulmonary edema. Pulmonary vascular congestion is similar to prior exam. Bibasilar opacities are noted. IMPRESSION: Bibasilar opacities. Atelectasis is favored although an infectious process could appear similar. ACT 112: Negative or not required by law. Electronically signed by: Delmer Felipe M.D. 12/28/2024 9:52 AM Discharge Plan Visit Data Chief Complaint: Vomiting Stated Complaint: LETHARGIC, NAUSEA, SYNCOPE ED Provider: Renato Dean Discharge Problem: Acute hypotension, Syncope, Weakness, Vomiting Forms Stand Alone Forms: My Pick a Student Prescriptions Prescriptions: No Action cholecalciferol (vitamin D3) [Vitamin D3] 1,000 unit Capsule 2,000 unit PO QAM citalopram [Celexa] 40 mg Tablet 40 mg PO HS doxepin 25 mg Capsule 25 mg PO HS multivitamin Tablet 1 tab PO QAM lisinopril 5 mg tablet 5 mg PO HS fluticasone propionate 50 mcg/actuation spray,suspension 1 spray intranasal HS PRN (Reason: Allergy Symptoms) prazosin 2 mg capsule 2 mg PO HS ibuprofen 200 mg tablet 600 mg PO Q6H PRN (Reason: pain) Qty: 30 0RF Rx Instructions: OTC Metamucil 3.4 gram/5.4 gram Powder 2 tbsp PO QAM PRN (Reason: Constipation) Rx Instructions: MIX WITH FULL GLASS OF H2O. atorvastatin [Lipitor] 20 mg tablet 20 mg PO HS aspirin 81 mg tablet,chewable 81 mg PO HS Rx Instructions: OTC Trelegy Ellipta 100-62.5-25 mcg blister with device 1 inh INHALATION DAILY Mounjaro 10 mg/0.5 mL Pen Injector 10 mg SUBCUT WK Rx Instructions: metformin 500 mg tablet 1,000 mg PO HS clindamycin phosphate 1 % gel 1 applic topical TID PRN (Reason: Skin Irritation) Rx Instructions: apply to affected area tid for 7-10 days Referrals Referrals: Dariela Gupta MD [Primary Care Provider] - Discharge Problem: Syncope Qualifiers: Syncope type: unspecified Qualified Code(s): R55 - Syncope and collapse Vomiting Qualifiers: Vomiting type: unspecified Nausea presence: unspecified Qualified Code(s): R 11.10 - Vomiting, unspecified
[2024-12-28] MEDS: SODIUM CHLORIDE 0.9% 1,000 ML IV ONE ×2 (09:42→11:14)
[2024-12-28] MEDS: ONDANSETRON INJ 2 MG/ML 2 ML VIAL IV STA (09:43)
--- NOTE | 2024-12-28 09:54 | XRay Report ---
XR chest 1V portable CLINICAL HISTORY: Syncope. COMPARISON STUDY: Chest radiograph July 15, 2023. Chest CT May 23, 2020. FINDINGS: Lung volumes are unchanged. There is no pneumothorax or pleural effusion. Cardiac mediastin al silhouette is stable. There is no evidence for pulmonary edema. Pulmonary vascular congestion is s imilar to prior exam. Bibasilar opacities are noted. IMPRESSION: Bibasilar opacities. Atelectasis is favored although an infectious process could appear s imilar. ACT 112: Negative or not required by law. Electronically signed by: Delmer Felipe M.D. 12/28/2024 9:52 AM
--- NOTE | 2024-12-28 10:01 | Electrocardiogram Report ---
Test Reason : Blood Pressure : */* mmHG Vent. Rate : 65 BPM Atrial Rate : 65 BPM P-R Int : 154 ms QRS Dur : 76 ms QT Int : 512 ms P-R-T Axes : 4 50 58 degrees QTcB Int : 532 ms Normal sinus rhythm Poor R wave progression, consider anterior UT vs. lead placement vs. LVH Minor ST elevation, most consistent with repolarization variant Prolonged QT Abnormal ECG When compared with ECG of 15-May-2022 20:38, QT has lengthened Confirmed by Ephraim Wong ([id number]) on 12/28/2024 10:00:44 AM Referred By: Confirmed By: Ephraim Wong
[2024-12-28 10:05] LABS: Basophils # (auto) 0.03 K/uL (0.00-0.20); Basophils % (auto) 0.5 %; Eosinophils # (auto) 0.08 K/uL (0.00-0.50); Eosinophils % (auto) 1.4 %; Hematocrit (blood only) 36.8 % (37.0-47.0); Immature Granulocytes # (auto) 0.03 K/uL (0.01-0.20); Immature Granulocytes % (auto) 0.5 %; Lymphocytes # (auto) 1.97 K/uL (1.20-3.40); Lymphocytes % (auto) 34.6 %; Mean Corpuscular Hemoglobin 28.2 pg (25.0-34.0); Mean Corpuscular Hgb Conc 32.6 g/dL (32.0-36.0); Mean Corpuscular Volume 86.6 fL (80.0-100.0); Mean Platelet Volume 10.4 fL (9.4-12.4); Monocytes # (auto) 0.67 K/uL (0.11-0.59); Monocytes % (auto) 11.8 %; Neutrophils # (auto) 2.92 K/uL (1.40-6.50); Neutrophils % (auto) 51.2 %; Platelet Count 110 K/uL (130-400); RDW Coefficient of Variation 15.8 % (11.5-14.5); RDW Standard Deviation 49.6 fL (36.4-46.3); Red Blood Count 4.25 M/uL (4.20-5.40)
[2024-12-28 10:19] LABS: Albumin Globulin Ratio 0.8 (0.9-2); Albumin Level 3.2 gm/dl (3.4-5.0); BUN Creatinine Ratio 11.4 (10-20); Bilirubin,Total 0.5 mg/dl (0.2-1.0); Calcium 8.3 mg/dl (8.6-10.3); Globulin 3.9 gm/dl (2.5-4.0); Potassium 3.7 mmol/L (3.5-5.1); Total Protein 7.1 gm/dl (6.0-8.3)
[2024-12-28 10:25] LABS: Troponin I High Sensitivity 6.4 pg/ml (0-14)
[2024-12-28] MEDS: OPTIRAY 320 100ml IV ONE (10:56)
--- NOTE | 2024-12-28 11:24 | CT Scan Report ---
ABDOMEN AND PELVIS CT WITH IV CONTRAST CT DOSE: 1507.39 mGy.cm HISTORY: Acute mid abdominal pain with nausea and vomiting and syncope. Recent endoscopy mid abd miranda n s/p egd TECHNIQUE: Multiaxial CT images of the abdomen and pelvis were performed following the IV administrat ion of 93 cc of Optiray, A dose lowering technique was utilized adhering to the principles of ALARA. COMPARISON STUDY: 11/21/2021 FINDINGS: Coronary artery calcifications. No acute process of the lower chest. Bibasilar atelectasis. No pneumatosis or pneumoperitoneum. Spleen measures up to 13.97 m in length. Subcentimeter hypodense lesion of the inferior spleen is too small to characterize, likely benign and not seen on prior. Unr emarkable pancreas and right adrenal gland. Left adrenal gland thickening suggestive of hyperplasia w ith unchanged 11 mm nodule. Progressively worsened hepatic cirrhosis. No liver mass. Patent portal ve in. Cholecystectomy. Periportal and precaval lymphadenopathy redemonstrated. No hydronephrosis. There are a few scattered bilateral renal cysts. Decompressed urinary bladder with wall thickening. Thickened endometrium measures 10 mm at the fundus. Atherosclerosis of the aorta an d branch vessels. Mild distal esophageal wall thickening. When debris within the proximal stomach. Co lonic diverticulosis without acute diverticulitis. Mild to moderate colonic fecal retention. Nonvisua lization of the appendix. Unremarkable soft tissues. No acute fracture. IMPRESSION: 1. No acute intra-abdominal or intrapelvic abnormality identified. 2. No bowel obstruction, bowel wall thickening or pneumoperitoneum. 3. Progressive worsening of the cirrhosis. No hepatic mass or ascites identified. 4. Splenomegaly with mild abdominal varicosities compatible with portal venous hypertension. 5. Unchanged periportal and precaval lymphadenopathy, likely secondary to the chronic liver disease. ACT 112: Negative or not required by law. The above report was generated using voice recognition software. It may contain grammatical, syntax o r spelling errors. Electronically signed by: Kalen Wang M.D. 12/28/2024 11:22 AM
--- NOTE | 2024-12-28 12:23 | History & Physical Report ---
Date of Service December 28, 2024 Assessment & Plan (1) Syncope: (2) Diabetes: (3) COPD (chronic obstructive pulmonary disease): (4) Cirrhosis: Plan 64-year-old female arrives by ambulance due to syncopal episode of unclear etiology. History of undiagnosed cirrhosis, diabetes, COPD, coronary artery disease. There is no apparent initial etiology determined on ER evaluation she is admitted for telemetry. She has a history of having a tick bite in the last few months and with her relative sinus slow heart rate we will check a Lyme panel #Syncope patient be on telemetry. It is possible this was a hypoglycemic episode and by the time paramedics arrived she had created glucose from gluconeogenesis. Patient was n.p.o for her endoscopy and did not eat much then took her diabetic medications in the evening. She also takes doxepin and prazosin which could affect both her mental state and her blood pressure. These are usually taken at night when she was n.p.o. for most of Day placing her at risk to be mildly dehydrated. To this end we will give the patient additional 2 L of fluid and order orthostatic blood pressure checks in the morning #Diabetes patient will have her Mounjaro and metformin held should be on insulin sliding scale and carbohydrate conservative diet and A1c is also checked to see if it is low may be another clue and the risk factor of her syncopal event. Her lisinopril was held which is for both hypertension and diabetic nephropathy prevention #Cirrhosis patient is unclear of her exact workup she is scheduled for an outpatient liver biopsy at [facility] would not going to repeat many tests but I did order iron level in the past she has refused hepatitis C testing currently not an IV drug user #COPD patient is maintained on her inhaled medications which is only Trelegy plus nasal fluticasone. #Coronary artery disease continue aspirin and atorvastatin #Depression patient takes Celexa and doxepin doxepin is contraindicated with liver disease she however does not wish to hold this medication, she believes her prazosin is also for her mental health DVT prevention is SCDs at this time History of Present Illness Primary Care Provider: Dariela Gupta MD 64-year-old female brought in by EMS from an unresponsive episode at home. Concern initially for cardiac arrest however the patient did have a pulse. Patient was at endoscopy 12/27/2024 with esophageal dilatation. She is a history of cirrhosis which is currently being worked up. Patient states that she was n.p.o. for the procedure she came home she did not eat a whole lot just nipple through the evening she laid down to go to sleep she remembers she did take her Mounjaro for diabetes she took her Mounjaro and then she was called to bring some cream to her son who lives nearby she walked to his house walked back home started feeling poorly and then she eventually collapsed. Unclear if blood glucose this was checked at the scene patient's blood glucose is 200 at this point in time. The patient is awake alert appropriate she feels fatigued she has no injuries from falling down and she has no increased or new pain in her body. On presentation she is not anemic renal function stable no significant LFT abnormalities normal troponin EKG shows sinus rhythm with a slower rate. Imaging of her abdomen shows worsening of her cirrhosis from previous images no bowel obstruction or ruptured viscus splenomegaly portal hypertension Allergies Allergy/AdvReac Type Severity Reaction Status Date / Time morphine Allergy Intermediate Shakiness, Verified 12/28/24 12:03 hives Opioids - Morphine Analogues Allergy Intermediate Can only Unverified 12/28/24 12:03 tolerate Tramadol, all others cause Hives/Tremors Sulfa (Sulfonamide Allergy Intermediate Hives Verified 12/28/24 12:03 Antibiotics) Home Medications Medication Instructions Recorded Confirmed Type cholecalciferol (vitamin D3) 25 2,000 unit PO QAM 02/14/19 12/27/24 History mcg (1,000 unit) capsule (Vitamin D3) citalopram 40 mg tablet (Celexa) 40 mg PO HS 02/14/19 12/27/24 History doxepin 25 mg capsule 25 mg PO HS 02/14/19 12/27/24 History multivitamin 1 tab PO QAM 02/14/19 12/27/24 History fluticasone propionate 50 1 spray intranasal HS PRN Allergy 06/22/19 12/27/24 History mcg/actuation nasal Symptoms spray,suspension lisinopril 5 mg tablet 5 mg PO HS 06/22/19 12/27/24 History prazosin 2 mg capsule 2 mg PO HS 06/22/19 12/27/24 History ibuprofen 200 mg tablet 600 mg (3 x 200 mg) PO Q6H PRN 05/23/20 12/27/24 Rx pain #30 tabs aspirin 81 mg chewable tablet 81 mg PO HS 02/12/21 12/27/24 History atorvastatin 20 mg tablet (Lipitor) 20 mg PO HS 02/12/21 12/27/24 History psyllium husk 3.4 gram/5.4 gram 2 tbsp PO QAM PRN Constipation 02/12/21 12/27/24 History oral powder (Metamucil) fluticasone fur. 100 mcg-umeclid 1 inh inhalation DAILY 05/22/23 12/27/24 History 62.5 mcg-vilant 25 mcg inhalat.powder (Trelegy Ellipta) clindamycin phosphate 1 % topical 1 applic topical TID PRN Skin 12/20/24 12/27/24 History gel Irritation metformin 500 mg tablet 1,000 mg PO HS 12/20/24 12/27/24 History tirzepatide 10 mg/0.5 mL 10 mg subcut WK 12/20/24 12/27/24 History subcutaneous pen injector (Mounjaro) Past Med/Surg History Problem List (Updated 12/28/24 @ 12:25 by Prudencio Wooten MD) Syncope Vulvar cellulitis COVID-19 (Acute) Encounter for pre-operative examination Fecal incontinence Obesity Encounter for pre-operative examination DM type 2 (diabetes mellitus, type 2) Splenomegaly pt unable to confirm Cirrhosis CAD (coronary artery disease), [place] coronary artery Current smoker Costochondritis, acute Hyperglycemia (Acute) Sjogrens syndrome Dyslipidemia COPD (chronic obstructive pulmonary disease) (Acute) Diabetes (Chronic) Cellulitis of thigh Depression Medical History Splenomegaly pt unsure Tick bite hx - last summer x4 - no testing "I keep forgetting to ask" Depression Migraines CAD (coronary artery disease) No stents - No Cardiology Dysphagia Cirrhosis "I'm to have a biopsy next month" Sjogren syndrome Dyslipidemia DM type 2 (diabetes mellitus, type 2) oral History of COVID-2021 - no hospitalization Fungal infection "a few sores on my head. They're scabbed over" COPD (chronic obstructive pulmonary disease) Vulvar abscess Abscess of vagina hx - no current issues Psoriasis Osteoarthritis TMJ (temporomandibular joint disorder) No clicking or locking - "Something is protruding out of my gums on the bottom. It's covered though and causes pain." Irregular heart rhythm "it sometimes will pound." no battery container finishing hand Constipation metamucil Surgical History Hx of tooth extraction upper dentures History of colonoscopy (2020) History of tonsillectomy History of arthroscopy of left knee History of removal of cyst "groin area" History of bladder surgery History of cardiac catheterization 20 years ago - [facility] -- no stents Hx of cholecystectomy Family History Brother Family history of diabetes mellitus Other Hypertension No family history of adverse response to anesthesia Social History Smoking Status: Current every day smoker Tobacco Type: Cigars Cigarettes Per Day: 1 pk; Second Hand Exposure: No; Do You Dip or Chew Tobacco: No; Hx Alcohol Use: No Hx Substance Use: No Preferred Language: Persian Communication Ability: Effective Project Manager Process Development Required: No Beliefs That Will Affect Care: None Current Living Situation: Alone Feels Safe at Home: Yes Assistive Devices: Denture - Upper and Glasses Review of Systems Review of Systems: Mild distress and fatigue no current headache, no visual changes no speech or swallowing issues no chest pain, pressure or palpitations no shortness of breath, cough or wheezes no abdominal pain, nausea or vomiting, diarrhea or constipation no dysuria, hematuria or frequency Pre-existing bilateral knee pain from osteoarthritis no back pain, CVA tenderness or radicular pain no bruising, bleeding or rashes no focal signs of weakness or numbness or altered sensation no complaints of anxiety or depression.. Physical Exam Physical Exam: The patient appeared well nourished and normally developed. Vital signs as documented. Head exam is normocephalic atraumatic Neck is without JVD, thyromegaly, or carotid bruits. Lungs are clear to auscultation, no focal loss of breath sounds Cardiac exam, Rhythm is regular.. No murmurs, rubs or gallops. Abdominal exam reveals normal bowel sounds, soft non tender, no masses no specific hepatosplenomegaly able to be palpated may be due to body habitus Extremities are nonedematous and both pedal pulses are present no osteoarthritic changes to her knees or effusions Neurologic exam is alert and oriented, no focal loss of strength or sensation Skin is without bruises or rashes Psychologically is without concerns for anxiety or depression.. Results & Data Results & Data Vital Signs (Past 12 Hours) Vital Signs Temp Pulse Resp BP Pulse Ox O2 Del Method O2 Flow Rate 12/28/24 11:45 141/69 H 12/28/24 11:33 79 21 94 Room Air 12/28/24 11:30 122/69 12/28/24 11:15 84 18 138/74 97 Room Air 12/28/24 10:45 78 17 113/62 92 Room Air 12/28/24 10:31 92/73 L 12/28/24 10:27 74 13 100/42 L 97 Room Air 12/28/24 10:15 75 18 90/36 L 94 Room Air 12/28/24 10:09 77 19 98/45 L 95 Room Air 12/28/24 09:48 94 Room Air 12/28/24 09:45 88 24 111/52 L 91 Room Air 12/28/24 09:42 66 22 98/54 L 96 Oxymask 4 12/28/24 09:34 66 12/28/24 09:32 97.5 F L 66 19 97/50 L 90 Room Air Code Status & VTE Plan VTE Prophylaxis Plan VTE Prophylaxis will be ordered: Yes PG Care Time/CCT Total # of Minutes Spent Total Time Spent with Patient: Total time spent is greater than 50% in coordination of care (as documented) at patient's floor/unit and/or counseling patient: Coding Level of Care Code 87225 INT INP/OBS CARE 375MIN Diagnoses Syncope R55 Type 2 diabetes mellitus without complication, with long-term current use of i nsulin E11.9; Z79.4 Diabetes mellitus type: type 2 Diabetes mellitus manager long term care insulin use: with fpc use Diabetes mellitus complication status: without complication Chronic obstructive pulmonary disease, unspecified COPD type J44.9 COPD type: unspecified COPD Cirrhosis K74.60 (2) Diabetes Diabetes mellitus type: type 2 Diabetes mellitus fpc insulin use: with manager long term care use Diabetes mellitus complication status: without complication Qualified Code(s): E11.9 - Type 2 diabetes mellitus without complications; Z79.4 - longterm (current) use of insulin (3) COPD (chronic obstructive pulmonary disease) COPD type: unspecified COPD Qualified Code(s): J44.9 - Chronic obstructive pulmonary disease, unspecified
[2024-12-28 12:57] LABS: Appearance Urine Clear (Clear); Bacteria Urine Automated None Seen (None Seen); Bilirubin Urine Negative (Negative); Blood Urine Negative (Negative); Color Urine Yellow; Epithelial Cell Urine Auto 0-2 /hpf (0-2); Glucose Urine UA Negative (Negative); Granular Casts Urine Present /lpf (None Prsent); Ketones Urine Negative (Negative); Leukocyte Esterase Urine Negative (Negative); Nitrite Urine Negative (Negative); Protein Urine 1+ (Negative); RBC Urine Automated 0-2 /hpf (0-2); Specific Gravity Urine 1.027 (1.000-1.030); Urobilinogen Urine Negative (Negative); WBC Urine Automated 0-5 /hpf (0-5)
[2024-12-28] MEDS ORDERED: GLUCOSE 40% GEL 15 GM TUBE PO PRN (14:08)
[2024-12-28] MEDS ORDERED: CARBOHYDRATES FOR HYPOGLYCEMIA PO PRN (14:08)
[2024-12-28] MEDS ORDERED: GLUCAGON FOR INJ 1 MG VIAL SQ PRN (14:08)
[2024-12-28] MEDS ORDERED: traMADol HCL 50 MG TABLET PO PRN (14:08)
[2024-12-28] MEDS ORDERED: GLUCOSE 10 TAB/TUBE PO PRN (14:08)
[2024-12-28] MEDS ORDERED: FLUTICASONE PROPIONATE NA SPR 16 GM BTL PRN (14:08)
[2024-12-28] MEDS ORDERED: ONDANSETRON INJ 2 MG/ML 2 ML VIAL IV PRN (14:08)
[2024-12-28] MEDS ORDERED: DEXTROSE 50% 50 ML SYRINGE IV PRN (14:08)
[2024-12-28] MEDS ORDERED: PSYLLIUM or GUAR GUM FIBER 4GM PACKET PO PRN (14:11)
[2024-12-28] MEDS: LACTATED RINGER'S 1,000 ML IV SCH (14:29)
[2024-12-28] MEDS: INSULIN ASPART PER UNIT CHARGE SC SCH (17:06)
[2024-12-28] MEDS: CITALOPRAM 40 MG TAB PO SCH (20:53)
[2024-12-28] MEDS: PRAZOSIN HCL 1 MG CAP PO SCH (20:53)
[2024-12-28] MEDS: ATORVASTATIN 20 MG TAB PO SCH (20:53)
[2024-12-28] MEDS: ASPIRIN 81 MG ECTAB PO SCH (20:53)
[2024-12-29 06:45] LABS: Hematocrit (blood only) 35.5 % (37.0-47.0); Hemoglobin 11.8 g/dl (12.0-16.0); Mean Corpuscular Hemoglobin 28.9 pg (25.0-34.0); Mean Corpuscular Hgb Conc 33.2 g/dL (32.0-36.0); Mean Corpuscular Volume 86.8 fL (80.0-100.0); Platelet Count 101 K/uL (130-400); RDW Standard Deviation 47.8 fL (36.4-46.3); Red Blood Count 4.09 M/uL (4.20-5.40); White Blood Count 5.41 K/ul (4.8-10.8)
[2024-12-29 07:04] LABS: Albumin Level 2.9 gm/dl (3.4-5.0); Bilirubin,Total 0.8 mg/dl (0.2-1.0); Calcium 8.9 mg/dl (8.6-10.3); Potassium 3.8 mmol/L (3.5-5.1)
[2024-12-29 07:10] LABS: Albumin Globulin Ratio 0.8 (0.9-2); Creatinine Clr Calc Pharmacy 127.6 ml/min; Globulin 3.6 gm/dl (2.5-4.0); Total Protein 6.5 gm/dl (6.0-8.3)
[2024-12-29 07:38] LABS: Estimated Average Glucose 163 mg/dl; Hemoglobin A1C 7.3 % (4.5-5.6)
[2024-12-29] MEDS: UMECLIDINIUM/VILANTEROL 62.5/25MCG 7 PUFFS/INHALER INH SCH (07:57)
[2024-12-29] MEDS: FLUTICASONE FUROATE 100MCG 14 PUFFS/INHALER INH SCH (07:57)
--- NOTE | 2024-12-29 08:16 | Hospitalist Progress Note ---
Date of Service December 29, 2024 Assessment & Plan (1) Syncope: (2) Diabetes: (3) COPD (chronic obstructive pulmonary disease): (4) Cirrhosis: Plan 64-year-old female arrives by ambulance due to syncopal episode of unclear etiology. History of undiagnosed cirrhosis, diabetes, COPD, coronary artery disease. There is no apparent initial etiology determined on ER evaluation she is admitted for telemetry. She has a history of having a tick bite in the last few months and with her relative sinus slow heart rate we will check a Lyme panel #Syncope no arrytmia on telemetry. It is possible this was a hypoglycemic episode and by the time paramedics arrived she had created glucose from gluconeogenesis. Patient was n.p.o for her endoscopy and did not eat much then took her diabetic medications in the evening. She also takes doxepin and prazosin which could affect both her mental state and her blood pressure. These are usually taken at night when she was n.p.o. for most of Day placing her at risk to be mildly dehydrated. symptoms did not recurr #Diabetes patient will have her Mounjaro and metformin. A1c is 7.3 lisinopril for both hypertension and diabetic nephropathy prevention #Cirrhosis patient is unclear of her exact workup she is scheduled for an outpatient liver biopsy at [facility] would not going to repeat many tests but I did order iron level in the past she has refused hepatitis C testing currently not an IV drug user #COPD patient is maintained on her inhaled medications which is only Trelegy plus nasal fluticasone. #Coronary artery disease continue aspirin and atorvastatin #Depression patient takes Celexa and doxepin doxepin is contraindicated with liver disease she however does not wish to hold this medication, she believes her prazosin is also for her mental health ambulate in unit Admission and Anticipated Discharge Date Admission Date: December 28, 2024 Subjective pt feels a bit foggy otherwise back to herself, able to ambulate in room Physical Exam Physical Exam: The patient appeared well nourished and normally developed. Vital signs as documented. Lungs are clear to auscultation, no focal loss of breath sounds Cardiac exam, Rhythm is regular.. No murmurs, rubs or gallops. Abdominal exam reveals normal bowel sounds, soft non tender, no masses no specific hepatosplenomegaly able to be palpated may be due to body habitus Extremities are nonedematous and both pedal pulses are present no osteoarthritic changes to her knees or effusions Neurologic exam is alert and oriented, no focal loss of strength or sensation now is worried about going home Results & Data Results & Data Vital Signs (Past 12 Hours) Vital Signs Temp Pulse Pulse Resp BP Pulse Ox O2 Del Method 12/29/24 07:30 79 12/29/24 03:04 98.4 F 76 18 168/60 H 96 Room Air 12/28/24 23:13 97.7 F 77 18 136/64 96 Room Air 12/28/24 23:00 65 Laboratory Results review cbc review chemistry lyme negative PG Care Time/CCT Total # of Minutes Spent Total Time Spent with Patient: Total time spent is greater than 50% in coordination of care (as documented) at patient's floor/unit and/or counseling patient: Coding Level of Care Code 61013 SUB INP/OBS CARE 3/50MIN Diagnoses Syncope R55 Type 2 diabetes mellitus without complication, with long-term current use of insulin E11.9; Z79.4 Diabetes mellitus complication status: without complication Diabetes mellitus prison insulin use: with prison use Diabetes mellitus type: type 2 Chronic obstructive pulmonary disease, unspecified COPD type J44.9 COPD type: unspecified COPD Cirrhosis K74.60 (2) Diabetes Diabetes mellitus complication status: without complication 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
[2024-12-29] MEDS ORDERED: NON-FORMULARY MEDICATION (Fluticasone-Umeclidin-Vilanter [Trelegy Ellipta] 100-62.5-25 mcg INH SCH (09:00)
[2024-12-30 07:05] LABS: Albumin Globulin Ratio 0.8 (0.9-2); Bilirubin,Total 0.6 mg/dl (0.2-1.0); Calcium 9.1 mg/dl (8.6-10.3); Creatinine Clr Calc Pharmacy 129.5 ml/min; Globulin 3.7 gm/dl (2.5-4.0); Potassium 3.7 mmol/L (3.5-5.1); Total Protein 6.7 gm/dl (6.0-8.3)
[2024-12-30 07:11] LABS: Hematocrit (blood only) 35.5 % (37.0-47.0); Hemoglobin 12.1 g/dl (12.0-16.0); Mean Corpuscular Hemoglobin 29.2 pg (25.0-34.0); Mean Corpuscular Hgb Conc 34.1 g/dL (32.0-36.0); Mean Corpuscular Volume 85.5 fL (80.0-100.0); Mean Platelet Volume 10.4 fL (9.4-12.4); Platelet Count 97 K/uL (130-400); Platelet Estimate Decreased (Normal); RDW Coefficient of Variation 15.6 % (11.5-14.5); RDW Standard Deviation 48.9 fL (36.4-46.3); Red Blood Count 4.15 M/uL (4.20-5.40); White Blood Count 4.24 K/ul (4.8-10.8)
[2024-12-30 08:09] VITALS: O2SAT 91
[2024-12-30 08:59] LABS: Ferritin 22.4 ng/ml (8-388)
[2024-12-30 10:45] VITALS: BP 145/76; PULSE 75; RESP 18; TEMP 98.2
--- NOTE | 2024-12-30 18:51 | Discharge Summary ---
Discharge Summary Date of Service December 30, 2024 Principal Dx & Hospital Course #1 = Principal Diagnosis (1) Syncope: (2) Diabetes: (3) COPD (chronic obstructive pulmonary disease): (4) Cirrhosis: Plan 64-year-old female arrives by ambulance due to syncopal episode of unclear etiology. History of undiagnosed cirrhosis, diabetes, COPD, coronary artery disease. There is no apparent initial etiology determined on ER evaluation she is admitted for telemetry. She has a history of having a tick bite in the last few months and with her relative sinus slow heart rate we will check a Lyme panel #Syncope - no evidence of serious cause based on history, ED evaluation, EKG and telemetry monitoring for greater than 36h. she may have been mildly dehydrated from being n.p.o. for her EGD procedure causing some hypotension in combination with her usual medications, this episode was also associated with nausea/vomiting and could have been a vasovagal episode. hypoglycemia is possible however her A1c is 7.3 and she is not overcontrolled with respect to her diabetes. symptoms did not recur #Diabetes continue Mounjaro and metformin. A1c is 7.3 lisinopril for both hypertension and diabetic nephropathy prevention #Cirrhosis - she's unclear of her exact workup she is scheduled for an outpatient liver biopsy at [place] soon. Ferritin level was 22 so not consistent with hemochromatosis. She denies any significant alcohol use she refused hepatitis C testing in the past she does not have any history of IVDU. She has a BMI of 33 with diabetes and hypertension so this may be metabolic liver disease #COPD - not in exacerbation, continue Trelegy plus nasal fluticasone. #Coronary artery disease continue aspirin and atorvastatin #Depression- she takes Celexa and doxepin, she believes her prazosin is also for her mental health - for nightmares recently she has noticed a lot of fatigue and excessive sleepiness, this could be related to the doxepin and poor metabolism with cirrhosis she will try to hold this and see if her symptoms improve Notes For Next Care Provider stopping doxepin if she can do without it liver biopsy as planned Admission HPI Per Admitting Provider 64-year-old female brought in by EMS from an unresponsive episode at home. Concern initially for cardiac arrest however the patient did have a pulse. Patient was at endoscopy 12/27/2024 with esophageal dilatation. She is a history of cirrhosis which is currently being worked up. Patient states that she was n.p.o. for the procedure she came home she did not eat a whole lot just nipple through the evening she laid down to go to sleep she remembers she did take her Mounjaro for diabetes she took her Mounjaro and then she was called to bring some cream to her son who lives nearby she walked to his house walked back home started feeling poorly and then she eventually collapsed. Unclear if blood glucose this was checked at the scene patient's blood glucose is 200 at this point in time. The patient is awake alert appropriate she feels fatigued she has no injuries from falling down and she has no increased or new pain in her body. On presentation she is not anemic renal function stable no significant LFT abnormalities normal troponin EKG shows sinus rhythm with a slower rate. Im aging of her abdomen shows worsening of her cirrhosis from previous images no bowel obstruction or ruptured viscus splenomegaly portal hypertension Discharge Exam PHYSICAL EXAMINATION Last 24h vital signs reviewed, see documentation in flowsheet General: comfortable appearing, no distress HEENT: Normocephalic, atraumatic, pupils round and equal, sclerae anicteric, no conjunctival injection, moist mucus membranes Lungs: Normal respiratory effort. Clear to auscultation bilaterally. No RRW Heart: Regular rate and rhythm, no murmurs. No JVD Abdomen: Soft, nontender, nondistended. Bowel sounds present. Extremities: Warm, dry, well-perfused. No extremity edema. Neuro: Alert and oriented x 4, face symmetric, moves 4 extremities well Psych: Normal affect and behavior Discharge Plan Discharge Items Patient Disposition: Home - Self-Care Reason For Visit: SYNCOPE, CIRRHOSIS Discharge Diagnosis: vomiting, syncope, cirrhosis Activity: Resume your previous activity Non-emergency contact: Primary Care Provider and Change Person Call non-emergency contact if: you have any medication questions and your symptoms worsen Follow-up/Referrals: Dariela Gupta MD [Primary Care Provider] - 01/02/25 9:40 am (Hospital follow up with primary care scheduled on 01/02/25 at 9:40 with Marlin Bob at the [facility] location. Check in is 9:25) Diet: Low Sodium (2gm) Addtl Attending Provider Instructions: You were evaluated for vomiting and syncope (passing out) We did not find a serious cause, fortunately. It is possible you were rel atively dehydrated after the EGD procedure and dehydration combined with some of your medications dropped your blood pressure. Vomiting can also trigger a common cause of syncope called a vasovagal reaction (ie neurocardiogenic syncope). Both hydroxyzine and prazosin can cause problems for people with liver disease - try stopping them one at a time, if your symptoms are not much worse its safer to be off of those. Hydrozyzine can cause confusion and prazosin can cause your blood pressure to drop too much, especially with standing. Avoid NSAIDS (ibuprofen/motrin/advil and naproxen/aleve) which can cause a kidney injury or contribute to bleeding in people with liver disease Acetaminophen (tylenol) is safe to take at low doses - maximum 2000 mg per 24 hours Follow up as scheduled for liver biopsy and further workup It was a pleasure taking care of you in the hospital Hilda Haider MD Pending Studies at Discharge: No Stand-Alone Forms: My [facility], Smoking Cessation Medications and DC Order Prescriptions: Continued cholecalciferol (vitamin D3) [Vitamin D3] 1,000 unit Capsule 2,000 unit PO QAM citalopram [Celexa] 40 mg Tablet 40 mg PO HS Rx Instructions: Last filled 07/2024 doxepin 25 mg Capsule 25 mg PO HS Rx Instructions: Last filled 06/2024 multivitamin Tablet 1 tab PO QAM lisinopril 5 mg tablet 5 mg PO HS Rx Instructions: Last filled 07/2024 fluticasone propionate 50 mcg/actuation spray,suspension 1 spray intranasal HS PRN (Reason: Allergy Symptoms) prazosin 2 mg capsule 2 mg PO HS Metamucil 3.4 gram/5.4 gram Powder 2 tbsp PO QAM PRN (Reason: Constipation) Rx Instructions: MIX WITH FULL GLASS OF H2O. atorvastatin [Lipitor] 20 mg tablet 20 mg PO HS Rx Instructions: Last filled 07/2024 aspirin 81 mg tablet,chewable 81 mg PO HS Rx Instructions: OTC Trelegy Ellipta 100-62.5-25 mcg blister with device 1 inh INHALATION DAILY Rx Instructions: Last filled 09/2024 x30 day supply Mounjaro 10 mg/0.5 mL Pen Injector 10 mg SUBCUT WK Rx Instructions: metformin 500 mg tablet 1,000 mg PO HS Rx Instructions: Last filled 09/2024 x30 day supply clindamycin phosphate 1 % gel 1 applic topical TID PRN (Reason: Skin Irritation) Rx Instructions: apply to affected area tid for 7-10 days triamcinolone acetonide 0.1 % cream 1 applic topical BID PRN (Reason: Irritation) Discontinued ibuprofen 200 mg tablet 600 mg PO Q6H PRN (Reason: pain) Qty: 30 0RF Rx Instructions: OTC Discharge Orders: Discharge Order (Routine); Ordered 12/30/24 Ordered By: Hilda Olivo/Other Patient Handouts: Managing Type 2 Diabetes Admission Data Admit Date/Time: 12/28/24 12:14 Attending Provider: Hilda Haider Admit Provider: Prudencio Wooten Primary Care Provider: Dariela Gupta Other Providers: Prudencio Wooten Other Interventions: Discharge Summary Assessment (RN) Last Done: 12/30/24 10:50 Hospital Stay Data Consultations 12/28/24 11:50 ED Decision to Admit Stat Diagnostic Imagining Performed 12/28/24 09:25 CT Abd and Pelvis [CT abd pelvis IV con only] Stat Pending Results Patient Have Any Pending Studies at Discharge: No Discharge Instructions Given to Patient (Per Discharging Provider) You were evaluated for vomiting and syncope (passing out) We did not find a serious cause, fortunately. It is possible you were relatively dehydrated after the EGD procedure and dehydration combined with some of your medications dropped your blood pressure. Vomiting can also trigger a common cause of syncope called a vasovagal reaction (ie neurocardiogenic syncope). Both hydroxyzine and prazosin can cause problems for people with liver disease - try stopping them one at a time, if your symptoms are not much worse its safer to be off of those. Hydrozyzine can cause confusion and prazosin can cause your blood pressure to drop too much, especially with standing. Avoid NSAIDS (ibuprofen/motrin/advil and naproxen/aleve) which can cause a kidney injury or contribute to bleeding in people with liver disease Acetaminophen (tylenol) is safe to take at low doses - maximum 2000 mg per 24 hours Follow up as scheduled for liver biopsy and further workup It was a pleasure taking care of you in the hospital Hilda Haider MD Total Time Total Time Spent Total Time Spent (In Minutes): less than 30 minutes Coding Level of Care Code 52272 IN/OBS DISCH 30 MIN/LESS Diagnoses Syncope R55 Type 2 diabetes mellitus without complication, with long-term current use of insulin E11.9; Z79.4 Diabetes mellitus type: type 2 Diabetes mellitus [facility] use: with [facility] use Diabetes mellitus complication status: without complication Chronic obstructive pulmonary disease, unspecified COPD type J44.9 COPD type: unspecified COPD Cirrhosis K74.60
== END 2024-12-30 12:11 | disposition home or self-care (01) | DRG 312 ==
LOC: ED 09:20 → INTOOBSV 12:14 → 2E 12:14 → SUATTDRO 12:14 → 2E 13:44